=== PATIENT | female | born 1985 | race Caucasian/White ===

== ENCOUNTER 2016-06-16 15:49 | Emergency (ER) | payer OTHER ==
[~2016-06-16] VITALS: Ht 165.1 cm; Wt 61.0 kg
[~2016-06-16 15:49] MED LIST: AMOX875T PO
[2016-06-16 15:50] VITALS: BP 137/82; PULSE 74; RESP 15; TEMP 97.9; O2SAT 98
[2016-06-16 17:03] LABS: AUTOMATED NEUTROPHIL # 6.3 TH/MM3 (1.8-7.7); BASOPHIL % 0.4 % (0.0-2.0); EOSINOPHIL # 0.1 TH/MM3 (0-0.4); EOSINOPHIL % 1.4 % (0.0-4.0); HEMATOCRIT 35.6 % (35.0-46.0); HEMO FLAGS DIFF FINAL; LYMPH % 28.5 % (9.0-44.0); LYMPHOCYTE # 2.8 TH/MM3 (1.0-4.8); MEAN CELL VOLUME 90.4 FL (80.0-100.0); MEAN CORPUSCULAR HEMOGLOBIN 32.2 PG (27.0-34.0); MEAN CORPUSCULAR HGB CONC 35.6 % (32.0-36.0); MONO % 5.7 % (0.0-8.0); PLATELET COUNT 237 TH/MM3 (150-450); RED BLOOD COUNT 3.93 MIL/MM3 (4.00-5.30); WHITE BLOOD COUNT 9.9 TH/MM3 (4.0-11.0)
[2016-06-16 17:10] LABS: AMPHETAMINE, URINE NEG (NEG); BARBITURATES, URINE NEG (NEG); COCAINE, URINE NEG (NEG)
[2016-06-16 17:17] LABS: ANION GAP 8 MEQ/L (5-15); BICARBONATE 24.4 MEQ/L (21.0-32.0); BLOOD UREA NITROGEN 13 MG/DL (7-18); CHLORIDE 104 MEQ/L (98-107); GLOMERULAR FILTRATION RATE 100 ML/MIN (>89); POTASSIUM 3.7 MEQ/L (3.5-5.1); SODIUM (NA) 136 MEQ/L (136-145)
[2016-06-16 17:59] VITALS: BP 115/73; RESP 16; O2SAT 99
--- NOTE | 2016-06-16 17:59 | PD ---
HPI Chief Complaint: Abdominal Pain Time Seen by Provider: 16:05 Travel History International Travel<30 days: No Contact w/Intl Traveler<30days: No Traveled to known affect area: No History of Present Illness HPI This is a 30-year-old female who is 13 weeks who presents to the emergency department reporting requested detox from IV opiates. She says she was just in [facility] when she was discharged from [facility] they told her to come to the hospital because withdrawing is very dangerous to her baby. She doesn't want to do an inpatient detox program she only wants to do an outpatient program. She has been vomiting a fair amount during her . She is also reporting moderate severity pain involving and umbilical hernia, intermittent, worse since she's been . She was under the impression we can give her Subutex in the emergency department. PFSH Past Medical History Blood Disorders: No Bipolar Disorder: Yes (DIAGNOSED DURING CHILDHOOD) Anxiety: Yes (DIAGNOSED SINCE CHILDHOOD) Depression: Yes (MANIC DEPRESSION, POST DEPRESSION) Diminished Hearing: No Hepatitis: Yes (C) Reproductive: Yes (RECURRENT AND CHRONIC BARTHOLIN CYST.) Immunizations Current: Yes Tetanus Vaccination: < 5 Years Influenza Vaccination: Yes ?: LMP: 03/24/16 Menopausal: No : 2 Para: 1 Miscarriage: 0 : 1 Past Surgical History Surgical History: No Previous Surgery Social History Alcohol Use: No Tobacco Use: Yes (1/2 PACK PER DAY) Substance Use: Yes (OPIADES) Allergies-Medications (Allergen,Severity, Reaction): Coded Allergies: Haldol (Verified Adverse Reaction, Intermediate, SEIZURES, 06/16/16) Reported Meds & Prescriptions Reported Meds & Active Scripts Active No Active Prescriptions or Reported Medications Review of Systems Except as stated in HPI: all other systems reviewed are Neg Physical Exam Narrative GENERAL:Well appearing, no acute distress SKIN: Track rodriguez in the bilateral upper extremities HEAD: Atraumatic. Normocephalic. EYES: Pupils equal and round. No injection or drainage. ENT: Moist mucous membranes NECK: Trachea midline. CARDIOVASCULAR: Regular rate and rhythm. No murmur appreciated. RESPIRATORY: Clear to auscultation. Breath sounds equal bilaterally. GASTROINTESTINAL: Abdomen soft, non-tender, nondistended. MUSCULOSKELETAL: No obvious deformities. NEUROLOGICAL: Awake and alert. No obvious cranial nerve deficits. Moving all extremities. PSYCHIATRIC: Appropriate mood and affect; insight and judgment normal. Data Data Last Documented VS Vital Signs Date Time Temp Pulse Resp B/P Pulse Ox O2 Delivery O2 Flow Rate FiO2 06/16/16 15:57 17 06/16/16 15:50 97.9 74 137/82 98 Orders Complete Blood Count With Diff (06/16/16 16:37) Basic Metabolic Panel (Bmp) (06/16/16 16:37) Drug Screen, Random Urine (06/16/16 16:37) Alcohol (Ethanol) (06/16/16 16:37) Ed Poc Ultrasound (06/16/16 ) Labs Laboratory Tests Test 06/16/16 16:40 White Blood Count 9.9 TH/MM3 Red Blood Count 3.93 MIL/MM3 Hemoglobin 12.7 GM/DL Hematocrit 35.6 % Mean Corpuscular Volume 90.4 FL Mean Corpuscular Hemoglobin 32.2 PG Mean Corpuscular Hemoglobin 35.6 % Concent Red Cell Distribution Width 13.0 % Platelet Count 237 TH/MM3 Mean Platelet Volume 7.6 FL Neutrophils (%) (Auto) 64.0 % Lymphocytes (%) (Auto) 28.5 % Monocytes (%) (Auto) 5.7 % Eosinophils (%) (Auto) 1.4 % Basophils (%) (Auto) 0.4 % Neutrophils # (Auto) 6.3 TH/MM3 Lymphocytes # (Auto) 2.8 TH/MM3 Monocytes # (Auto) 0.6 TH/MM3 Eosinophils # (Auto) 0.1 TH/MM3 Basophils # (Auto) 0.0 TH/MM3 CBC Comment DIFF FINAL Differential Comment Sodium Level 136 MEQ/L Potassium Level 3.7 MEQ/L Chloride Level 104 MEQ/L Carbon Dioxide Level 24.4 MEQ/L Anion Gap 8 MEQ/L Blood Urea Nitrogen 13 MG/DL Creatinine 0.70 MG/DL Estimat Glomerular Filtration 100 ML/MIN Rate Random Glucose 79 MG/DL Calcium Level 8.4 MG/DL Urine Opiates Screen POS Urine Barbiturates Screen NEG Urine Amphetamines Screen NEG Urine Benzodiazepines Screen NEG Urine Cocaine Screen NEG Urine Cannabinoids Screen NEG Ethyl Alcohol Level LESS THAN 3 MG/DL MDM Medical Decision Making Medical Screen Exam Complete: Yes Emergency Medical Condition: Yes Interpretation(s) Afebrile, no tachycardia, normotensive No leukocytosis Electrolytes are reassuring Urine drug screen is positive for opiates Alcohol negative Differential Diagnosis Intrauterine , dehydration, electrolyte abnormality, opiate dependence Narrative Course This is a 30-year-old female who presents to the emergency department requesting outpatient detox and opiate replacement therapy. She is placed in a monitor and an IV was established. Labs are obtained which are reassuring and a [id number] ultrasound confirms a viable intrauterine . I recommended that the patient over to [facility] where she could be admitted for inpatient detox. She doesn't want to do that but does want to try to enroll in her outpatient program. I gave her copy of her laboratory work as well as confirmation of in hopes that she will enroll in a detox program. Procedures Procedure Narrative [id number] ultrasound: Intrauterine visualized with a heart rate of 152 with movement Diagnosis Primary Impression: Opiate dependence Qualified Code: F11.20 - Uncomplicated opioid dependence Additional Impression: Viable in first trimester Patient Instructions: General Instructions Additional Instructions: Follow up with [facility] in regards to psychiatric or substance related issues at: [address] [place] [address] Med/Other Pt SpecificInfo: No Change to Meds Scripts No Active Prescriptions or Reported Meds Disposition: 01 DISCHARGE HOME Condition: Stable Pattie Lin MD Jun 16, 2016 17:59
[2016-06-16 18:10] VITALS: BP 128/77; TEMP 97.8
== END 2016-06-16 18:10 | disposition home or self-care (01) ==
LOC: NEPC 15:49
DX: O99.321 Drug use complicating pregnancy, first trimester (principal); F11.20 Opioid dependence, uncomplicated; O21.9 Vomiting of pregnancy, unspecified; F17.200 Nicotine dependence, unspecified, uncomplicated; Z86.59 Personal history of other mental and behavioral disorders; Z86.19 Personal history of other infectious and parasitic diseases; Z87.42 Personal history of other diseases of the female genital tract; Z3A.13 13 weeks gestation of pregnancy
CPT/HCPCS: 80048; 80307; 80320; 85025; 99284

== ENCOUNTER 2016-08-24 13:10 | Emergency (ER) | payer MEDICAID, OTHER ==
[2016-08-24 13:12] VITALS: BP 128/98; PULSE 86; RESP 17; TEMP 98.2; O2SAT 97
--- NOTE | 2016-08-24 14:25 | PD ---
HPI Chief Complaint Patient is viability in order to get to detox program Date Seen: August 24, 2016 Travel History International Travel<30 Days: No Contact w/Intl Traveler<30Days: No Known Affected Area: No History of Present Illness HPI 30-year-old female who is at 19 weeks and 2 days who is entering the detox program. She needs verification of heart tones. Patient has no complaints at this time no abdominal pain she is just now starting to feel movement Para: 1 : 2 History Past Medical History Medical History: Denies Significant Hx Obstetric History Obstetric History Spontaneous vaginal delivery Past Surgical History Narrative Surgical Hernia repair Family History Family History: Negative Social History Alcohol Use: No Tobacco Use: No Substance Abuse: Yes Allergies-Medications (Allergen,Severity, Reaction): Coded Allergies: Haldol (Verified Adverse Reaction, Intermediate, SEIZURES, 06/16/16) Uncoded Allergies: NICKEL (Allergy, Intermediate, 08/24/16) Home Meds No Active Prescriptions or Reported Meds Review of Systems Except as stated in HPI: all other systems reviewed are Neg Physical Exam Vital Signs Date Time Temp Pulse Resp B/P Pulse Ox O2 Delivery O2 Flow Rate FiO2 08/24/16 13:12 98.2 86 17 128/98 97 Narrative GENERAL: Well-nourished, well-developed patient. SKIN: Warm and dry. HEAD: Normocephalic and atraumatic. EYES: No scleral icterus. No injection or drainage. ENT: No nasal drainage noted. Mucous membranes pink. Airway patent. ABDOMEN/GI: Abdomen soft, non-tender, bowel sounds present, no rebound, no guarding Gravid to [20] weeks size Fundal Height: [-] GENITOURINARY: External Genitalia: intact and normal in appearance BUS glands: [-] Cervix: [-] Dilatation: [-] Effacement: [-] Station: [-] Presentation: [-] Membranes: [intact or ruptured] Uterine Contractions: [-] FHT's: 152 EXTREMITIES: No cyanosis or edema. BACK: Nontender without obvious deformity. No CVA tenderness. NEUROLOGICAL: Awake and alert. Motor and sensory grossly within normal limits. Five out of 5 muscle strength in all muscle groups. Normal speech. Data Data Vital Signs Reviewed: Yes MDM Plan 19 wish gestation with heart tones clear to enter detox program at this time. Diagnosis Diagnosis: Primary Impression: 19 weeks gestation of Additional Impressions: Substance abuse Substance abuse affecting in second trimester, antepartum Disposition: 01 DISCHARGE HOME Scripts No Active Prescriptions or Reported Meds Alyce Hyde MD August 24, 2016 14:25
== END 2016-08-24 15:29 | disposition home or self-care (01) ==
LOC: HOBED 13:10
DX: O99.322 Drug use complicating pregnancy, second trimester (principal); F19.10 Other psychoactive substance abuse, uncomplicated; Z3A.19 19 weeks gestation of pregnancy
CPT/HCPCS: 99283

== ENCOUNTER 2016-10-07 18:02 | Emergency (ER) | payer MEDICAID ==
[~2016-10-07] VITALS: Ht 172.7 cm; Wt 75.0 kg
[2016-10-07 19:36] VITALS: BP 130/68; PULSE 78; RESP 20; TEMP 98.2; O2SAT 98
--- NOTE | 2016-10-07 22:58 | PD ---
HPI Chief Complaint Umbilical hernia pain and nausea and vomiting Date Seen: Oct 07, 2016 Travel History International Travel<30 Days: No Contact w/Intl Traveler<30Days: No Known Affected Area: No History of Present Illness HPI Patient is 30-year-old white female at 28 weeks with no care however she did have a 12 week ultrasound done June 16 here and that puts her at 28 weeks now, she presents with pain around the umbilical hernia, there is a umbilical mass present that's firm tender and the areas some bluish color to the skin Para: 0 : 1 History Social History Narrative Social History Known IV drug use in the past Alcohol Use: Yes Tobacco Use: Yes Substance Abuse: Yes Allergies-Medications (Allergen,Severity, Reaction): Coded Allergies: Haldol (Verified Adverse Reaction, Intermediate, SEIZURES, 06/16/16) Uncoded Allergies: NICKEL (Allergy, Intermediate, 08/24/16) Home Meds No Active Prescriptions or Reported Meds Review of Systems General / Constitutional: No: Fever, Weight Gain, Chills, Other Eyes: No: Diploplia, Blurred Vision, Visual changes, Pain, Photophobia HENT: No: Headaches, Vertigo, Lightheadedness Cardiovascular: No: Irregular Rhythm, Chest Pain or Discomfort, Palpitations, Tachycardia, Syncope, Varicosities, Edema, Cyanosis Respiratory: No: Cough, Short of Breath, Other Gastrointestinal: Nausea, Vomiting, Abdominal Pain, No: Diarrhea Genitourinary: No: Decreased Urinary Output, Oliguria Musculoskeletal: No: Limited ROM, Weakness, Cramping, Edema, Pain Skin: No Rash, No Itching, No Dryness, No Lumps, No Change in Pigmentation, No Change in Nails, No Alopecia, No Lesions Neurologic: No: Weakness, Dizziness, Syncope, Focal Abnormalities, Coordination Problem, Headache, Slurred Speech, Seizures Psychiatric: No: Depression, Suicidal Ideations, Homicidal Ideation Endocrine: No: Heat Intolerance, Cold Intolerance, Polydipsia, Polyuria, Other Physical Exam Vital Signs Date Time Temp Pulse Resp B/P Pulse Ox O2 Delivery O2 Flow Rate FiO2 10/07/16 19:36 98.2 78 20 130/68 98 Room Air Narrative GENERAL: Well-nourished, well-developed patient. SKIN: Warm and dry. HEAD: Normocephalic and atraumatic. EYES: No scleral icterus. No injection or drainage. ENT: No nasal drainage noted. Mucous membranes pink. Airway patent. NECK: Supple, trachea midline. No JVD. CARDIOVASCULAR: Regular rate and rhythm without murmurs, gallops, or rubs. RESPIRATORY: Breath sounds equal bilaterally. No accessory muscle use. BREASTS: Bilateral exam showed no masses , no retractions, no nipple discharge. ABDOMEN/GI: Abdomen there is an umbilical hernia approximately 5-6 cm wide that is protruding non reducible, firm and tender with a bluish color over the skin of this area , bowel sounds present, no rebound, no guarding Gravid to [-28] weeks size Fundal Height: [28-] GENITOURINARY: External Genitalia: intact and normal in appearance Membranes: [intact Uterine Contractions: [-none] FHT's: Category: [1-] Baseline: [-144] Reactive: [-yes] Variability: [mod-] Decels: [0-] EXTREMITIES: No cyanosis or edema. BACK: Nontender without obvious deformity. No CVA tenderness. NEUROLOGICAL: Awake and alert. Motor and sensory grossly within normal limits. Five out of 5 muscle strength in all muscle groups. Normal speech. MDM Interpretation(s) Patient is 30-year-old white female at 28 weeks with very little to no care however ultrasound done at around 12 weeks puts her now at 28 weeks she presents with an entrapped umbilical hernia that is non-reducible firm hard and discolored and is suspicious for incarcerated bowel. The heart rates within normal limits and no contractions no obstetric issue Plan Plan for patient to go to the main ER to be evaluated by general surgery Diagnosis Diagnosis: Primary Impression: Strangulated umbilical hernia Disposition: 70 TRANSFER TO OTHER FACILITY Scripts No Active Prescriptions or Reported Meds Bishop Corado II, MD Oct 07, 2016 22:58
[2016-10-07] MEDS ORDERED: HYDROmorphone HCL PF 1 MG/ML VIAL IV PUSH ONE (23:45)
[2016-10-07] MEDS ORDERED: ONDANSETRON HCL 4 MG/2 ML VIAL IV PUSH ONE (23:45)
[2016-10-07] MEDS ORDERED: SODIUM CHLOR 0.9% 1000 ML INJ 1,000 ML IV ONE (23:45)
[2016-10-08 00:09] LABS: BASOPHIL % 0.3 % (0.0-2.0); EOSINOPHIL # 0.1 TH/MM3 (0-0.4); EOSINOPHIL % 1.4 % (0.0-4.0); HEMATOCRIT 38.7 % (35.0-46.0); HEMO FLAGS DIFF FINAL; LYMPH % 28.1 % (9.0-44.0); LYMPHOCYTE # 2.7 TH/MM3 (1.0-4.8); MEAN CELL VOLUME 89.7 FL (80.0-100.0); MEAN CORPUSCULAR HEMOGLOBIN 31.6 PG (27.0-34.0); MEAN CORPUSCULAR HGB CONC 35.2 % (32.0-36.0); MONO % 6.6 % (0.0-8.0); NEUT % 63.6 % (16.0-70.0); PLATELET COUNT 277 TH/MM3 (150-450); RED BLOOD COUNT 4.32 MIL/MM3 (4.00-5.30); RED CELL DISTRIBUTION WIDTH 12.2 % (11.6-17.2); WHITE BLOOD COUNT 9.4 TH/MM3 (4.0-11.0)
[2016-10-08 00:40] LABS: ALT (GPT) 31 U/L (10-53); ANION GAP 7 MEQ/L (5-15); AST (GOT) 28 U/L (15-37); BLOOD UREA NITROGEN 10 MG/DL (7-18); CHLORIDE 102 MEQ/L (98-107); GLOMERULAR FILTRATION RATE 100 ML/MIN (>89); POTASSIUM 3.7 MEQ/L (3.5-5.1); SODIUM (NA) 136 MEQ/L (136-145)
[2016-10-08 00:43] LABS: ALKALINE PHOSPHATASE 105 U/L (45-117); TOTAL BILIRUBIN ADULT 0.4 MG/DL (0.2-1.0)
--- NOTE | 2016-10-08 00:48 | PD ---
HPI Chief Complaint: MILI Related Problem Time Seen by Provider: 23:33 Travel History International Travel<30 days: No Contact w/Intl Traveler<30days: No Traveled to known affect area: No History of Present Illness HPI 30 year-old woman, approximately 28 weeks , 2 para 1, 0, 0, 1 presents emergency department complaining of pain in her local hernia site. She developed an umbilical hernia over the past month or so. Over the past couple days she's been having worsening nausea and vomiting, and then yesterday started having pain in her umbilical hernia site. She was initially waiting for emergency department evaluation and then was seen in L&D where she had a normal screening. She still has pain and tenderness at her umbilical hernia site. History Past Medical History Medical History: Denies Significant Hx Menopausal: No : 2 Para: 1 Social History Alcohol Use: Yes Tobacco Use: Yes Allergies-Medications (Allergen,Severity, Reaction): Coded Allergies: Haldol (Verified Adverse Reaction, Intermediate, SEIZURES, 06/16/16) Uncoded Allergies: NICKEL (Allergy, Intermediate, 08/24/16) Reported Meds & Prescriptions Reported Meds & Active Scripts Active No Active Prescriptions or Reported Medications Review of Systems Except as stated in HPI: all other systems reviewed are Neg Physical Exam Narrative GENERAL: 30 year-old woman, appears uncomfortable, nontoxic. SKIN: Focused skin assessment warm/dry. Tract rodriguez on the right arm. NECK: Trachea midline. No JVD. CARDIOVASCULAR: Regular rate and rhythm. No murmur appreciated. RESPIRATORY: No accessory muscle use. Clear to auscultation. Breath sounds equal bilaterally. GASTROINTESTINAL: Abdomen is gravid, soft, with the umbilical hernia about 2-3 cm. There is some purplish discoloration to the skin over the hernia. It soft but exquisitely tender. MUSCULOSKELETAL: No obvious deformities. No clubbing. No cyanosis. No edema. NEUROLOGICAL: Awake and alert. No obvious cranial nerve deficits. Motor grossly within normal limits. Normal speech. PSYCHIATRIC: Appropriate mood and affect; insight and judgment normal. Data Data Last Documented VS Vital Signs Date Time Temp Pulse Resp B/P Pulse Ox O2 Delivery O2 Flow Rate FiO2 10/07/16 19:36 98.2 78 20 130/68 98 Room Air Orders Iv Access Insert/Monitor (10/07/16 23:40) Complete Blood Count With Diff (10/07/16 23:40) Comprehensive Metabolic Panel (10/07/16 23:40) Sodium Chlor 0.9% 1000 Ml Inj (Ns 1000 M (10/07/16 23:45) Hydromorphone Pf Inj (Dilaudid Pf Inj) (10/07/16 23:45) Ondansetron Inj (Zofran Inj) (10/07/16 23:45) Abdomen, Upright Only (10/08/16 ) Mri Abdomen W/O Contrast (10/08/16 ) Labs Laboratory Tests Test 10/07/16 23:55 White Blood Count 9.4 TH/MM3 Red Blood Count 4.32 MIL/MM3 Hemoglobin 13.6 GM/DL Hematocrit 38.7 % Mean Corpuscular Volume 89.7 FL Mean Corpuscular Hemoglobin 31.6 PG Mean Corpuscular Hemoglobin 35.2 % Concent Red Cell Distribution Width 12.2 % Platelet Count 277 TH/MM3 Mean Platelet Volume 7.6 FL Neutrophils (%) (Auto) 63.6 % Lymphocytes (%) (Auto) 28.1 % Monocytes (%) (Auto) 6.6 % Eosinophils (%) (Auto) 1.4 % Basophils (%) (Auto) 0.3 % Neutrophils # (Auto) 6.0 TH/MM3 Lymphocytes # (Auto) 2.7 TH/MM3 Monocytes # (Auto) 0.6 TH/MM3 Eosinophils # (Auto) 0.1 TH/MM3 Basophils # (Auto) 0.0 TH/MM3 CBC Comment DIFF FINAL Differential Comment Sodium Level 136 MEQ/L Potassium Level 3.7 MEQ/L Chloride Level 102 MEQ/L Carbon Dioxide Level 27.0 MEQ/L Anion Gap 7 MEQ/L Blood Urea Nitrogen 10 MG/DL Creatinine 0.70 MG/DL Estimat Glomerular Filtration 100 ML/MIN Rate Random Glucose 80 MG/DL Calcium Level 9.2 MG/DL Aspartate Amino Transf 28 U/L (AST/SGOT) Alanine Aminotransferase 31 U/L (ALT/SGPT) Albumin 3.3 GM/DL [facility] Medical Decision Making Medical Screen Exam Complete: Yes Emergency Medical Condition: Yes Differential Diagnosis Hernia, incarceration, strength regulation, obstruction, other Narrative Course Medical decision making 22 year-old woman, about 25-28 weeks , presents ED with pain in her umbilical hernia site. She has track rodriguez and a history of IVDU but denies any recent use. She appears hyperalgesic, extremely dramatic. Ice pack was placed on the hernia, and she was given some initial IV analgesia with Dilaudid. Following this she was able to allow a thorough exam of the hernia. It was soft, exquisitely tender, but able to be fully reduced. I then spoke with Dr. Weir, surgeon on-call. He recommended a plain film, followed by MRI to evaluate for evidence of obstruction or intestinal ischemia. He recommended monitoring the patient overnight for further evaluation and monitoring. During this time, patient became progressively more irritated and irate. Seem to so she was fighting with the man who is with her. Unclear. In any case she began demanding to leave. I went back in to talk to her and she was demanding to have her IV taken out. She cannot provide any specific reason for wanting to leave other than "I have been here long enough". She was aggressive with nursing and security staff including following one of the security guards "Don' t let that spick back in my room". I instructed staff to allow the patient to leave. Diagnosis Primary Impression: Incarcerated umbilical hernia Scripts No Active Prescriptions or Reported Meds Disposition: 07 AGAINST MEDICAL ADVICE Obi Bryant MD Oct 08, 2016 00:48
== END 2016-10-08 00:35 | disposition left against medical advice (07) ==
LOC: HOBED 18:02 → NEPC 10-08 00:35
DX: O26.93 Pregnancy related conditions, unspecified, third trimester (principal); K42.0 Umbilical hernia with obstruction, without gangrene; R11.2 Nausea with vomiting, unspecified; Z3A.28 28 weeks gestation of pregnancy; Z72.0 Tobacco use
CPT/HCPCS: 80053; 85025; 96374; 96375; 99284; J1170; J2405; J7030

== ENCOUNTER 2016-12-02 02:10 | Inpatient (IN) | payer MEDICAID ==
[2016-12-02] VITALS (168 sets, daily range): BP systolic 102–140; BP diastolic 53–92; PULSE 64–89; RESP 18; TEMP 97.5–100
[~2016-12-02] VITALS: Ht 165.1 cm; Wt 65.8 kg
--- NOTE | 2016-12-02 02:41 | HHI.HP ---
HPI Chief Complaint Water broke and having pain Date Seen: Dec 02, 2016 Travel History International Travel<30 Days: No Contact w/Intl Traveler<30Days: No Known Affected Area: No History of Present Illness HPI 30-year-old white female at 35-36 weeks with spontaneous rupture the membranes and contraction onset. No vaginal bleeding. Gross ruptured membranes noted on exam and OB ED and positive amnio sure seen patient is a known IV drug abuser and did IV heroin just a few hours ago Para: 1 : 2 History Past Medical History Narrative Medical Has history of umbilical hernia that is occasionally symptomatic with the tenderness and pain. Obstetric History Obstetric History One vaginal delivery Social History Narrative Social History known IV drug abuser and has used IV heroin today Alcohol Use: Yes Tobacco Use: Yes Substance Abuse: Yes Allergies-Medications (Allergen,Severity, Reaction): Coded Allergies: Haldol (Verified Adverse Reaction, Intermediate, SEIZURES, 06/16/16) Uncoded Allergies: NICKEL (Allergy, Intermediate, 08/24/16) Home Meds No Active Prescriptions or Reported Meds Review of Systems General / Constitutional: No: Fever, Weight Gain, Chills, Other Eyes: No: Diploplia, Blurred Vision, Visual changes, Pain, Photophobia HENT: No: Headaches, Vertigo, Lightheadedness Cardiovascular: No: Irregular Rhythm, Chest Pain or Discomfort, Palpitations, Tachycardia, Syncope, Varicosities, Edema, Cyanosis Respiratory: No: Cough, Short of Breath, Other Gastrointestinal: Abdominal Pain, No: Nausea, Vomiting, Diarrhea Genitourinary: No: Decreased Urinary Output, Oliguria Musculoskeletal: No: Limited ROM, Weakness, Cramping, Edema, Pain Skin: No Rash, No Itching, No Dryness, No Lumps, No Change in Pigmentation, No Change in Nails, No Alopecia, No Lesions Neurologic: No: Weakness, Dizziness, Syncope, Focal Abnormalities, Coordination Problem, Headache, Slurred Speech, Seizures Psychiatric: No: Depression, Suicidal Ideations, Homicidal Ideation Endocrine: No: Heat Intolerance, Cold Intolerance, Polydipsia, Polyuria, Other Physical Exam Narrative GENERAL: Well-nourished, well-developed patient. SKIN: Warm and dry. HEAD: Normocephalic and atraumatic. EYES: No scleral icterus. No injection or drainage. ENT: No nasal drainage noted. Mucous membranes pink. Airway patent. NECK: Supple, trachea midline. No JVD. CARDIOVASCULAR: Regular rate and rhythm without murmurs, gallops, or rubs. RESPIRATORY: Breath sounds equal bilaterally. No accessory muscle use. BREASTS: Bilateral exam showed no masses , no retractions, no nipple discharge. ABDOMEN/GI: Abdomen soft, non-tender, bowel sounds present, no rebound, no guarding Bishop Grijalva and noted as not to change since up previously seen by me at 28 weeks Gravid to [-36] weeks size Fundal Height: [-35] GENITOURINARY: External Genitalia: intact and normal in appearance BUS glands: [-] Cervix: [-] Dilatation: [2-] Effacement: [-90] Station: [-1] Presentation: [-vtx] Membranes: ruptured] positive amnio sure Uterine Contractions: [irreg-] FHT's: Category: [1-] Baseline: [-133] Reactive: [-yes] Variability: [mod-] Decels: [-none] EXTREMITIES: No cyanosis or edema. BACK: Nontender without obvious deformity. No CVA tenderness. NEUROLOGICAL: Awake and alert. Motor and sensory grossly within normal limits. Five out of 5 muscle strength in all muscle groups. Normal speech. Assessment/Plan Assessment and Plan Patient is 30-year-old white female at 35-36 weeks with essentially no care other than ER visits who presents with spontaneous rupture membranes and early contractions. She is grossly ruptured in OB ED with positive amnio sure. Cervix is 1-2/ 90% -2 vertex. The approximately 12 week ultrasound dates are at 35-36 weeks. Patient is known IV drug abuser and has used IV heroin today. And is under it's effective at this time Impression -- SROM at 35-36 weeks and early labor, IV drug abuser Plans admission labor augmentation management anticipate vaginal delivery Bishop Corado II, MD Dec 02, 2016 02:41
[2016-12-02] MEDS ORDERED: LACTATED RINGER'S 1000 ML INJ 1,000 ML IV PRN (02:43)
[2016-12-02] MEDS ORDERED: LIDOCAINE HCL 1% 50 ML VIAL I-DERMAL PRN (02:45)
[2016-12-02] MEDS ORDERED: MINERAL OIL 10 ML VIAL TOPICAL PRN (02:45)
[2016-12-02] MEDS ORDERED: PENICILLIN G POTASSIUM INJ 5,000,000 UNITS in SODIUM CHLORIDE 0.9% INJ 100 ML IV ONE (02:45)
[2016-12-02] MEDS ORDERED: OXYTOCIN 30 UNITS-500ML PREMIX 500 ML IV ONE (02:45)
[2016-12-02] MEDS ORDERED: CITRIC ACID-SODIUM CITRATE LIQ 30 ML UDC PO SCH (02:45)
[2016-12-02] MEDS ORDERED: SODIUM CHLORID 0.9% 500 ML INJ 500 ML IV PRN (02:45)
[2016-12-02] MEDS ORDERED: LIDOCAINE HCL 1% 50 ML VIAL INFIL PRN (02:45)
[2016-12-02] MEDS ORDERED: OXYTOCIN 30 UNITS-500ML PREMIX 500 ML IV SCH ×2 (03:00→17:00)
[2016-12-02] MEDS ORDERED: SODIUM CHLOR 0.9% 1000 ML INJ 1,000 ML IV PRN (03:03)
[2016-12-02 03:17] LABS: AUTOMATED NEUTROPHIL # 10.8 TH/MM3 (1.8-7.7); BASOPHIL # 0.1 TH/MM3 (0-0.2); BASOPHIL % 0.4 % (0.0-2.0); EOSINOPHIL # 0.1 TH/MM3 (0-0.4); HEMATOCRIT 31.7 % (35.0-46.0); HEMO FLAGS DIFF FINAL; LYMPH % 15.1 % (9.0-44.0); LYMPHOCYTE # 2.1 TH/MM3 (1.0-4.8); MEAN CELL VOLUME 90.2 FL (80.0-100.0); MEAN CORPUSCULAR HEMOGLOBIN 32.1 PG (27.0-34.0); MEAN CORPUSCULAR HGB CONC 35.6 % (32.0-36.0); MONO % 6.1 % (0.0-8.0); NEUT % 77.4 % (16.0-70.0); PLATELET COUNT 255 TH/MM3 (150-450); RED BLOOD COUNT 3.52 MIL/MM3 (4.00-5.30); RED CELL DISTRIBUTION WIDTH 12.5 % (11.6-17.2); WHITE BLOOD COUNT 13.9 TH/MM3 (4.0-11.0)
[2016-12-02 03:39] LABS: ANION GAP 11 MEQ/L (5-15); AST (GOT) 46 U/L (15-37); BICARBONATE 23.4 MEQ/L (21.0-32.0); BLOOD UREA NITROGEN 10 MG/DL (7-18); CHLORIDE 104 MEQ/L (98-107); GLOMERULAR FILTRATION RATE 83 ML/MIN (>89); POTASSIUM 3.5 MEQ/L (3.5-5.1); SODIUM (NA) 138 MEQ/L (136-145)
[2016-12-02 03:47] LABS: AMPHETAMINE, URINE NEG (NEG); BARBITURATES, URINE NEG (NEG)
[2016-12-02 03:51] LABS: BLOOD, URINE NEG (NEG); COMMENT (UR) CULT NOT INDICATED; CULTURE IF INDICATED CULT NOT INDICATED; GLUCOSE,URINE TRACE mg/dL (NEG); HYALINE CAST, URINE 2 /lpf (RARE); KETONE, URINE NEG (NEG); MUCUS URINE FEW /lpf (OCC); NITRITE,URINE NEG (NEG); PH, URINE 6.5 (5.0-8.5); SQUAMOUS EPITHELIAL CELL URINE 3 /hpf (0-5); URINE COLOR YELLOW (YELLW/STRAW)
[2016-12-02 03:56] LABS: ALKALINE PHOSPHATASE 121 U/L (45-117); ALT (GPT) 57 U/L (10-53); TOTAL BILIRUBIN ADULT 0.3 MG/DL (0.2-1.0)
[2016-12-02] MEDS ORDERED: fentaNYL 2MCG-BUPIV 0.125% INJ 100 ML ONE (03:56)
[2016-12-02 03:57] LABS: COCAINE, URINE POS (NEG)
[2016-12-02] MEDS ORDERED: DO NOT ADMINISTER ANTICOAGULANTS PRN (05:15)
[2016-12-02] MEDS ORDERED: NO SYSTEM NARCOTICS PRN (05:15)
[2016-12-02] MEDS ORDERED: fentaNYL 2MCG-BUPIV 0.125% 100 ML EPIDURAL SCH (05:15)
[2016-12-02] MEDS ORDERED: ePHEDrine/NS 25 MG/5 ML SYR IV PRN (05:15)
[2016-12-02] MEDS: LACTATED RINGER'S 1000 ML INJ 1,000 ML IV SCH ×2 (05:16→12:15)
[2016-12-02] MEDS ORDERED: PENICILLIN G POTASSIUM INJ 2,500,000 UNITS in SODIUM CHLORIDE 0.9% INJ 100 ML IV SCH ×2 (06:45→12:00)
[2016-12-02] MEDS ORDERED: GENTAMICIN INJ 80 MG in SODIUM CHLORIDE 0.9% INJ 100 ML IV SCH (09:00)
--- NOTE | 2016-12-02 10:12 | PD.PN.STU ---
Subjective Remarks 30 yo at 35-36 weeks by 12 week ultrasound presented last night complaining of leakage of fluid and contractions. She admits to a history of IV drug abuse and UDS is positive for cocaine and opiates so far. She has not been receiving any care due to "inability to find a physician". She currently admits to using IV heroin and denies any other drug use. Her drug use started 10 years ago and has continued use during her . She acquires her heroin via her dealer. She uses a $20 bag 2-4 times a day. She has previously received treatment at [facility] twice and [facility] once. Last time she attempted treatment was 4-5 years ago. She currently lives at home with Huey in a hotel for the past few months. This is where she will return to after her delivery. She states he is aware of her use "but he does not use drugs and he really wants me to receive treatment". She states she is interested in treatment but this is not congruent with her attitude. She also has a history of tobacco use which has continued during her . 1 pack per day for 10 years. Not interested in quitting. She denies any alcohol use including only social use. OB History 2009 full term female at 6lbs 4 oz - [place] - History of post- depression Bartholin cyst at age 20. Last PAP 2009. Never abnormal. No history of STDs or UTIs Past Medical History Umbilical hernia Hep C diagnosed 2015. No previous treatment but interested in treatment. Past Psychiatric History Bipolar Manic depression Post depression Anxiety No current treatment or mental health provider. Past Surgical History None Medications None Allergies Haldol - causes seizures. Last seizure >10 years ago. No history of seizures not related to medication exposure Nickel - cause rash Objective Vitals Vital Signs Date Time Temp Pulse Resp B/P Pulse Ox O2 Delivery O2 Flow Rate FiO2 12/02/16 09:33 18 12/02/16 09:30 75 12/02/16 09:30 99.6 74 133/78 12/02/16 09:25 79 12/02/16 09:20 85 12/02/16 09:15 78 12/02/16 09:10 75 12/02/16 09:05 74 12/02/16 09:01 77 119/64 12/02/16 09:00 74 12/02/16 08:55 75 12/02/16 08:50 73 12/02/16 08:45 75 12/02/16 08:40 73 18 12/02/16 08:35 75 12/02/16 08:30 75 12/02/16 08:30 73 115/64 12/02/16 08:25 75 12/02/16 08:20 74 12/02/16 08:15 73 12/02/16 08:10 72 12/02/16 08:05 72 12/02/16 08:00 80 12/02/16 07:55 77 12/02/16 07:54 18 12/02/16 07:50 76 12/02/16 07:45 71 12/02/16 07:45 73 110/53 12/02/16 07:40 74 12/02/16 07:35 77 12/02/16 07:31 74 108/54 12/02/16 07:30 74 12/02/16 07:25 73 12/02/16 07:20 75 12/02/16 07:17 100.0 18 12/02/16 07:15 73 12/02/16 07:15 73 115/55 12/02/16 07:10 73 12/02/16 07:05 73 12/02/16 07:00 71 12/02/16 07:00 72 113/58 12/02/16 06:48 18 12/02/16 06:45 72 12/02/16 06:45 69 116/57 12/02/16 06:41 67 113/56 12/02/16 06:40 68 12/02/16 06:35 68 12/02/16 06:30 67 12/02/16 06:30 68 102/57 12/02/16 06:20 67 12/02/16 06:16 66 117/60 12/02/16 06:15 65 12/02/16 06:00 70 12/02/16 06:00 68 120/66 12/02/16 05:55 73 12/02/16 05:50 71 12/02/16 05:45 75 102/53 12/02/16 05:45 75 12/02/16 05:30 73 12/02/16 05:30 72 105/54 12/02/16 05:25 69 12/02/16 05:20 74 12/02/16 05:17 18 12/02/16 05:15 73 12/02/16 05:15 69 105/55 12/02/16 05:00 65 12/02/16 05:00 68 117/58 12/02/16 05:00 98.3 18 12/02/16 04:58 78 116/67 12/02/16 04:55 75 12/02/16 04:55 72 124/83 12/02/16 04:52 69 131/74 12/02/16 04:50 68 12/02/16 04:48 67 135/71 12/02/16 04:45 66 12/02/16 04:45 73 131/70 12/02/16 04:42 67 117/66 12/02/16 04:40 65 12/02/16 04:39 67 118/68 12/02/16 04:37 76 123/81 12/02/16 04:35 70 12/02/16 04:33 70 136/85 12/02/16 04:31 69 140/75 12/02/16 04:30 69 12/02/16 04:25 64 12/02/16 04:20 68 12/02/16 03:55 67 129/82 Result Diagram: 12/02/16 0300 12/02/16 0300 Other Results GENERAL: Alert and oriented to person, place and time. Very mildly agitated, states she would prefer to sleep but does answer questions. Prefers low light in the room due to headache. SKIN: Warm. Mildly sweaty. HEAD: Normocephalic. EYES: No scleral icterus. No injection or drainage. Pupils equal and reactive. Pupils not dilated. NECK: Supple, trachea midline. No JVD or lymphadenopathy. CARDIOVASCULAR: Regular rate and rhythm without murmurs, gallops, or rubs. RESPIRATORY: Breath sounds equal bilaterally. No accessory muscle use. GASTROINTESTINAL: Abdomen soft, non-tender. Gravid abdomen. MUSCULOSKELETAL: No cyanosis, or edema. BACK: Nontender without obvious deformity. No CVA tenderness. HIV - negative UA - negative Gc/Chl - pending GBS - pending COWS score 1 CAMH score 6 A/P Assessment and Plan 30 yo at 35-36 weeks by 12 week ultrasound who presented last night complaining of leakage of fluid and contractions. 1. Labor - Anticipate vaginal delivery - Continue EFM/TOCO - Received epidural - Vertex - 6-7cm/70%/-1 @10:30 as per chart - Strip: Contractions q3 mins Moderate variability No accelerations Some late decelerations this am but none within the last hour 2. No care - labs ordered 3. SROM at 35-36 weeks. - Received 2 doses of penicillin - Penicillin switched to ampicillin and gentamicin due to temperature elevation and leukocytosis of 13.9 4. IV Drug abuse - Current COWS (Clinical Opiate Withdrawal Scale) score 0. Score not indicative of current withdrawal - Paper record added to patient chart - Continue to assess 5. Hepatitis C - Elevation of AST and ALT - GI referral as outpatient 6. Tobacco Use - Patient not interested in quitting Amanda Owens M3 Dec 02, 2016 10:12
[2016-12-02 11:32] LABS: RUBELLA IGG ANTIBODY 28.1 IU/mL (10.0-500.0); RUBELLA STATUS IMMUNE (IMMUNE)
[2016-12-02] MEDS ORDERED: AMPICILLIN INJ 2,000 MG in SODIUM CHLORIDE 0.9% INJ 100 ML IV SCH (12:00)
--- NOTE | 2016-12-02 13:16 | PD.LABORPN ---
Subjective Subjective more comfortable, after epidural. Objective Vital Signs Vital Signs Date Time Temp Pulse Resp B/P Pulse Ox O2 Delivery O2 Flow Rate FiO2 12/02/16 13:00 84 139/82 12/02/16 13:00 85 12/02/16 12:55 81 12/02/16 12:54 80 137/80 12/02/16 12:51 99.2 18 12/02/16 12:50 79 12/02/16 12:45 83 12/02/16 12:40 77 12/02/16 12:35 78 12/02/16 12:30 77 12/02/16 12:30 84 132/86 12/02/16 12:25 78 12/02/16 12:20 77 12/02/16 12:15 76 12/02/16 12:10 78 12/02/16 12:05 73 12/02/16 12:01 75 117/57 12/02/16 12:00 83 12/02/16 11:58 99.8 18 12/02/16 11:55 84 12/02/16 11:50 78 12/02/16 11:45 77 12/02/16 11:40 80 12/02/16 11:35 77 12/02/16 11:30 76 12/02/16 11:30 79 128/80 12/02/16 11:25 77 12/02/16 11:20 76 12/02/16 11:15 74 12/02/16 11:10 75 12/02/16 11:05 76 12/02/16 11:00 78 12/02/16 11:00 74 119/64 12/02/16 10:55 78 12/02/16 10:50 75 12/02/16 10:45 73 12/02/16 10:40 76 12/02/16 10:35 76 12/02/16 10:31 80 18 102/63 12/02/16 10:30 79 12/02/16 10:25 75 12/02/16 10:20 72 12/02/16 10:15 71 12/02/16 10:10 74 12/02/16 10:05 74 12/02/16 10:01 74 123/67 12/02/16 10:00 75 12/02/16 09:55 73 12/02/16 09:50 73 12/02/16 09:45 77 12/02/16 09:40 75 12/02/16 09:35 79 12/02/16 09:33 18 12/02/16 09:30 75 12/02/16 09:30 99.6 74 133/78 12/02/16 09:25 79 12/02/16 09:20 85 12/02/16 09:15 78 12/02/16 09:10 75 12/02/16 09:05 74 12/02/16 09:01 77 119/64 12/02/16 09:00 74 12/02/16 08:55 75 12/02/16 08:50 73 12/02/16 08:45 75 12/02/16 08:40 73 18 12/02/16 08:35 75 12/02/16 08:30 75 12/02/16 08:30 73 115/64 12/02/16 08:25 75 12/02/16 08:20 74 12/02/16 08:15 73 12/02/16 08:10 72 12/02/16 08:05 72 12/02/16 08:00 80 12/02/16 07:55 77 12/02/16 07:54 18 12/02/16 07:50 76 12/02/16 07:45 71 12/02/16 07:45 73 110/53 12/02/16 07:40 74 12/02/16 07:35 77 12/02/16 07:31 74 108/54 12/02/16 07:30 74 12/02/16 07:25 73 12/02/16 07:20 75 12/02/16 07:17 100.0 18 12/02/16 07:15 73 12/02/16 07:15 73 115/55 12/02/16 07:10 73 12/02/16 07:05 73 12/02/16 07:00 71 12/02/16 07:00 72 113/58 12/02/16 06:48 18 12/02/16 06:45 72 12/02/16 06:45 69 116/57 12/02/16 06:41 67 113/56 12/02/16 06:40 68 12/02/16 06:35 68 12/02/16 06:30 67 12/02/16 06:30 68 102/57 12/02/16 06:20 67 12/02/16 06:16 66 117/60 12/02/16 06:15 65 12/02/16 06:00 70 12/02/16 06:00 68 120/66 12/02/16 05:55 73 12/02/16 05:50 71 12/02/16 05:45 75 102/53 12/02/16 05:45 75 12/02/16 05:30 73 12/02/16 05:30 72 105/54 12/02/16 05:25 69 12/02/16 05:20 74 12/02/16 05:17 18 12/02/16 05:15 73 12/02/16 05:15 69 105/55 Objective Pelvic Exam: Cervix: [7cm, per L&D nurse, pt was checked just prior to my arrival Dilatation: [-] Effacement: [-] Station: [-] Presentation: [vertex] Membranes: [ ruptured on admission] Uterine Contractions: [every 2-3 minutes, pt has IUPC. FHT's: Category: [1] Baseline: [-] Reactive: [-] Variability: [-] Decels: [-] Assessment/Plan Assessment and Plan Term labor. /maternal status reassuring Continue antibiotics- Ancef and Gentamycin. No further temperature elevations. To add low dose Pitocin Expectant Hernesto Brwon MD Dec 02, 2016 13:16
[2016-12-02] MEDS ORDERED: BUPIVACAINE HCL PF 0.25% 10 ML VIAL ONE (14:14)
[2016-12-02 15:57] LABS: CHLAMYDIA PCR NOT DETECTED (NOT DETECT); NEISSERIA PCR NOT DETECTED (NOT DETECT)
[2016-12-02] MEDS ORDERED: DIPHTH/TETANUS/ACEL PERTUSSIS (BOOSTER) 0.5 ML VIAL/PFS IM ONE (16:00)
[2016-12-02] MEDS ORDERED: MEASLES, MUMPS, RUBELLA VACCINE 0.5 ML VIAL SQ ONE (16:00)
--- NOTE | 2016-12-02 16:24 | PD.OB.DELI ---
Delivery Date: Dec 02, 2016 Anesthesia: Epidural Episiotomy: None Vaginal Delivery: Normal Presentation: Occiput anterior, Compound (right hand) Nuchal Cord: None Delayed cord clamping (45 sec): No Infant: Female One Minute : 8 Five Minute : 9 Weight: 2200g Placenta: Spontaneous delivery, Intact, 3 vessel cord Laceration: Vaginal laceration (bilateral periurethral), 1 deg (bilateral periurethral) Estimated blood loss: 300ml Additional Information Compound presentation with right hand. Head and body delivered precipitously by maternal effort. There was noted to be cord wrapped around the baby's right foot. After delivery, 2 hemostatic periurethral lacerations were noted. Delivered by Dr. Walsh. Supervised by Dr. Brown. Al Walsh MD Dec 02, 2016 16:24
[2016-12-02] MEDS ORDERED: DOCUSATE SODIUM 50 MG/SENNA 8.6 MG TAB PO PRN (16:30)
[2016-12-02] MEDS ORDERED: ACETAMINOPHEN 325 MG TAB PO PRN (16:30)
[2016-12-02] MEDS ORDERED: BENZOCAINE 20% TOPICAL SPRAY 60 ML CAN TOPICAL PRN (16:30)
[2016-12-02] MEDS ORDERED: WITCH HAZEL 50%/GLYCERIN 12.5% 40 PAD JAR TOPICAL PRN (16:30)
[2016-12-02] MEDS ORDERED: ALUMINUM/MAGNESIUM/SIMETH 30 ML CUP PO PRN (16:30)
[2016-12-02] MEDS ORDERED: ZOLPIDEM TARTRATE 5 MG TAB PO PRN (16:30)
[2016-12-02] MEDS ORDERED: oxyCODONE/ACETAMINOPHEN 5 MG/325 MG TAB PO PRN (16:30)
[2016-12-02] MEDS ORDERED: ONDANSETRON ODT 4 MG TAB PO PRN (16:30)
[2016-12-02] MEDS ORDERED: SODIUM CHLORIDE 0.9% FLUSH 10 ML FLUSH IV FLUSH PRN (16:30)
[2016-12-02] MEDS ORDERED: BENZONATATE 100 MG CAP PO PRN (18:15)
[2016-12-02] MEDS: IBUPROFEN 600 MG TAB PO PRN (18:51)
[2016-12-02] MEDS ORDERED: SODIUM CHLORIDE 0.9% FLUSH 10 ML FLUSH IV FLUSH SCH (21:00)
[2016-12-02] MEDS ORDERED: PROMETHAZINE HCL 25 MG TAB PO PRN (22:30)
[2016-12-02] MEDS ORDERED: DIAZEPAM 2 MG TAB PO PRN (22:30)
--- NOTE | 2016-12-02 22:54 | RADRPT ---
EXAM DATE/TIME: 12/02/2016 22:21 [place] COMPARISON: No previous studies available for comparison. INDICATIONS : Cough. MEDICAL HISTORY : None. SURGICAL HISTORY : None. ENCOUNTER: Initial ACUITY: 3 days PAIN SCORE: 0/10 LOCATION: Bilateral chest FINDINGS: A single view of the chest demonstrates the lungs to be symmetrically aerated without evidence of mas s, infiltrate or effusion. The cardiomediastinal contours are unremarkable. Osseous structures are intact. CONCLUSION: No acute disease. Randolph Gibbs MD on December 02, 2016 at 22:52 Board Certified Radiologist. This report was verified electronically.
[2016-12-03] MEDS: IBUPROFEN 600 MG TAB PO PRN ×2 (04:23→12:44)
[2016-12-03] MEDS: cloNIDine HCL 0.1 MG TAB PO PRN ×2 (06:34→12:43)
[2016-12-03] MEDS: PHENobarbital 32.4 MG TAB PO SCH ×2 (06:35→14:00)
[2016-12-03 08:00] VITALS: BP 127/75; PULSE 65; RESP 16; TEMP 98.7
[2016-12-03] MEDS: oxyCODONE/ACETAMINOPHEN 5 MG/325 MG TAB PO PRN ×2 (08:02→12:44)
--- NOTE | 2016-12-03 08:22 | HHI.OB ---
Subjective Post Day: 1 Remarks Patient is a 30-year-old delivered at 36 weeks and 1 days. Patient is day 1 after . Patient's pain reports vaginal pain. Patient reports eating and drinking without any nausea or vomiting. Nurse reports scant bleeding. Patient has passed gas and bowel movements. Patient is walking without lower extremity pain or shortness of breath or chest pain. She denies any feelings of depression Patient reports desire for contraception with Depo- Provera and bottle/formula feeding. Objective Vitals/I&O Vital Signs Date Time Temp Pulse Resp B/P Pulse Ox O2 Delivery O2 Flow Rate FiO2 12/02/16 19:30 98.5 72 18 129/74 12/02/16 18:47 18 12/02/16 18:00 18 12/02/16 17:45 72 136/80 12/02/16 17:31 69 124/62 12/02/16 17:29 18 12/02/16 17:15 67 118/71 12/02/16 17:15 18 12/02/16 17:05 18 12/02/16 17:00 18 12/02/16 16:46 75 126/92 12/02/16 16:45 18 12/02/16 16:32 75 127/70 12/02/16 16:25 97.5 12/02/16 16:25 76 126/72 12/02/16 16:24 18 12/02/16 16:15 79 124/77 12/02/16 16:00 81 122/65 12/02/16 15:30 79 116/65 12/02/16 15:20 75 125/65 12/02/16 15:19 99.2 18 12/02/16 15:15 84 12/02/16 15:10 79 12/02/16 15:05 76 12/02/16 15:00 82 12/02/16 14:55 89 12/02/16 14:50 85 12/02/16 14:45 84 12/02/16 14:40 84 12/02/16 14:35 82 12/02/16 14:30 85 12/02/16 14:30 81 128/80 12/02/16 14:25 81 12/02/16 14:20 79 12/02/16 14:20 79 124/70 12/02/16 14:15 80 12/02/16 14:10 78 12/02/16 14:05 77 12/02/16 14:00 18 12/02/16 14:00 81 12/02/16 13:55 86 12/02/16 13:54 88 125/82 12/02/16 13:50 84 12/02/16 13:45 83 12/02/16 13:40 86 12/02/16 13:35 86 12/02/16 13:31 80 137/80 12/02/16 13:30 86 12/02/16 13:25 85 12/02/16 13:24 85 133/84 12/02/16 13:20 88 12/02/16 13:15 81 12/02/16 13:10 80 12/02/16 13:05 79 12/02/16 13:00 84 139/82 12/02/16 13:00 85 12/02/16 12:55 81 12/02/16 12:54 80 137/80 12/02/16 12:51 99.2 18 12/02/16 12:50 79 12/02/16 12:45 83 12/02/16 12:40 77 12/02/16 12:35 78 12/02/16 12:30 77 12/02/16 12:30 84 132/86 12/02/16 12:25 78 12/02/16 12:20 77 12/02/16 12:15 76 12/02/16 12:10 78 12/02/16 12:05 73 12/02/16 12:01 75 117/57 12/02/16 12:00 83 12/02/16 11:58 99.8 18 12/02/16 11:55 84 12/02/16 11:50 78 12/02/16 11:45 77 12/02/16 11:40 80 12/02/16 11:35 77 12/02/16 11:30 76 12/02/16 11:30 79 128/80 12/02/16 11:25 77 12/02/16 11:20 76 12/02/16 11:15 74 12/02/16 11:10 75 12/02/16 11:05 76 12/02/16 11:00 78 12/02/16 11:00 74 119/64 12/02/16 10:55 78 12/02/16 10:50 75 12/02/16 10:45 73 12/02/16 10:40 76 12/02/16 10:35 76 12/02/16 10:31 80 18 102/63 12/02/16 10:30 79 12/02/16 10:25 75 12/02/16 10:20 72 12/02/16 10:15 71 12/02/16 10:10 74 12/02/16 10:05 74 12/02/16 10:01 74 123/67 12/02/16 10:00 75 12/02/16 09:55 73 12/02/16 09:50 73 12/02/16 09:45 77 12/02/16 09:40 75 12/02/16 09:35 79 12/02/16 09:33 18 12/02/16 09:30 75 12/02/16 09:30 99.6 74 133/78 12/02/16 09:25 79 12/02/16 09:20 85 12/02/16 09:15 78 12/02/16 09:10 75 12/02/16 09:05 74 12/02/16 09:01 77 119/64 12/02/16 09:00 74 12/02/16 08:55 75 12/02/16 08:50 73 12/02/16 08:45 75 12/02/16 08:40 73 18 12/02/16 08:35 75 12/02/16 08:30 75 12/02/16 08:30 73 115/64 12/02/16 08:25 75 12/02/16 08:20 74 Objective Remarks GENERAL: Well-nourished, well-developed patient. CARDIOVASCULAR: Regular rate and rhythm without murmurs, gallops, or rubs. RESPIRATORY: Breath sounds equal bilaterally. No accessory muscle use. ABDOMEN/GI: Abdomen soft, non-tender. Fundus: Firm, non-tender at umbilicus. GENITOURINARY: Light bleeding. EXTREMITIES: No cyanosis or edema, non-tender, without signs of DVT. Medications and IVs Current Medications Medications (Trade) Dose Ordered Sig/Gely Route Start Time Stop Time Status Last Admin (fentaNYL 2MCG-BUPIV 0.125% INJ) 100 ml @ 0 mls/hr TITRATE EPIDURAL 12/02/16 05:15 12/02/16 05:17 (NS Flush) 2 ml BID IV FLUSH 12/02/16 21:00 (NS Flush) 2 ml UNSCH PRN IV FLUSH 12/02/16 16:30 (Tylenol) 650 mg Q4H PRN PO 12/02/16 16:30 (Motrin) 600 mg Q6H PRN PO 12/02/16 16:30 12/03/16 04:23 (Percocet 5-325 Mg) 1 tab Q4H PRN PO 12/02/16 16:30 (Percocet 5-325 Mg) 2 tab Q4H PRN PO 12/02/16 16:30 12/03/16 08:02 (Americaine 20% Top Spr) 1 spray Q4H PRN TOPICAL 12/02/16 16:30 12/03/16 04:36 (Tucks Pads) 1 applic QID PRN TOPICAL 12/02/16 16:30 12/03/16 04:36 (Lucy-Colace) 2 tab Q12H PRN PO 12/02/16 16:30 (Ambien) 5 mg HS PRN PO 12/02/16 16:30 (Mag-Al Plus Susp Liq) 15 ml Q8H PRN PO 12/02/16 16:30 (Zofran Odt) 4 mg Q6H PRN PO 12/02/16 16:30 (Tessalon) 200 mg TID PRN PO 12/02/16 18:15 12/03/16 04:23 (Vistaril) 50 mg Q4H PRN PO 12/02/16 22:30 12/03/16 08:01 (Catapres) 0.1 mg Q4HR PRN PO 12/02/16 22:30 12/03/16 06:34 (PHENobarbital) 32.4 mg Q8HR PO 12/02/16 22:30 12/03/16 06:35 (Phenergan) 25 mg Q6H PRN PO 12/02/16 22:30 (Valium) 2 mg Q12H PRN PO 12/02/16 22:30 12/03/16 07:26 Assessment/Plan Problem List: (1) (spontaneous vaginal delivery) Assessment and Plan Patient is a 30-year-old delivered at 36 weeks and 1 days. Patient is day 1 after . Patient was counseled to do 6 weeks of pelvic rest. Patient was counseled to follow up in 6 weeks. Patient requested follow-up and contraception. --AF VSS --Continue routine care --Motrin and Percocet when necessary for pain --Encourage OOB --Pelvic rest for 6 weeks will need follow-up appointment at that time. --Contraception: Depo-Provera --Anticipate discharge tomorrow d/w Dr. Kevin Walsh,Al Crawford MD R2 Dec 03, 2016 08:22
[2016-12-03] MEDS ORDERED: medroxyPROGESTERone ACETATE SUSP 150 MG/ML SYRINGE IM ONE (09:00)
--- NOTE | 2016-12-03 12:06 | PD.PSY.CON ---
Provisional Diagnosis Admission Date Dec 02, 2016 at 02:35 History of Present Illness Service Psychiatry Consult Requested By Reason for Consult Depression Primary Care Physician No Primary Care Physician Past Family Social History Coded Allergies: Haldol (Verified Adverse Reaction, Intermediate, SEIZURES, 06/16/16) Uncoded Allergies: NICKEL (Allergy, Intermediate, 08/24/16) No Active Prescriptions or Reported Meds Current Medications Medications (Trade) Dose Ordered Sig/Gely Route Start Time Stop Time Status Last Admin (fentaNYL 2MCG-BUPIV 0.125% INJ) 100 ml @ 0 mls/hr TITRATE EPIDURAL 12/02/16 05:15 12/02/16 05:17 (NS Flush) 2 ml BID IV FLUSH 12/02/16 21:00 (NS Flush) 2 ml UNSCH PRN IV FLUSH 12/02/16 16:30 (Tylenol) 650 mg Q4H PRN PO 12/02/16 16:30 (Motrin) 600 mg Q6H PRN PO 12/02/16 16:30 12/03/16 04:23 (Percocet 5-325 Mg) 1 tab Q4H PRN PO 12/02/16 16:30 (Percocet 5-325 Mg) 2 tab Q4H PRN PO 12/02/16 16:30 12/03/16 08:02 (Americaine 20% Top Spr) 1 spray Q4H PRN TOPICAL 12/02/16 16:30 12/03/16 04:36 (Tucks Pads) 1 applic QID PRN TOPICAL 12/02/16 16:30 12/03/16 04:36 (Lucy-Colace) 2 tab Q12H PRN PO 12/02/16 16:30 (Ambien) 5 mg HS PRN PO 12/02/16 16:30 (Mag-Al Plus Susp Liq) 15 ml Q8H PRN PO 12/02/16 16:30 (Zofran Odt) 4 mg Q6H PRN PO 12/02/16 16:30 (Tessalon) 200 mg TID PRN PO 12/02/16 18:15 12/03/16 04:23 (Vistaril) 50 mg Q4H PRN PO 12/02/16 22:30 12/03/16 08:01 (Catapres) 0.1 mg Q4HR PRN PO 12/02/16 22:30 12/03/16 06:34 (PHENobarbital) 32.4 mg Q8HR PO 12/02/16 22:30 12/03/16 06:35 (Phenergan) 25 mg Q6H PRN PO 12/02/16 22:30 (Valium) 2 mg Q12H PRN PO 12/02/16 22:30 12/03/16 07:26 Physical Exam Vital Signs Vital Signs Date Time Temp Pulse Resp B/P Pulse Ox O2 Delivery O2 Flow Rate FiO2 12/03/16 08:00 98.7 65 16 127/75 Assessment & Plan Problem List: (1) Substance abuse affecting in second trimester, antepartum Assessment & Plan: Patient was visited by psychiatric team this morning, she was sleeping, oppositional, declined to cooperate with psychiatric assessment at this moment . Will come back in another occasion today or tomorrow morning. ICD Code: O99.322 Assessment & Plan Estimated LOS: Juan Bergman MD Dec 03, 2016 12:06
[2016-12-05 10:40] LABS: RAPID PLASMA REAGIN SCREEN NON-REACTIVE (NON-REACTVE)
== END 2016-12-03 14:30 | disposition home or self-care (01) | DRG 774 ==
LOC: HOBED 02:10 → H2EB 02:35 → H1EA 19:39
PROVIDERS: ADMIT Obstetrics & Gynecology Maternal & Fetal Medicine; ATTEND Obstetrics & Gynecology Maternal & Fetal Medicine
PROC: 10E0XZZ Delivery of Products of Conception, External Approach (ICD-10-PCS; principal; 2016-12-02)
PROC: 00HU33Z Insertion of Infusion Device into Spinal Canal, Percutaneous Approach (ICD-10-PCS; 2016-12-02)
PROC: 3E0R3CZ (ICD-10-PCS; 2016-12-02)
DX: O75.89 Other specified complications of labor and delivery (principal); O98.42 Viral hepatitis complicating childbirth; O99.324 Drug use complicating childbirth; K42.9 Umbilical hernia without obstruction or gangrene; O99.334 Smoking (tobacco) complicating childbirth; B19.20 Unspecified viral hepatitis C without hepatic coma; F14.10 Cocaine abuse, uncomplicated; F11.10 Opioid abuse, uncomplicated; D72.829 Elevated white blood cell count, unspecified; F17.210 Nicotine dependence, cigarettes, uncomplicated; O32.6XX0 Maternal care for compound presentation, not applicable or unspecified; O69.82X0 Labor and delivery complicated by other cord entanglement, without compression, not applicable or unspecified; O71.82 Other specified trauma to perineum and vulva; O62.3 Precipitate labor; Z3A.36 36 weeks gestation of pregnancy; Z37.0 Single live birth
CPT/HCPCS: 71010; 80053; 80074; 80307; 81001; 84112; 85025; 86592; 86703; 86762; 86900; 86901; 87081; 87150; 87491; 87591; G0481; J0290; J1050; J1580; J2540; J2590; J3010; J7120

== ENCOUNTER 2017-06-25 20:05 | Emergency (ER) | payer SELFPAY ==
[~2017-06-25] VITALS: Ht 167.6 cm; Wt 72.0 kg
[2017-06-25 20:14] VITALS: BP 142/77; PULSE 73; RESP 16; TEMP 97.9; O2SAT 100
[2017-06-25] MEDS ORDERED: LIDOCAINE HCL 1% PF 30 ML VIAL ONE (20:39)
--- NOTE | 2017-06-25 20:39 | PD ---
HPI Chief Complaint: Skin Problem Time Seen by Provider: 20:21 Travel History International Travel<30 days: No Contact w/Intl Traveler<30days: No Traveled to known affect area: No History of Present Illness HPI Patient 31-year-old female recovering IV drug abuser states has not used in some time presents emergency department for evaluation of left hand abscess. Patient states on the dorsum of her hand for the past few days after she was bitten by a spider. She states it has been worsening, she limits the abscess at home and went to an outside facility was placed on unknown antibiotic possibly Augmentin. She adamantly denies using IV drugs at this site. Denies any fever denies any nausea vomiting. PFSH Past Medical History Blood Disorders: No Bipolar Disorder: Yes (DIAGNOSED DURING CHILDHOOD) Anxiety: Yes (DIAGNOSED SINCE CHILDHOOD) Depression: Yes (MANIC DEPRESSION, POST DEPRESSION) Diminished Hearing: No Hepatitis: Yes (C) Reproductive: Yes (RECURRENT AND CHRONIC BARTHOLIN CYST.) Immunizations Current: Yes ?: Not Menopausal: No : 2 Para: 1 Miscarriage: 0 : 1 Social History Alcohol Use: Yes Tobacco Use: Yes (1 ppd) Substance Use: Yes (OPIADES) Allergies-Medications (Allergen,Severity, Reaction): Coded Allergies: haloperidol (Unverified Adverse Reaction, Intermediate, SEIZURES, 06/25/17) Uncoded Allergies: NICKEL (Allergy, Intermediate, 08/24/16) Reported Meds & Prescriptions Reported Meds & Active Scripts Active Clindamycin (Clindamycin HCl) 150 Mg Cap 300 Mg PO Q6H 10 Days Review of Systems Except as stated in HPI: all other systems reviewed are Neg Physical Exam Narrative GENERAL: Well-nourished, well-developed patient. SKIN: Focused skin assessment warm/dry. There is a quarter sized abscess fluctuant on the dorsum of the left hand, surrounding edema extends into the fingers but this is reactive edema without any erythema. Does not cross the wrist. The palmar aspect of the hand is unaffected. HEAD: Normocephalic. EYES: No scleral icterus. No injection or drainage. NECK: Supple, trachea midline. No JVD or lymphadenopathy. CARDIOVASCULAR: Regular rate and rhythm without murmurs, gallops, or rubs. RESPIRATORY: Breath sounds equal bilaterally. No accessory muscle use. GASTROINTESTINAL: Abdomen soft, non-tender, nondistended. MUSCULOSKELETAL: No cyanosis, or edema. BACK: Nontender without obvious deformity. No CVA tenderness. Data Data Last Documented VS Vital Signs Date Time Temp Pulse Resp B/P (MAP) Pulse Ox O2 Delivery O2 Flow Rate FiO2 06/25/17 21:15 06/25/17 20:14 97.9 73 16 100 Orders Orders Lidocaine 1% Inj (Xylocaine 1% Inj) (06/25/17 20:45) Oeet-Nnf-Ybxxmi (Booster) Inj (Boostrix (06/25/17 20:45) Wound Culture And Gram Stain (06/25/17 20:39) Lidocaine Pf 1% Inj (Xylocaine-Mpf 1% In (06/25/17 20:39) Clindamycin (Cleocin) (06/25/17 21:00) Ed Discharge Order (06/25/17 21:01) MDM Medical Decision Making Medical Screen Exam Complete: Yes Emergency Medical Condition: Yes Differential Diagnosis Abscess, cellulitis, sepsis unlikely Narrative Course Patient room to the emergency department, I&D performed, this yielded serous fluid mixed with pus, was expressed and the fluctuant area was completely flattened. Patient has not had any progression of the erythema while in the emergency department and no rapid progression at home. This certainly does not represent necrotizing fasciitis. It certainly is possible that she did have a hemolytic spider bite but certainly this cannot be confirmed. Still there is purulent material in the abscess. I think is reasonable to switch her from Augmentin to clindamycin at this time. I discussed symptomatic management return to ED criteria and need follow-up with a hand surgeon. She verbalized understanding and agreement. She is stable for discharge Diagnosis Primary Impression: Abscess Med/Other Pt SpecificInfo: Prescription(s) given Scripts Clindamycin (Clindamycin) 150 Mg Cap 300 MG PO Q6H for Infection for 10 Days, #80 CAP 0 Refills Prov: John Warner MD 06/25/17 Disposition: 01 DISCHARGE HOME Condition: Stable John Warner MD Jun 25, 2017 20:39
[2017-06-25] MEDS ORDERED: DIPHTH/TETANUS/ACEL PERTUSSIS (BOOSTER) 0.5 ML VIAL/PFS IM ONE (20:45)
[2017-06-25] MEDS ORDERED: LIDOCAINE HCL 1% 30 ML VIAL INFIL ONE (20:45)
[2017-06-25] MEDS ORDERED: CLIN150C14 PO (21:00)
[2017-06-25] MEDS ORDERED: CLINDAMYCIN 150 MG CAP PO ONE (21:00)
== END 2017-06-25 21:28 | disposition home or self-care (01) ==
LOC: PHEFT 20:05
DX: L02.512 Cutaneous abscess of left hand (principal); B95.62 Methicillin resistant Staphylococcus aureus infection as the cause of diseases classified elsewhere; Z16.19 Resistance to other specified beta lactam antibiotics; Z16.11 Resistance to penicillins; F17.210 Nicotine dependence, cigarettes, uncomplicated; Z23 Encounter for immunization
CPT/HCPCS: 10060; 86403; 87070; 87186; 87205; 90471; 90715

== ENCOUNTER 2017-11-01 22:10 | Inpatient (IN) ==
[2017-11-01] MEDS ORDERED: Piperacil/Tazo 4.5 GM Premix 4.5 GM/100 ML BAG IV.SIG ONE (22:31)
[2017-11-01] MEDS ORDERED: Sod Chloride 0.9% Inj 1,000 ML IV.SIG ONE ×2 (22:31→23:53)
[2017-11-01] MEDS ORDERED: Vancomycin Inj 1 GM/200 ML PIGGYBACK IV.SIG ONE (22:31)
--- NOTE | 2017-11-01 22:42 | ED ---
HPI General Chief complaint: Altered Mental Status Stated complaint: AMS/Evac Time Seen by Provider: 11/01/17 22:25 History of Present Illness HPI narrative: Patient is a 31-year-old female presents emergency department by EVAC for evaluation of altered mental status. 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 Apparently is using at methamphetamines. Boyfriend apparently called 911 tonight as the patient was significantly altered. On arrival patient found to be significantly febrile, she is unable to provide any of her own history just screen she is very thirsty need to drink. She did receive 5 of Versed prior to arrival on my order so that EMS could evaluate and treat her. All other history is extremely limited by the patient's altered mental status. Related Data Home Medications Medication Instructions Recorded Confirmed Unable to Obtain Home Meds 11/01/17 11/01/17 Allergies Allergy/AdvReac Type Severity Reaction Status Date / Time haloperidol AdvReac Intermediate SEIZURES Verified 11/01/17 22:36 NICKEL Allergy Intermediate Anxiety Uncoded 11/01/17 22:36 Review of Systems ROS Unobtainable unobtainable due to mental status PMFSH Social History Social History Second Hand Smoke Exposure: Yes Smoking Status: Current every day smoker Tobacco Type: Cigarettes How Often Do You Have a Drink Containing Alcohol: 4 or more times a week Recent Travel in [place] within the Last 8 Weeks: No Recent Out of Country Travel within the Last 8 Weeks: No Exam Narrative Exam Narrative: GENERAL: Well-developed well-nourished nontoxic appearing 31- year-old female peer SKIN: Hot clammy, scattered petechiae on the left and right ankle. No purpura seen. There is wound and probable healing draining abscess to the right index finger about the MCP joint. This is consistent with abscess secondary to IV drug abuse which is already been drained. There are some scattered areas of erythema on her person consistent with multiple areas of cellulitis from recent IV drug abuse. Scattered track rodriguez seen. Posterior relatively clear. HEAD: Atraumatic. There is some right-sided facial swelling, unknown etiology. EYES: Pupils equal and round. No scleral icterus. No injection or drainage. ENT: No nasal bleeding or discharge. Mucous membranes pink and moist. NECK: Trachea midline. No JVD. CARDIOVASCULAR: Tachycardia with regular rhythm. No murmurs gallops or rubs appreciated peer. No murmur appreciated. RESPIRATORY: No accessory muscle use. Clear to auscultation. Breath sounds equal bilaterally. GASTROINTESTINAL: Abdomen soft, non-tender, nondistended. Hepatic and splenic margins not palpable. MUSCULOSKELETAL: No obvious deformities. No clubbing. No cyanosis. No edema. NEUROLOGICAL: Awake and alert, does not follow commands but moves all 4 extremities. Very confused, cannot answer simple questions, only screams that she is thirsty. No obvious cranial nerve deficits. PSYCHIATRIC: Unable to assess Course Initial Documented Vital Signs Temperature 102.8 F H 11/01/17 22:18 Pulse Rate 114 H 11/01/17 22:18 Respiratory Rate 20 11/01/17 22:18 Blood Pressure 151/70 H 11/01/17 22:18 Pulse Oximetry 95 11/01/17 22:18 Last Documented Vital Signs Temperature 99 F 11/02/17 06:00 Pulse Rate 108 H 11/02/17 06:00 Respiratory Rate 24 11/02/17 06:00 Blood Pressure 124/67 11/02/17 06:00 Pulse Oximetry 96 11/02/17 06:50 Critical Care Time Critical Care Time: Yes Total Critical Care Time: 61 Attestation: Aggregate critical care time was 61 minutes. Time to perform other separately billable procedures was not included in the critical care time. My time did not include minutes spent treating any other patients simultaneously or on activities that did not directly contribute to the patient's treatment. The services I provided to this patient were to treat and/or prevent clinically significant deterioration that could result in: , disability, organ failure I provided critical care services requiring my management, as noted below: Chart data review, documentation time, medication orders and management, vital sign assessments/reviewing monitor data, ordering and reviewing lab tests, ordering and interpreting/reviewing x-rays and diagnostic studies, care of the patient and discussion of the patient with the admitting physicians. Medical Decision Making MDM Narrative Medical decision making narrative: Patient room to the emergency department, recognizing the critical air patient, EMS started IV axis and she received 1500 cc of fluid prior to arrival, an additional liter of fluid given. She has scattered edema about her person and could represent early congestive heart failure. No obvious murmur heard but certainly endocarditis leading the differential however meningitis is a close second. She was started on broad- spectrum antibiotics to cover for possible endocarditis, CT head indicated to rule out infectious abscess of the brain, CT head negative, decision was made to proceed with LP. Patient's labs reviewed and do show significant bandemia with toxic vacuolation, total white blood cell count is actually normal. Platelet count is decreased to 43 however I think that the lumbar puncture is still indicated and the benefits outweigh the risks. The patient is not able to participate in consent given her altered mental status and there is no family available to consent for her. While preparing to sedate the patient with ketamine for LP the patient was consulted to Dr. Leon for possible intubation for ease of procedure however I would like to confer with him prior to intubating the patient. He is arrived at the bedside and would like to hold off intubating the patient for frequent neurologic checks instead. While I have been caring for other critically ill patients Dr. Leon has been able to obtain spinal tap and will assume patient care from here. We have added a dose of Rocephin after lumbar puncture. Differential Diagnosis Differential Diagnosis: Endocarditis, Sirs, sepsis, meningitis, head injury, facial injury, cellulitis, agitated delirium, electrolyte abnormality, septic shock, congestive heart failure. Lab Data Result diagrams: 11/01/17 22:30 11/01/17 22:30 Lab Results 11/01/17 11/01/17 11/01/17 Range/Units 22:30 22:30 22:30 WBC 9.5 (4.0-11.0) th/mm3 RBC 3.41 L (4.00-5.30) mil/mm3 Hgb 10.0 L (11.6-15.3) gm/dL Hct 28.5 L (35.0-46.0) % MCV 83.5 (80.0-100.0) fL MCH 29.4 (27.0-34.0) pg MCHC 35.2 (32.0-36.0) % RDW 14.0 (11.6-17.2) % Plt Count 43 L (150-450) th/mm3 MPV 9.2 (7.0-11.0) fL Prelim Diff (Auto) Slide review pending Neut % (Auto) 80.8 H (16.0-70.0) % Lymph % (Auto) 7.0 L (9.0-44.0) % [place] % (Auto) 10.2 H (0.0-8.0) % Eos % (Auto) 1.8 (0.0-4.0) % Baso % (Auto) 0.2 (0.0-2.0) % Neut # (Auto) 7.7 (1.8-7.7) th/mm3 Lymph # (Auto) 0.7 L (1.0-4.8) th/mm3 [place] # (Auto) 1.0 H (0.0-0.9) th/mm3 Eos # (Auto) 0.2 (0.0-0.4) th/mm3 Baso # (Auto) 0.0 (0.0-0.2) th/mm3 WBC Differential Manual diff final Seg Neuts % (Manual) 79 H (16-70) % Band Neuts % (Manual) 11 H (0-6) % Lymphocytes % (Manual) 6 L (9-44) % Monocytes % (Manual) 4 (0-8) % Abs Neuts (Manual) 8.6 H (1.8-7.7) th/mm3 Differential Comment . Toxic Granulation 1+ H (None) Toxic Vacuolation Present H (None) Dohle Bodies Present H (None) Platelet Estimate Low L (Normal) Platelet Morphology Normal (Normal) RBC Morphology Normal (Normal) PT 14.4 H (9.8-11.6) sec INR 1.4 Ratio APTT 36.2 H (24.3-30.1) sec Puncture Site Patient Temperature O2 Saturation (90-100) % ABG pH (7.380-7.420) ABG pCO2 (38-42) mmHg ABG pO2 (61-120) mmHg ABG HCO3 (22-26) mmol/L ABG O2 Content (12.0-20.0) Vol % ABG Base Excess (-2-2) mmol/L ABG Methemoglobin (0-2) % Jose Test Hemoglobin (12.0-16.0) G/DL Carboxyhemoglobin (0-4) % O2 Delivery Device Liter Flow L/M Inspired O2 % Critical Value Sodium 135 L (136-145) meq/L Potassium 2.4 L* (3.5-5.1) meq/L Chloride 99 (98-107) meq/L Carbon Dioxide 24.1 (21.0-32.0) meq/L Anion Gap 12 (5-15) meq/L BUN 22 H (7-18) mg/dL Creatinine 1.03 H (0.50-1.00) mg/dL Estimated GFR 63 L (>89) mL/min Random Glucose 95 (74-106) mg/dL Lactic Acid (0.4-2.0) mmol/L Calcium 6.6 L* (8.5-10.1) mg/dL Prot Corrected Calcium 7.5 L (8.5-10.1) mg/dL Phosphorus 1.5 L (2.5-4.9) mg/dL Magnesium 1.4 L (1.5-2.5) mg/dL Total Bilirubin 1.5 H (0.2-1.0) mg/dL AST 77 H (15-37) U/L ALT 31 (10-53) U/L Alkaline Phosphatase 111 (45-117) U/L Total Creatine Kinase 902 H (26-192) U/L CK-MB (CK-2) 4.6 H (0.5-3.6) ng/mL CK-MB (CK-2) % 0.5 (0.0-4.0) % Troponin I Less than 0.02 L (0.02-0.05) ng/mL Total Protein 5.2 L (6.4-8.2) g/dL Albumin 2.0 L (3.4-5.0) g/dL Lipase 372 (73-393) U/L Beta HCG, Quant Less than 1 (0-5) mIU/mL Urine Color (Yellw/Straw) Urine Clarity (Clear) Urine pH (5.0-8.5) Ur Specific [place] (1.002-1.035) Urine Protein (Neg-Trace) mg/dL Urine Glucose (UA) (Negative) mg/dL Urine Ketones (Negative) mg/dL Urine Occult Blood (Negative) Urine Nitrate (Negative) Urine Bilirubin (Negative) Urine Urobilinogen (Less than 2) mg/dL Ur Leukocyte Esterase (Negative) Urine RBC (0-3) /hpf Urine WBC (0-5) /hpf Ur Squamous Epith Cells (0-5) /hpf Amorphous Sediment (None) /hpf Urine Bacteria (None) /hpf Urine Mucus (Occasional) /lpf Micro UA Comment Urine Culture Comments CSF Volume (1) mL CSF Supernat Color (1) (Clear) CSF Gross Blood (1) (0) CSF WBC (1) CSF RBC (1) CSF Volume (2) mL CSF Supernat Color (2) (Clear) CSF Gross Blood (2) (0) CSF WBC (2) CSF RBC (2) CSF Volume (3) mL CSF Supernat Color (3) (Clear) CSF Gross Blood (3) (0) CSF WBC (3) CSF RBC (3) CSF Volume (4) mL CSF Supernat Color (4) (Clear) CSF Gross Blood (4) (0) CSF WBC (4) CSF RBC (4) CSF Neutrophils % % CSF Lymphocytes % % CSF Monocytes % % CSF Glucose (40-80) mg/dL CSF Lactic Acid (0.0-3.0) mmol/L CSF Total Protein (15.0-45.0) mg/dL CSF N.mening B/E.coli K1 CSF N.meningitidis A/Y Nasal Screen MRSA (PCR) (Negative) Salicylates (2.8-20.0) mg/dL Urine Opiates Screen (Neg) Acetaminophen (10.0-30.0) mcg/mL Ur Barbiturates Screen (Neg) Ur Amphetamines Screen (Neg) U Benzodiazepines Scrn (Neg) Urine Cocaine Screen (Neg) U Cannabinoids Screen (Neg) Serum Alcohol (0-5) mg/dL Bacterial Ag Source Hepatitis A IgM Ab (Nonreactive) Hep Bs Antigen (Nonreactive) Hep B Core IgM Ab (Nonreactive) Hep C IgG Ab (Nonreactive) H.influenzae Type B Ag N. meningitidis C/W 135 Group B Strep Antigen S. pneumoniae Antigen 11/01/17 11/01/17 11/01/17 Range/Units 22:30 22:30 22:30 WBC (4.0-11.0) th/mm3 RBC (4.00-5.30) mil/mm3 Hgb (11.6-15.3) gm/dL Hct (35.0-46.0) % MCV (80.0-100.0) fL MCH (27.0-34.0) pg MCHC (32.0-36.0) % RDW (11.6-17.2) % Plt Count (150-450) th/mm3 MPV (7.0-11.0) fL Prelim Diff (Auto) Neut % (Auto) (16.0-70.0) % Lymph % (Auto) (9.0-44.0) % [place] % (Auto) (0.0-8.0) % Eos % (Auto) (0.0-4.0) % Baso % (Auto) (0.0-2.0) % Neut # (Auto) (1.8-7.7) th/mm3 Lymph # (Auto) (1.0-4.8) th/mm3 [place] # (Auto) (0.0-0.9) th/mm3 Eos # (Auto) (0.0-0.4) th/mm3 Baso # (Auto) (0.0-0.2) th/mm3 WBC Differential Seg Neuts % (Manual) (16-70) % Band Neuts % (Manual) (0-6) % Lymphocytes % (Manual) (9-44) % Monocytes % (Manual) (0-8) % Abs Neuts (Manual) (1.8-7.7) th/mm3 Differential Comment Toxic Granulation (None) Toxic Vacuolation (None) Dohle Bodies (None) Platelet Estimate (Normal) Platelet Morphology (Normal) RBC Morphology (Normal) PT (9.8-11.6) sec INR Ratio APTT (24.3-30.1) sec Puncture Site Patient Temperature O2 Saturation (90-100) % ABG pH (7.380-7.420) ABG pCO2 (38-42) mmHg ABG pO2 (61-120) mmHg ABG HCO3 (22-26) mmol/L ABG O2 Content (12.0-20.0) Vol % ABG Base Excess (-2-2) mmol/L ABG Methemoglobin (0-2) % Jose Test Hemoglobin (12.0-16.0) G/DL Carboxyhemoglobin (0-4) % O2 Delivery Device Liter Flow L/M Inspired O2 % Critical Value Sodium (136-145) meq/L Potassium (3.5-5.1) meq/L Chloride (98-107) meq/L Carbon Dioxide (21.0-32.0) meq/L Anion Gap (5-15) meq/L BUN (7-18) mg/dL Creatinine (0.50-1.00) mg/dL Estimated GFR (>89) mL/min Random Glucose (74-106) mg/dL Lactic Acid 1.5 (0.4-2.0) mmol/L Calcium (8.5-10.1) mg/dL Prot Corrected Calcium (8.5-10.1) mg/dL Phosphorus (2.5-4.9) mg/dL Magnesium (1.5-2.5) mg/dL Total Bilirubin (0.2-1.0) mg/dL AST (15-37) U/L ALT (10-53) U/L Alkaline Phosphatase (45-117) U/L Total Creatine Kinase (26-192) U/L CK-MB (CK-2) (0.5-3.6) ng/mL CK-MB (CK-2) % (0.0-4.0) % Troponin I (0.02-0.05) ng/mL Total Protein (6.4-8.2) g/dL Albumin (3.4-5.0) g/dL Lipase (73-393) U/L Beta HCG, Quant (0-5) mIU/mL Urine Color Yellow (Yellw/Straw) Urine Clarity Hazy H (Clear) Urine pH 6.0 (5.0-8.5) Ur Specific [place] 1.014 (1.002-1.035) Urine Protein 30 H (Neg-Trace) mg/dL Urine Glucose (UA) Negative (Negative) mg/dL Urine Ketones Trace H (Negative) mg/dL Urine Occult Blood Moderate H (Negative) Urine Nitrate Negative (Negative) Urine Bilirubin Negative (Negative) Urine Urobilinogen 2.0 H (Less than 2) mg/dL Ur Leukocyte Esterase Negative (Negative) Urine RBC 1 (0-3) /hpf Urine WBC 6 H (0-5) /hpf Ur Squamous Epith Cells 4 (0-5) /hpf Amorphous Sediment Rare H (None) /hpf Urine Bacteria Occasional H (None) /hpf Urine Mucus Few H (Occasional) /lpf Micro UA Comment Culture not ind Urine Culture Comments Culture not ind CSF Volume (1) mL CSF Supernat Color (1) (Clear) CSF Gross Blood (1) (0) CSF WBC (1) CSF RBC (1) CSF Volume (2) mL CSF Supernat Color (2) (Clear) CSF Gross Blood (2) (0) CSF WBC (2) CSF RBC (2) CSF Volume (3) mL CSF Supernat Color (3) (Clear) CSF Gross Blood (3) (0) CSF WBC (3) CSF RBC (3) CSF Volume (4) mL CSF Supernat Color (4) (Clear) CSF Gross Blood (4) (0) CSF WBC (4) CSF RBC (4) CSF Neutrophils % % CSF Lymphocytes % % CSF Monocytes % % CSF Glucose (40-80) mg/dL CSF Lactic Acid (0.0-3.0) mmol/L CSF Total Protein (15.0-45.0) mg/dL CSF N.mening B/E.coli K1 CSF N.meningitidis A/Y Nasal Screen MRSA (PCR) (Negative) Salicylates (2.8-20.0) mg/dL Urine Opiates Screen (Neg) Acetaminophen (10.0-30.0) mcg/mL Ur Barbiturates Screen (Neg) Ur Amphetamines Screen (Neg) U Benzodiazepines Scrn (Neg) Urine Cocaine Screen (Neg) U Cannabinoids Screen (Neg) Serum Alcohol Less than 3 (0-5) mg/dL Bacterial Ag Source Hepatitis A IgM Ab (Nonreactive) Hep Bs Antigen (Nonreactive) Hep B Core IgM Ab (Nonreactive) Hep C IgG Ab (Nonreactive) H.influenzae Type B Ag N. meningitidis C/W 135 Group B Strep Antigen S. pneumoniae Antigen 11/01/17 11/02/17 11/02/17 Range/Units 22:30 01:30 01:30 WBC (4.0-11.0) th/mm3 RBC (4.00-5.30) mil/mm3 Hgb (11.6-15.3) gm/dL Hct (35.0-46.0) % MCV (80.0-100.0) fL MCH (27.0-34.0) pg MCHC (32.0-36.0) % RDW (11.6-17.2) % Plt Count (150-450) th/mm3 MPV (7.0-11.0) fL Prelim Diff (Auto) Neut % (Auto) (16.0-70.0) % Lymph % (Auto) (9.0-44.0) % [place] % (Auto) (0.0-8.0) % Eos % (Auto) (0.0-4.0) % Baso % (Auto) (0.0-2.0) % Neut # (Auto) (1.8-7.7) th/mm3 Lymph # (Auto) (1.0-4.8) th/mm3 [place] # (Auto) (0.0-0.9) th/mm3 Eos # (Auto) (0.0-0.4) th/mm3 Baso # (Auto) (0.0-0.2) th/mm3 WBC Differential Seg Neuts % (Manual) (16-70) % Band Neuts % (Manual) (0-6) % Lymphocytes % (Manual) (9-44) % Monocytes % (Manual) (0-8) % Abs Neuts (Manual) (1.8-7.7) th/mm3 Differential Comment Toxic Granulation (None) Toxic Vacuolation (None) Dohle Bodies (None) Platelet Estimate (Normal) Platelet Morphology (Normal) RBC Morphology (Normal) PT (9.8-11.6) sec INR Ratio APTT (24.3-30.1) sec Puncture Site Patient Temperature O2 Saturation (90-100) % ABG pH (7.380-7.420) ABG pCO2 (38-42) mmHg ABG pO2 (61-120) mmHg ABG HCO3 (22-26) mmol/L ABG O2 Content (12.0-20.0) Vol % ABG Base Excess (-2-2) mmol/L ABG Methemoglobin (0-2) % Jose Test Hemoglobin (12.0-16.0) G/DL Carboxyhemoglobin (0-4) % O2 Delivery Device Liter Flow L/M Inspired O2 % Critical Value Sodium (136-145) meq/L Potassium (3.5-5.1) meq/L Chloride (98-107) meq/L Carbon Dioxide (21.0-32.0) meq/L Anion Gap (5-15) meq/L BUN (7-18) mg/dL Creatinine (0.50-1.00) mg/dL Estimated GFR (>89) mL/min Random Glucose (74-106) mg/dL Lactic Acid (0.4-2.0) mmol/L Calcium (8.5-10.1) mg/dL Prot Corrected Calcium (8.5-10.1) mg/dL Phosphorus (2.5-4.9) mg/dL Magnesium (1.5-2.5) mg/dL Total Bilirubin (0.2-1.0) mg/dL AST (15-37) U/L ALT (10-53) U/L Alkaline Phosphatase (45-117) U/L Total Creatine Kinase (26-192) U/L CK-MB (CK-2) (0.5-3.6) ng/mL CK-MB (CK-2) % (0.0-4.0) % Troponin I (0.02-0.05) ng/mL Total Protein (6.4-8.2) g/dL Albumin (3.4-5.0) g/dL Lipase (73-393) U/L Beta HCG, Quant (0-5) mIU/mL Urine Color (Yellw/Straw) Urine Clarity (Clear) Urine pH (5.0-8.5) Ur Specific [place] (1.002-1.035) Urine Protein (Neg-Trace) mg/dL Urine Glucose (UA) (Negative) mg/dL Urine Ketones (Negative) mg/dL Urine Occult Blood (Negative) Urine Nitrate (Negative) Urine Bilirubin (Negative) Urine Urobilinogen (Less than 2) mg/dL Ur Leukocyte Esterase (Negative) Urine RBC (0-3) /hpf Urine WBC (0-5) /hpf Ur Squamous Epith Cells (0-5) /hpf Amorphous Sediment (None) /hpf Urine Bacteria (None) /hpf Urine Mucus (Occasional) /lpf Micro UA Comment Urine Culture Comments CSF Volume (1) mL CSF Supernat Color (1) (Clear) CSF Gross Blood (1) (0) CSF WBC (1) Cancelled CSF RBC (1) Cancelled CSF Volume (2) mL CSF Supernat Color (2) (Clear) CSF Gross Blood (2) (0) CSF WBC (2) Cancelled CSF RBC (2) Cancelled CSF Volume (3) mL CSF Supernat Color (3) (Clear) CSF Gross Blood (3) (0) CSF WBC (3) Cancelled CSF RBC (3) Cancelled CSF Volume (4) mL CSF Supernat Color (4) (Clear) CSF Gross Blood (4) (0) CSF WBC (4) Cancelled CSF RBC (4) Cancelled CSF Neutrophils % % CSF Lymphocytes % % CSF Monocytes % % CSF Glucose (40-80) mg/dL CSF Lactic Acid (0.0-3.0) mmol/L CSF Total Protein (15.0-45.0) mg/dL CSF N.mening B/E.coli K1 Cancelled CSF N.meningitidis A/Y Cancelled Nasal Screen MRSA (PCR) (Negative) Salicylates (2.8-20.0) mg/dL Urine Opiates Screen Pos H (Neg) Acetaminophen (10.0-30.0) mcg/mL Ur Barbiturates Screen Neg (Neg) Ur Amphetamines Screen Pos H (Neg) U Benzodiazepines Scrn Neg (Neg) Urine Cocaine Screen Neg (Neg) U Cannabinoids Screen Neg (Neg) Serum Alcohol (0-5) mg/dL Bacterial Ag Source Cancelled Hepatitis A IgM Ab (Nonreactive) Hep Bs Antigen (Nonreactive) Hep B Core IgM Ab (Nonreactive) Hep C IgG Ab (Nonreactive) H.influenzae Type B Ag Cancelled N. meningitidis C/W 135 Cancelled Group B Strep Antigen Cancelled S. pneumoniae Antigen Cancelled 11/02/17 11/02/17 11/02/17 Range/Units 01:30 01:30 01:30 WBC (4.0-11.0) th/mm3 RBC (4.00-5.30) mil/mm3 Hgb (11.6-15.3) gm/dL Hct (35.0-46.0) % MCV (80.0-100.0) fL MCH (27.0-34.0) pg MCHC (32.0-36.0) % RDW (11.6-17.2) % Plt Count (150-450) th/mm3 MPV (7.0-11.0) fL Prelim Diff (Auto) Neut % (Auto) (16.0-70.0) % Lymph % (Auto) (9.0-44.0) % [place] % (Auto) (0.0-8.0) % Eos % (Auto) (0.0-4.0) % Baso % (Auto) (0.0-2.0) % Neut # (Auto) (1.8-7.7) th/mm3 Lymph # (Auto) (1.0-4.8) th/mm3 [place] # (Auto) (0.0-0.9) th/mm3 Eos # (Auto) (0.0-0.4) th/mm3 Baso # (Auto) (0.0-0.2) th/mm3 WBC Differential Seg Neuts % (Manual) (16-70) % Band Neuts % (Manual) (0-6) % Lymphocytes % (Manual) (9-44) % Monocytes % (Manual) (0-8) % Abs Neuts (Manual) (1.8-7.7) th/mm3 Differential Comment Toxic Granulation (None) Toxic Vacuolation (None) Dohle Bodies (None) Platelet Estimate (Normal) Platelet Morphology (Normal) RBC Morphology (Normal) PT (9.8-11.6) sec INR Ratio APTT (24.3-30.1) sec Puncture Site Patient Temperature O2 Saturation (90-100) % ABG pH (7.380-7.420) ABG pCO2 (38-42) mmHg ABG pO2 (61-120) mmHg ABG HCO3 (22-26) mmol/L ABG O2 Content (12.0-20.0) Vol % ABG Base Excess (-2-2) mmol/L ABG Methemoglobin (0-2) % Jose Test Hemoglobin (12.0-16.0) G/DL Carboxyhemoglobin (0-4) % O2 Delivery Device Liter Flow L/M Inspired O2 % Critical Value Sodium (136-145) meq/L Potassium (3.5-5.1) meq/L Chloride (98-107) meq/L Carbon Dioxide (21.0-32.0) meq/L Anion Gap (5-15) meq/L BUN (7-18) mg/dL Creatinine (0.50-1.00) mg/dL Estimated GFR (>89) mL/min Random Glucose (74-106) mg/dL Lactic Acid (0.4-2.0) mmol/L Calcium (8.5-10.1) mg/dL Prot Corrected Calcium (8.5-10.1) mg/dL Phosphorus (2.5-4.9) mg/dL Magnesium (1.5-2.5) mg/dL Total Bilirubin (0.2-1.0) mg/dL AST (15-37) U/L ALT (10-53) U/L Alkaline Phosphatase (45-117) U/L Total Creatine Kinase (26-192) U/L CK-MB (CK-2) (0.5-3.6) ng/mL CK-MB (CK-2) % (0.0-4.0) % Troponin I (0.02-0.05) ng/mL Total Protein (6.4-8.2) g/dL Albumin (3.4-5.0) g/dL Lipase (73-393) U/L Beta HCG, Quant (0-5) mIU/mL Urine Color (Yellw/Straw) Urine Clarity (Clear) Urine pH (5.0-8.5) Ur Specific [place] (1.002-1.035) Urine Protein (Neg-Trace) mg/dL Urine Glucose (UA) (Negative) mg/dL Urine Ketones (Negative) mg/dL Urine Occult Blood (Negative) Urine Nitrate (Negative) Urine Bilirubin (Negative) Urine Urobilinogen (Less than 2) mg/dL Ur Leukocyte Esterase (Negative) Urine RBC (0-3) /hpf Urine WBC (0-5) /hpf Ur Squamous Epith Cells (0-5) /hpf Amorphous Sediment (None) /hpf Urine Bacteria (None) /hpf Urine Mucus (Occasional) /lpf Micro UA Comment Urine Culture Comments CSF Volume (1) 2.2 mL CSF Supernat Color (1) Clear (Clear) CSF Gross Blood (1) 0 (0) CSF WBC (1) 23 H CSF RBC (1) 0 CSF Volume (2) 1.8 mL CSF Supernat Color (2) Clear (Clear) CSF Gross Blood (2) 0 (0) CSF WBC (2) CSF RBC (2) CSF Volume (3) 2.0 mL CSF Supernat Color (3) Clear (Clear) CSF Gross Blood (3) 0 (0) CSF WBC (3) CSF RBC (3) CSF Volume (4) 4.1 mL CSF Supernat Color (4) Clear (Clear) CSF Gross Blood (4) 0 (0) CSF WBC (4) CSF RBC (4) CSF Neutrophils % 86 % CSF Lymphocytes % 6 % CSF Monocytes % 8 % CSF Glucose 48 (40-80) mg/dL CSF Lactic Acid 2.3 (0.0-3.0) mmol/L CSF Total Protein (15.0-45.0) mg/dL CSF N.mening B/E.coli K1 CSF N.meningitidis A/Y Nasal Screen MRSA (PCR) (Negative) Salicylates (2.8-20.0) mg/dL Urine Opiates Screen (Neg) Acetaminophen (10.0-30.0) mcg/mL Ur Barbiturates Screen (Neg) Ur Amphetamines Screen (Neg) U Benzodiazepines Scrn (Neg) Urine Cocaine Screen (Neg) U Cannabinoids Screen (Neg) Serum Alcohol (0-5) mg/dL Bacterial Ag Source Hepatitis A IgM Ab (Nonreactive) Hep Bs Antigen (Nonreactive) Hep B Core IgM Ab (Nonreactive) Hep C IgG Ab (Nonreactive) H.influenzae Type B Ag N. meningitidis C/W 135 Group B Strep Antigen S. pneumoniae Antigen 11/02/17 11/02/17 11/02/17 Range/Units 01:30 01:30 01:50 WBC (4.0-11.0) th/mm3 RBC (4.00-5.30) mil/mm3 Hgb (11.6-15.3) gm/dL Hct (35.0-46.0) % MCV (80.0-100.0) fL MCH (27.0-34.0) pg MCHC (32.0-36.0) % RDW (11.6-17.2) % Plt Count (150-450) th/mm3 MPV (7.0-11.0) fL Prelim Diff (Auto) Neut % (Auto) (16.0-70.0) % Lymph % (Auto) (9.0-44.0) % [place] % (Auto) (0.0-8.0) % Eos % (Auto) (0.0-4.0) % Baso % (Auto) (0.0-2.0) % Neut # (Auto) (1.8-7.7) th/mm3 Lymph # (Auto) (1.0-4.8) th/mm3 [place] # (Auto) (0.0-0.9) th/mm3 Eos # (Auto) (0.0-0.4) th/mm3 Baso # (Auto) (0.0-0.2) th/mm3 WBC Differential Seg Neuts % (Manual) (16-70) % Band Neuts % (Manual) (0-6) % Lymphocytes % (Manual) (9-44) % Monocytes % (Manual) (0-8) % Abs Neuts (Manual) (1.8-7.7) th/mm3 Differential Comment Toxic Granulation (None) Toxic Vacuolation (None) Dohle Bodies (None) Platelet Estimate (Normal) Platelet Morphology (Normal) RBC Morphology (Normal) PT (9.8-11.6) sec INR Ratio APTT (24.3-30.1) sec Puncture Site Right radial Patient Temperature 98.6 O2 Saturation 95 (90-100) % ABG pH 7.50 H (7.380-7.420) ABG pCO2 30 L (38-42) mmHg ABG pO2 85 (61-120) mmHg ABG HCO3 23 (22-26) mmol/L ABG O2 Content 12.8 (12.0-20.0) Vol % ABG Base Excess -0.3 (-2-2) mmol/L ABG Methemoglobin 0.4 (0-2) % Jose Test Present Hemoglobin 9.5 L (12.0-16.0) G/DL Carboxyhemoglobin 1.6 (0-4) % O2 Delivery Device Nasal cannula Liter Flow 3.00 L/M Inspired O2 32 % Critical Value No Sodium (136-145) meq/L Potassium (3.5-5.1) meq/L Chloride (98-107) meq/L Carbon Dioxide (21.0-32.0) meq/L Anion Gap (5-15) meq/L BUN (7-18) mg/dL Creatinine (0.50-1.00) mg/dL Estimated GFR (>89) mL/min Random Glucose (74-106) mg/dL Lactic Acid (0.4-2.0) mmol/L Calcium (8.5-10.1) mg/dL Prot Corrected Calcium (8.5-10.1) mg/dL Phosphorus (2.5-4.9) mg/dL Magnesium (1.5-2.5) mg/dL Total Bilirubin (0.2-1.0) mg/dL AST (15-37) U/L ALT (10-53) U/L Alkaline Phosphatase (45-117) U/L Total Creatine Kinase (26-192) U/L CK-MB (CK-2) (0.5-3.6) ng/mL CK-MB (CK-2) % (0.0-4.0) % Troponin I (0.02-0.05) ng/mL Total Protein (6.4-8.2) g/dL Albumin (3.4-5.0) g/dL Lipase (73-393) U/L Beta HCG, Quant (0-5) mIU/mL Urine Color (Yellw/Straw) Urine Clarity (Clear) Urine pH (5.0-8.5) Ur Specific [place] (1.002-1.035) Urine Protein (Neg-Trace) mg/dL Urine Glucose (UA) (Negative) mg/dL Urine Ketones (Negative) mg/dL Urine Occult Blood (Negative) Urine Nitrate (Negative) Urine Bilirubin (Negative) Urine Urobilinogen (Less than 2) mg/dL Ur Leukocyte Esterase (Negative) Urine RBC (0-3) /hpf Urine WBC (0-5) /hpf Ur Squamous Epith Cells (0-5) /hpf Amorphous Sediment (None) /hpf Urine Bacteria (None) /hpf Urine Mucus (Occasional) /lpf Micro UA Comment Urine Culture Comments CSF Volume (1) mL CSF Supernat Color (1) (Clear) CSF Gross Blood (1) (0) CSF WBC (1) CSF RBC (1) CSF Volume (2) mL CSF Supernat Color (2) (Clear) CSF Gross Blood (2) (0) CSF WBC (2) CSF RBC (2) CSF Volume (3) mL CSF Supernat Color (3) (Clear) CSF Gross Blood (3) (0) CSF WBC (3) CSF RBC (3) CSF Volume (4) 4.1 mL CSF Supernat Color (4) Clear (Clear) CSF Gross Blood (4) 0 (0) CSF WBC (4) 13 H CSF RBC (4) 0 CSF Neutrophils % 100 % CSF Lymphocytes % 0 % CSF Monocytes % % CSF Glucose (40-80) mg/dL CSF Lactic Acid (0.0-3.0) mmol/L CSF Total Protein 33.4 (15.0-45.0) mg/dL CSF N.mening B/E.coli K1 CSF N.meningitidis A/Y Nasal Screen MRSA (PCR) (Negative) Salicylates (2.8-20.0) mg/dL Urine Opiates Screen (Neg) Acetaminophen (10.0-30.0) mcg/mL Ur Barbiturates Screen (Neg) Ur Amphetamines Screen (Neg) U Benzodiazepines Scrn (Neg) Urine Cocaine Screen (Neg) U Cannabinoids Screen (Neg) Serum Alcohol (0-5) mg/dL Bacterial Ag Source Hepatitis A IgM Ab (Nonreactive) Hep Bs Antigen (Nonreactive) Hep B Core IgM Ab (Nonreactive) Hep C IgG Ab (Nonreactive) H.influenzae Type B Ag N. meningitidis C/W 135 Group B Strep Antigen S. pneumoniae Antigen 11/02/17 11/02/17 11/02/17 Range/Units 02:05 02:05 02:05 WBC (4.0-11.0) th/mm3 RBC (4.00-5.30) mil/mm3 Hgb (11.6-15.3) gm/dL Hct (35.0-46.0) % MCV (80.0-100.0) fL MCH (27.0-34.0) pg MCHC (32.0-36.0) % RDW (11.6-17.2) % Plt Count (150-450) th/mm3 MPV (7.0-11.0) fL Prelim Diff (Auto) Neut % (Auto) (16.0-70.0) % Lymph % (Auto) (9.0-44.0) % [place] % (Auto) (0.0-8.0) % Eos % (Auto) (0.0-4.0) % Baso % (Auto) (0.0-2.0) % Neut # (Auto) (1.8-7.7) th/mm3 Lymph # (Auto) (1.0-4.8) th/mm3 [place] # (Auto) (0.0-0.9) th/mm3 Eos # (Auto) (0.0-0.4) th/mm3 Baso # (Auto) (0.0-0.2) th/mm3 WBC Differential Seg Neuts % (Manual) (16-70) % Band Neuts % (Manual) (0-6) % Lymphocytes % (Manual) (9-44) % Monocytes % (Manual) (0-8) % Abs Neuts (Manual) (1.8-7.7) th/mm3 Differential Comment Toxic Granulation (None) Toxic Vacuolation (None) Dohle Bodies (None) Platelet Estimate (Normal) Platelet Morphology (Normal) RBC Morphology (Normal) PT (9.8-11.6) sec INR Ratio APTT (24.3-30.1) sec Puncture Site Patient Temperature O2 Saturation (90-100) % ABG pH (7.380-7.420) ABG pCO2 (38-42) mmHg ABG pO2 (61-120) mmHg ABG HCO3 (22-26) mmol/L ABG O2 Content (12.0-20.0) Vol % ABG Base Excess (-2-2) mmol/L ABG Methemoglobin (0-2) % Jose Test Hemoglobin (12.0-16.0) G/DL Carboxyhemoglobin (0-4) % O2 Delivery Device Liter Flow L/M Inspired O2 % Critical Value Sodium (136-145) meq/L Potassium (3.5-5.1) meq/L Chloride (98-107) meq/L Carbon Dioxide (21.0-32.0) meq/L Anion Gap (5-15) meq/L BUN (7-18) mg/dL Creatinine (0.50-1.00) mg/dL Estimated GFR (>89) mL/min Random Glucose (74-106) mg/dL Lactic Acid (0.4-2.0) mmol/L Calcium (8.5-10.1) mg/dL Prot Corrected Calcium (8.5-10.1) mg/dL Phosphorus (2.5-4.9) mg/dL Magnesium (1.5-2.5) mg/dL Total Bilirubin (0.2-1.0) mg/dL AST (15-37) U/L ALT (10-53) U/L Alkaline Phosphatase (45-117) U/L Total Creatine Kinase (26-192) U/L CK-MB (CK-2) (0.5-3.6) ng/mL CK-MB (CK-2) % (0.0-4.0) % Troponin I (0.02-0.05) ng/mL Total Protein (6.4-8.2) g/dL Albumin (3.4-5.0) g/dL Lipase (73-393) U/L Beta HCG, Quant (0-5) mIU/mL Urine Color (Yellw/Straw) Urine Clarity (Clear) Urine pH (5.0-8.5) Ur Specific [place] (1.002-1.035) Urine Protein (Neg-Trace) mg/dL Urine Glucose (UA) (Negative) mg/dL Urine Ketones (Negative) mg/dL Urine Occult Blood (Negative) Urine Nitrate (Negative) Urine Bilirubin (Negative) Urine Urobilinogen (Less than 2) mg/dL Ur Leukocyte Esterase (Negative) Urine RBC (0-3) /hpf Urine WBC (0-5) /hpf Ur Squamous Epith Cells (0-5) /hpf Amorphous Sediment (None) /hpf Urine Bacteria (None) /hpf Urine Mucus (Occasional) /lpf Micro UA Comment Urine Culture Comments CSF Volume (1) mL CSF Supernat Color (1) (Clear) CSF Gross Blood (1) (0) CSF WBC (1) CSF RBC (1) CSF Volume (2) mL CSF Supernat Color (2) (Clear) CSF Gross Blood (2) (0) CSF WBC (2) CSF RBC (2) CSF Volume (3) mL CSF Supernat Color (3) (Clear) CSF Gross Blood (3) (0) CSF WBC (3) CSF RBC (3) CSF Volume (4) mL CSF Supernat Color (4) (Clear) CSF Gross Blood (4) (0) CSF WBC (4) CSF RBC (4) CSF Neutrophils % % CSF Lymphocytes % % CSF Monocytes % % CSF Glucose (40-80) mg/dL CSF Lactic Acid (0.0-3.0) mmol/L CSF Total Protein (15.0-45.0) mg/dL CSF N.mening B/E.coli K1 CSF N.meningitidis A/Y Nasal Screen MRSA (PCR) (Negative) Salicylates Less than 1.7 L (2.8-20.0) mg/dL Urine Opiates Screen (Neg) Acetaminophen Less than 2.0 L (10.0-30.0) mcg/mL Ur Barbiturates Screen (Neg) Ur Amphetamines Screen (Neg) U Benzodiazepines Scrn (Neg) Urine Cocaine Screen (Neg) U Cannabinoids Screen (Neg) Serum Alcohol (0-5) mg/dL Bacterial Ag Source Hepatitis A IgM Ab Nonreactive (Nonreactive) Hep Bs Antigen Nonreactive (Nonreactive) Hep B Core IgM Ab Nonreactive (Nonreactive) Hep C IgG Ab Reactive H (Nonreactive) H.influenzae Type B Ag N. meningitidis C/W 135 Group B Strep Antigen S. pneumoniae Antigen 11/02/17 Range/Units 02:30 WBC (4.0-11.0) th/mm3 RBC (4.00-5.30) mil/mm3 Hgb (11.6-15.3) gm/dL Hct (35.0-46.0) % MCV (80.0-100.0) fL MCH (27.0-34.0) pg MCHC (32.0-36.0) % RDW (11.6-17.2) % Plt Count (150-450) th/mm3 MPV (7.0-11.0) fL Prelim Diff (Auto) Neut % (Auto) (16.0-70.0) % Lymph % (Auto) (9.0-44.0) % [place] % (Auto) (0.0-8.0) % Eos % (Auto) (0.0-4.0) % Baso % (Auto) (0.0-2.0) % Neut # (Auto) (1.8-7.7) th/mm3 Lymph # (Auto) (1.0-4.8) th/mm3 [place] # (Auto) (0.0-0.9) th/mm3 Eos # (Auto) (0.0-0.4) th/mm3 Baso # (Auto) (0.0-0.2) th/mm3 WBC Differential Seg Neuts % (Manual) (16-70) % Band Neuts % (Manual) (0-6) % Lymphocytes % (Manual) (9-44) % Monocytes % (Manual) (0-8) % Abs Neuts (Manual) (1.8-7.7) th/mm3 Differential Comment Toxic Granulation (None) Toxic Vacuolation (None) Dohle Bodies (None) Platelet Estimate (Normal) Platelet Morphology (Normal) RBC Morphology (Normal) PT (9.8-11.6) sec INR Ratio APTT (24.3-30.1) sec Puncture Site Patient Temperature O2 Saturation (90-100) % ABG pH (7.380-7.420) ABG pCO2 (38-42) mmHg ABG pO2 (61-120) mmHg ABG HCO3 (22-26) mmol/L ABG O2 Content (12.0-20.0) Vol % ABG Base Excess (-2-2) mmol/L ABG Methemoglobin (0-2) % Jose Test Hemoglobin (12.0-16.0) G/DL Carboxyhemoglobin (0-4) % O2 Delivery Device Liter Flow L/M Inspired O2 % Critical Value Sodium (136-145) meq/L Potassium (3.5-5.1) meq/L Chloride (98-107) meq/L Carbon Dioxide (21.0-32.0) meq/L Anion Gap (5-15) meq/L BUN (7-18) mg/dL Creatinine (0.50-1.00) mg/dL Estimated GFR (>89) mL/min Random Glucose (74-106) mg/dL Lactic Acid (0.4-2.0) mmol/L Calcium (8.5-10.1) mg/dL Prot Corrected Calcium (8.5-10.1) mg/dL Phosphorus (2.5-4.9) mg/dL Magnesium (1.5-2.5) mg/dL Total Bilirubin (0.2-1.0) mg/dL AST (15-37) U/L ALT (10-53) U/L Alkaline Phosphatase (45-117) U/L Total Creatine Kinase (26-192) U/L CK-MB (CK-2) (0.5-3.6) ng/mL CK-MB (CK-2) % (0.0-4.0) % Troponin I (0.02-0.05) ng/mL Total Protein (6.4-8.2) g/dL Albumin (3.4-5.0) g/dL Lipase (73-393) U/L Beta HCG, Quant (0-5) mIU/mL Urine Color (Yellw/Straw) Urine Clarity (Clear) Urine pH (5.0-8.5) Ur Specific [place] (1.002-1.035) Urine Protein (Neg-Trace) mg/dL Urine Glucose (UA) (Negative) mg/dL Urine Ketones (Negative) mg/dL Urine Occult Blood (Negative) Urine Nitrate (Negative) Urine Bilirubin (Negative) Urine Urobilinogen (Less than 2) mg/dL Ur Leukocyte Esterase (Negative) Urine RBC (0-3) /hpf Urine WBC (0-5) /hpf Ur Squamous Epith Cells (0-5) /hpf Amorphous Sediment (None) /hpf Urine Bacteria (None) /hpf Urine Mucus (Occasional) /lpf Micro UA Comment Urine Culture Comments CSF Volume (1) mL CSF Supernat Color (1) (Clear) CSF Gross Blood (1) (0) CSF WBC (1) CSF RBC (1) CSF Volume (2) mL CSF Supernat Color (2) (Clear) CSF Gross Blood (2) (0) CSF WBC (2) CSF RBC (2) CSF Volume (3) mL CSF Supernat Color (3) (Clear) CSF Gross Blood (3) (0) CSF WBC (3) CSF RBC (3) CSF Volume (4) mL CSF Supernat Color (4) (Clear) CSF Gross Blood (4) (0) CSF WBC (4) CSF RBC (4) CSF Neutrophils % % CSF Lymphocytes % % CSF Monocytes % % CSF Glucose (40-80) mg/dL CSF Lactic Acid (0.0-3.0) mmol/L CSF Total Protein (15.0-45.0) mg/dL CSF N.mening B/E.coli K1 CSF N.meningitidis A/Y Nasal Screen MRSA (PCR) Mrsa detected (Negative) Salicylates (2.8-20.0) mg/dL Urine Opiates Screen (Neg) Acetaminophen (10.0-30.0) mcg/mL Ur Barbiturates Screen (Neg) Ur Amphetamines Screen (Neg) U Benzodiazepines Scrn (Neg) Urine Cocaine Screen (Neg) U Cannabinoids Screen (Neg) Serum Alcohol (0-5) mg/dL Bacterial Ag Source Hepatitis A IgM Ab (Nonreactive) Hep Bs Antigen (Nonreactive) Hep B Core IgM Ab (Nonreactive) Hep C IgG Ab (Nonreactive) H.influenzae Type B Ag N. meningitidis C/W 135 Group B Strep Antigen S. pneumoniae Antigen Imaging Data Radiologist's impression: ITS Impressions Chest X-Ray 11/01/17 22:25 CONCLUSION: 1. Diffuse patchy groundglass opacities concerning for atypical infection in the appropriate clinical setting. Head CT 11/02/17 00:00 CONCLUSION: 1. No acute intracranial abnormality. 2. Bilateral maxillary sinus mucosal disease. Chest CT 11/02/17 00:01 CONCLUSION: 1. Diffuse patchy groundglass opacities with nodular regions primarily in the left upper and lower lobes and single potentially cavitary nodule near the left lung apex. Overall, findings are concerning for atypical infection or developing septic pulmonary emboli in the appropriate clinical setting. 2. Subtle anterior pericardial effusion. 3. Subcentimeter bilateral axillary adenopathy, likely infectious/inflammatory. Discharge Plan Discharge Disposition Patient Disposition: 30 Still Patient Discharge Condition Condition: Critical Discharge Details Diagnosis: Sepsis, Encephalopathy due to infection, Cellulitis, Meningitis Physicians Team ED Provider: John Warner Primary Care Provider: Primary Care Stephanie Knutson Attending Provider: Wilfredo Sofia Discharge Interventions Interventions: ED Discharge Assessment Last Done: 11/02/17 02:42 Vital Signs Last Done: 11/01/17 23:51 Status ED Status: Left Department Discharge Information Discharge Date/Time: 11/02/17 02:43
[2017-11-01 22:48] LABS: Baso % (Auto) 0.2 % (0.0-2.0); Eos # (Auto) 0.2 th/mm3 (0.0-0.4); Eos % (Auto) 1.8 % (0.0-4.0); Hematocrit 28.5 % (35.0-46.0); Lymph # (Auto) 0.7 th/mm3 (1.0-4.8); Mean Corpuscular HGB Conc 35.2 % (32.0-36.0); Mean Corpuscular Hemoglobin 29.4 pg (27.0-34.0); Mean Corpuscular Volume 83.5 fL (80.0-100.0); Mean Platelet Volume 9.2 fL (7.0-11.0); Mono % (Auto) 10.2 % (0.0-8.0); Neut # (Auto) 7.7 th/mm3 (1.8-7.7); Neut % (Auto) 80.8 % (16.0-70.0); Platelet Count 43 th/mm3 (150-450); Red Blood Count 3.41 mil/mm3 (4.00-5.30); White Blood Count 9.5 th/mm3 (4.0-11.0)
[2017-11-01 23:01] LABS: Amorphous Sediment,Urine Rare /hpf; Bacteria,Urine Occasional /hpf; Bilirubin,Urine Negative (Negative); Clarity,Urine Hazy (Clear); Color,Urine Yellow (Yellw/Straw); Glucose,Urine (UA) Negative (Negative); Leukocyte Esterase,Urine Negative (Negative); Mucus,Urine Few /lpf (Occasional); Nitrite,Urine Negative (Negative); Specific Gravity,Urine 1.014 (1.002-1.035); Squamous Epithelial Cell,Urine 4 /hpf (0-5)
[2017-11-01 23:23] LABS: Activated Partial Thrombo Time 36.2 sec (24.3-30.1); INR 1.4 Ratio; Prothrombin Time 14.4 sec (9.8-11.6)
[2017-11-01 23:34] LABS: Lymphocytes 6 % (9-44); Monocytes 4 % (0-8)
[2017-11-01 23:35] LABS: Dohle Bodies Present; Toxic Vacuolation Present
[2017-11-01 23:36] LABS: Alanine Aminotransferase 31 U/L (10-53); Alkaline Phosphatase 111 U/L (45-117); Anion Gap 12 meq/L (5-15); Aspartate Aminotransferase 77 U/L (15-37); Blood Urea Nitrogen 22 mg/dL (7-18); Calcium 6.6 mg/dL (8.5-10.1); Carbon Dioxide 24.1 meq/L (21.0-32.0); Chloride 99 meq/L (98-107); Creatine Kinase 902 U/L (26-192); Glomerular Filtration Rate 63 mL/min (>89); Glucose,Random 95 mg/dL (74-106); Lipase 372 U/L (73-393); Magnesium 1.4 mg/dL (1.5-2.5); Phosphorus 1.5 mg/dL (2.5-4.9); RBC Morphology Normal (Normal); Sodium 135 meq/L (136-145); Total Protein 5.2 g/dL (6.4-8.2); Toxic Granulation 1+
[2017-11-01 23:37] LABS: Platelet Morphology Normal (Normal)
[2017-11-01 23:43] LABS: Potassium 2.4 meq/L (3.5-5.1)
[2017-11-01 23:57] LABS: CKMB Percent 0.5 % (0.0-4.0); Creatine Kinase MB 4.6 ng/mL (0.5-3.6)
[2017-11-02 00:11] LABS: Amphetamine Screen,Urine Pos (Neg); Barbiturate Screen,Urine Neg (Neg); Cannabinoid Screen,Urine Neg (Neg); Cocaine Screen,Urine Neg (Neg)
[2017-11-02 00:13] LABS: Opiate Screen,Urine Pos (Neg)
--- NOTE | 2017-11-02 00:39 | CT ---
EXAM DATE: 11/02/2017 12:25 AM EDT AGE/SEX: 31 years / Female INDICATIONS: Shortness of breath. CLINICAL DATA: This is the patient's initial encounter. Patient reports that signs and symptoms have been present for 1 day and indicates a pain score of Nonresponsive. MEDICAL/SURGICAL HISTORY: . drug abuse. None. RADIATION DOSE: 5.1 CTDI (mGy) COMPARISON: [facility] – [place], CHEST SINGLE AP, 12/02/2016. . TECHNIQUE: Multiple contiguous axial images were obtained through the chest without contrast. Image s were obtained in suspended respiration using multiple row detector helical technique. Using automa arthur exposure control and adjustment of the mA and/or kV according to patient size, radiation dose was kept as low as reasonably achievable to obtain optimal diagnostic quality images. DICOM format imag e data is available electronically for review and comparison. FINDINGS: Lung: Diffuse patchy groundglass opacities with somewhat nodular appearance primarily in the left up per and lower lobes. One lesion near the left lung apex anteriorly has central decreased density sugg estive of cavitation. Slightly more confluent airspace consolidation at the extreme lung bases bilate rally. Pleura: No effusion, significant pleural thickening or pneumothorax. Mediastinum: Subtle anterior pericardial effusion. No gross mediastinal adenopathy. Osseous Structures: No abnormal focal lytic or blastic bony lesions. Soft Tissues: Subcentimeter bilateral axillary adenopathy. Other: Visulaized upper abdomen is unremarkable. CONCLUSION: 1. Diffuse patchy groundglass opacities with nodular regions primarily in the left upper and lower l obes and single potentially cavitary nodule near the left lung apex. Overall, findings are concerning for atypical infection or developing septic pulmonary emboli in the appropriate clinical setting. 2. Subtle anterior pericardial effusion. 3. Subcentimeter bilateral axillary adenopathy, likely infectious/inflammatory. Electronically signed by: Gomez Lemos MD 11/02/2017 12:38 AM EDT
--- NOTE | 2017-11-02 00:40 | CT ---
EXAM DATE: 11/02/2017 12:22 AM EDT AGE/SEX: 31 years / Female INDICATIONS: Altered mental status. CLINICAL DATA: This is the patient's initial encounter. Patient reports that signs and symptoms have been present for 1 day and indicates a pain score of Nonresponsive. MEDICAL/SURGICAL HISTORY: . drug abuse. None. RADIATION DOSE: 56.35 CTDI (mGy) COMPARISON: No prior exams available for comparison. TECHNIQUE: CT of the head without contrast. Using automated exposure control and adjustment of the mA and/or kV according to patient size, radiation dose was kept as low as reasonably achievable to ob tain optimal diagnostic quality images. DICOM format image data is available electronically for revi ew and comparison. FINDINGS: Cerebrum: The ventricles are normal for age. No evidence of midline shift, mass lesion, hemorrhage o r acute infarction. No extraaxial fluid collections are seen. Posterior Fossa: The cerebellum and brainstem are intact. The 4th ventricle is midline. The cerebe llopontine angle is unremarkable. Extracranial: The visualized portion of the orbits is intact. Mucosal periosteal thickening in the b ilateral maxillary sinuses. Skull: The calvaria is intact. No evidence of skull fracture. CONCLUSION: 1. No acute intracranial abnormality. 2. Bilateral maxillary sinus mucosal disease. Electronically signed by: Gomez Lemos MD 11/02/2017 12:39 AM EDT
--- NOTE | 2017-11-02 00:43 | XR ---
EXAM DATE: 11/02/2017 12:39 AM EDT AGE/SEX: 31 years / Female INDICATIONS: Short of breath. CLINICAL DATA: This is the patient's initial encounter. Patient reports that signs and symptoms have been present for 1 day and indicates a pain score of Nonresponsive. MEDICAL/SURGICAL HISTORY: Non-responsive. Non-responsive. [place] [facility] [place]2017. . FINDINGS: Diffuse patchy groundglass opacities. Cardiac silhouette is in the upper limits of normal given allen ble technique. Osseous structures are intact. CONCLUSION: 1. Diffuse patchy groundglass opacities concerning for atypical infection in the appropriate clinica l setting. Electronically signed by: Gomez Lemos MD 11/02/2017 12:42 AM EDT
[2017-11-02] MEDS ORDERED: Ketamine Inj 200 MG/20 ML Vial IV.PUSH ONE (00:44)
[2017-11-02] MEDS ORDERED: Vancomycin Inj 500 MG in Sodium Chlor 0.9% Inj 100 ML IV.SIG ONE (01:54)
[2017-11-02] MEDS ORDERED: Potassium Chlor 40 mEq Premix 40 MEQ/100 ML PIGGYBACK IV.SIG PRN ×2 (01:55)
[2017-11-02] MEDS ORDERED: Potassium Phosphate 500 MG Soluble Tablet PO PRN ×2 (01:55)
[2017-11-02] MEDS ORDERED: Potassium Phosphate Inj 30 MMOL in Sodium Chlor 0.9% Inj 250 ML IV.SIG PRN (01:55)
[2017-11-02] MEDS ORDERED: Sodium Phosphate Inj 30 MMOL in Sodium Chlor 0.9% Inj 250 ML IV.SIG PRN (01:55)
[2017-11-02] MEDS ORDERED: Potassium Chloride 25 MEQ Effervescent Tablet PO PRN (01:55)
[2017-11-02] MEDS ORDERED: Magnesium Oxide 400 MG Tablet PO PRN (01:55)
[2017-11-02] MEDS ORDERED: Magnesium Sulfate Inj 4 GM in Sodium Chlor 0.9% Inj 92 ML IV.SIG PRN (01:55)
[2017-11-02] MEDS ORDERED: Magnesium Sulfate Inj 2 GM in Sodium Chlor 0.9% Inj 96 ML IV.SIG PRN (01:55)
[2017-11-02] MEDS ORDERED: Vancomycin Consult Pharmacy 1 EACH OTHER SCH (02:00)
[2017-11-02 02:05] LABS: ABG Base Excess -0.3 mmol/L (-2-2); ABG PCO2 30 mmHg (38-42); ABG PO2 85 mmHg (61-120)
[2017-11-02 03:32] LABS: RBC on Tube 1 0 /mm3
[2017-11-02 03:35] LABS: Lymphocytes, CSF 6 %; Monocytes,CSF 8 %; Neutrophils,CSF 86 %
[2017-11-02 03:41] LABS: Lymphocytes, CSF 0 %; Neutrophils,CSF 100 %; RBC on Tube 4 0 /mm3
--- NOTE | 2017-11-02 03:53 | P.HPCC ---
History of Present Illness Service: Critical Care Medicine Primary Care Physician: No Primary Care Physician Chief Complaint: altered mental status History of Present Illness: 31yF with history of IVDA presents with altered mental status and fever. too lethargic to answer any additional questions. febrile to 103F. CBC with leukocytosis and bandemia. UDS + amphetamines and opiates. lactate elevated. Cr elevated. CT chest with multiple pulmonary nodules with concern for infection and possible septic emboli. ROS unobtainable due to mental status. Inpatient Certification: I certify that the inpatient services were ordered in accordance with Medicare regulations governing the order. This includes certification that hospital inpatient services are reasonable and necessary and in the case of services not specified as inpatient-only under 42 CFR 419.22(n), that they are appropriately provided as inpatient services in accordance to with the 2-midnight benchmark under 43 CFR 412.3(e) Estimated Total Length of Stay (Days): 7 Plans for Post Hospital Care: Not yet determined Review of Systems unobtainable due to mental status PMF - History History Provided By: Medical Record - Medical / Surgical Hx Neg / Unobtainable Medical Problems Denied: Unable to Obtain Surgical History: Unable to Obtain - Tobacco History Second Hand Smoke Exposure: Yes Tobacco Use In Past 30 Days: Yes Smoking Status: Current every day smoker Tobacco Type: Cigarettes - Alcohol History How Often Do You Have a Drink Containing Alcohol: 4 or more times a week - Travel History Recent Travel in the [place] Within the Last 8 Weeks: No Recent Travel Out of the Country Within the Last 8 Weeks: No Medications and Allergies Active Medications: Active Medications Acetaminophen (Tylenol) 650 mg PO Q6H PRN PRN Reason: PAIN 1-10 AND/OR FEVER >101F Chlorhexidine Gluconate (Chlorhexidine 2% Cloth) 3 pack TOPICAL DAILY@0400 JUNIOR Stop: 11/07/17 03:59 Chlorhexidine Gluconate (Chlorhexidine 2% Cloth) 3 pack TOPICAL DAILY@0400 PRN PRN Reason: Extra cloth needed Stop: 11/07/17 03:59 Enoxaparin Sodium (Lovenox Inj) 40 mg SQ Q24H JUNIOR Famotidine (Pepcid Pf Inj) 20 mg IV.PUSH Q12HR JUNIOR Ceftriaxone Sodium 2,000 mg/ (Sodium Chloride) 100 mls @ 200 mls/hr IV.SIG Q12H JUNIOR Last Admin: 11/02/17 02:08 Dose: 200 mls/hr Pharmacy Profile Note (Vancomycin Consult Pharmacy) 0 mls @ 0 mls/hr OTHER UNSCH JUNIOR Sodium Chloride (Ns Inj) 1,000 mls @ 125 mls/hr IV.CONT .Q8H JUNIOR Magnesium Sulfate Inj 4 gm/ (Sodium Chloride) 100 mls @ 50 mls/hr IV.SIG UNSCH PRN PRN Reason: For Magnesium 0.9 - 1.1 mg/dL Potassium Chloride (Kcl 40 Meq Premix Inj) 40 meq in 100 mls @ 25 mls/hr IV.SIG Q2H PRN PRN Reason: For Potassium 2.8 - 3.2 mEq/L Potassium Chloride (Kcl 20 Meq Premix Inj) 20 meq in 100 mls @ 50 mls/hr IV.SIG Q2H PRN PRN Reason: For Potassium 3.3 - 3.5 mEq/L Potassium Chloride (Kcl 40 Meq Premix Inj) 40 meq in 100 mls @ 25 mls/hr IV.SIG UNSCH PRN PRN Reason: For Potassium 3.3 - 3.5 mEq/L Potassium Chloride (Kcl 20 Meq Premix Inj) 20 meq in 100 mls @ 50 mls/hr IV.SIG Q2H PRN PRN Reason: For Potassium 2.8 - 3.2 mEq/L Potassium Phosphate 30 mmol/ (Sodium Chloride) 260 mls @ 42 mls/hr IV.SIG UNSCH PRN PRN Reason: SEE LABEL COMMENTS Sodium Phosphate 30 mmol/ (Sodium Chloride) 260 mls @ 42 mls/hr IV.SIG UNSCH PRN PRN Reason: For Phosphorus < 2.5 mg/dL Magnesium Sulfate Inj 2 gm/ (Sodium Chloride) 100 mls @ 50 mls/hr IV.SIG UNSCH PRN PRN Reason: For Magnesium 1.2 - 1.6 mg/dL Ampicillin Sodium 2,000 mg/ (Sodium Chloride) 100 mls @ 400 mls/hr IV.SIG Q4H JUNIOR Magnesium Oxide (Mag-Ox) 800 mg PO UNSCH PRN PRN Reason: For Magnesium 1.2 - 1.6 mg/dL Ondansetron HCl (Zofran Inj) 4 mg IV.PUSH Q6H PRN PRN Reason: NAUSEA OR VOMITING Potassium Bicarb/Potassium Chloride (K-Lyte Cl Eff) 50 meq PO UNSCH PRN PRN Reason: For Potassium 3.3 - 3.5 mEq/L Potassium Phosphate (K-Phos Original) 2,000 mg PO Q4H PRN PRN Reason: Phosphorus Less Than 2.5 mg/dL Potassium Phosphate (K-Phos Original) 2,000 mg PO UNSCH PRN PRN Reason: SEE LABEL COMMENTS Sodium Chloride (Ns Flush) 2 ml IV.FLUSH BID JUNIOR Sodium Chloride (Ns Flush) 2 ml IV.FLUSH PRN PRN PRN Reason: FLUSH AFTER USING IV ACCESS Allergies Allergy/AdvReac Type Severity Reaction Status Date / Time haloperidol AdvReac Intermediate SEIZURES Verified 11/01/17 22:36 NICKEL Allergy Intermediate Anxiety Uncoded 11/01/17 22:36 Home Medications Medication Instructions Recorded Confirmed Type Unable to Obtain Home Meds 11/01/17 11/01/17 History Results - Labs CBC & Chem 7: 11/01/17 22:30 11/01/17 22:30 Labs: Short CBC 11/01/17 Range/Units 22:30 WBC 9.5 (4.0-11.0) th/mm3 Hgb 10.0 L (11.6-15.3) gm/dL Hct 28.5 L (35.0-46.0) % Plt Count 43 L (150-450) th/mm3 BMP 11/01/17 22:30 Sodium 135 L Potassium 2.4 L* Chloride 99 Carbon Dioxide 24.1 BUN 22 H Creatinine 1.03 H Calcium 6.6 L* Cardiac Enzymes 11/01/17 Range/Units 22:30 Total Creatine Kinase 902 H (26-192) U/L CK-MB (CK-2) 4.6 H (0.5-3.6) ng/mL Troponin I Less than 0.02 L (0.02-0.05) ng/mL Liver Function 11/01/17 Range/Units 22:30 Total Bilirubin 1.5 H (0.2-1.0) mg/dL AST 77 H (15-37) U/L ALT 31 (10-53) U/L Alkaline Phosphatase 111 (45-117) U/L Albumin 2.0 L (3.4-5.0) g/dL Urine 11/01/17 Range/Units 22:30 Urine Color Yellow (Yellw/Straw) Urine Clarity Hazy H (Clear) Urine pH 6.0 (5.0-8.5) Ur Specific [place] 1.014 (1.002-1.035) Urine Protein 30 H (Neg-Trace) mg/dL Urine Glucose (UA) Negative (Negative) mg/dL - Imaging Impressions Chest X-Ray 11/01/17 22:25 CONCLUSION: 1. Diffuse patchy groundglass opacities concerning for atypical infection in the appropriate clinical setting. Head CT 11/02/17 00:00 CONCLUSION: 1. No acute intracranial abnormality. 2. Bilateral maxillary sinus mucosal disease. Chest CT 11/02/17 00:01 CONCLUSION: 1. Diffuse patchy groundglass opacities with nodular regions primarily in the left upper and lower lobes and single potentially cavitary nodule near the left lung apex. Overall, findings are concerning for atypical infection or developing septic pulmonary emboli in the appropriate clinical setting. 2. Subtle anterior pericardial effusion. 3. Subcentimeter bilateral axillary adenopathy, likely infectious/inflammatory. Exam Vital signs: Vital Signs 11/01/17 22:18 11/01/17 22:27 11/01/17 22:28 Temperature 39.3 C H 39.4 C H Pulse Rate 114 H 115 H Respiratory Rate 20 Blood Pressure 151/70 H Pulse Oximetry 95 11/01/17 22:29 11/01/17 23:51 11/02/17 01:18 Temperature Pulse Rate 111 H Respiratory Rate 17 Blood Pressure 146/65 H Pulse Oximetry 97 96 98 11/02/17 01:35 11/02/17 02:30 11/02/17 02:42 Temperature Pulse Rate 108 H 106 H Respiratory Rate 19 20 20 Blood Pressure 126/56 L 135/64 Pulse Oximetry 97 97 Intake & Output 11/01/17 11/01/17 11/02/17 06:59 18:59 06:59 Intake Total 1300 / 1300 Balance 1300 / 1300 Weight 78.5 kg Intake: IV 1300 / 1300 Zosyn 4.5 GM Premix 4.5 gm In 100 / 100 100 ml @ 200 mls/hr IV.SIG ONCE ONE Rx#:[id number] NS Inj 1,000 ML @ Wide Open IV. 1000 / 1000 SIG BOLUS ONE Rx#:[id number] Vancomycin Inj 1 gm In 200 ml @ 200 / 200 200 mls/hr IV.SIG ONCE ONE Rx# :[id number] Other: Weight On Admission 78.5 kg Narrative: gen: young female who appears in distress, acutely altered. heent: nc. at. pupils 3mm, equal, conjugate, reactive. mucous membranes dry. neck: no jvd. trachea midline. chest: equal chest rise. room air. cv: tachycardic rate in the 120s, regular rhythm. sinus. abd: soft, nontender, nondistended, no guarding. extr: warm to the touch diffusely. 2+ non-pitting edema of upper and lower extremities. multiple small excoriations over hands and feet. small linear scars over bilateral arms highly suspicious for needle rodriguez. small areas of what appear to be petechiae over the bilateral lower extremities, L > R. distal pulses 2+. neuro: RASS -2. does not follow commands. protecting airway vigorously. briskly purposeful. GCS 9 ([id number]). Septic Shock Reassessment Septic shock perfusion: reassessment completed Caprini VTE Risk Assessment Caprini VTE Risk Assessment: Moderate/High Risk (score >= 2) Caprini Risk Assessment Model: Point Value = 1 Point Value = 2 Point Value = 3 Point Value = 5 Age 41-60 Minor surgery BMI > 25 kg/m2 Swollen legs Varicose veins or History of unexplained or recurrent spontaneous Oral contraceptives or hormone replacement Sepsis (< 1 month) Serious lung disease, including pneumonia (< 1 month) Abnormal pulmonary function Acute myocardial infarction Congestive heart failure (< 1 month) History of inflammatory bowel disease Medical patient at bed rest Age 61-74 Arthroscopic surgery Major open surgery (> 45 min) Laparoscopic surgery (> 45 min) Malignancy Confined to bed (> 72 hours) Immobilizing plaster cast Central venous access Age >= 75 History of VTE Family history of VTE Factor V Leiden Prothrombin [id number] Lupus anticoagulant Anticardiolipin antibodies Elevated serum homocysteine Heparin-induced thrombocytopenia Other congenital or acquired thrombophilia Stroke (< 1 month) Elective arthroplasty Hip, pelvis, or leg fracture Acute spinal cord injury (< 1 month) Prophylaxis Regimen: Total Risk Factor Score Risk Level Prophylaxis Regimen 0-1 Low Early ambulation 2 Moderate Order ONE of the following: *Sequential Compression Device (SCD) *Heparin 5000 units SQ BID 3-4 Higher Order ONE of the following medications: *Heparin 5000 units SQ TID *Enoxaparin/Lovenox 40 mg SQ daily (WT < 150 kg, CrCl > 30 mL/min) *Enoxaparin/Lovenox 30 mg SQ daily (WT < 150 kg, CrCl > 10-29 mL/min) *Enoxaparin/Lovenox 30 mg SQ BID (WT < 150 kg, CrCl > 30 mL/min) AND/OR *Sequential Compression Device (SCD) 5 or more Highest Order ONE of the following medications: *Heparin 5000 units SQ TID (Preferred with Epidurals) *Enoxaparin/Lovenox 40 mg SQ daily (WT < 150 kg, CrCl > 30 mL/min) *Enoxaparin/Lovenox 30 mg SQ daily (WT < 150 kg, CrCl > 10-29 mL/min) *Enoxaparin/Lovenox 30 mg SQ BID (WT < 150 kg, CrCl > 30 mL/min) AND *Sequential Compression Device (SCD) Assessment and Plan - Assessment and Plan Plan: Assessment: 31yF with IVDA who presents with severe sepsis with multi-organ dysfunction and acute encephalopathy. Highly concerning for bacterial endocarditis given IVDA and severe sepsis, combined with what appears to be septic pulmonary emboli. however, also highly concerning for [employer] infection given acute encephalopathy. admit to ICU. will cover broadly with IV abx. f/u LP results. remains critically ill. Plan by systems: Neurologic: Acute encephalopathy-toxic versus metabolic versus infectious Possible acute meningoencephalitis IV drug abuse Amphetamine abuse Opiate abuse Frequent neurochecks Avoid long-acting sedatives Lumbar puncture 11/02: gluc 48, prot 33, OP 21, cell count pending. CT brain 11/01: negative for acute disease order MRI empiric abx as below Respiratory: Incentive spirometry Wean oxygen by nasal cannula for goal SPO2 greater than 90% Cardiovascular: Sinus tachycardia Severe sepsis Acute intravascular volume depletion Possible bacterial endocarditis Status post 3 L IV fluid resuscitation in the emergency department. Clinically appears to be hypovolemic still. We will add 1 additional liter IV fluid resuscitation Maintenance IV fluids Tachycardia secondary to severe sepsis 2d echo 11/02 bedside critical care echo: hyperdynamic LV systolic function. completely collapsable IVC. no pericardial effusion. Mitral and aortic valves appear competent without clinically significant regurgitation. tricuspid valve appears to have clinically significant regurgitation but the leaflets are not easily visualizable on bedside echo. f/u formal 2d echo ordered. Renal: Acute kidney injury Place Bennett catheter Every hour urine outputs HPI likely secondary to severe sepsis and endorgan dysfunction Daily BMP -- Strict I/Os FEN/GI: Acute liver dysfunction Acute protein calorie malnutrition: Moderate Hyponatremia Hypokalemia Hypomagnesemia Hypophosphatemia Lactic acidosis N.p.o. Maintenance IV fluids ICU electrolyte protocol Daily BMP Daily LFTs Liver ultrasound Hepatitis panel Trend lactate Heme/ID: Possible bacterial endocarditis Probable septic pulmonary emboli Multifocal pneumonia Possible infectious meningoencephalitis Anemia, likely combination iron deficiency and chronic disease Vancomycin with pharmacy dosing Rocephin 2gm iv q12h Ampicillin 2gm iv q4h lumbar puncture 11/02 blood cultures urine culture sputum culture CSF culture CSF VDRL CSF crypto histo urinary ag Legionella urinary ag pneumococcal urinary ag CSF HSV 1/2 HIV ab test hepatitis panel Endocrine: -- SSI Prophylaxis: GI Prophylaxis Pepcid DVT Prophylaxis -- SCDs Lovenox after lumbar puncture Lines: Peripheral IVs Dispo: Admit ICU. Critically ill. This patient remains critically ill with one or more organ systems which are or may become a threat to life. I have spent in excess of 62 minutes discontinuously in the care and management of this patient. This time is exclusive of procedures, and includes, but is not limited to, evaluation of the patient, review of the medical record, discussions with family, consultants, nursing staff, or respiratory therapy, and documentation in the medical record. H&P: Quality - VTE Deep Vein Thrombosis/Pulmonary Embolism Present on Admission: No Procedures - Lumbar Puncture Time out performed: Yes Patient position: right lateral decubitus Skin prep: 0.5% Chlorhexidine/Alcohol Local anesthetic used: Lidocaine 1% Amount of anesthesia used (mL): 3 Spinal needle gauge: 22G Interspace used: L4-L5 Opening pressure (cmH20): 21 Fluid initially obtained: clear Complications: none Additional comments: 10mL fluid sent to lab.
[2017-11-02 03:55] LABS: Hepatitis A IgM Antibody Nonreactive (Nonreactive)
[2017-11-02] MEDS ORDERED: Chlorhexidine Gluconate 2% 1 Pack (2 Cloths) TOPICAL PRN (04:00)
[2017-11-02] MEDS: Sod Chloride 0.9% Inj 1,000 ML IV.CONT SCH ×2 (04:01→23:18)
[2017-11-02] MEDS: Potassium Chlor 20 mEq Premix 20 MEQ/100 ML PIGGYBACK IV.SIG PRN ×3 (04:01→16:24)
[2017-11-02 04:15] LABS: Hepatitits B Surface Antigen Nonreactive (Nonreactive)
[2017-11-02] MEDS: Famotidine PF Inj 20 MG/2 ML Vial IV.PUSH SCH ×2 (08:44→20:50)
[2017-11-02] MEDS: Acetaminophen 325 MG Tablet PO PRN ×2 (08:44→18:06)
--- NOTE | 2017-11-02 10:51 | US ---
EXAM DATE: 11/02/2017 10:47 AM EDT AGE/SEX: 31 years / Female INDICATIONS: Abdominal pain. Pulmonary nodules. CLINICAL DATA: This is the patient's initial encounter. Patient reports that signs and symptoms have been present for 1 day and indicates a pain score of Nonresponsive. MEDICAL/SURGICAL HISTORY: Non-responsive. Altered mental status. Overdose. Non-responsive. COMPARISON: [facility], US PELVIS, PREG (SGL/1ST GESTATION), 06/03/2015. . MEASUREMENTS: Liver:__ 20.4 cm. Common Bile Duct:__ 4mm. Right Kidney:__ cm. FINDINGS: Liver: Normal echotexture without focal lesion or ductal dilatation. Portal Vein: Hepatopedal flow seen in portal vein. Common Duct: No intraluminal mass or stone visualized. Gallbladder: Sludge is within the gallbladder without wall thickening Pancreas: The visualized portions are within normal limits Right Kidney: Normal echotexture and cortical thickness. No mass or hydronephrosis. Other: There is hepatosplenomegaly present with the spleen measuring 17 cm in the long axis. CONCLUSION: Generalized hepatosplenomegaly without focal mass Sludge within the gallbladder Electronically signed by: Mich Flaherty MD 11/02/2017 10:50 AM EDT
[2017-11-02] MEDS ORDERED: Dexmedetomidine Inj 200 MCG/50 ML INFUS..BTL IV.CONT PRN (13:30)
--- NOTE | 2017-11-02 13:43 | XR ---
EXAM DATE: 11/02/2017 1:36 PM EDT AGE/SEX: 31 years / Female INDICATIONS: Shortness of breath. CLINICAL DATA: This is the patient's subsequent encounter. Patient reports that signs and symptoms h ave been present for 1 day and indicates a pain score of 9/10. MEDICAL/SURGICAL HISTORY: None. None. [place] [facility] [place]. . FINDINGS: The heart size is within normal limits for an AP portable chest x-ray. There is minimal patchy densit y seen at the left base. The right lung is grossly clear. The lungs appear better aerated on the curr ent exam. CONCLUSION: Mild patchy consolidation or atelectasis at the medial left lung base. Electronically signed by: Gustavo Estrada MD 11/02/2017 1:41 PM EDT
[2017-11-02] MEDS ORDERED: WATER IV.SIG PRN ×2 (14:45)
[2017-11-02] MEDS ORDERED: DEXTROSE 5% IV.SIG PRN ×2 (14:45)
[2017-11-02] MEDS ORDERED: Dexmedetomidine Inj 200 MCG in Sodium Chlor 0.9% Inj 50 ML IV.SIG PRN (14:45)
[2017-11-02] MEDS ORDERED: DEXMEDETOMIDINE IV.SIG PRN ×2 (14:45)
[2017-11-02] MEDS ORDERED: Gadobutrol PF 10 MMOL/10 ML Vial (for RAD) IV.SIG ONE (15:37)
--- NOTE | 2017-11-02 16:19 | MR ---
EXAM DATE: 11/02/2017 3:48 PM EDT AGE/SEX: 31 years / Female INDICATIONS: Encephalitis. CLINICAL DATA: This is the patient's initial encounter. Patient reports that signs and symptoms have been present for 2 days and indicates a pain score of 9/10. MEDICAL/SURGICAL HISTORY: None. None. [place] [facility] [place]. . TECHNIQUE: Multiplanar, multisequence examination of the brain was performed without and with 8 ml Ga davist (gadobutrol) contrast as a single exam dose. FINDINGS: Cerebrum: The ventricles are normal for age. No evidence of midline shift, mass lesion, hemorrhage or acute infarction. No extraaxial fluid collections are seen. The pituitary gland and suprasellar cistern are normal in configuration. White Matter: There are a few punctate areas of increased signal seen in the cerebral white matter o n the FLAIR images. Posterior Fossa: The cerebellum and brainstem are intact. The 4th ventricle is midline. The cerebel lopontine angle is unremarkable. The cerebellar tonsils are normal in position. Diffusion Imaging: No focal areas of restricted diffusion are seen. No evidence of acute infarction . Extracranial: The visualized portions of the orbits and paranasal sinuses are unremarkable. Post Contrast: No abnormal areas of parenchymal or dural enhancement. No evidence of blood-brain ba rrier breakdown. CONCLUSION: 1. No definite acute abnormality is seen. Edema to suggest encephalitis is not seen. 2. There are a few punctate areas of increased signal within the cerebral white matter representing small foci of demyelination. Underlying demyelinating conditions can be considered. Electronically signed by: Gustavo Estrada MD 11/02/2017 4:17 PM EDT
[2017-11-02] MEDS: Vancomycin Inj 1,000 MG in Sodium Chlor 0.9% Inj 250 ML IV.SIG SCH ×2 (16:22→23:15)
[2017-11-02] MEDS: Dexmedetomidine Inj 200 MCG in Sodium Chlor 0.9% Inj 50 ML IV.SIG PRN ×5 (16:23→23:46)
[2017-11-02] MEDS: HYDROmorphone PF Inj 2 MG/ML Vial IV.PUSH PRN (18:07)
[2017-11-03] MEDS: Enoxaparin Inj 40 MG/0.4 ML Syringe SQ SCH ×2 (01:51→01:56)
[2017-11-03] MEDS: HYDROmorphone PF Inj 2 MG/ML Vial IV.PUSH PRN ×5 (01:57→23:41)
[2017-11-03] MEDS: Dexmedetomidine Inj 200 MCG in Sodium Chlor 0.9% Inj 50 ML IV.SIG PRN ×5 (03:30→20:49)
[2017-11-03] MEDS: Chlorhexidine Gluconate 2% 1 Pack (2 Cloths) TOPICAL SCH (04:43)
[2017-11-03 06:02] LABS: Hematocrit 28.2 % (35.0-46.0); Hemoglobin 9.6 gm/dL (11.6-15.3); Mean Corpuscular HGB Conc 34.1 % (32.0-36.0); Mean Corpuscular Volume 84.9 fL (80.0-100.0); Mean Platelet Volume 9.4 fL (7.0-11.0); Platelet Count 61 th/mm3 (150-450); Red Blood Count 3.32 mil/mm3 (4.00-5.30); Red Cell Distribution Width 14.4 % (11.6-17.2); White Blood Count 12.6 th/mm3 (4.0-11.0)
[2017-11-03 06:16] LABS: INR 1.3 Ratio; Prothrombin Time 13.6 sec (9.8-11.6)
[2017-11-03 07:49] LABS: Lymphocytes 4 % (9-44); Monocytes 8 % (0-8)
[2017-11-03 07:50] LABS: Dohle Bodies Present; Platelet Morphology Normal (Normal); Toxic Granulation 1+
[2017-11-03] MEDS: Famotidine PF Inj 20 MG/2 ML Vial IV.PUSH SCH ×2 (07:59→20:48)
[2017-11-03] MEDS: Acetaminophen 325 MG Tablet PO PRN ×3 (09:02→20:47)
[2017-11-03] MEDS: Potassium Chlor 20 mEq Premix 20 MEQ/100 ML PIGGYBACK IV.SIG PRN (09:03)
[2017-11-03] MEDS ORDERED: Pharmacy Ordered Lab Info OTHER ONE (10:45)
[2017-11-03] MEDS: Vancomycin Inj 1,000 MG in Sodium Chlor 0.9% Inj 250 ML IV.SIG SCH ×2 (10:51→19:30)
[2017-11-03 12:20] LABS: Alanine Aminotransferase 24 U/L (10-53); Albumin 1.6 g/dL (3.4-5.0); Alkaline Phosphatase 84 U/L (45-117); Anion Gap 11 meq/L (5-15); Aspartate Aminotransferase 48 U/L (15-37); Blood Urea Nitrogen 14 mg/dL (7-18); Calcium 6.8 mg/dL (8.5-10.1); Chloride 107 meq/L (98-107); Glomerular Filtration Rate Greater Than 89 mL/min (>89); Glucose,Random 100 mg/dL (74-106); Magnesium 2.2 mg/dL (1.5-2.5); Phosphorus 3.3 mg/dL (2.5-4.9); Potassium 3.3 meq/L (3.5-5.1); Sodium 138 meq/L (136-145); Total Protein 5.3 g/dL (6.4-8.2)
[2017-11-03 13:22] LABS: HIV 1 Antibody Negative (Negative); HIV 2 Antibody Negative (Negative)
[2017-11-03] MEDS: Sod Chloride 0.9% Inj 1,000 ML IV.CONT SCH ×2 (14:53→23:41)
--- NOTE | 2017-11-03 15:42 | ECHRPT ---
Indication: CVA/TIA CONCLUSIONS The left ventricular systolic function is hyperdynamic with an estimated ejection fraction in the ra nge of 65- 70%. Normal left ventricular size. Wall thickness is normal. No regional wall motion abnormalities are present. There is mild tricuspid valve regurgitation. The estimated pulmonary arterial pressure is 39.2 mmHg. BP: / HR: Rhythm: Sinus MEASUREMENTS (Male / Female) Normal Values Technical Quality:Good 2D ECHO LV Diastolic Diameter PLAX 4.4 cm 4.2 - 5.9 / 3.9 - 5.3 cm LV Systolic Diameter PLAX 3.0 cm IVS Diastolic Thickness 1.0 cm 0.6 - 1.0 / 0.6 - 0.9 cm LVPW Diastolic Thickness 1.0 cm 0.6 - 1.0 / 0.6 - 0.9 cm LV Relative Wall Thickness 0.5 RV Internal Dim ED PLAX 3.0 cm LV Ejection Fraction MOD 4C 69.1 % LV Ejection Fraction 4C AL 69.4 % DOPPLER TR Peak Velocity 270.0 cm/s TR Peak Gradient 29.2 mmHg Right Atrial Pressure 10.0 mmHg Pulmonary Artery Systolic Pressu 39.2 mmHg Right Ventricular Systolic Press 39.2 mmHg FINDINGS LEFT VENTRICLE The left ventricular systolic function is hyperdynamic with an estimated ejection fraction in the ra nge of 65- 70%. Normal left ventricular size. Wall thickness is normal. No regional wall motion abnormalities are present. RIGHT VENTRICLE Normal right ventricular size and systolic function. LEFT ATRIUM The left atrial size is normal. RIGHT ATRIUM The right atrial size is normal. ATRIAL SEPTUM Normal atrial septal thickness without atrial level shunting by limited color doppler interrogation. AORTA The aortic root and proximal ascending aorta are normal in size on limited imaging. MITRAL VALVE Structurally normal mitral valve. No mitral valve stenosis or regurgitation. AORTIC VALVE Trileaflet aortic valve. No aortic valve stenosis or regurgitation. TRICUSPID VALVE Structurally normal tricuspid valve. There is mild tricuspid valve regurgitation. The estimated pulmonary arterial pressure is 39.2 mmHg. PULMONARY VALVE No pulmonary valve regurgitation or stenosis. VESSELS The inferior vena cava is normal in size. PERICARDIUM No pericardial effusion. Obi Ramirez MD, FACC (Electronically Signed) Final Date:03 November 2017 15:41
--- NOTE | 2017-11-03 16:41 | MB ---
cc: Tony Hernandez MD DATE: 11/03/2017 REQUESTING PHYSICIAN: Dr. Silviano Nava REASON: Sepsis, bacteremia, suspected endocarditis. HISTORY OF PRESENT ILLNESS: This is a 31-year-old white female who was brought to the emergency department after her boyfriend called because she was poorly responsive. The patient was evaluated in the emergency department for the altered mental status and admitted to the intensive care unit. A chest x-ray was performed and it showed diffuse patchy ground glass opacities. CT scan of the chest was also performed and it showed nodular regions in the left upper and left lower lobes and a single cavitary nodule near the left lung apex and also bilateral axillary adenopathy. The patient uses IV drugs in the form of heroin and methamphetamines. She reportedly just got out of penitent[facility]. She complaints of pain all over and states that she feels like crap. She reports chills but denies fevers prior to admission. The patient states that she had difficulty getting out of bed on the day prior to being brought to the emergency department. She was seen in the emergency department on 11/01/2017. A lumbar puncture was performed and revealed 13 white cells. Blood cultures on preliminary seeing 4 bottles. White blood cell count is 12.6 of today. PAST MEDICAL HISTORY: Denies past medical problems. ALLERGIES: HALOPERIDOL. MEDICATIONS: 1. Ampicillin. 2. Ceftriaxone. 3. Lovenox. 4. Pepcid. 5. Dilaudid p.r.n. 6. Potassium. 7. Vancomycin. SOCIAL HISTORY: The patient smokes a pack and a half of cigarettes a day. Occasional alcohol. Positive IV drug use. She has 2 children, ages 9 months and 8 years and states that she has custody of her children. FAMILY HISTORY: Noncontributory. REVIEW OF SYSTEMS: Pertinent as mentioned above in History Of Present Illness. All other systems have been reviewed and are negative. PHYSICAL EXAMINATION: GENERAL: This is a moderately obese female who is in mild distress because of pain. She is on oxygen via face mask. VITAL SIGNS: Temperature 102.9, BP 92/52, respiratory rate 20, heart rate 65. HEENT: The head is atraumatic. The patient has have mild erythema on the right upper eyelid. Extraocular movements grossly intact. Pupils reactive to light. No icterus. Oropharynx: Moist mucosa. No visible lesions. NECK: Supple. No adenopathy. LUNGS: Decreased breath sounds bilaterally. HEART: Regular S1 and S2, with distant sounds. No murmurs heard. ABDOMEN: Obese, soft, no tenderness appreciated. No masses palpable. RECTAL: Not performed. EXTREMITIES: The right thumb has superficial ulcerations and erythema. The left dorsal aspect of the hand has a tiny erythematous lesion surrounded by a raised, pale white border and noted tiny erythematous punctate lesion is located at the base of the second finger on the dorsal aspect. Both hands have edema. The patient also has 1+ edema of the lower extremities. SKIN: No rash. NEUROLOGIC: No gross focal findings. PSYCH: The patient is calm and cooperative. LABORATORY DATA: WBC 12.6 with 75% neutrophils, 13% bands, platelet count 61, hemoglobin 9.6. Creatinine 0.69. Estimated GFR greater than 89. Sodium 138. IMAGING STUDIES: CT scan of the chest shows diffuse patchy ground glass opacities. 2-D echocardiogram shows an ejection fraction of 65-70%, mild tricuspid valve regurgitation and there is no mention of vegetation. MRI of the head shows few punctate areas of scattered signal within the cerebral white matter representing small foci of demyelination. IMPRESSION: 1. Severe sepsis due to methicillin-resistant Staphylococcus aureus in patient sedated with intravenous drug abuse and recent intravenous drug use. Probable endocarditis. 2. Abnormal CT of the chest, suggesting possible septic emboli. 3. Altered mental status on admission. Lumbar puncture revealed few white cells in the cerebrospinal fluid. Mental status appears to have improved compared to admission. RECOMMENDATIONS: 1. Continue vancomycin. 2. Discontinue ampicillin. 3. Discontinue ceftriaxone. 4, Monitor clinical response. 5. Repeat blood cultures. 6. Monitor white blood cell count. Thank you for this consultation. The patient's progress will be monitored with you and further recommendations will be given upon followup if necessary. MD SHANIKA Loaiza/PATRICIA , 03:52 PM , 04:40 PM
--- NOTE | 2017-11-03 17:27 | P.PNCC ---
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 too lethargic to answer any additional questions. febrile to 103F. CBC with leukocytosis and bandemia. UDS + amphetamines and opiates. lactate elevated. Cr elevated. CT chest with multiple pulmonary nodules with concern for infection and possible septic emboli. ROS unobtainable due to mental status. 11/03: Shortness of breath noted. On nasal cannula. Drowsy, easily arousable. Following commands. Tolerating p.o. diet. Objective Vital Signs / I&O: Vital Signs 11/02/17 17:30 11/02/17 18:00 11/02/17 18:30 Temperature Pulse Rate 86 88 88 Respiratory Rate 34 H 33 H 24 Blood Pressure 112/68 108/64 99/60 L Pulse Oximetry 94 L 94 L 93 L 11/02/17 19:00 11/02/17 19:30 11/02/17 19:58 Temperature Pulse Rate 86 84 Respiratory Rate 24 26 H Blood Pressure 99/57 L 101/57 L Pulse Oximetry 92 L 91 L 3 L 11/02/17 20:00 11/02/17 20:30 11/02/17 21:00 Temperature 99.9 F H Pulse Rate 82 80 83 Respiratory Rate 25 H 22 33 H Blood Pressure 102/59 L 103/59 L 101/57 L Pulse Oximetry 94 L 94 L 93 L 11/02/17 21:30 11/02/17 22:00 11/02/17 22:30 Temperature Pulse Rate 82 77 79 Respiratory Rate 20 20 20 Blood Pressure 109/66 93/51 L 96/53 L Pulse Oximetry 98 91 L 93 L 11/02/17 23:00 11/02/17 23:30 11/03/17 00:00 Temperature 98.3 F Pulse Rate 80 80 82 Respiratory Rate 20 20 Blood Pressure 106/60 109/62 99/55 L Pulse Oximetry 97 97 93 L 11/03/17 00:30 11/03/17 01:00 11/03/17 01:30 Temperature Pulse Rate 81 80 79 Respiratory Rate 18 Blood Pressure 101/59 L 101/59 L 104/57 L Pulse Oximetry 94 L 94 L 96 11/03/17 02:00 11/03/17 02:30 11/03/17 03:00 Temperature Pulse Rate 79 82 82 Respiratory Rate 20 18 Blood Pressure 98/53 L 99/57 L 100/56 L Pulse Oximetry 91 L 92 L 90 L 11/03/17 03:30 11/03/17 04:00 11/03/17 04:30 Temperature 98.1 F Pulse Rate 86 83 83 Respiratory Rate 16 20 Blood Pressure 106/56 L 100/52 L 102/55 L Pulse Oximetry 92 L 94 L 90 L 11/03/17 05:00 11/03/17 05:30 11/03/17 06:00 Temperature Pulse Rate 83 86 81 Respiratory Rate 20 26 H Blood Pressure 103/56 L 104/59 L 100/52 L Pulse Oximetry 91 L 91 L 92 L 11/03/17 06:30 11/03/17 07:00 11/03/17 07:30 Temperature Pulse Rate 84 79 79 Respiratory Rate Blood Pressure 99/53 L 99/50 L 101/50 L Pulse Oximetry 90 L 91 L 91 L 11/03/17 08:00 11/03/17 08:30 11/03/17 09:00 Temperature 102.6 F H Pulse Rate 81 77 78 Respiratory Rate Blood Pressure 101/50 L 95/50 L 98/54 L Pulse Oximetry 94 L 91 L 91 L 11/03/17 09:30 11/03/17 10:00 11/03/17 10:30 Temperature Pulse Rate 75 81 78 Respiratory Rate Blood Pressure 103/58 L 104/58 L 103/52 L Pulse Oximetry 97 97 97 11/03/17 11:00 11/03/17 11:30 11/03/17 12:00 Temperature Pulse Rate 82 72 88 Respiratory Rate Blood Pressure 95/51 L 96/51 L Pulse Oximetry 96 97 96 11/03/17 12:01 11/03/17 12:30 11/03/17 13:00 Temperature 102.9 F H Pulse Rate 72 68 68 Respiratory Rate Blood Pressure 93/52 L 92/51 L 92/53 L Pulse Oximetry 97 98 97 11/03/17 13:30 11/03/17 14:00 11/03/17 14:30 Temperature Pulse Rate 68 87 65 Respiratory Rate Blood Pressure 93/50 L 97/55 L 95/52 L Pulse Oximetry 97 97 98 11/03/17 15:00 11/03/17 15:30 11/03/17 16:00 Temperature 100.5 F H Pulse Rate 69 74 71 Respiratory Rate Blood Pressure 100/55 L 103/60 100/55 L Pulse Oximetry 100 100 100 11/03/17 16:30 Temperature Pulse Rate 71 Respiratory Rate Blood Pressure 98/54 L Pulse Oximetry 100 Intake & Output 11/02/17 11/03/17 11/03/17 18:59 06:59 18:59 Intake Total 1983 2168 / 2168 2554 / 2554 Output Total 1100 / 1100 850 / 850 Balance 884 / 884 1318 / 1318 2554 / 2554 Intake: IV 1504 / 1504 1208 / 1208 2554 / 2554 NS Inj 1,000 ML @ 125 mls/hr IV 1000 / 1000 1000 / 1000 .CONT .Q8H JUNIOR Rx#:[id number] Ampicillin Inj 2,000 MG In NS 100 / 100 400 / 400 400 / 400 Inj 100 ML @ 400 mls/hr IV.SIG Q4H JUNIOR Rx#:[id number] Precedex Inj 200 MCG In NS Inj 104 / 104 208 / 208 104 / 104 50 ML @ 0.2 MCG/KG/HR 4.08 mls/ hr IV.SIG TITRATE PRN Rx#: [id number] Magnesium Sulfate Inj 2 GM In 100 / 100 NS Inj 96 ML @ 50 mls/hr IV.SIG UNSCH PRN Rx#:[id number] KCl 20 mEq Premix Inj 20 meq In 200 / 200 200 / 200 100 ml @ 50 mls/hr IV.SIG Q2H PRN Rx#:[id number] Potassium Phosphate Inj 30 MMOL 500 / 500 In NS Inj 250 ML @ 42 mls/hr IV.SIG UNSCH PRN Rx#:[id number] Vancomycin Inj 1,000 MG In NS 500 / 500 250 / 250 Inj 250 ML @ 250 mls/hr IV.SIG Q12H JUNIOR Rx#:[id number] Rocephin Inj 2,000 MG In NS Inj 100 / 100 100 / 100 100 ML @ 200 mls/hr IV.SIG Q12H JUNIOR Rx#:[id number] Oral 480 / 480 960 / 960 Output: Urine Amount (Catheter) 1100 / 1100 850 / 850 Indwelling Urethral Catheter 1100 / 1100 850 / 850 Result Diagrams: 11/03/17 05:37 11/03/17 15:39 Other Results: Laboratory Results - last 24 hr 11/02/17 11/02/1711/02/18 01:30 02:05 23:37 WBC RBC Hgb Hct MCV MCH MCHC RDW Plt Count MPV Prelim Diff (Auto) WBC Differential Seg Neuts % (Manual) Band Neuts % (Manual) Lymphocytes % (Manual) Monocytes % (Manual) Abs Neuts (Manual) Differential Comment Toxic Granulation Dohle Bodies Platelet Estimate Platelet Morphology PT INR Sodium Potassium 2.9 L* Chloride Carbon Dioxide Anion Gap BUN Creatinine Estimated GFR Random Glucose Lactic Acid Calcium Prot Corrected Calcium Phosphorus Magnesium Total Bilirubin AST ALT Alkaline Phosphatase Total Protein Albumin CSF Herpes I DNA (PCR) Negative CSF Herpes II DNA (PCR) Negative Vancomycin Trough HIV-1 Antibody Negative HIV-2 Antibody Negative 11/03/17 11/03/17 11/03/17 05:37 05:37 05:37 WBC 12.6 H RBC 3.32 L Hgb 9.6 L Hct 28.2 L MCV 84.9 MCH 29.0 MCHC 34.1 RDW 14.4 Plt Count 61 L D MPV 9.4 Prelim Diff (Auto) Manual diff required WBC Differential Manual diff final Seg Neuts % (Manual) 75 H Band Neuts % (Manual) 13 H Lymphocytes % (Manual) 4 L Monocytes % (Manual) 8 Abs Neuts (Manual) 11.1 H Differential Comment . Toxic Granulation 1+ H Dohle Bodies Present H Platelet Estimate Low L Platelet Morphology Normal PT 13.6 H INR 1.3 Sodium Potassium Chloride Carbon Dioxide Anion Gap BUN Creatinine Estimated GFR Random Glucose Lactic Acid 1.1 Calcium Prot Corrected Calcium Phosphorus Magnesium Total Bilirubin AST ALT Alkaline Phosphatase Total Protein Albumin CSF Herpes I DNA (PCR) CSF Herpes II DNA (PCR) Vancomycin Trough HIV-1 Antibody HIV-2 Antibody 11/03/17 11/03/17 11/03/17 11:00 11:00 15:39 WBC RBC Hgb Hct MCV MCH MCHC RDW Plt Count MPV Prelim Diff (Auto) WBC Differential Seg Neuts % (Manual) Band Neuts % (Manual) Lymphocytes % (Manual) Monocytes % (Manual) Abs Neuts (Manual) Differential Comment Toxic Granulation Dohle Bodies Platelet Estimate Platelet Morphology PT INR Sodium 138 Potassium 3.3 L 3.6 Chloride 107 D Carbon Dioxide 20.0 L Anion Gap 11 BUN 14 Creatinine 0.69 Estimated GFR Greater than 89 Random Glucose 100 Lactic Acid Calcium 6.8 L* Prot Corrected Calcium 7.7 L Phosphorus 3.3 D Magnesium 2.2 D Total Bilirubin 0.9 AST 48 H ALT 24 Alkaline Phosphatase 84 Total Protein 5.3 L Albumin 1.6 L CSF Herpes I DNA (PCR) CSF Herpes II DNA (PCR) Vancomycin Trough 6.1 HIV-1 Antibody HIV-2 Antibody Imaging: Chest X-Ray 11/01/17 22:25 CONCLUSION: 1. Diffuse patchy groundglass opacities concerning for atypical infection in the appropriate clinical setting. Chest X-Ray 11/02/17 00:00 CONCLUSION: Mild patchy consolidation or atelectasis at the medial left lung base. Head CT 11/02/17 00:00 CONCLUSION: 1. No acute intracranial abnormality. 2. Bilateral maxillary sinus mucosal disease. Head MRI 11/02/17 00:00 CONCLUSION: 1. No definite acute abnormality is seen. Edema to suggest encephalitis is not seen. 2. There are a few punctate areas of increased signal within the cerebral white matter representing small foci of demyelination. Underlying demyelinating conditions can be considered. Liver Ultrasound 11/02/17 00:00 CONCLUSION: Generalized hepatosplenomegaly without focal mass Sludge within the gallbladder Chest CT 11/02/17 00:01 CONCLUSION: 1. Diffuse patchy groundglass opacities with nodular regions primarily in the left upper and lower lobes and single potentially cavitary nodule near the left lung apex. Overall, findings are concerning for atypical infection or developing septic pulmonary emboli in the appropriate clinical setting. 2. Subtle anterior pericardial effusion. 3. Subcentimeter bilateral axillary adenopathy, likely infectious/inflammatory. Objective Remarks: gen: young female who appears short of breath, laying in bed in minimal distress on nasal cannula. heent: nc. at. pupils 3mm, equal, conjugate, reactive. mucous membranes moist. neck: no jvd. trachea midline. chest: Good air entry bilaterally, scattered rhonchi, no wheezing cv: S1-S2 regular no gallop or murmur abd: soft, nontender, nondistended, no guarding. extr: warm to the touch diffusely. 2+ non-pitting edema of upper and lower extremities. multiple small excoriations over hands and feet. small linear scars over bilateral arms highly suspicious for needle rodriguez. small areas of what appear to be petechiae over the bilateral lower extremities, L > R. distal pulses 2+. neuro: Drowsy, easily arousable, moving all 4 extremities, grossly nonfocal. Assessment and Plan - Assessment and Plan Plan: Assessment: 31yF with IVDA who presents with severe sepsis with multi-organ dysfunction and acute encephalopathy. Highly concerning for bacterial endocarditis given IVDA and severe sepsis, combined with what appears to be septic pulmonary emboli. however, also highly concerning for [employer] infection given acute encephalopathy. admit to ICU. will cover broadly with IV abx. f/u LP results. remains critically ill. Plan by systems: Neurologic: Acute encephalopathy-toxic versus metabolic versus infectious Possible acute meningoencephalitis IV drug abuse Amphetamine abuse Opiate abuse Frequent neurochecks Avoid long-acting sedatives Lumbar puncture 11/02: gluc 48, prot 33, OP 21, cell count pending. CT brain 11/01: negative for acute disease order MRI empiric abx as below Respiratory: Incentive spirometry Wean oxygen by nasal cannula for goal SPO2 greater than 90% Cardiovascular: Sinus tachycardia Severe sepsis Acute intravascular volume depletion Possible bacterial endocarditis Status post 3 L IV fluid resuscitation in the emergency department. Clinically appears to be hypovolemic still. We will add 1 additional liter IV fluid resuscitation Maintenance IV fluids Tachycardia secondary to severe sepsis 2d echo 11/02 bedside critical care echo: hyperdynamic LV systolic function. completely collapsable IVC. no pericardial effusion. Mitral and aortic valves appear competent without clinically significant regurgitation. tricuspid valve appears to have clinically significant regurgitation but the leaflets are not easily visualizable on bedside echo. f/u formal 2d echo ordered. Renal: Acute kidney injury Place Bennett catheter Every hour urine outputs HPI likely secondary to severe sepsis and endorgan dysfunction Daily BMP -- Strict I/Os FEN/GI: Acute liver dysfunction Acute protein calorie malnutrition: Moderate Hyponatremia Hypokalemia Hypomagnesemia Hypophosphatemia Lactic acidosis N.p.o. Maintenance IV fluids ICU electrolyte protocol Daily BMP Daily LFTs Liver ultrasound Hepatitis panel Trend lactate Heme/ID: Possible bacterial endocarditis Probable septic pulmonary emboli Multifocal pneumonia Anemia, likely combination iron deficiency and chronic disease Vancomycin with pharmacy dosing Rocephin 2gm iv q12h Ampicillin 2gm iv q4h lumbar puncture 11/02 blood cultures urine culture sputum culture CSF culture CSF VDRL CSF crypto histo urinary ag Legionella urinary ag pneumococcal urinary ag CSF HSV 1/2 HIV ab test hepatitis panel ID consulted for further evaluation for MRSA bacteremia Endocrine: -- SSI Prophylaxis: GI Prophylaxis Pepcid DVT Prophylaxis -- SCDs Lovenox after lumbar puncture Lines: Peripheral IVs Dispo: Admit ICU. Critically ill. This patient remains critically ill with one or more organ systems which are or may become a threat to life. I have spent in excess of 62 minutes discontinuously in the care and management of this patient. This time is exclusive of procedures, and includes, but is not limited to, evaluation of the patient, review of the medical record, discussions with family, consultants, nursing staff, or respiratory therapy, and documentation in the medical record.
[2017-11-04] MEDS: Vancomycin Inj 1,000 MG in Sodium Chlor 0.9% Inj 250 ML IV.SIG SCH ×3 (01:41→18:31)
[2017-11-04] MEDS: Enoxaparin Inj 40 MG/0.4 ML Syringe SQ SCH (01:41)
[2017-11-04] MEDS: Dexmedetomidine Inj 200 MCG in Sodium Chlor 0.9% Inj 50 ML IV.SIG PRN ×3 (01:42→20:08)
[2017-11-04] MEDS: HYDROmorphone PF Inj 2 MG/ML Vial IV.PUSH PRN ×5 (04:05→22:32)
[2017-11-04] MEDS: Chlorhexidine Gluconate 2% 1 Pack (2 Cloths) TOPICAL SCH (04:06)
[2017-11-04] MEDS: Acetaminophen 325 MG Tablet PO PRN ×2 (04:10→16:11)
[2017-11-04 05:47] LABS: Baso % (Auto) 0.3 % (0.0-2.0); Eos # (Auto) 0.1 th/mm3 (0.0-0.4); Eos % (Auto) 0.4 % (0.0-4.0); Hematocrit 26.4 % (35.0-46.0); Hemoglobin 8.9 gm/dL (11.6-15.3); Lymph # (Auto) 0.9 th/mm3 (1.0-4.8); Mean Corpuscular HGB Conc 33.7 % (32.0-36.0); Mean Corpuscular Hemoglobin 29.2 pg (27.0-34.0); Mean Corpuscular Volume 86.6 fL (80.0-100.0); Mean Platelet Volume 9.6 fL (7.0-11.0); Mono # (Auto) 0.8 th/mm3 (0.0-0.9); Mono % (Auto) 5.9 % (0.0-8.0); Neut # (Auto) 12.5 th/mm3 (1.8-7.7); Neut % (Auto) 87.4 % (16.0-70.0); Platelet Count 77 th/mm3 (150-450); Red Blood Count 3.05 mil/mm3 (4.00-5.30); Red Cell Distribution Width 14.8 % (11.6-17.2); White Blood Count 14.3 th/mm3 (4.0-11.0)
--- NOTE | 2017-11-04 06:19 | XR ---
EXAM DATE: 11/04/2017 5:54 AM EDT AGE/SEX: 31 years / Female INDICATIONS: Shortness of breath. CLINICAL DATA: This is the patient's subsequent encounter. Patient reports that signs and symptoms h ave been present for 2 days and indicates a pain score of 7/10. MEDICAL/SURGICAL HISTORY: None. None. COMPARISON: [facility] [place], CHEST 1V SINGLE AP, 11/02/2017. . FINDINGS: Hazy bilateral perihilar and basilar parenchymal opacities are present. Cardiac contours are grossly unchanged. CONCLUSION: Developing bilateral infiltrates. Electronically signed by: Gustavo Kay MD 11/04/2017 6:18 AM EDT
[2017-11-04 08:53] LABS: Alanine Aminotransferase 19 U/L (10-53); Albumin 1.4 g/dL (3.4-5.0); Alkaline Phosphatase 97 U/L (45-117); Anion Gap 14 meq/L (5-15); Aspartate Aminotransferase 38 U/L (15-37); Blood Urea Nitrogen 10 mg/dL (7-18); Carbon Dioxide 17.7 meq/L (21.0-32.0); Chloride 106 meq/L (98-107); Glomerular Filtration Rate Greater Than 89 mL/min (>89); Glucose,Random 87 mg/dL (74-106); Sodium 138 meq/L (136-145); Total Protein 4.9 g/dL (6.4-8.2)
[2017-11-04 09:01] LABS: Potassium 2.9 meq/L (3.5-5.1)
[2017-11-04] MEDS: Sod Chloride 0.9% Inj 1,000 ML IV.CONT SCH ×2 (09:42→19:18)
[2017-11-04] MEDS: Famotidine PF Inj 20 MG/2 ML Vial IV.PUSH SCH ×2 (09:44→20:07)
[2017-11-04 10:08] LABS: Magnesium 2.1 mg/dL (1.5-2.5); Phosphorus 3.1 mg/dL (2.5-4.9)
[2017-11-04 10:21] LABS: Lymphocytes 1 % (9-44); Monocytes 1 % (0-8)
[2017-11-04 10:22] LABS: Dohle Bodies Present; Platelet Morphology Normal (Normal); Toxic Granulation 2+; Toxic Vacuolation Present
--- NOTE | 2017-11-04 11:53 | P.PNID ---
Subjective Remarks: Patient complaining of pain all over her body. Febrile last night, up to 102. Current SBP is 93. Not on pressors. Repeat blood culture has MRSA. No vegetation noted on ECHO 2D. Admitted with altered mental status. The patient uses IV drugs in the form of heroin and methamphetamines. Positive blood cultures with MRSA. Lines: RIJ, Peripheral Allergies/Adverse Reactions: Allergies haloperidol Adverse Reaction (Intermediate, Verified 11/01/17 22:36) SEIZURES NICKEL Allergy (Intermediate, Uncoded 11/01/17 22:36) Anxiety Objective Vital Signs 11/03/17 12:00 11/03/17 12:01 11/03/17 12:30 Temperature 102.9 F H Pulse Rate 88 72 68 Respiratory Rate Blood Pressure 93/52 L 92/51 L Pulse Oximetry 96 97 98 11/03/17 13:00 11/03/17 13:30 11/03/17 14:00 Temperature Pulse Rate 68 68 87 Respiratory Rate Blood Pressure 92/53 L 93/50 L 97/55 L Pulse Oximetry 97 97 97 11/03/17 14:30 11/03/17 15:00 11/03/17 15:30 Temperature Pulse Rate 65 69 74 Respiratory Rate Blood Pressure 95/52 L 100/55 L 103/60 Pulse Oximetry 98 100 100 11/03/17 16:00 11/03/17 16:30 11/03/17 17:00 Temperature 100.5 F H Pulse Rate 71 71 75 Respiratory Rate Blood Pressure 100/55 L 98/54 L 105/57 L Pulse Oximetry 100 100 100 11/03/17 17:30 11/03/17 18:00 11/03/17 18:30 Temperature Pulse Rate 83 85 90 Respiratory Rate Blood Pressure 105/57 L 111/69 112/61 Pulse Oximetry 100 100 100 11/03/17 19:00 11/03/17 19:30 11/03/17 20:00 Temperature 102.2 F H Pulse Rate 87 90 91 H Respiratory Rate 30 H Blood Pressure 101/53 L 102/50 L 104/57 L Pulse Oximetry 100 100 100 11/03/17 20:46 11/03/17 20:57 11/03/17 22:00 Temperature Pulse Rate 95 H Respiratory Rate 30 H Blood Pressure Pulse Oximetry 100 11/03/17 23:00 11/03/17 23:30 11/04/17 00:00 Temperature Pulse Rate 79 77 73 Respiratory Rate Blood Pressure 94/53 L 93/54 L 98/50 L Pulse Oximetry 99 99 100 11/04/17 00:18 11/04/17 00:30 11/04/17 01:00 Temperature Pulse Rate 73 74 Respiratory Rate 26 H Blood Pressure 103/59 L 102/58 L Pulse Oximetry 100 100 11/04/17 01:30 11/04/17 02:00 11/04/17 02:30 Temperature Pulse Rate 77 79 82 Respiratory Rate Blood Pressure 104/59 L 103/59 L 107/56 L Pulse Oximetry 100 100 100 11/04/17 03:00 11/04/17 03:30 11/04/17 04:00 Temperature 101.1 F H Pulse Rate 87 86 85 Respiratory Rate 25 H Blood Pressure 113/63 105/58 L 103/54 L Pulse Oximetry 100 100 100 11/04/17 04:30 11/04/17 05:00 11/04/17 05:30 Temperature Pulse Rate 82 81 77 Respiratory Rate Blood Pressure 99/54 L 100/54 L 100/50 L Pulse Oximetry 100 98 97 11/04/17 06:00 11/04/17 06:30 11/04/17 07:00 Temperature 99.0 F Pulse Rate 75 72 69 Respiratory Rate 22 Blood Pressure 98/51 L 94/51 L 91/53 L Pulse Oximetry 97 97 98 11/04/17 07:30 11/04/17 08:00 11/04/17 08:30 Temperature Pulse Rate 69 68 69 Respiratory Rate Blood Pressure 89/53 L 91/53 L 92/51 L Pulse Oximetry 99 99 99 11/04/17 09:00 11/04/17 09:30 11/04/17 10:00 Temperature Pulse Rate 70 69 72 Respiratory Rate Blood Pressure 95/50 L 100/57 L 102/57 L Pulse Oximetry 99 100 100 11/04/17 10:30 11/04/17 10:38 11/04/17 11:00 Temperature Pulse Rate 73 73 Respiratory Rate Blood Pressure 94/50 L 98/55 L Pulse Oximetry 98 99 100 Intake & Output 11/03/17 11/04/17 11/04/17 18:59 06:59 18:59 Intake Total 3514 / 3514 2334 / 2334 1000 / 1000 Output Total 750 / 750 750 / 750 Balance 2764 / 2764 1584 / 1584 1000 / 1000 Weight 87 kg Intake: IV 2554 / 2554 1854 / 1854 1000 / 1000 NS Inj 1,000 ML @ 100 mls/hr IV 1000 / 1000 1000 / 1000 1000 / 1000 .CONT .Q10H JUNIOR Rx#:[id number] Ampicillin Inj 2,000 MG In NS 400 / 400 100 / 100 Inj 100 ML @ 400 mls/hr IV.SIG Q4H JUNIOR Rx#:[id number] Precedex Inj 200 MCG In NS Inj 104 / 104 154 / 154 50 ML @ 0.2 MCG/KG/HR 4.08 mls/ hr IV.SIG TITRATE PRN Rx#: [id number] Magnesium Sulfate Inj 2 GM In 100 / 100 NS Inj 96 ML @ 50 mls/hr IV.SIG UNSCH PRN Rx#:[id number] KCl 20 mEq Premix Inj 20 meq In 200 / 200 100 ml @ 50 mls/hr IV.SIG Q2H PRN Rx#:[id number] Potassium Phosphate Inj 30 MMOL 500 / 500 In NS Inj 250 ML @ 42 mls/hr IV.SIG UNSCH PRN Rx#:[id number] Vancomycin Inj 1,000 MG In NS 250 / 250 500 / 500 Inj 250 ML @ 250 mls/hr IV.SIG Q8H JUNIOR Rx#:[id number] Rocephin Inj 2,000 MG In NS Inj 100 / 100 100 ML @ 200 mls/hr IV.SIG Q12H JUNIOR Rx#:[id number] Oral 960 / 960 480 / 480 Output: Urine Amount (Catheter) 750 / 750 750 / 750 Indwelling Urethral Catheter 750 / 750 750 / 750 Other: # Bowel Movements 0 11/03/17 19:10 Blood - Peripheral Aerobic Blood Culture - Preliminary No growth in 1 day 11/03/17 19:10 Blood - Peripheral Anaerobic Blood Culture - Preliminary No growth in 1 day 11/03/17 19:21 Blood - Peripheral Aerobic Blood Culture - Preliminary No growth in 1 day 11/03/17 19:21 Blood - Peripheral Anaerobic Blood Culture - Preliminary No growth in 1 day 11/03/17 05:30 Blood - Peripheral Aerobic Blood Culture - Preliminary gram positive cocci 11/03/17 05:30 Blood - Peripheral Anaerobic Blood Culture - Preliminary No growth in 1 day 11/03/17 05:37 Blood - Peripheral Aerobic Blood Culture - Preliminary gram positive cocci 11/03/17 05:37 Blood - Peripheral Anaerobic Blood Culture - Preliminary No growth in 1 day 11/01/17 22:30 Blood - Peripheral Aerobic Blood Culture - Final S. aureus MRSA 11/01/17 22:30 Blood - Peripheral Anaerobic Blood Culture - Final S. aureus MRSA 11/01/17 22:20 Blood - Peripheral Aerobic Blood Culture - Final S. aureus MRSA 11/01/17 22:20 Blood - Peripheral Anaerobic Blood Culture - Final S. aureus MRSA 11/02/17 01:30 Lumbar Puncture Gram Stain - Final 11/02/17 01:30 Lumbar Puncture CSF Culture - Preliminary No growth in 48 hours 11/02/17 01:30 Cerebral Spinal Fluid - Lumbar Puncture Acid Fast Bacilli Smear - Final No acid fast bacilli seen 11/02/17 01:30 Cerebral Spinal Fluid - Lumbar Puncture Mycobacterial Culture - Pending 11/02/17 01:30 Cerebral Spinal Fluid - Lumbar Puncture Fungal Smear - Final No fungal elements seen 11/02/17 01:30 Cerebral Spinal Fluid - Lumbar Puncture Fungal Culture - Pending 11/02/17 06:45 Urine - Catheterized Urine Streptococcus pneumoniae Antigen ( M - Final Presumptive negative for streptococcus pneumoniae antigen, suggesting no current or recent infection. Infection due to Streptococcus pneumoniae cannot be ruled out since the antigen present in the sample may be below the detection limit of the test. 11/02/17 06:45 Urine - Catheterized Urine Legionella Antigen - Final Presumptive negative for Legionella pneumophila serogroup 1 antigen in urine, suggesting no recent or recurrent infection. Infection due to Legionella cannot be ruled out since other serogroups and species may cause disease, antigen may not be present in urine in early infection, and the level of antigen present in the urine may be below the detection limit of the test. Lab - Hematology Results 11/03/17 11/04/17 05:37 04:55 WBC 12.6 H 14.3 H RBC 3.32 L 3.05 L Hgb 9.6 L 8.9 L Hct 28.2 L 26.4 L MCV 84.9 86.6 MCH 29.0 29.2 MCHC 34.1 33.7 RDW 14.4 14.8 Plt Count 61 L D 77 L MPV 9.4 9.6 Prelim Diff (Auto) Manual diff required Slide review pending Neut % (Auto) 87.4 H Lymph % (Auto) 6.0 L [place] % (Auto) 5.9 Eos % (Auto) 0.4 Baso % (Auto) 0.3 Neut # (Auto) 12.5 H Lymph # (Auto) 0.9 L [place] # (Auto) 0.8 Eos # (Auto) 0.1 Baso # (Auto) 0.0 WBC Differential Manual diff final Manual diff final Seg Neuts % (Manual) 75 H 79 H Band Neuts % (Manual) 13 H 19 H Lymphocytes % (Manual) 4 L 1 L Monocytes % (Manual) 8 1 Abs Neuts (Manual) 11.1 H 14.0 H Differential Comment . . Toxic Granulation 1+ H 2+ H Toxic Vacuolation Present H Dohle Bodies Present H Present H Platelet Estimate Low L Low L Platelet Morphology Normal Normal Lab - Chemistry Results 11/02/17 11/03/17 11/03/17 23:37 05:37 11:00 Sodium 138 Potassium 2.9 L* 3.3 L Chloride 107 D Carbon Dioxide 20.0 L Anion Gap 11 BUN 14 Creatinine 0.69 Estimated GFR Greater than 89 POC Glucose Random Glucose 100 Lactic Acid 1.1 Calcium 6.8 L* Prot Corrected Calcium 7.7 L Phosphorus 3.3 D Magnesium 2.2 D Total Bilirubin 0.9 AST 48 H ALT 24 Alkaline Phosphatase 84 Total Protein 5.3 L Albumin 1.6 L 11/03/17 11/03/17 11/04/17 15:39 23:21 04:55 Sodium 138 Potassium 3.6 2.9 L* Chloride 106 Carbon Dioxide 17.7 L Anion Gap 14 BUN 10 Creatinine 0.57 Estimated GFR Greater than 89 POC Glucose 105 Random Glucose 87 Lactic Acid Calcium 7.0 L* Prot Corrected Calcium 8.2 L Phosphorus 3.1 Magnesium 2.1 Total Bilirubin 1.1 H AST 38 H ALT 19 Alkaline Phosphatase 97 Total Protein 4.9 L Albumin 1.4 L 11/04/17 11/04/17 05:27 11:39 Sodium Potassium Chloride Carbon Dioxide Anion Gap BUN Creatinine Estimated GFR POC Glucose 108 127 H Random Glucose Lactic Acid Calcium Prot Corrected Calcium Phosphorus Magnesium Total Bilirubin AST ALT Alkaline Phosphatase Total Protein Albumin Imaging: ITS Impressions Head CT 11/02/17 00:00 CONCLUSION: 1. No acute intracranial abnormality. 2. Bilateral maxillary sinus mucosal disease. Head MRI 11/02/17 00:00 CONCLUSION: 1. No definite acute abnormality is seen. Edema to suggest encephalitis is not seen. 2. There are a few punctate areas of increased signal within the cerebral white matter representing small foci of demyelination. Underlying demyelinating conditions can be considered. Liver Ultrasound 11/02/17 00:00 CONCLUSION: Generalized hepatosplenomegaly without focal mass Sludge within the gallbladder Chest CT 11/02/17 00:01 CONCLUSION: 1. Diffuse patchy groundglass opacities with nodular regions primarily in the left upper and lower lobes and single potentially cavitary nodule near the left lung apex. Overall, findings are concerning for atypical infection or developing septic pulmonary emboli in the appropriate clinical setting. 2. Subtle anterior pericardial effusion. 3. Subcentimeter bilateral axillary adenopathy, likely infectious/inflammatory. Chest X-Ray 11/04/17 05:00 CONCLUSION: Developing bilateral infiltrates. Physical Exam: GENERAL: NAD. HEENT: The head is atraumatic. The patient has have mild erythema on the right upper eyelid. Extraocular movements grossly intact. Pupils reactive to light. No icterus. Oropharynx: Moist mucosa. No visible lesions. NECK: Supple. No adenopathy. LUNGS: Decreased breath sounds bilaterally. HEART: Regular S1 and S2, with distant sounds. No murmurs heard. ABDOMEN: Obese, soft, no tenderness appreciated. No masses palpable. EXTREMITIES: The right thumb has superficial ulcerations and erythema. The left dorsal aspect of the hand has a tiny erythematous lesion surrounded by a raised, pale white border and noted tiny erythematous punctate lesion is located at the base of the second finger on the dorsal aspect. Edema at the extremities. SKIN: No rash. NEUROLOGIC: No gross focal findings. PSYCH: Calm and cooperative. Assessment and Plan - Plan IMPRESSION: 1. Severe sepsis due to methicillin-resistant Staphylococcus aureus in patient sedated with intravenous drug abuse and recent intravenous drug use. Probable endocarditis. 2. Abnormal CT of the chest, suggesting possible septic emboli. 3. Altered mental status on admission. Lumbar puncture revealed few white cells in the cerebrospinal fluid. Mental status improved. RECOMMENDATIONS: 1. Continue vancomycin. 2. Monitor WBC. 3, Monitor clinical response. 4. Follow blood cultures.
[2017-11-04] MEDS: Potassium Chlor 20 mEq Premix 20 MEQ/100 ML PIGGYBACK IV.SIG PRN ×2 (13:51→16:12)
--- NOTE | 2017-11-04 15:46 | P.PNCC ---
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 too lethargic to answer any additional questions. febrile to 103F. CBC with leukocytosis and bandemia. UDS + amphetamines and opiates. lactate elevated. Cr elevated. CT chest with multiple pulmonary nodules with concern for infection and possible septic emboli. ROS unobtainable due to mental status. 11/03: Shortness of breath noted. On nasal cannula. Drowsy, easily arousable. Following commands. Tolerating p.o. diet. 11/04: Remains drowsy, easily arousable. On facemask. Objective Vital Signs / I&O: Vital Signs 11/03/17 16:00 11/03/17 16:30 11/03/17 17:00 Temperature 100.5 F H Pulse Rate 71 71 75 Respiratory Rate Blood Pressure 100/55 L 98/54 L 105/57 L Pulse Oximetry 100 100 100 11/03/17 17:30 11/03/17 18:00 11/03/17 18:30 Temperature Pulse Rate 83 85 90 Respiratory Rate Blood Pressure 105/57 L 111/69 112/61 Pulse Oximetry 100 100 100 11/03/17 19:00 11/03/17 19:30 11/03/17 20:00 Temperature 102.2 F H Pulse Rate 87 90 91 H Respiratory Rate 30 H Blood Pressure 101/53 L 102/50 L 104/57 L Pulse Oximetry 100 100 100 11/03/17 20:46 11/03/17 20:57 11/03/17 22:00 Temperature Pulse Rate 95 H Respiratory Rate 30 H Blood Pressure Pulse Oximetry 100 11/03/17 23:00 11/03/17 23:30 11/04/17 00:00 Temperature Pulse Rate 79 77 73 Respiratory Rate Blood Pressure 94/53 L 93/54 L 98/50 L Pulse Oximetry 99 99 100 11/04/17 00:18 11/04/17 00:30 11/04/17 01:00 Temperature Pulse Rate 73 74 Respiratory Rate 26 H Blood Pressure 103/59 L 102/58 L Pulse Oximetry 100 100 11/04/17 01:30 11/04/17 02:00 11/04/17 02:30 Temperature Pulse Rate 77 79 82 Respiratory Rate Blood Pressure 104/59 L 103/59 L 107/56 L Pulse Oximetry 100 100 100 11/04/17 03:00 11/04/17 03:30 11/04/17 04:00 Temperature 101.1 F H Pulse Rate 87 86 85 Respiratory Rate 25 H Blood Pressure 113/63 105/58 L 103/54 L Pulse Oximetry 100 100 100 11/04/17 04:30 11/04/17 05:00 11/04/17 05:30 Temperature Pulse Rate 82 81 77 Respiratory Rate Blood Pressure 99/54 L 100/54 L 100/50 L Pulse Oximetry 100 98 97 11/04/17 06:00 11/04/17 06:30 11/04/17 07:00 Temperature 99.0 F Pulse Rate 75 72 69 Respiratory Rate 22 Blood Pressure 98/51 L 94/51 L 91/53 L Pulse Oximetry 97 97 98 11/04/17 07:30 11/04/17 08:00 11/04/17 08:30 Temperature Pulse Rate 69 68 69 Respiratory Rate Blood Pressure 89/53 L 91/53 L 92/51 L Pulse Oximetry 99 99 99 11/04/17 09:00 11/04/17 09:30 11/04/17 10:00 Temperature Pulse Rate 70 69 72 Respiratory Rate Blood Pressure 95/50 L 100/57 L 102/57 L Pulse Oximetry 99 100 100 11/04/17 10:30 11/04/17 10:38 11/04/17 11:00 Temperature Pulse Rate 73 73 Respiratory Rate Blood Pressure 94/50 L 98/55 L Pulse Oximetry 98 99 100 11/04/17 11:30 11/04/17 12:00 11/04/17 12:30 Temperature 99.0 F Pulse Rate 74 73 73 Respiratory Rate 24 Blood Pressure 93/51 L 95/52 L 95/57 L Pulse Oximetry 100 100 100 11/04/17 13:00 11/04/17 13:30 11/04/17 13:49 Temperature Pulse Rate 75 78 Respiratory Rate 23 Blood Pressure 103/59 L 108/55 L Pulse Oximetry 100 100 11/04/17 14:00 11/04/17 14:30 11/04/17 15:00 Temperature Pulse Rate 85 85 81 Respiratory Rate 24 Blood Pressure 102/56 L 107/58 L 103/58 L Pulse Oximetry 100 100 100 Intake & Output 11/03/17 11/04/17 11/04/17 18:59 06:59 18:59 Intake Total 3514 / 3514 2334 / 2334 1250 / 1250 Output Total 750 / 750 750 / 750 Balance 2764 / 2764 1584 / 1584 1250 / 1250 Weight 87 kg Intake: IV 2554 / 2554 1854 / 1854 1250 / 1250 NS Inj 1,000 ML @ 100 mls/hr IV 1000 / 1000 1000 / 1000 1000 / 1000 .CONT .Q10H JUNIOR Rx#:[id number] Ampicillin Inj 2,000 MG In NS 400 / 400 100 / 100 Inj 100 ML @ 400 mls/hr IV.SIG Q4H JUNIOR Rx#:[id number] Precedex Inj 200 MCG In NS Inj 104 / 104 154 / 154 50 ML @ 0.2 MCG/KG/HR 4.08 mls/ hr IV.SIG TITRATE PRN Rx#: [id number] Magnesium Sulfate Inj 2 GM In 100 / 100 NS Inj 96 ML @ 50 mls/hr IV.SIG UNSCH PRN Rx#:[id number] KCl 20 mEq Premix Inj 20 meq In 200 / 200 100 ml @ 50 mls/hr IV.SIG Q2H PRN Rx#:[id number] Potassium Phosphate Inj 30 MMOL 500 / 500 In NS Inj 250 ML @ 42 mls/hr IV.SIG UNSCH PRN Rx#:[id number] Vancomycin Inj 1,000 MG In NS 250 / 250 500 / 500 250 / 250 Inj 250 ML @ 250 mls/hr IV.SIG Q8H JUNIOR Rx#:[id number] Rocephin Inj 2,000 MG In NS Inj 100 / 100 100 ML @ 200 mls/hr IV.SIG Q12H JUNIOR Rx#:[id number] Oral 960 / 960 480 / 480 Output: Urine Amount (Catheter) 750 / 750 750 / 750 Indwelling Urethral Catheter 750 / 750 750 / 750 Other: # Bowel Movements 0 Result Diagrams: 11/04/17 04:55 11/04/17 04:55 Objective Remarks: gen: young female who appears short of breath, laying in bed . heent: nc. at. pupils 3mm, equal, conjugate, reactive. mucous membranes moist. neck: no jvd. trachea midline. chest: Good air entry bilaterally, scattered rhonchi, no wheezing cv: S1-S2 regular no gallop or murmur abd: soft, nontender, nondistended, no guarding. extr: warm to the touch diffusely. 2+ non-pitting edema of upper and lower extremities. multiple small excoriations over hands and feet. small linear scars over bilateral arms highly suspicious for needle rodriguez. small areas of what appear to be petechiae over the bilateral lower extremities, L > R. distal pulses 2+. neuro: Drowsy, easily arousable, moving all 4 extremities, grossly nonfocal. Assessment and Plan - Assessment and Plan Plan: Assessment: 31yF with IVDA who presents with severe sepsis with multi-organ dysfunction and acute encephalopathy. Highly concerning for bacterial endocarditis given IVDA and severe sepsis, combined with what appears to be septic pulmonary emboli. however, also highly concerning for LEADITE MAN infection given acute encephalopathy. admit to ICU. will cover broadly with IV abx. f/u LP results. remains critically ill. Plan by systems: Neurologic: Acute encephalopathy-toxic versus metabolic versus infectious Possible acute meningoencephalitis IV drug abuse Amphetamine abuse Opiate abuse Frequent neurochecks Avoid long-acting sedatives Lumbar puncture 11/02: gluc 48, prot 33, OP 21, cell count pending. CT brain 11/01: negative for acute disease order MRI empiric abx as below Respiratory: Incentive spirometry Wean oxygen by nasal cannula for goal SPO2 greater than 90% Cardiovascular: Sinus tachycardia Severe sepsis Acute intravascular volume depletion Possible bacterial endocarditis Status post 3 L IV fluid resuscitation in the emergency department. Clinically appears to be hypovolemic still. We will add 1 additional liter IV fluid resuscitation Maintenance IV fluids Tachycardia secondary to severe sepsis 2d echo 11/02 bedside critical care echo: hyperdynamic LV systolic function. completely collapsable IVC. no pericardial effusion. Mitral and aortic valves appear competent without clinically significant regurgitation. tricuspid valve appears to have clinically significant regurgitation but the leaflets are not easily visualizable on bedside echo. f/u formal 2d echo ordered. Renal: Acute kidney injury Place Bennett catheter Every hour urine outputs HPI likely secondary to severe sepsis and endorgan dysfunction Daily BMP -- Strict I/Os FEN/GI: Acute liver dysfunction Acute protein calorie malnutrition: Moderate Hyponatremia Hypokalemia Hypomagnesemia Hypophosphatemia Lactic acidosis N.p.o. Maintenance IV fluids ICU electrolyte protocol Daily BMP Daily LFTs Liver ultrasound Hepatitis panel Heme/ID: MRSA bacteremia Possible bacterial endocarditis Probable septic pulmonary emboli Multifocal pneumonia Anemia, likely combination iron deficiency and chronic disease Vancomycin with pharmacy dosing Ampicillin and Rocephin stopped HIV ab test hepatitis panel ID consulted for further evaluation for MRSA bacteremia and following Endocrine: -- SSI Prophylaxis: GI Prophylaxis Pepcid DVT Prophylaxis -- SCDs Lovenox after lumbar puncture Lines: Peripheral IVs
[2017-11-04] MEDS ORDERED: Pharmacy Ordered Lab Info OTHER ONE (17:45)
[2017-11-05] MEDS: Potassium Chlor 20 mEq Premix 20 MEQ/100 ML PIGGYBACK IV.SIG PRN ×4 (00:53→07:01)
[2017-11-05] MEDS: Enoxaparin Inj 40 MG/0.4 ML Syringe SQ SCH (02:31)
[2017-11-05] MEDS: Vancomycin Inj 1,500 MG in Sodium Chlor 0.9% Inj 500 ML IV.SIG SCH ×3 (02:32→17:28)
[2017-11-05] MEDS: HYDROmorphone PF Inj 2 MG/ML Vial IV.PUSH PRN ×6 (02:32→21:34)
[2017-11-05] MEDS: Chlorhexidine Gluconate 2% 1 Pack (2 Cloths) TOPICAL SCH (04:58)
[2017-11-05] MEDS: Sod Chloride 0.9% Inj 1,000 ML IV.CONT SCH ×4 (04:58→21:08)
[2017-11-05 06:50] LABS: Hematocrit 25.5 % (35.0-46.0); Hemoglobin 8.5 gm/dL (11.6-15.3); Mean Corpuscular HGB Conc 33.5 % (32.0-36.0); Mean Corpuscular Hemoglobin 28.6 pg (27.0-34.0); Mean Corpuscular Volume 85.5 fL (80.0-100.0); Mean Platelet Volume 9.2 fL (7.0-11.0); Platelet Count 123 th/mm3 (150-450); Red Blood Count 2.98 mil/mm3 (4.00-5.30); Red Cell Distribution Width 14.8 % (11.6-17.2); White Blood Count 14.8 th/mm3 (4.0-11.0)
[2017-11-05 07:11] LABS: Alanine Aminotransferase 18 U/L (10-53); Albumin 1.3 g/dL (3.4-5.0); Alkaline Phosphatase 89 U/L (45-117); Anion Gap 10 meq/L (5-15); Aspartate Aminotransferase 21 U/L (15-37); Blood Urea Nitrogen 8 mg/dL (7-18); Calcium 6.8 mg/dL (8.5-10.1); Carbon Dioxide 20.6 meq/L (21.0-32.0); Chloride 109 meq/L (98-107); Glomerular Filtration Rate Greater Than 89 mL/min (>89); Glucose,Random 113 mg/dL (74-106); Potassium 3.6 meq/L (3.5-5.1); Sodium 140 meq/L (136-145); Total Protein 4.8 g/dL (6.4-8.2)
[2017-11-05] MEDS: Famotidine PF Inj 20 MG/2 ML Vial IV.PUSH SCH ×2 (08:20→21:34)
[2017-11-05 11:22] LABS: Lymphocytes 19 % (9-44); Monocytes 3 % (0-8)
[2017-11-05 11:23] LABS: Toxic Granulation 2+
[2017-11-05] MEDS: Acetaminophen 325 MG Tablet PO PRN (12:27)
[2017-11-05] MEDS: oxyCODONE/Acetaminophen 10/325 Tablet PO PRN ×2 (13:37→17:28)
--- NOTE | 2017-11-05 15:06 | P.PNCC ---
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 too lethargic to answer any additional questions. febrile to 103F. CBC with leukocytosis and bandemia. UDS + amphetamines and opiates. lactate elevated. Cr elevated. CT chest with multiple pulmonary nodules with concern for infection and possible septic emboli. ROS unobtainable due to mental status. 11/03: Shortness of breath noted. On nasal cannula. Drowsy, easily arousable. Following commands. Tolerating p.o. diet. 11/04: Remains drowsy, easily arousable. On facemask. 11/05: Drowsy, easily arousable. Tolerating p.o. diet. On nasal cannula. Demanding pain meds off and on. Complaining of generalized body pain. Objective Vital Signs / I&O: Vital Signs 11/04/17 15:30 11/04/17 16:00 11/04/17 16:30 Temperature 101.1 F H Pulse Rate 84 87 91 H Respiratory Rate Blood Pressure 105/56 L 110/59 L 113/59 L Pulse Oximetry 100 100 100 11/04/17 17:00 11/04/17 17:30 11/04/17 18:00 Temperature Pulse Rate 99 H 93 H 97 H Respiratory Rate Blood Pressure 114/59 L 112/56 L 112/60 Pulse Oximetry 96 95 94 L 11/04/17 18:30 11/04/17 19:00 11/04/17 19:23 Temperature Pulse Rate 91 H 86 Respiratory Rate 24 Blood Pressure 112/60 110/57 L Pulse Oximetry 96 96 11/04/17 20:00 11/04/17 20:20 11/04/17 21:00 Temperature 99.1 F Pulse Rate 82 92 H Respiratory Rate 24 Blood Pressure 126/66 120/57 L Pulse Oximetry 100 100 99 11/04/17 21:30 11/04/17 22:00 11/04/17 22:30 Temperature Pulse Rate 92 H 92 H 99 H Respiratory Rate Blood Pressure 121/55 L 121/62 119/63 Pulse Oximetry 99 100 97 11/04/17 23:00 11/04/17 23:30 11/05/17 00:00 Temperature 99.6 F Pulse Rate 86 89 93 H Respiratory Rate 26 H Blood Pressure 114/55 L 112/57 L 113/55 L Pulse Oximetry 95 98 97 11/05/17 00:30 11/05/17 01:00 11/05/17 01:30 Temperature Pulse Rate 90 89 90 Respiratory Rate Blood Pressure 112/57 L 114/56 L 114/66 Pulse Oximetry 96 91 L 100 11/05/17 02:00 11/05/17 02:30 11/05/17 03:00 Temperature Pulse Rate 96 H 103 H 90 Respiratory Rate Blood Pressure 117/62 123/71 114/53 L Pulse Oximetry 95 94 L 94 L 11/05/17 03:30 11/05/17 04:00 11/05/17 04:30 Temperature 99.7 F H Pulse Rate 92 H 87 88 Respiratory Rate 23 Blood Pressure 114/56 L 115/56 L 113/58 L Pulse Oximetry 94 L 98 96 11/05/17 05:00 11/05/17 05:30 11/05/17 06:00 Temperature Pulse Rate 85 81 85 Respiratory Rate Blood Pressure 108/54 L 106/58 L 112/59 L Pulse Oximetry 95 96 99 11/05/17 06:30 11/05/17 07:00 11/05/17 07:30 Temperature Pulse Rate 85 93 H 90 Respiratory Rate Blood Pressure 114/60 121/62 117/57 L Pulse Oximetry 100 99 95 11/05/17 08:00 11/05/17 08:30 11/05/17 09:00 Temperature 99.7 F H Pulse Rate 86 86 83 Respiratory Rate 24 Blood Pressure 109/58 L 110/55 L 106/58 L Pulse Oximetry 96 95 96 11/05/17 09:30 11/05/17 10:00 11/05/17 10:30 Temperature Pulse Rate 82 91 H 84 Respiratory Rate Blood Pressure 113/56 L 113/62 111/56 L Pulse Oximetry 97 96 95 11/05/17 11:00 11/05/17 11:30 11/05/17 12:00 Temperature 100.1 F H Pulse Rate 85 88 90 Respiratory Rate 17 Blood Pressure 119/55 L 117/58 L 122/69 Pulse Oximetry 95 95 99 11/05/17 14:00 Temperature Pulse Rate 89 Respiratory Rate Blood Pressure Pulse Oximetry Intake & Output 11/04/17 11/05/17 11/05/17 18:59 06:59 18:59 Intake Total 1490 / 1490 3645 / 3645 Output Total 927 / 927 1100 / 1100 Balance 563 / 563 2545 / 2545 Weight 90 kg Intake: IV 1250 / 1250 3285 / 3285 NS Inj 1,000 ML @ 100 mls/hr IV 1000 / 1000 1999 / 1999 .CONT .Q10H JUNIOR Rx#:[id number] KCl 20 mEq Premix Inj 20 meq In 500 / 500 100 ml @ 50 mls/hr IV.SIG Q2H PRN Rx#:[id number] Vancomycin Inj 1,000 MG In NS 250 / 250 250 / 250 Inj 250 ML @ 250 mls/hr IV.SIG Q8H JUNIOR Rx#:[id number] Vancomycin Inj 1,500 MG In NS 535 / 535 Inj 500 ML @ 250 mls/hr IV.SIG Q8H JUNIOR Rx#:[id number] Oral 240 / 240 360 / 360 Output: Urine 0 / 0 Urine Amount (Catheter) 927 / 927 1100 / 1100 Indwelling Urethral Catheter 927 / 927 1100 / 1100 Result Diagrams: 11/05/17 05:36 11/05/17 12:43 Objective Remarks: gen: young female who appears short of breath, laying in bed . heent: nc. at. pupils 3mm, equal, conjugate, reactive. mucous membranes moist. neck: no jvd. trachea midline. chest: Good air entry bilaterally, scattered rhonchi, no wheezing cv: S1-S2 regular no gallop or murmur abd: soft, nontender, nondistended, no guarding. extr: warm to the touch, 2+ non-pitting edema of upper and lower extremities. multiple small excoriations over hands and feet. small linear scars over bilateral arms highly suspicious for needle rodriguez. small areas of what appear to be petechiae over the bilateral lower extremities, L > R. distal pulses 2+. neuro: Drowsy, easily arousable, moving all 4 extremities, grossly nonfocal. Assessment and Plan - Assessment and Plan Plan: Assessment: 31yF with IVDA who presents with severe sepsis with multi-organ dysfunction and acute encephalopathy. Highly concerning for bacterial endocarditis given IVDA and severe sepsis, combined with what appears to be septic pulmonary emboli. however, also highly concerning for DIRECTIONAL DRILLER infection given acute encephalopathy. admit to ICU. will cover broadly with IV abx. f/u LP results. remains critically ill. Plan by systems: Neurologic: Acute encephalopathy-toxic versus metabolic versus infectious Possible acute meningoencephalitis IV drug abuse Amphetamine abuse Opiate abuse Frequent neurochecks Lumbar puncture 11/02: gluc 48, prot 33, OP 21 CT brain 11/01: negative for acute disease LP did not suggest meningitis. Starting methadone 10 mg p.o. twice daily and Percocet as needed in addition to Dilaudid as needed for pain/and to avoid withdrawal Respiratory: Incentive spirometry Wean oxygen by nasal cannula for goal SPO2 greater than 90% Cardiovascular: Sinus tachycardia Severe sepsis Acute intravascular volume depletion Possible bacterial endocarditis Status post 3 L IV fluid resuscitation in the emergency department Maintenance IV fluids Tachycardia secondary to severe sepsis 2d echo 11/02 bedside critical care echo: hyperdynamic LV systolic function. completely collapsable IVC. no pericardial effusion. Mitral and aortic valves appear competent without clinically significant regurgitation. tricuspid valve appears to have clinically significant regurgitation but the leaflets are not easily visualizable on bedside echo. Formal 2D echo did not reveal any vegetations. Renal: Acute kidney injury Place Bennett catheter Every hour urine outputs HPI likely secondary to severe sepsis and endorgan dysfunction Daily BMP -- Strict I/Os FEN/GI: Acute liver dysfunction Acute protein calorie malnutrition: Moderate Hyponatremia Hypokalemia Hypomagnesemia Hypophosphatemia Lactic acidosis P.o. diet as tolerated Maintenance IV fluids ICU electrolyte protocol Daily BMP Daily LFTs Liver ultrasound Hepatitis panel Heme/ID: MRSA bacteremia Possible bacterial endocarditis Probable septic pulmonary emboli Multifocal pneumonia Anemia, likely combination iron deficiency and chronic disease Vancomycin with pharmacy dosing Ampicillin and Rocephin stopped HIV ab test hepatitis panel ID consulted for further evaluation for MRSA bacteremia and following. Last set of blood cultures remain positive for MRSA Endocrine: -- SSI Prophylaxis: GI Prophylaxis Pepcid DVT Prophylaxis -- SCDs Lovenox after lumbar puncture Lines: Peripheral IVs
[2017-11-05] MEDS: Methadone 10 MG Tablet PO SCH (15:48)
[2017-11-06] MEDS: oxyCODONE/Acetaminophen 10/325 Tablet PO PRN ×3 (00:10→14:54)
[2017-11-06] MEDS: Acetaminophen 325 MG Tablet PO PRN (00:12)
[2017-11-06] MEDS ORDERED: Pharmacy Ordered Lab Info OTHER ONE (01:45)
[2017-11-06] MEDS: Vancomycin Inj 1,500 MG in Sodium Chlor 0.9% Inj 500 ML IV.SIG SCH ×2 (01:46→09:33)
[2017-11-06] MEDS: Enoxaparin Inj 40 MG/0.4 ML Syringe SQ SCH (01:47)
[2017-11-06] MEDS: HYDROmorphone PF Inj 2 MG/ML Vial IV.PUSH PRN ×2 (01:47→20:15)
[2017-11-06] MEDS: Sod Chloride 0.9% Inj 1,000 ML IV.CONT SCH ×3 (02:06→15:01)
[2017-11-06] MEDS: Chlorhexidine Gluconate 2% 1 Pack (2 Cloths) TOPICAL SCH (04:25)
[2017-11-06] MEDS: Methadone 10 MG Tablet PO SCH ×2 (05:36→15:01)
[2017-11-06 07:46] LABS: Baso # (Auto) 0.1 th/mm3 (0.0-0.2); Baso % (Auto) 0.6 % (0.0-2.0); Eos # (Auto) 0.1 th/mm3 (0.0-0.4); Eos % (Auto) 0.9 % (0.0-4.0); Hematocrit 26.1 % (35.0-46.0); Hemoglobin 8.9 gm/dL (11.6-15.3); Lymph # (Auto) 1.8 th/mm3 (1.0-4.8); Lymph % (Auto) 12.7 % (9.0-44.0); Mean Corpuscular Hemoglobin 29.2 pg (27.0-34.0); Mean Corpuscular Volume 85.8 fL (80.0-100.0); Mean Platelet Volume 8.6 fL (7.0-11.0); Mono # (Auto) 1.1 th/mm3 (0.0-0.9); Mono % (Auto) 7.8 % (0.0-8.0); Platelet Count 192 th/mm3 (150-450); Red Blood Count 3.04 mil/mm3 (4.00-5.30); Red Cell Distribution Width 14.6 % (11.6-17.2); White Blood Count 14.2 th/mm3 (4.0-11.0)
[2017-11-06 08:15] LABS: Alanine Aminotransferase 13 U/L (10-53); Albumin 1.4 g/dL (3.4-5.0); Alkaline Phosphatase 96 U/L (45-117); Anion Gap 10 meq/L (5-15); Aspartate Aminotransferase 19 U/L (15-37); Blood Urea Nitrogen 4 mg/dL (7-18); Calcium 7.2 mg/dL (8.5-10.1); Carbon Dioxide 22.2 meq/L (21.0-32.0); Chloride 107 meq/L (98-107); Glomerular Filtration Rate Greater Than 89 mL/min (>89); Glucose,Random 85 mg/dL (74-106); Potassium 3.4 meq/L (3.5-5.1); Sodium 139 meq/L (136-145); Total Protein 5.5 g/dL (6.4-8.2)
[2017-11-06] MEDS: Famotidine PF Inj 20 MG/2 ML Vial IV.PUSH SCH ×2 (09:31→20:16)
[2017-11-06] MEDS ORDERED: Gentamicin Consult Pharmacy 1 EACH OTHER SCH (11:00)
[2017-11-06] MEDS: DAPTOmycin Inj 800 MG in Sodium Chlor 0.9% Inj 100 ML IV.SIG SCH (11:54)
--- NOTE | 2017-11-06 12:07 | ECG ---
Date Performed: 11/05/2017 Time Performed: 02:49:42 PTAGE: 31 years EKG: Sinus rhythm . ST junctional depression is nonspecific Borderline ECG NO PREVIOUS TRACING DOCTOR: Arielle Hart Interpretating Date/Time 11/06/2017 12:03:42
--- NOTE | 2017-11-06 14:33 | MR ---
EXAM DATE: 11/06/2017 2:19 PM EDT AGE/SEX: 31 years / Female INDICATIONS: Abscess. CLINICAL DATA: This is the patient's initial encounter. Patient reports that signs and symptoms have been present for 3 days and indicates a pain score of 9/10. MEDICAL/SURGICAL HISTORY: Hepatitis C. None. COMPARISON: No prior exams available for comparison. TECHNIQUE: Multiplanar, multisequence MRI examination of the cervical spine was performed without an d with 16 ml Multihance (gadobenate) contrast as a single exam dose. FINDINGS: The marrow signal appears intact, and the spinal cord appears intact for technique. The postcontrast portion is unremarkable. No definite abscess is identified. There is slight nondescript edema in the subcutaneous tissues of the patient's upper back on the right side does not appear to be focal and do es not demonstrate any abnormal enhancement. C2-C3: No appreciable compromise to the thecal sac, exiting nerve roots are seen. The neural foramin a are patent bilaterally. No appreciable thecal sac stenosis is seen. C3-C4: No appreciable compromise to the thecal sac, exiting nerve roots are seen. The neural foramin a are patent bilaterally. No appreciable thecal sac stenosis is seen. C4-C5: No appreciable compromise to the thecal sac, exiting nerve roots are seen. The neural foramin a are patent bilaterally. No appreciable thecal sac stenosis is seen. C5-C6: No appreciable compromise to the thecal sac, exiting nerve roots are seen. The neural foramin a are patent bilaterally. No appreciable thecal sac stenosis is seen. C6-C7: No appreciable compromise to the thecal sac, exiting nerve roots are seen. The neural foramin a are patent bilaterally. No appreciable thecal sac stenosis is seen. C7-T1: No appreciable compromise to the thecal sac, exiting nerve roots are seen. The neural foramin a are patent bilaterally. No appreciable thecal sac stenosis is seen. CONCLUSION: Slight nondescript serpiginous edema in the upper back, otherwise unremarkable. Electronically signed by: Maria Victoria Bolden MD 11/06/2017 2:32 PM EDT
--- NOTE | 2017-11-06 14:36 | MR ---
EXAM DATE: 11/06/2017 2:21 PM EDT AGE/SEX: 31 years / Female INDICATIONS: Abscess. CLINICAL DATA: This is the patient's initial encounter. Patient reports that signs and symptoms have been present for 3 days and indicates a pain score of 9/10. MEDICAL/SURGICAL HISTORY: Hepatitis C. None. COMPARISON: No prior exams available for comparison. TECHNIQUE: Multiplanar, multisequence MRI of the thoracic spine was performed without and with 16 ml Multihance (gadobenate) contrast as a single exam dose. FINDINGS: The marrow signal appears intact. No significant compression deformities are seen. No significant c ord compression is identified. The spinal cord appears intact. The postcontrast portion is unremark able. There is slight degree of nondescript edema in the patient's subcutaneous tissues of the patien t's back without any abnormal enhancement or abscess formation. T1-T2: No appreciable compromise to the thecal sac, spinal cord, or the exiting nerve roots are seen . The neural foramina are grossly patent bilaterally. T2-T3: No appreciable compromise to the thecal sac, spinal cord, or the exiting nerve roots are seen . The neural foramina are grossly patent bilaterally. T3-T4: No appreciable compromise to the thecal sac, spinal cord, or the exiting nerve roots are seen . The neural foramina are grossly patent bilaterally. T4-T5: No appreciable compromise to the thecal sac, spinal cord, or the exiting nerve roots are seen . The neural foramina are grossly patent bilaterally. T5-T6: No appreciable compromise to the thecal sac, spinal cord, or the exiting nerve roots are seen . The neural foramina are grossly patent bilaterally. T6-T7: No appreciable compromise to the thecal sac, spinal cord, or the exiting nerve roots are seen . The neural foramina are grossly patent bilaterally. T7-T8: No appreciable compromise to the thecal sac, spinal cord, or the exiting nerve roots are seen . The neural foramina are grossly patent bilaterally. T8-T9: No appreciable compromise to the thecal sac, spinal cord, or the exiting nerve roots are seen . The neural foramina are grossly patent bilaterally. T9-T10: No appreciable compromise to the thecal sac, spinal cord, or the exiting nerve roots are see n. The neural foramina are grossly patent bilaterally. T10-T11: No appreciable compromise to the thecal sac, spinal cord, or the exiting nerve roots are se en. The neural foramina are grossly patent bilaterally. T11-T12: No appreciable compromise to the thecal sac, spinal cord, or the exiting nerve roots are se en. The neural foramina are grossly patent bilaterally. T12-L1: No appreciable compromise to the thecal sac, spinal cord, or the exiting nerve roots are see n. The neural foramina are grossly patent bilaterally. CONCLUSION: Essentially unremarkable study except for slight nondescript separate density on the pat ient's back. Electronically signed by: Maria Victoria Bolden MD 11/06/2017 2:35 PM EDT
--- NOTE | 2017-11-06 14:39 | MR ---
EXAM DATE: 11/06/2017 2:05 PM EDT AGE/SEX: 31 years / Female INDICATIONS: Abscess. CLINICAL DATA: This is the patient's initial encounter. Patient reports that signs and symptoms have been present for 3 days and indicates a pain score of 9/10. MEDICAL/SURGICAL HISTORY: Hepatitis C. None. COMPARISON: No prior exams available for comparison. TECHNIQUE: Multiplanar, multisequence MRI examination of the lumbar spine was performed without and with 16 ml Multihance (gadobenate) contrast as a single exam dose. FINDINGS: The most caudal-appearing lumbar vertebra is numbered as L5. The marrow signal appears intact. No si gnificant compression deformities, spondylolisis, or spondylolesthesis is seen. There is slight degre e of nondescript subcutaneous edema without abscess formation in the patient's back. L1-L2: No appreciable compromise to the thecal sac, or the exiting nerve roots is seen. The neural foramina and lateral recesses are patent bilaterally. L2-L3: No appreciable compromise to the thecal sac, or the exiting nerve roots is seen. The neural foramina and lateral recesses are patent bilaterally. L3-L4: No appreciable compromise to the thecal sac, or the exiting nerve roots is seen. The neural foramina and lateral recesses are patent bilaterally. L4-L5: No appreciable compromise to the thecal sac, or the exiting nerve roots is seen. The neural foramina and lateral recesses are patent bilaterally. L5-S1: No appreciable compromise to the thecal sac, or the exiting nerve roots is seen. The neural foramina and lateral recesses are patent bilaterally. CONCLUSION: Slight nondescript subcutaneous edema in the patient's back, otherwise unremarkable with out abscess formation. Electronically signed by: Maria Victoria Bolden MD 11/06/2017 2:37 PM EDT
[2017-11-06] MEDS ORDERED: Gadobenate Dimeglumine PF Inj 20 ML VIAL (for RAD MRI) IV.PUSH ONE (14:55)
--- NOTE | 2017-11-06 15:02 | CT ---
EXAM DATE: 11/06/2017 2:35 PM EDT AGE/SEX: 31 years / Female INDICATIONS: MRSA bacteremia. Possible septic emboli. CLINICAL DATA: This is the patient's initial encounter. Patient reports that signs and symptoms have been present for 1 day and indicates a pain score of 10/10. MEDICAL/SURGICAL HISTORY: None. None. ORAL CONTRAST: No oral contrast ingested. RADIATION DOSE: 25.14 CTDI (mGy) ; Patient body habitus COMPARISON: No prior exams available for comparison. TECHNIQUE: Multiple contiguous axial images were obtained through the abdomen and pelvis following b olus infusion of 96 ml Omnipaque 350 (iohexol) nonionic water-soluble contrast as a single exam dos e. No oral contrast ingested. Using automated exposure control and adjustment of the mA and/or kV ac cording to patient size, radiation dose was kept as low as reasonably achievable to obtain optimal di agnostic quality images. DICOM format image data is available electronically for review and comparis on. FINDINGS: Abdomen CT: The liver, pancreas, kidneys, adrenals are unremarkable. Spleen is enlarged measures 16.2 cm in crani al caudal dimension and there is an approximate 5.4 cm low attenuating lesion in the anterior portion of the spleen possibly an area of chronic infarction, however focal abscess is difficult to exclude. There is prominent fat underneath the umbilicus with fat herniation and haziness within this fat coretta ne without evidence for bowel herniation. There is also mild anasarca diffusely. There is no evidence for any appreciable pathological adenopathy, free fluid, or bowel obstruction. There is small bilat eral pleural effusions and consolidation both lung bases worse on the left. Pelvic CT: There is no evidence for mass, abscess formation, or any significant adenopathy within the pelvis. Th ere is slight fluid within the peritoneal cavity particularly in the pelvis. CONCLUSION: 1. Mild anasarca. 2. Slight splenomegaly with focal lesion towards the anterior portion of the spleen not present on t he prior examination could be infarction, however splenic abscess is not excluded. 3. Slight peritoneal fluid nonspecific. Electronically signed by: Maria Victoria Bolden MD 11/06/2017 3:01 PM EDT
[2017-11-06] MEDS ORDERED: SODIUM CHLOR 0.9% IV.SIG SCH (16:00)
[2017-11-06] MEDS ORDERED: GENTAMICIN IV.SIG SCH (16:00)
--- NOTE | 2017-11-06 17:33 | P.PNCC ---
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 too lethargic to answer any additional questions. febrile to 103F. CBC with leukocytosis and bandemia. UDS + amphetamines and opiates. lactate elevated. Cr elevated. CT chest with multiple pulmonary nodules with concern for infection and possible septic emboli. ROS unobtainable due to mental status. 11/03: Shortness of breath noted. On nasal cannula. Drowsy, easily arousable. Following commands. Tolerating p.o. diet. 11/04: Remains drowsy, easily arousable. On facemask. 11/05: Drowsy, easily arousable. Tolerating p.o. diet. On nasal cannula. Demanding pain meds off and on. Complaining of generalized body pain. 11/06: Drowsy, arousable, complaining of back pain. MRI spine without any evidence of abscess. CT abdomen pelvis shows hypodensity in spleen with questionable infarct versus abscess. Objective Vital Signs / I&O: Vital Signs 11/05/17 18:00 11/05/17 19:00 11/05/17 20:00 Temperature 98.5 F Pulse Rate 81 91 H Respiratory Rate 17 Blood Pressure 122/58 L Pulse Oximetry 98 97 11/05/17 21:27 11/05/17 22:00 11/05/17 22:26 Temperature Pulse Rate 83 Respiratory Rate 24 Blood Pressure Pulse Oximetry 100 11/06/17 00:00 11/06/17 02:00 11/06/17 04:00 Temperature 101.5 F H 99.5 F Pulse Rate 111 H 94 H 89 Respiratory Rate 30 H 20 Blood Pressure 131/62 129/63 Pulse Oximetry 93 L 96 11/06/17 06:00 11/06/17 08:00 11/06/17 10:00 Temperature 99 F Pulse Rate 86 93 H Respiratory Rate Blood Pressure 142/77 H Pulse Oximetry 96 93 L 11/06/17 11:50 11/06/17 12:30 11/06/17 16:00 Temperature 99.5 F 100.0 F H Pulse Rate 103 H 114 H Respiratory Rate 12 12 20 Blood Pressure 131/77 133/78 Pulse Oximetry 93 L 91 L 11/06/17 17:13 Temperature Pulse Rate Respiratory Rate 12 Blood Pressure Pulse Oximetry Intake & Output 11/05/17 11/06/17 11/06/17 18:59 06:59 18:59 Intake Total 2285 / 2285 2292 / 2292 2327.5 / 2327.5 Output Total 1025 / 1025 875 / 875 340 / 340 Balance 1260 / 1260 1417 / 1417 1987.5 / 1987.5 Weight 92 kg Intake: IV 1565 / 1565 2132 / 2132 1837.5 / 1837.5 NS Inj 1,000 ML @ 100 mls/hr IV 1000 / 1000 1000 / 1000 1120 / 1120 .CONT .Q10H JUNIOR Rx#:[id number] Cubicin Inj 800 MG In NS Inj 100 / 100 100 ML @ 200 mls/hr IV.SIG Q24H JUNIOR Rx#:[id number] Precedex Inj 200 MCG In NS Inj 50 / 50 2 / 2 50 ML @ 0.2 MCG/KG/HR 4.08 mls/ hr IV.SIG TITRATE PRN Rx#: [id number] Gentamicin Inj 90 MG In NS Inj 102.5 / 102.5 100 ML @ 100 mls/hr IV.SIG Q8H JUNIOR Rx#:[id number] KCl 20 mEq Premix Inj 20 meq In 100 / 100 100 ml @ 50 mls/hr IV.SIG Q2H PRN Rx#:[id number] Vancomycin Inj 1,500 MG In NS 515 / 515 1030 / 1030 515 / 515 Inj 500 ML @ 250 mls/hr IV.SIG Q8H JUNIOR Rx#:[id number] Oral 720 / 720 160 / 160 490 / 490 Output: Urine Amount (Catheter) 1025 / 1025 875 / 875 340 / 340 Indwelling Urethral Catheter 1025 / 1025 875 / 875 340 / 340 Other: Date of Last Bowel Movement 11/05/17 # Bowel Movements 1 Result Diagrams: 11/06/17 06:58 11/06/17 06:58 Objective Remarks: gen: young female who appears short of breath, laying in bed . heent: nc. at. pupils 3mm, equal, conjugate, reactive. mucous membranes moist. neck: no jvd. trachea midline. chest: Good air entry bilaterally, scattered rhonchi, no wheezing cv: S1-S2 regular no gallop or murmur abd: soft, nontender, nondistended, no guarding. extr: warm to the touch, 2+ non-pitting edema of upper and lower extremities. multiple small excoriations over hands and feet. small linear scars over bilateral arms highly suspicious for needle rodriguez. small areas of what appear to be petechiae over the bilateral lower extremities, L > R. distal pulses 2+. neuro: Drowsy, easily arousable, moving all 4 extremities, grossly nonfocal. Assessment and Plan - Assessment and Plan Plan: Assessment: 31yF with IVDA who presents with severe sepsis with multi-organ dysfunction and acute encephalopathy. Highly concerning for bacterial endocarditis given IVDA and severe sepsis, combined with what appears to be septic pulmonary emboli. 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 admit to ICU. will cover broadly with IV abx. f/u LP results. remains critically ill. Plan by systems: Neurologic: Acute encephalopathy-toxic versus metabolic versus infectious Possible acute meningoencephalitis IV drug abuse Amphetamine abuse Opiate abuse Frequent neurochecks Lumbar puncture 11/02: gluc 48, prot 33, OP 21 CT brain 11/01: negative for acute disease LP did not suggest meningitis. Starting methadone 10 mg p.o. twice daily and Percocet as needed in addition to Dilaudid as needed for pain/and to avoid withdrawal Respiratory: Incentive spirometry Wean oxygen by nasal cannula for goal SPO2 greater than 90% Cardiovascular: Sinus tachycardia Severe sepsis Acute intravascular volume depletion Possible bacterial endocarditis Status post 3 L IV fluid resuscitation in the emergency department Maintenance IV fluids Tachycardia secondary to severe sepsis 2d echo 11/02 bedside critical care echo: hyperdynamic LV systolic function. completely collapsable IVC. no pericardial effusion. Mitral and aortic valves appear competent without clinically significant regurgitation. tricuspid valve appears to have clinically significant regurgitation but the leaflets are not easily visualizable on bedside echo. Formal 2D echo did not reveal any vegetations. Renal: Acute kidney injury Place Bennett catheter Every hour urine outputs HPI likely secondary to severe sepsis and endorgan dysfunction Daily BMP -- Strict I/Os FEN/GI: Acute liver dysfunction Acute protein calorie malnutrition: Moderate Hyponatremia Hypokalemia Hypomagnesemia Hypophosphatemia Lactic acidosis P.o. diet as tolerated Maintenance IV fluids ICU electrolyte protocol Daily BMP Daily LFTs Liver ultrasound Hepatitis panel Heme/ID: MRSA bacteremia Possible bacterial endocarditis Probable septic pulmonary emboli Multifocal pneumonia Anemia, likely combination iron deficiency and chronic disease Back pain Vancomycin with pharmacy dosing Ampicillin and Rocephin stopped HIV ab test hepatitis panel ID consulted for further evaluation for MRSA bacteremia and following. Last set of blood cultures remain positive for MRSA Ordered MRI spine which was unremarkable. CT abdomen pelvis with hypodensity in spleen with possible infarct versus abscess. ID following. Endocrine: -- SSI Prophylaxis: GI Prophylaxis Pepcid DVT Prophylaxis -- SCDs Lovenox after lumbar puncture Lines: Peripheral IVs Patient transferred out of ICU. Consult and transfer to hospitalist service for further medical management. Critical care signing off at this time.
--- NOTE | 2017-11-06 19:23 | P.PNID ---
Subjective Remarks: Patient complaining of pain all over her body. Complaining and requesting pain medication Afebrile. Has diffuse edema. Needs to chills. Repeat blood culture has MRSA. No vegetation noted on ECHO 2D. Admitted with altered mental status. The patient uses IV drugs in the form of heroin and methamphetamines. Lines: RIJ, Peripheral Allergies/Adverse Reactions: Allergies haloperidol Adverse Reaction (Intermediate, Verified 11/01/17 22:36) SEIZURES NICKEL Allergy (Intermediate, Uncoded 11/01/17 22:36) Anxiety Objective Vital Signs 11/05/17 20:00 11/05/17 21:27 11/05/17 22:00 Temperature 98.5 F Pulse Rate 91 H 83 Respiratory Rate 17 Blood Pressure 122/58 L Pulse Oximetry 97 100 11/05/17 22:26 11/06/17 00:00 11/06/17 02:00 Temperature 101.5 F H Pulse Rate 111 H 94 H Respiratory Rate 24 30 H Blood Pressure 131/62 Pulse Oximetry 93 L 11/06/17 04:00 11/06/17 06:00 11/06/17 08:00 Temperature 99.5 F 99 F Pulse Rate 89 86 93 H Respiratory Rate 20 Blood Pressure 129/63 142/77 H Pulse Oximetry 96 96 11/06/17 10:00 11/06/17 11:50 11/06/17 12:30 Temperature 99.5 F Pulse Rate 103 H Respiratory Rate 12 12 Blood Pressure 131/77 Pulse Oximetry 93 L 93 L 11/06/17 16:00 11/06/17 17:13 11/06/17 18:15 Temperature 100.0 F H Pulse Rate 114 H Respiratory Rate 20 12 Blood Pressure 133/78 Pulse Oximetry 91 L 91 L Intake & Output 11/06/17 11/06/17 11/07/17 06:59 18:59 06:59 Intake Total 2292 / 2292 2327.5 / 2327.5 Output Total 875 / 875 340 / 340 Balance 1417 / 1417 1987.5 / 1986.5 Weight 92 kg Intake: IV 2132 / 2132 1837.5 / 1837.5 NS Inj 1,000 ML @ 100 mls/hr IV 1000 / 1000 1120 / 1120 .CONT .Q10H [facility] Rx#:[id number] Cubicin Inj 800 MG In NS Inj 100 / 100 100 ML @ 200 mls/hr IV.SIG Q24H [facility] Rx#:[id number] Precedex Inj 200 MCG In NS Inj 2 / 2 50 ML @ 0.2 MCG/KG/HR 4.08 mls/ hr IV.SIG TITRATE PRN Rx#: [id number] Gentamicin Inj 90 MG In NS Inj 102.5 / 102.5 100 ML @ 100 mls/hr IV.SIG Q8H [facility] Rx#:[id number] KCl 20 mEq Premix Inj 20 meq In 100 / 100 100 ml @ 50 mls/hr IV.SIG Q2H [facility] Rx#:[id number] Vancomycin Inj 1,500 MG In NS 1030 / 1030 515 / 515 Inj 500 ML @ 250 mls/hr IV.SIG Q8H [facility] Rx#:[id number] Oral 160 / 160 490 / 490 Output: Urine Amount (Catheter) 875 / 875 340 / 340 Indwelling Urethral Catheter 875 / 875 340 / 340 Other: Date of Last Bowel Movement 11/05/17 11/03/17 19:10 Blood - Peripheral Aerobic Blood Culture - Final S. aureus MRSA 11/03/17 19:10 Blood - Peripheral Anaerobic Blood Culture - Preliminary No growth in 3 days 11/03/17 19:21 Blood - Peripheral Aerobic Blood Culture - Preliminary gram positive cocci 11/03/17 19:21 Blood - Peripheral Anaerobic Blood Culture - Preliminary No growth in 3 days 11/03/17 05:30 Blood - Peripheral Aerobic Blood Culture - Final S. aureus MRSA 11/03/17 05:30 Blood - Peripheral Anaerobic Blood Culture - Preliminary No growth in 3 days 11/03/17 05:37 Blood - Peripheral Aerobic Blood Culture - Final S. aureus MRSA 11/03/17 05:37 Blood - Peripheral Anaerobic Blood Culture - Preliminary No growth in 3 days 11/02/17 01:30 Lumbar Puncture Gram Stain - Final 11/02/17 01:30 Lumbar Puncture CSF Culture - Final No growth in 72 hours 11/01/17 22:30 Blood - Peripheral Aerobic Blood Culture - Final S. aureus MRSA 11/01/17 22:30 Blood - Peripheral Anaerobic Blood Culture - Final S. aureus MRSA 11/01/17 22:20 Blood - Peripheral Aerobic Blood Culture - Final S. aureus MRSA 11/01/17 22:20 Blood - Peripheral Anaerobic Blood Culture - Final S. aureus MRSA Lab - Hematology Results 11/05/17 11/06/17 05:36 06:58 WBC 14.8 H 14.2 H RBC 2.98 L 3.04 L Hgb 8.5 L 8.9 L Hct 25.5 L 26.1 L MCV 85.5 85.8 MCH 28.6 29.2 MCHC 33.5 34.0 RDW 14.8 14.6 Plt Count 123 L D 192 D MPV 9.2 8.6 Prelim Diff (Auto) Manual diff required Neut % (Auto) 78.0 H Lymph % (Auto) 12.7 [place] % (Auto) 7.8 Eos % (Auto) 0.9 Baso % (Auto) 0.6 Neut # (Auto) 11.0 H Lymph # (Auto) 1.8 [place] # (Auto) 1.1 H Eos # (Auto) 0.1 Baso # (Auto) 0.1 WBC Differential Manual diff final . Seg Neuts % (Manual) 70 Band Neuts % (Manual) 8 H Lymphocytes % (Manual) 19 Monocytes % (Manual) 3 Abs Neuts (Manual) 11.5 H Differential Comment . Auto diff final Toxic Granulation 2+ H Platelet Estimate Low L Platelet Morphology Enlarged H Lab - Chemistry Results 11/04/17 11/04/17 11/05/17 21:37 23:43 05:36 Sodium 140 Potassium 3.1 L 3.6 Chloride 109 H Carbon Dioxide 20.6 L Anion Gap 10 BUN 8 Creatinine 0.43 L Estimated GFR Greater than 89 POC Glucose 115 H Random Glucose 113 H Calcium 6.8 L* Prot Corrected Calcium 8.0 L Total Bilirubin 0.6 AST 21 ALT 18 Alkaline Phosphatase 89 Total Protein 4.8 L Albumin 1.3 L 11/05/17 11/05/17 11/05/17 06:03 09:16 11:48 Sodium Potassium Chloride Carbon Dioxide Anion Gap BUN Creatinine Estimated GFR POC Glucose 108 134 H 90 Random Glucose Calcium Prot Corrected Calcium Total Bilirubin AST ALT Alkaline Phosphatase Total Protein Albumin 11/05/17 11/05/17 11/06/17 12:43 17:54 00:09 Sodium Potassium 3.7 Chloride Carbon Dioxide Anion Gap BUN Creatinine Estimated GFR POC Glucose 109 120 H Random Glucose Calcium Prot Corrected Calcium Total Bilirubin AST ALT Alkaline Phosphatase Total Protein Albumin 11/06/17 11/06/17 11/06/17 05:35 06:58 11:58 Sodium 139 Potassium 3.4 L Chloride 107 Carbon Dioxide 22.2 Anion Gap 10 BUN 4 L Creatinine 0.42 L Estimated GFR Greater than 89 POC Glucose 100 85 Random Glucose 85 Calcium 7.2 L* Prot Corrected Calcium 8.1 L Total Bilirubin 0.7 AST 19 ALT 13 Alkaline Phosphatase 96 Total Protein 5.5 L D Albumin 1.4 L Imaging: ITS Impressions Head CT 11/02/17 00:00 CONCLUSION: 1. No acute intracranial abnormality. 2. Bilateral maxillary sinus mucosal disease. Head MRI 11/02/17 00:00 CONCLUSION: 1. No definite acute abnormality is seen. Edema to suggest encephalitis is not seen. 2. There are a few punctate areas of increased signal within the cerebral white matter representing small foci of demyelination. Underlying demyelinating conditions can be considered. Liver Ultrasound 11/02/17 00:00 CONCLUSION: Generalized hepatosplenomegaly without focal mass Sludge within the gallbladder Chest CT 11/02/17 00:01 CONCLUSION: 1. Diffuse patchy groundglass opacities with nodular regions primarily in the left upper and lower lobes and single potentially cavitary nodule near the left lung apex. Overall, findings are concerning for atypical infection or developing septic pulmonary emboli in the appropriate clinical setting. 2. Subtle anterior pericardial effusion. 3. Subcentimeter bilateral axillary adenopathy, likely infectious/inflammatory. Chest X-Ray 11/04/17 05:00 CONCLUSION: Developing bilateral infiltrates. Abdomen/Pelvis CT 11/06/17 00:00 CONCLUSION: 1. Mild anasarca. 2. Slight splenomegaly with focal lesion towards the anterior portion of the spleen not present on the prior examination could be infarction, however splenic abscess is not excluded. 3. Slight peritoneal fluid nonspecific. Cervical Spine MRI 11/06/17 00:00 CONCLUSION: Slight nondescript serpiginous edema in the upper back, otherwise unremarkable. Lumbar Spine MRI 11/06/17 00:00 CONCLUSION: Slight nondescript subcutaneous edema in the patient's back, otherwise unremarkable without abscess formation. Thoracic Spine MRI 11/06/17 00:00 CONCLUSION: Essentially unremarkable study except for slight nondescript separate density on the patient's back. Physical Exam: GENERAL: NAD. HEENT: The head is atraumatic. The patient has have mild erythema on the right upper eyelid. Extraocular movements grossly intact. Pupils reactive to light. No icterus. Oropharynx: Moist mucosa. No visible lesions. NECK: Supple. No adenopathy. LUNGS: Decreased breath sounds bilaterally. HEART: Regular S1 and S2, with distant sounds. No murmurs heard. ABDOMEN: Obese, soft, no tenderness appreciated. No masses palpable. EXTREMITIES: The right thumb has superficial ulcerations and erythema. The left dorsal aspect of the hand has a tiny erythematous lesion surrounded by a raised, pale white border and noted tiny erythematous punctate lesion is located at the base of the second finger on the dorsal aspect. 3+ edema at the extremities. SKIN: No rash. NEUROLOGIC: No gross focal findings. PSYCH: Calm and cooperative. Assessment and Plan - Plan IMPRESSION: 1. Severe sepsis due to methicillin-resistant Staphylococcus aureus in patient sedated with intravenous drug abuse and recent intravenous drug use. Probable endocarditis. Persistent positive blood cultures with MRSA 2. Abnormal CT of the chest, suggesting possible septic emboli. 3. Altered mental status on admission. Lumbar puncture revealed few white cells in the cerebrospinal fluid. Mental status improved. RECOMMENDATIONS: 1. Stop vancomycin. 2. Begin daptomycin. Ordered earlier 3, Begin gentamicin. Ordered earlier monitor clinical response. 4. Repeat blood cultures today. 5. Monitor clinical status. 6. Consider MARVIN for evaluation for endocarditis.
[2017-11-06 23:13] LABS: Histoplasma Antigen Result Negative (Negative); Histoplasma Antigen Value 0 ng/mL
[2017-11-07] MEDS: oxyCODONE/Acetaminophen 10/325 Tablet PO PRN ×3 (00:06→12:56)
[2017-11-07] MEDS: Sod Chloride 0.9% Inj 1,000 ML IV.CONT SCH ×3 (00:32→21:20)
[2017-11-07] MEDS: Enoxaparin Inj 40 MG/0.4 ML Syringe SQ SCH (00:44)
[2017-11-07] MEDS: Gentamicin Inj 70 MG in Sodium Chlor 0.9% Inj 100 ML IV.SIG SCH ×3 (00:44→16:29)
[2017-11-07] MEDS: HYDROmorphone PF Inj 2 MG/ML Vial IV.PUSH PRN (02:39)
[2017-11-07] MEDS: Methadone 10 MG Tablet PO SCH ×2 (05:50→16:29)
[2017-11-07] MEDS: Famotidine PF Inj 20 MG/2 ML Vial IV.PUSH SCH ×2 (08:39→21:19)
[2017-11-07] MEDS ORDERED: HYDROmorphone PF Inj 2 MG/ML Vial IV.PUSH PRN (08:56)
[2017-11-07] MEDS ORDERED: HYDROmorphone PF Inj 2 MG/ML Vial IV.PUSH ONE (09:30)
--- NOTE | 2017-11-07 10:29 | P.PN ---
Subjective Interval history: Follow-up for IVDU, MRSA bacteremia, possible septic emboli of the lungs. Patient is resting in bed but in excruciating pain. She is unable to move due to pain. Her pain is localized in her back. She continues to have low-grade fever. Physical Exam Vital signs: Vital Signs 11/06/17 11:50 11/06/17 12:30 11/06/17 16:00 Temperature 99.5 F 100.0 F H Pulse Rate 103 H 114 H Respiratory Rate 12 12 20 Blood Pressure 131/77 133/78 Pulse Oximetry 93 L 91 L 11/06/17 17:13 11/06/17 18:15 11/06/17 20:00 Temperature 98 F Pulse Rate 114 H Respiratory Rate 12 20 Blood Pressure 152/88 H Pulse Oximetry 91 L 94 L 11/06/17 22:00 11/07/17 00:00 11/07/17 04:00 Temperature 100.3 F H 98 F Pulse Rate 105 H 119 H 93 H Respiratory Rate 24 20 Blood Pressure 154/79 H Pulse Oximetry 91 L 94 L 11/07/17 07:00 11/07/17 09:29 Temperature 98.2 F Pulse Rate 91 H Respiratory Rate 16 Blood Pressure 134/86 Pulse Oximetry 94 L 93 L Intake & Output 11/06/17 11/07/17 11/07/17 18:59 06:59 18:59 Intake Total 2327.5 / 2327.5 581.75 / 581.75 Output Total 340 / 340 Balance 1987.5 / 1987.5 581.75 / 581.75 Weight 92 kg Intake: IV 1837.5 / 1837.5 101.75 / 101.75 NS Inj 1,000 ML @ 100 mls/hr IV 1120 / 1120 .CONT .Q10H [facility] Rx#:[id number] Cubicin Inj 800 MG In NS Inj 100 / 100 100 ML @ 200 mls/hr IV.SIG Q24H [facility] Rx#:[id number] Gentamicin Inj 70 MG In NS Inj 102.5 / 102.5 101.75 / 101.75 100 ML @ 100 mls/hr IV.SIG Q8H [facility] Rx#:[id number] Vancomycin Inj 1,500 MG In NS 515 / 515 Inj 500 ML @ 250 mls/hr IV.SIG Q8H [facility] Rx#:[id number] Oral 490 / 490 480 / 480 Output: Urine Amount (Catheter) 340 / 340 Indwelling Urethral Catheter 340 / 340 Other: # Voids 5 Date of Last Bowel Movement 11/08/17 Narrative: GENERAL: Alert, oriented 3, in mild distress due to pain. SKIN: Warm and dry. HEAD: Normocephalic. EYES: No scleral icterus. No injection or drainage. NECK: Supple, trachea midline. No JVD or lymphadenopathy. CARDIOVASCULAR: Tachycardic, regular rhythm without murmurs, gallops, or rubs. RESPIRATORY: Breath sounds equal bilaterally. No accessory muscle use. GASTROINTESTINAL: Abdomen soft, non-tender, nondistended. MUSCULOSKELETAL: No cyanosis, or edema. BACK: Nontender without obvious deformity. No CVA tenderness. - Urinary Catheter Management Indwelling Urethral Catheter Cath placed during this visit: yes, but has since been removed by the nurse Reason for continuing: Decision to DC catheter Insertion date: 11/02/17 Insertion time: 00:07 Removal date: 11/06/17 Removal time: 12:00 Results - Labs CBC & Chem 7: 11/06/17 06:58 11/06/17 06:58 Laboratory Results - last 24 hr 11/01/17 11/06/17 11/06/17 22:30 11:58 20:08 POC Glucose 85 112 H Urine Histoplasma Ag 0 U Histoplasma Ag Detec Negative Microbiology 11/03/17 19:10 Blood - Peripheral Aerobic Blood Culture - Final S. aureus MRSA 11/03/17 19:10 Blood - Peripheral Anaerobic Blood Culture - Preliminary No growth in 3 days 11/03/17 19:21 Blood - Peripheral Aerobic Blood Culture - Preliminary gram positive cocci 11/03/17 19:21 Blood - Peripheral Anaerobic Blood Culture - Preliminary No growth in 3 days 11/03/17 05:30 Blood - Peripheral Aerobic Blood Culture - Final S. aureus MRSA 11/03/17 05:30 Blood - Peripheral Anaerobic Blood Culture - Preliminary No growth in 3 days 11/03/17 05:37 Blood - Peripheral Aerobic Blood Culture - Final S. aureus MRSA 11/03/17 05:37 Blood - Peripheral Anaerobic Blood Culture - Preliminary No growth in 3 days - Imaging Impressions Abdomen/Pelvis CT 11/06/17 00:00 CONCLUSION: 1. Mild anasarca. 2. Slight splenomegaly with focal lesion towards the anterior portion of the spleen not present on the prior examination could be infarction, however splenic abscess is not excluded. 3. Slight peritoneal fluid nonspecific. Cervical Spine MRI 11/06/17 00:00 CONCLUSION: Slight nondescript serpiginous edema in the upper back, otherwise unremarkable. Lumbar Spine MRI 11/06/17 00:00 CONCLUSION: Slight nondescript subcutaneous edema in the patient's back, otherwise unremarkable without abscess formation. Thoracic Spine MRI 11/06/17 00:00 CONCLUSION: Essentially unremarkable study except for slight nondescript separate density on the patient's back. - Procedures Echocardiogram 11/03/2017 The left ventricular systolic function is hyperdynamic with an estimated ejection fraction in the range of 65- 70%. Normal left ventricular size. Wall thickness is normal. No regional wall motion abnormalities are present. There is mild tricuspid valve regurgitation. The estimated pulmonary arterial pressure is 39.2 mmHg. Assessment and Plan - Plan Ms. Jade is a pleasant 31-year-old female with a history of IV drug abuse who was admitted to the hospital due to fever of 10 3F, altered mental status. Urine drug screen was positive for amphetamines and opioids. CT chest shows multiple pulmonary nodules concerning for septic emboli. She was also found to have MRSA bacteremia. Transthoracic echocardiogram was negative for any cardiac vegetation. Infectious disease recommends MARVIN. Sepsis (fever of 102F, tachycardic, IV drug user with bacteremia, septic pulmonary emboli) MRSA bacteremia Probable septic pulmonary emboli -Appreciate infectious disease input. Patient is currently on daptomycin as well as gentamicin. -We will consult cardiology for MARVIN Severe back pain -Cervical, lumbar, thoracic spine MRI did not reveal any evidence of abscess. -We will give patient 1 mg of hydromorphone IV today. Continue oral Percocet for pain 6-10 and IV Dilaudid for breakthrough pain. -Discussed at length with patient that we will have to wean her off IV pain medication and rely mainly on oral medications. She verbalized understanding -continue Methadone 10mg Q12hrs. Spleen lesion -Abscess versus infarction -Continue antibiotics. Full code. Lovenox.
[2017-11-07] MEDS: DAPTOmycin Inj 800 MG in Sodium Chlor 0.9% Inj 100 ML IV.SIG SCH (13:57)
[2017-11-07] MEDS ORDERED: Pharmacy Ordered Lab Info OTHER ONE ×2 (15:45→17:30)
--- NOTE | 2017-11-07 16:12 | MB ---
cc: Aidan Perdomo MD DATE: 11/07/2017 HISTORY OF PRESENT ILLNESS: Salud is a 31-year-old lady with history of IV drug abuse with bacteremia. Consult obtained for MARVIN. The patient is a very poor historian. She is very agitated by my questioning during her history. She states she has dysphagia. Otherwise, denies chest pain or shortness of breath. She is very irritable and wants to go back to sleep. Again is a poor historian for that reason. Otherwise denies any GI or bleeding, PND or orthopnea, syncope or dizziness. PAST MEDICAL HISTORY: Per history of present illness. ALLERGIES: HALOPERIDOL AND NICKEL. SOCIAL HISTORY: She smokes. She drinks alcohol. She uses IV drugs. MEDICATIONS IN THE HOSPITAL: 1. Daptomycin 800 mg IV. 2. Dexmedetomidine. 3. Lovenox 40 mg subcutaneous every 24 hours. 4. Famotidine 20 mg IV every 12 hours. 5. Gentamicin. PHYSICAL EXAMINATION: VITAL SIGNS: Temperature 98.2, pulse 91, blood pressure 134/86, sats 93% on room air. GENERAL: She is alert and oriented x 3, in no acute distress. NECK: Supple. No JVD. No bruit. CARDIOVASCULAR: S1, S2. No murmurs, rubs, or gallops. LUNGS: Clear to auscultation bilaterally. ABDOMEN: Soft, nontender, nondistended with positive bowel sounds. EXTREMITIES: No lower extremity edema. LABORATORY DATA: White count 14.8, hemoglobin 8.5, hematocrit 25.5, and platelet count 123, was as low as 43. INR is 1.3. Sodium 139, potassium 3.4, chloride 107, bicarbonate 22.2, BUN 4, creatinine 0.42, calcium 7.2, albumin 1.4. IMAGING STUDIES: Thoracic spine MRI essentially unremarkable study except for slight nondescript separate density on the patient's back. Lumbar spine MRI slight nondescript subcutaneous edema in the patient's back, otherwise unremarkable without abscess formation. Cervical spine MRI slight nondescript serpiginous edema in the upper back, otherwise unremarkable. Abdominal pelvic CT mild anasarca, slight splenomegaly with focal lesions toward the anterior portion of the spleen not present on the prior examination, could be infarction; however, splenic abscess is not excluded. Slight peritoneal fluid, nonspecific. EKG: Normal sinus rhythm at 91 beats per minute, otherwise normal. DIAGNOSES: 1. Bacteremia. 2. Thrombocytopenia. 3. IV drug abuse. 4. Coagulopathy. 5. Dysphagia. 6. Splenomegaly. DISCUSSION: This patient has dysphagia and multiple metrics for concern for esophageal varices with splenomegaly, thrombocytopenia and coagulopathy and signs of liver failure with low albumin. I definitely think she needs a GI consult to determine risks and benefits of proceeding with MARVIN, so we will place a GI consult initially. MD KERRY Allen/MAAME , 03:47 PM , 04:11 PM
--- NOTE | 2017-11-07 16:38 | P.CONGI ---
History of Present Illness Consult date: 11/07/17 Consult reason: dysphagia- clearance for MARVIN requested by cardiology Chief complaint: Sepsis, r/o Meningitis, r/o Endocarditis History of Present Illness: This is a 31 yo F with PMH significant for IV drug abuse who presented to the hospital on 11/01, after boyfriend called 911 due to patients altered mental status. According to notes pt was recently released from care home and has been on an IV drug abuse binge. Pt febrile, ID following for bacteriemia and has consulted cardiology who is planning on a transesophageal echocardiogram. Our service has been consulted to evaluate pt for clearance regarding MARVIN due to risk factors associated with possible cirrhosis as well as patient complaints of dysphagia. I had to wake up patient for my exam, she was very agitated about being woken up and refused to answer any questions except she did admit to the dysphagia. Would not answer any questions regarding if it was related to solid food or liquids or how long it has been going on for. Pt also would not answer any questions regarding previous liver disease diagnosis or substance abuse including alcohol. Imaging of the abdomen indicates splenomegaly, coupled with thrombocytopenia and hypoalbuminemia as well as patients history of IV drug abuse, there is possibility of some liver disease. Hepatitis C antibody positive. Unsure if pt has ever had EGD or colonoscopy previously. No previous records from our service at this hospital. <Juliann Skinner - Last Filed: 11/07/17 16:22> Review of Systems other (Unable to obtain history, pt is very agitated and will not cooperate ) <Juliann Skinner - Last Filed: 11/07/17 16:22> [facility] - History History Provided By: Medical Record - Medical / Surgical Hx Neg / Unobtainable Medical Problems Denied: Unable to Obtain - Tobacco History Second Hand Smoke Exposure: Yes Tobacco Use In Past 30 Days: Yes Smoking Status: Current every day smoker Tobacco Type: Cigarettes - Alcohol History How Often Do You Have a Drink Containing Alcohol: 4 or more times a week - Travel History Recent Travel in the [place] Within the Last 8 Weeks: No Recent Travel Out of the Country Within the Last 8 Weeks: No <Juliann Skinner - Last Filed: 11/07/17 16:22> Medications and Allergies Active Medications: Active Medications Acetaminophen (Tylenol) 650 mg PO Q6H PRN PRN Reason: Headache, fever, pain 1-5 Last Admin: 11/06/17 00:12 Dose: 325 mg Enoxaparin Sodium (Lovenox Inj) 40 mg SQ Q24H [facility] Last Admin: 11/07/17 00:44 Dose: 40 mg Famotidine (Pepcid Pf Inj) 20 mg IV.PUSH Q12HR [facility] Last Admin: 11/07/17 08:39 Dose: 20 mg Hydromorphone HCl (Dilaudid Pf Inj) 1 mg IV.PUSH Q4H PRN PRN Reason: BREAKTHROUGH PAIN Sodium Chloride (Ns Inj) 1,000 mls @ 100 mls/hr IV.CONT .Q10H [facility] Last Admin: 11/07/17 11:11 Dose: Not Given Dexmedetomidine HCl 200 mcg/ (Sodium Chloride) 52 mls @ 4.08 mls/hr IV.SIG TITRATE PRN; Protocol PRN Reason: SEE PROTOCOL Last Titration: 11/05/17 19:00 Dose: Infused Daptomycin 800 mg/ Sodium (Chloride) 100 mls @ 200 mls/hr IV.SIG Q24H [facility] Last Admin: 11/07/17 13:57 Dose: 200 mls/hr Pharmacy Profile Note (Gentamicin Consult Pharmacy) 0 mls @ 0 mls/hr OTHER [facility] Gentamicin Sulfate 70 mg/ (Sodium Chloride) 101.75 mls @ 100 mls/hr IV.SIG Q8H [facility] Last Infusion: 11/07/17 10:29 Dose: Infused Methadone HCl (Dolophine) 10 mg PO Q12H [facility] Last Admin: 11/07/17 05:50 Dose: 10 mg Miscellaneous Information ([facility] Ordered Lab Info) 0 each OTHER ONCE ONE Stop: 11/07/17 17:31 Ondansetron HCl (Zofran Inj) 4 mg IV.PUSH Q6H PRN PRN Reason: NAUSEA OR VOMITING Oxycodone/Acetaminophen (Percocet 10/325 Mg) 1 tab PO Q4H PRN PRN Reason: PAIN SCALE 6 TO 10 Last Admin: 11/07/17 12:56 Dose: 1 tab Sodium Chloride (Ns Flush) 2 ml IV.FLUSH BID [facility] Last Admin: 11/07/17 12:57 Dose: 2 ml Sodium Chloride (Ns Flush) 2 ml IV.FLUSH PRN PRN PRN Reason: FLUSH AFTER USING IV ACCESS <Juliann Skinner - Last Filed: 11/07/17 16:22> Active Medications: Active Medications Acetaminophen (Tylenol) 650 mg PO Q6H PRN PRN Reason: Headache, fever, pain 1-5 Last Admin: 11/06/17 00:12 Dose: 325 mg Enoxaparin Sodium (Lovenox Inj) 40 mg SQ Q24H [facility] Last Admin: 11/07/17 00:44 Dose: 40 mg Famotidine (Pepcid Pf Inj) 20 mg IV.PUSH Q12HR [facility] Last Admin: 11/07/17 08:39 Dose: 20 mg Hydromorphone HCl (Dilaudid Pf Inj) 1 mg IV.PUSH Q4H PRN PRN Reason: BREAKTHROUGH PAIN Sodium Chloride (Ns Inj) 1,000 mls @ 100 mls/hr IV.CONT .Q10H [facility] Last Infusion: 11/07/17 18:13 Dose: Infused Dexmedetomidine HCl 200 mcg/ (Sodium Chloride) 52 mls @ 4.08 mls/hr IV.SIG TITRATE PRN; Protocol PRN Reason: SEE PROTOCOL Last Titration: 11/05/17 19:00 Dose: Infused Daptomycin 800 mg/ Sodium (Chloride) 100 mls @ 200 mls/hr IV.SIG Q24H [facility] Last Infusion: 11/07/17 16:49 Dose: Infused Pharmacy Profile Note (Gentamicin Consult Pharmacy) 0 mls @ 0 mls/hr [facility] Gentamicin Sulfate 70 mg/ (Sodium Chloride) 101.75 mls @ 100 mls/hr IV.SIG Q8H [facility] Last Infusion: 11/07/17 18:12 Dose: Infused Methadone HCl (Dolophine) 10 mg PO Q12H [facility] Last Admin: 11/07/17 16:29 Dose: 10 mg Ondansetron HCl (Zofran Inj) 4 mg IV.PUSH Q6H PRN PRN Reason: NAUSEA OR VOMITING Oxycodone/Acetaminophen (Percocet 10/325 Mg) 1 tab PO Q4H PRN PRN Reason: PAIN SCALE 6 TO 10 Last Admin: 11/07/17 12:56 Dose: 1 tab Sodium Chloride (Ns Flush) 2 ml IV.FLUSH BID [facility] Last Admin: 11/07/17 12:57 Dose: 2 ml Sodium Chloride (Ns Flush) 2 ml IV.FLUSH PRN PRN PRN Reason: FLUSH AFTER USING IV ACCESS <Scott Escobar E - Last Filed: 11/07/17 19:05> Allergies Allergy/AdvReac Type Severity Reaction Status Date / Time haloperidol AdvReac Intermediate SEIZURES Verified 11/01/17 22:36 NICKEL Allergy Intermediate Anxiety Uncoded 11/01/17 22:36 Home Medications Medication Instructions Recorded Confirmed Type Unable to Obtain Home Meds 11/01/17 11/01/17 History Exam Vital signs: Vital Signs 11/06/17 17:13 11/06/17 18:15 11/06/17 20:00 Temperature 98 F Pulse Rate 114 H Respiratory Rate 12 20 Blood Pressure 152/88 H Pulse Oximetry 91 L 94 L 11/06/17 22:00 11/07/17 00:00 11/07/17 04:00 Temperature 100.3 F H 98 F Pulse Rate 105 H 119 H 93 H Respiratory Rate 24 20 Blood Pressure 154/79 H Pulse Oximetry 91 L 94 L 11/07/17 07:00 11/07/17 08:00 11/07/17 09:29 Temperature 98.2 F Pulse Rate 91 H Respiratory Rate 16 Blood Pressure 134/86 Pulse Oximetry 94 L 93 L 93 L 11/07/17 12:00 11/07/17 13:22 Temperature 98.9 F Pulse Rate 114 H Respiratory Rate 14 18 Blood Pressure 139/79 Pulse Oximetry 91 L Intake & Output 11/06/17 11/07/17 11/07/17 18:59 06:59 18:59 Intake Total 2327.5 / 2327.5 581.75 / 581.75 101.75 / 101.75 Output Total 340 / 340 Balance 1986. / 1986. 581.75 / 581.75 101.75 / 101.75 Weight 92 kg Intake: IV 1837.5 / 1837.5 101.75 / 101.75 101.75 / 101.75 NS Inj 1,000 ML @ 100 mls/hr IV 1120 / 1120 .CONT .Q10H [facility] Rx#:[id number] Cubicin Inj 800 MG In NS Inj 100 / 100 100 ML @ 200 mls/hr IV.SIG Q24H [facility] Rx#:[id number] Gentamicin Inj 70 MG In NS Inj 102.5 / 102.5 101.75 / 101.75 101.75 / 101.75 100 ML @ 100 mls/hr IV.SIG Q8H [facility] Rx#:[id number] Vancomycin Inj 1,500 MG In NS 515 / 515 Inj 500 ML @ 250 mls/hr IV.SIG Q8H [facility] Rx#:[id number] Oral 490 / 490 480 / 480 Output: Urine Amount (Catheter) 340 / 340 Indwelling Urethral Catheter 340 / 340 Other: # Voids 5 Date of Last Bowel Movement 11/08/17 - Constitutional moderate distress - Routine HEENT Exam Head: Present: normocephalic, atraumatic - Routine Respiratory Exam Absent: accessory muscle use - Routine Cardiovascular Exam Present: RRR - Routine Abdominal Exam Present: soft, normoactive bowel sounds - Routine Skin Exam Present: dry, warm <Juliann Skinner - Last Filed: 11/07/17 16:22> Vital signs: Vital Signs 11/06/17 20:00 11/06/17 22:00 11/07/17 00:00 Temperature 98 F 100.3 F H Pulse Rate 114 H 105 H 119 H Respiratory Rate 20 24 Blood Pressure 152/88 H 154/79 H Pulse Oximetry 94 L 91 L 11/07/17 04:00 11/07/17 07:00 11/07/17 08:00 Temperature 98 F Pulse Rate 93 H Respiratory Rate 20 Blood Pressure Pulse Oximetry 94 L 94 L 93 L 11/07/17 09:29 11/07/17 12:00 11/07/17 13:22 Temperature 98.2 F 98.9 F Pulse Rate 91 H 114 H Respiratory Rate 16 14 18 Blood Pressure 134/86 139/79 Pulse Oximetry 93 L 91 L 11/07/17 16:00 11/07/17 17:14 Temperature 98.2 F Pulse Rate 97 H Respiratory Rate 18 18 Blood Pressure 149/92 H Pulse Oximetry 97 Intake & Output 11/07/17 11/07/17 11/08/17 06:59 18:59 06:59 Intake Total 581.75 / 581.75 2344.50 / 2344.50 Output Total 340 / 340 Balance 581.75 / 581.75 2003.50 / 2003.50 Weight 92 kg Intake: IV 101.75 / 101.75 1303.50 / 1303.50 NS Inj 1,000 ML @ 100 mls/hr IV 1000 / 1000 .CONT .Q10H [facility] Rx#:[id number] Cubicin Inj 800 MG In NS Inj 100 / 100 100 ML @ 200 mls/hr IV.SIG Q24H [facility] Rx#:[id number] Gentamicin Inj 70 MG In NS Inj 101.75 / 101.75 203.50 / 203.50 100 ML @ 100 mls/hr IV.SIG Q8H [facility] Rx#:[id number] Oral 480 / 480 480 / 480 Other 561 / 561 Output: Urine 0 / 0 Urine Amount (Catheter) 340 / 340 Indwelling Urethral Catheter 340 / 340 Other: Other Intake Source Saline Solution # Voids 5 5 Date of Last Bowel Movement 11/08/17 # Bowel Movements 1 <Scott Escobar - Last Filed: 11/07/17 19:05> Results - Labs CBC & Chem 7: 11/06/17 06:58 11/06/17 06:58 Labs: Laboratory Results - last 24 hr 11/01/17 11/06/17 22:30 20:08 POC Glucose 112 H Urine Histoplasma Ag 0 U Histoplasma Ag Detec Negative <Juliann Skinner - Last Filed: 11/07/17 16:22> - Labs CBC & Chem 7: 11/06/17 06:58 11/07/17 16:33 Labs: Laboratory Results - last 24 hr 11/01/17 11/06/17 11/07/17 22:30 20:08 16:33 Sodium 136 Potassium 3.7 Chloride 102 Carbon Dioxide 24.5 Anion Gap 10 BUN 3 L Creatinine 0.47 L Estimated GFR Greater than 89 POC Glucose 112 H Random Glucose 84 Calcium 7.6 L Total Bilirubin 0.6 AST 21 ALT 13 Alkaline Phosphatase 97 Total Protein 6.5 D Albumin 1.7 L Gentamicin Trough Urine Histoplasma Ag 0 U Histoplasma Ag Detec Negative 11/07/17 16:33 Sodium Potassium Chloride Carbon Dioxide Anion Gap BUN Creatinine Estimated GFR POC Glucose Random Glucose Calcium Total Bilirubin AST ALT Alkaline Phosphatase Total Protein Albumin Gentamicin Trough Less than 0.2 Urine Histoplasma Ag U Histoplasma Ag Detec <Scott Escobar - Last Filed: 11/07/17 19:05> Assessment and Plan (1) Dysphagia Status: Acute Code(s): R13.10 - Dysphagia, unspecified (2) History of intravenous drug abuse Status: Acute Code(s): Z87.898 - Personal history of other specified conditions (3) Hepatitis C antibody positive in blood Status: Acute Code(s): R76.8 - Other specified abnormal immunological findings in serum - Plan Assessment: - Dysphagia- Unable to obtain history from pt, she is agitated and will not answer any questions except she does admit to dysphagia. She will not answer if the dysphagia is related to solids or liquids or the period of time she has had this symptom for. Unsure if pt has had previous EGD - Hepatitis C antibody positive, splenomegaly on imaging coupled with thrombocytopenia and hypoalbuminemia in labs indicates possibility of liver disease- cardiology concern for possible varices and would like clearance for MARVIN. CT abdomen and pelvis W IV contrast Mild anasarca. Slight splenomegaly with focal lesion towards the anterior portion of the spleen not present on the prior examination could be infarction , however splenic abscess is not excluded. Slight peritoneal fluid nonspecific. LFTs WNL. - Bacteremia, ID following, consulted cardiology for MARVIN, cardiology asked for GI clearance. Plan: EGD tomorrow Obtain consent NPO after MN Hep C genotype and quant ID and cardiology following Further recommendations based on findings of above Pt has been seen and examined by myself and Dr. Escobar and this note is written on his behalf <Juliann Skinner - Last Filed: 11/07/17 16:22> (1) Dysphagia Status: Acute Code(s): R13.10 - Dysphagia, unspecified (2) History of intravenous drug abuse Status: Acute Code(s): Z87.898 - Personal history of other specified conditions (3) Hepatitis C antibody positive in blood Status: Acute Code(s): R76.8 - Other specified abnormal immunological findings in serum - Attending Attestation Patient seen and examined agree with above Continue with current supportive care Monitor labs Plan for EGD tomorrow <Scott Escobar - Last Filed: 11/07/17 19:05>
[2017-11-07 17:05] LABS: Alanine Aminotransferase 13 U/L (10-53); Albumin 1.7 g/dL (3.4-5.0); Anion Gap 10 meq/L (5-15); Aspartate Aminotransferase 21 U/L (15-37); Blood Urea Nitrogen 3 mg/dL (7-18); Calcium 7.6 mg/dL (8.5-10.1); Carbon Dioxide 24.5 meq/L (21.0-32.0); Chloride 102 meq/L (98-107); Glomerular Filtration Rate Greater Than 89 mL/min (>89); Glucose,Random 84 mg/dL (74-106); Potassium 3.7 meq/L (3.5-5.1); Sodium 136 meq/L (136-145)
[2017-11-07 17:07] LABS: Alkaline Phosphatase 97 U/L (45-117); Total Protein 6.5 g/dL (6.4-8.2)
[2017-11-08] MEDS: Acetaminophen 325 MG Tablet PO PRN (00:13)
[2017-11-08] MEDS: oxyCODONE/Acetaminophen 10/325 Tablet PO PRN ×4 (00:18→20:59)
[2017-11-08] MEDS: Gentamicin Inj 70 MG in Sodium Chlor 0.9% Inj 100 ML IV.SIG SCH ×3 (00:19→16:33)
[2017-11-08] MEDS ORDERED: Pharmacy Ordered Lab Info OTHER ONE (01:45)
[2017-11-08] MEDS: Enoxaparin Inj 40 MG/0.4 ML Syringe SQ SCH (03:19)
[2017-11-08] MEDS: Methadone 10 MG Tablet PO SCH ×2 (05:57→16:34)
[2017-11-08] MEDS: Sod Chloride 0.9% Inj 1,000 ML IV.CONT SCH ×2 (08:41→17:16)
[2017-11-08] MEDS: Famotidine PF Inj 20 MG/2 ML Vial IV.PUSH SCH (08:42)
[2017-11-08 09:38] LABS: Albumin 1.6 g/dL (3.4-5.0); Anion Gap 11 meq/L (5-15); Aspartate Aminotransferase 21 U/L (15-37); Blood Urea Nitrogen 3 mg/dL (7-18); Carbon Dioxide 23.2 meq/L (21.0-32.0); Chloride 100 meq/L (98-107); Glomerular Filtration Rate Greater Than 89 mL/min (>89); Glucose,Random 76 mg/dL (74-106); Potassium 3.5 meq/L (3.5-5.1); Sodium 134 meq/L (136-145)
[2017-11-08 09:40] LABS: Alanine Aminotransferase 11 U/L (10-53)
[2017-11-08 09:43] LABS: Alkaline Phosphatase 82 U/L (45-117); Total Protein 6.2 g/dL (6.4-8.2)
[2017-11-08] MEDS ORDERED: Lidocaine PF 1% Inj 5 ML Syringe INFILTRATN ONE (12:00)
--- NOTE | 2017-11-08 12:45 | P.PN ---
Subjective Interval history: Follow up for septic emboli, MRSA bacteremia in an IVDU. Patient is currently doing well. No fever, chills. She complains of pain. However, she is able to get up and use the bedside commode better today. Physical Exam Vital signs: Vital Signs 11/07/17 13:22 11/07/17 16:00 11/07/17 17:14 Temperature 98.9 F 98.2 F Pulse Rate 114 H 97 H Respiratory Rate 18 18 18 Blood Pressure 139/79 149/92 H Pulse Oximetry 91 L 97 11/07/17 20:00 11/08/17 00:00 11/08/17 04:00 Temperature 98 F 101.8 F H 99.4 F Pulse Rate 116 H 112 H 103 H Respiratory Rate 18 20 Blood Pressure 135/70 114/71 127/71 Pulse Oximetry 95 90 L 95 11/08/17 07:00 11/08/17 08:00 11/08/17 08:49 Temperature 98.6 F Pulse Rate 100 H Respiratory Rate 20 20 Blood Pressure 155/99 H Pulse Oximetry 96 96 96 11/08/17 12:20 Temperature Pulse Rate 98 H Respiratory Rate 18 Blood Pressure 166/97 H Pulse Oximetry 96 Intake & Output 11/07/17 11/08/17 11/08/17 18:59 06:59 18:59 Intake Total 2344.50 / 2344.50 1142.75 / 1142.75 Output Total 340 / 340 340 / 340 Balance 2004.50 / 2003.50 802.75 / 802.75 Weight 92 kg Intake: IV 1303.50 / 1303.50 101.75 / 101.75 NS Inj 1,000 ML @ 100 mls/hr IV 1000 / 1000 .CONT .Q10H [facility] Rx#:[id number] Cubicin Inj 800 MG In NS Inj 100 / 100 100 ML @ 200 mls/hr IV.SIG Q24H [facility] Rx#:[id number] Gentamicin Inj 70 MG In NS Inj 203.50 / 203.50 101.75 / 101.75 100 ML @ 100 mls/hr IV.SIG Q8H [facility] Rx#:[id number] Oral 480 / 480 480 / 480 Other 561 / 561 561 / 561 Output: Urine 0 / 0 0 / 0 Urine Amount (Catheter) 340 / 340 340 / 340 Indwelling Urethral Catheter 340 / 340 340 / 340 Other: Other Intake Source Saline Solution Saline Solution # Voids 5 5 Date of Last Bowel Movement 11/08/17 11/08/17 11/08/17 # Bowel Movements 1 1 Narrative: GENERAL: Alert, oriented 3, NAD. SKIN: Warm and dry. HEAD: Normocephalic. EYES: No scleral icterus. No injection or drainage. NECK: Supple, trachea midline. No JVD or lymphadenopathy. CARDIOVASCULAR: Tachycardic, regular rhythm without murmurs, gallops, or rubs. RESPIRATORY: Breath sounds equal bilaterally. No accessory muscle use. GASTROINTESTINAL: Abdomen soft, non-tender, nondistended. MUSCULOSKELETAL: No cyanosis, or edema. BACK: Nontender without obvious deformity. No CVA tenderness. - Urinary Catheter Management Indwelling Urethral Catheter Cath placed during this visit: yes, but has since been removed by the nurse Reason for continuing: Decision to DC catheter Insertion date: 11/02/17 Insertion time: 00:07 Removal date: 11/06/17 Removal time: 12:00 Results - Labs CBC & Chem 7: 11/06/17 06:58 11/08/17 08:02 Laboratory Results - last 24 hr 11/02/17 11/07/17 11/07/17 01:30 16:33 16:33 Sodium 136 Potassium 3.7 Chloride 102 Carbon Dioxide 24.5 Anion Gap 10 BUN 3 L Creatinine 0.47 L Estimated GFR Greater than 89 POC Glucose Random Glucose 84 Calcium 7.6 L Total Bilirubin 0.6 AST 21 ALT 13 Alkaline Phosphatase 97 Total Protein 6.5 D Albumin 1.7 L CSF Cryptococcus Ag Not detected Gentamicin Peak Gentamicin Trough Less than 0.2 11/07/17 11/07/17 11/08/17 19:22 20:24 07:27 Sodium Potassium Chloride Carbon Dioxide Anion Gap BUN Creatinine Estimated GFR POC Glucose 107 89 Random Glucose Calcium Total Bilirubin AST ALT Alkaline Phosphatase Total Protein Albumin CSF Cryptococcus Ag Gentamicin Peak 1.0 L Gentamicin Trough 11/08/17 08:02 Sodium 134 L Potassium 3.5 Chloride 100 Carbon Dioxide 23.2 Anion Gap 11 BUN 3 L Creatinine 0.43 L Estimated GFR Greater than 89 POC Glucose Random Glucose 76 Calcium 8.0 L Total Bilirubin 0.6 AST 21 ALT 11 Alkaline Phosphatase 82 Total Protein 6.2 L Albumin 1.6 L CSF Cryptococcus Ag Gentamicin Peak Gentamicin Trough Microbiology 11/03/17 19:10 Blood - Peripheral Aerobic Blood Culture - Final S. aureus MRSA 11/03/17 19:10 Blood - Peripheral Anaerobic Blood Culture - Final No growth in 5 days 11/03/17 19:21 Blood - Peripheral Aerobic Blood Culture - Preliminary gram positive cocci 11/03/17 19:21 Blood - Peripheral Anaerobic Blood Culture - Final No growth in 5 days 11/03/17 05:30 Blood - Peripheral Aerobic Blood Culture - Final S. aureus MRSA 11/03/17 05:30 Blood - Peripheral Anaerobic Blood Culture - Final No growth in 5 days 11/03/17 05:37 Blood - Peripheral Aerobic Blood Culture - Final S. aureus MRSA 11/03/17 05:37 Blood - Peripheral Anaerobic Blood Culture - Final No growth in 5 days 11/07/17 06:15 Blood - Peripheral Aerobic Blood Culture - Preliminary gram positive cocci 11/07/17 06:15 Blood - Peripheral Anaerobic Blood Culture - Final QNS - See aerobic report. - Procedures Echocardiogram 11/03/2017 The left ventricular systolic function is hyperdynamic with an estimated ejection fraction in the range of 65- 70%. Normal left ventricular size. Wall thickness is normal. No regional wall motion abnormalities are present. There is mild tricuspid valve regurgitation. The estimated pulmonary arterial pressure is 39.2 mmHg. Assessment and Plan - Plan Ms. Jade is a pleasant 31-year-old female with a history of IV drug abuse who was admitted to the hospital due to fever of 10 3F, altered mental status. Urine drug screen was positive for amphetamines and opioids. CT chest shows multiple pulmonary nodules concerning for septic emboli. She was also found to have MRSA bacteremia. Transthoracic echocardiogram was negative for any cardiac vegetation. Infectious disease recommends MARVIN. Sepsis (fever of 102F, tachycardic, IV drug user with bacteremia, septic pulmonary emboli) MRSA bacteremia Probable septic pulmonary emboli -Appreciate infectious disease input. Patient is currently on daptomycin as well as gentamicin. -Cardiology consulted. Cardiology requested GI clearance due to patient's dysphagia. Patient is scheduled for EGD Today. Severe back pain -Cervical, lumbar, thoracic spine MRI did not reveal any evidence of abscess. -We will give patient 1 mg of hydromorphone IV today. Continue oral Percocet for pain 6-10 and IV Dilaudid for breakthrough pain. -Discussed at length with patient that we will have to wean her off IV pain medication and rely mainly on oral medications. She verbalized understanding -continue Methadone 10mg Q12hrs. Generalized edema - Will d/c IV fluid. IF she does not improve, we will consider some Lasix IV Spleen lesion -Abscess versus infarction -Continue antibiotics. Full code. Stephanie.
--- NOTE | 2017-11-08 12:45 | P.PNCA ---
Subjective Interval history: c/o chest pain Physical Exam Vital signs: Vital Signs 11/07/17 13:22 11/07/17 16:00 11/07/17 17:14 Temperature 98.9 F 98.2 F Pulse Rate 114 H 97 H Respiratory Rate 18 18 18 Blood Pressure 139/79 149/92 H Pulse Oximetry 91 L 97 11/07/17 20:00 11/08/17 00:00 11/08/17 04:00 Temperature 98 F 101.8 F H 99.4 F Pulse Rate 116 H 112 H 103 H Respiratory Rate 18 20 Blood Pressure 135/70 114/71 127/71 Pulse Oximetry 95 90 L 95 11/08/17 07:00 11/08/17 08:00 11/08/17 08:49 Temperature 98.6 F Pulse Rate 100 H Respiratory Rate 20 20 Blood Pressure 155/99 H Pulse Oximetry 96 96 96 11/08/17 12:20 Temperature Pulse Rate 98 H Respiratory Rate 18 Blood Pressure 166/97 H Pulse Oximetry 96 Intake & Output 11/07/17 11/08/17 11/08/17 18:59 06:59 18:59 Intake Total 2344.50 / 2344.50 1142.75 / 1142.75 Output Total 340 / 340 340 / 340 Balance 2004.50 / 2004.50 802.75 / 802.75 Weight 92 kg Intake: IV 1303.50 / 1303.50 101.75 / 101.75 NS Inj 1,000 ML @ 100 mls/hr IV 1000 / 1000 .CONT .Q10H [facility] Rx#:[id number] Cubicin Inj 800 MG In NS Inj 100 / 100 100 ML @ 200 mls/hr IV.SIG Q24H [facility] Rx#:[id number] Gentamicin Inj 70 MG In NS Inj 203.50 / 203.50 101.75 / 101.75 100 ML @ 100 mls/hr IV.SIG Q8H [facility] Rx#:[id number] Oral 480 / 480 480 / 480 Other 561 / 561 561 / 561 Output: Urine 0 / 0 0 / 0 Urine Amount (Catheter) 340 / 340 340 / 340 Indwelling Urethral Catheter 340 / 340 340 / 340 Other: Other Intake Source Saline Solution Saline Solution # Voids 5 5 Date of Last Bowel Movement 11/08/17 11/08/17 11/08/17 # Bowel Movements 1 1 - Urinary Catheter Management Indwelling Urethral Catheter Cath placed during this visit: yes, but has since been removed by the nurse Reason for continuing: Decision to DC catheter Insertion date: 11/02/17 Insertion time: 00:07 Removal date: 11/06/17 Removal time: 12:00 Assessment and Plan - Assessment (1) Chest pain Code(s): R07.9 - Chest pain, unspecified Status: Acute (2) Dysphagia Code(s): R13.10 - Dysphagia, unspecified Status: Acute (3) History of intravenous drug abuse Code(s): Z87.898 - Personal history of other specified conditions Status: Acute (4) Hepatitis C antibody positive in blood Code(s): R76.8 - Other specified abnormal immunological findings in serum Status: Acute - Plan 1.) MARVIN - schedule if cleared by GI 2.) Chest pain - stat ekg and trop, serial trop, d/w nursing staff
[2017-11-08] MEDS: clonazePAM 1 MG Tablet PO SCH (13:01)
--- NOTE | 2017-11-08 13:41 | P.PCN ---
Date of procedure: 11/08/17 Pre-op diagnosis: Dysphagia Post-op diagnosis: other Procedure: PROCEDURE PERFORMED EGD INDICATION FOR PROCEDURE Dysphagia PROCEDURE: The procedure, risks and benefits were discussed with Patient/POA and informed consent was obtained. Anesthesia sedated Patient with Diprivan. Patient was placed in the left lateral decubitus position. EGD: The Pentax videoscope was introduced through the oropharynx and advanced to the second portion of the duodenum under direct visualization. Retroflexion was performed in the stomach. FINDINGS: The esophagus this was normal The stomach this was normal The duodenum this was normal ESTIMATED BLOOD LOSS: None SPECIMENS REMOVED: None COMPLICATIONS: None IMPRESSION: Normal EGD PLAN: Patient cleared for MARVIN Advance diet as tolerated Anesthesia: MAC Surgeon: Scott Escobar Pathology: none sent Condition: stable Disposition: floor
[2017-11-08] MEDS: DAPTOmycin Inj 800 MG in Sodium Chlor 0.9% Inj 100 ML IV.SIG SCH (14:22)
--- NOTE | 2017-11-08 14:31 | ECG ---
Date Performed: 11/08/2017 Time Performed: 11:58:27 PTAGE: 31 years EKG: Sinus rhythm NORMAL ECG PREVIOUS TRACING : 11/05/2017 02.49 DOCTOR: Obi Ramirez Interpretating Date/Time 11/08/2017 14:28:58
[2017-11-09] MEDS: clonazePAM 1 MG Tablet PO SCH ×4 (03:44→21:08)
[2017-11-09] MEDS: Famotidine PF Inj 20 MG/2 ML Vial IV.PUSH SCH ×3 (03:44→21:08)
[2017-11-09] MEDS: Enoxaparin Inj 40 MG/0.4 ML Syringe SQ SCH (03:45)
[2017-11-09] MEDS: Gentamicin Inj 70 MG in Sodium Chlor 0.9% Inj 100 ML IV.SIG SCH ×3 (03:45→17:04)
[2017-11-09] MEDS: Sod Chloride 0.9% Inj 1,000 ML IV.CONT SCH ×2 (03:45→15:26)
[2017-11-09] MEDS: Methadone 10 MG Tablet PO SCH ×3 (05:23→21:08)
[2017-11-09] MEDS: oxyCODONE/Acetaminophen 10/325 Tablet PO PRN ×3 (05:24→17:05)
[2017-11-09 07:00] LABS: Baso # (Auto) 0.1 th/mm3 (0.0-0.2); Baso % (Auto) 0.5 % (0.0-2.0); Eos # (Auto) 0.1 th/mm3 (0.0-0.4); Hematocrit 26.3 % (35.0-46.0); Hemoglobin 8.9 gm/dL (11.6-15.3); Lymph # (Auto) 2.2 th/mm3 (1.0-4.8); Lymph % (Auto) 18.8 % (9.0-44.0); Mean Corpuscular HGB Conc 33.7 % (32.0-36.0); Mean Corpuscular Hemoglobin 29.4 pg (27.0-34.0); Mean Corpuscular Volume 87.1 fL (80.0-100.0); Mean Platelet Volume 7.7 fL (7.0-11.0); Mono % (Auto) 9.1 % (0.0-8.0); Neut # (Auto) 8.1 th/mm3 (1.8-7.7); Neut % (Auto) 70.6 % (16.0-70.0); Platelet Count 380 th/mm3 (150-450); Red Blood Count 3.02 mil/mm3 (4.00-5.30); White Blood Count 11.5 th/mm3 (4.0-11.0)
[2017-11-09 07:16] LABS: Alanine Aminotransferase 11 U/L (10-53); Albumin 1.6 g/dL (3.4-5.0); Alkaline Phosphatase 77 U/L (45-117); Anion Gap 8 meq/L (5-15); Aspartate Aminotransferase 21 U/L (15-37); Blood Urea Nitrogen 4 mg/dL (7-18); Calcium 7.3 mg/dL (8.5-10.1); Carbon Dioxide 26.3 meq/L (21.0-32.0); Chloride 100 meq/L (98-107); Glomerular Filtration Rate Greater Than 89 mL/min (>89); Glucose,Random 97 mg/dL (74-106); Potassium 3.6 meq/L (3.5-5.1); Sodium 134 meq/L (136-145); Total Protein 6.4 g/dL (6.4-8.2); Troponin I 0.02 ng/mL (0.02-0.05)
[2017-11-09] MEDS ORDERED: Torsemide 20 MG Tablet PO ONE (11:24)
--- NOTE | 2017-11-09 11:30 | P.PN ---
Subjective Interval history: Follow up for septic emboli, MRSA bacteremia in an IVDU. Patient is currently doing well. She lost her IV access. We are waiting for vascular access to place IV lines. She had a fever of 100.4F. Physical Exam Vital signs: Vital Signs 11/08/17 12:20 11/08/17 13:45 11/08/17 16:00 Temperature 97.9 F Pulse Rate 98 H Respiratory Rate 18 14 Blood Pressure 166/97 H Pulse Oximetry 96 11/08/17 16:43 11/08/17 20:00 11/09/17 00:00 Temperature 97.9 F 97.7 F 100.4 F H Pulse Rate 100 H 103 H 116 H Respiratory Rate 16 18 18 Blood Pressure 125/60 142/95 H 142/89 H Pulse Oximetry 90 L 94 L 94 L 11/09/17 04:00 11/09/17 08:00 Temperature 98 F 99.6 F Pulse Rate 95 H 109 H Respiratory Rate 18 20 Blood Pressure 138/85 117/67 Pulse Oximetry 95 85 L Intake & Output 11/08/17 11/09/17 11/09/17 18:59 06:59 18:59 Intake Total 1544.50 / 1544.50 Output Total 340 / 340 Balance 1204.50 / 1204.50 Intake: IV 303.50 / 303.50 Cubicin Inj 800 MG In NS Inj 100 / 100 100 ML @ 200 mls/hr IV.SIG Q24H JUNIOR Rx#:[id number] Gentamicin Inj 70 MG In NS Inj 203.50 / 203.50 100 ML @ 100 mls/hr IV.SIG Q8H JUNIOR Rx#:[id number] Oral 480 / 480 Anesthesia Amount 200 / 200 Other 561 / 561 Output: Urine 0 / 0 Estimated Blood Loss 0 / 0 Urine Amount (Catheter) 340 / 340 Indwelling Urethral Catheter 340 / 340 Other: Other Intake Source Saline Solution # Voids 5 6 Date of Last Bowel Movement 11/08/17 11/08/17 # Bowel Movements 1 Narrative: GENERAL: Alert, oriented 3, NAD. Has anasarca. SKIN: Warm and dry. HEAD: Normocephalic. EYES: No scleral icterus. No injection or drainage. NECK: Supple, trachea midline. No JVD or lymphadenopathy. CARDIOVASCULAR: Tachycardic, regular rhythm without murmurs, gallops, or rubs. RESPIRATORY: Breath sounds equal bilaterally. No accessory muscle use. GASTROINTESTINAL: Abdomen soft, non-tender, nondistended. MUSCULOSKELETAL: No cyanosis, or edema. BACK: Nontender without obvious deformity. No CVA tenderness. - Urinary Catheter Management Indwelling Urethral Catheter Cath placed during this visit: yes, but has since been removed by the nurse Reason for continuing: Decision to DC catheter Insertion date: 11/02/17 Insertion time: 00:07 Removal date: 11/06/17 Removal time: 12:00 Results - Labs CBC & Chem 7: 11/09/17 05:59 11/09/17 05:59 Laboratory Results - last 24 hr 11/02/17 11/08/17 11/08/17 01:30 12:37 15:37 WBC RBC Hgb Hct MCV MCH MCHC RDW Plt Count MPV Neut % (Auto) Lymph % (Auto) [place] % (Auto) Eos % (Auto) Baso % (Auto) Neut # (Auto) Lymph # (Auto) [place] # (Auto) Eos # (Auto) Baso # (Auto) WBC Differential Differential Comment Sodium Potassium Chloride Carbon Dioxide Anion Gap BUN Creatinine Estimated GFR Random Glucose Calcium Prot Corrected Calcium Total Bilirubin AST ALT Alkaline Phosphatase Troponin I 0.02 0.05 Total Protein Albumin CSF VDRL Non-reactive 11/08/17 11/09/17 11/09/17 18:54 05:59 05:59 WBC 11.5 H RBC 3.02 L Hgb 8.9 L Hct 26.3 L MCV 87.1 MCH 29.4 MCHC 33.7 RDW 15.0 Plt Count 380 D MPV 7.7 Neut % (Auto) 70.6 H Lymph % (Auto) 18.8 [place] % (Auto) 9.1 H Eos % (Auto) 1.0 Baso % (Auto) 0.5 Neut # (Auto) 8.1 H Lymph # (Auto) 2.2 [place] # (Auto) 1.0 H Eos # (Auto) 0.1 Baso # (Auto) 0.1 WBC Differential . Differential Comment Auto diff final Sodium 134 L Potassium 3.6 Chloride 100 Carbon Dioxide 26.3 Anion Gap 8 BUN 4 L Creatinine 0.59 Estimated GFR Greater than 89 Random Glucose 97 Calcium 7.3 L* Prot Corrected Calcium 7.7 L Total Bilirubin 0.6 AST 21 ALT 11 Alkaline Phosphatase 77 Troponin I 0.03 0.02 Total Protein 6.4 Albumin 1.6 L CSF VDRL Microbiology 11/08/17 11:37 Blood - Peripheral Aerobic Blood Culture - Preliminary No growth in 1 day 11/08/17 11:37 Blood - Peripheral Anaerobic Blood Culture - Preliminary No growth in 1 day 11/08/17 11:32 Blood - Peripheral Aerobic Blood Culture - Preliminary No growth in 1 day 11/08/17 11:32 Blood - Peripheral Anaerobic Blood Culture - Preliminary No growth in 1 day 11/07/17 06:15 Blood - Peripheral Aerobic Blood Culture - Preliminary S. aureus MRSA 11/07/17 06:15 Blood - Peripheral Anaerobic Blood Culture - Final QNS - See aerobic report. 11/03/17 19:10 Blood - Peripheral Aerobic Blood Culture - Final S. aureus MRSA 11/03/17 19:10 Blood - Peripheral Anaerobic Blood Culture - Final No growth in 5 days 11/03/17 19:21 Blood - Peripheral Aerobic Blood Culture - Preliminary gram positive cocci 11/03/17 19:21 Blood - Peripheral Anaerobic Blood Culture - Final No growth in 5 days 11/03/17 05:30 Blood - Peripheral Aerobic Blood Culture - Final S. aureus MRSA 11/03/17 05:30 Blood - Peripheral Anaerobic Blood Culture - Final No growth in 5 days 11/03/17 05:37 Blood - Peripheral Aerobic Blood Culture - Final S. aureus MRSA 11/03/17 05:37 Blood - Peripheral Anaerobic Blood Culture - Final No growth in 5 days - Procedures Echocardiogram 11/03/2017 The left ventricular systolic function is hyperdynamic with an estimated ejection fraction in the range of 65- 70%. Normal left ventricular size. Wall thickness is normal. No regional wall motion abnormalities are present. There is mild tricuspid valve regurgitation. The estimated pulmonary arterial pressure is 39.2 mmHg. Assessment and Plan - Plan Ms. Jade is a pleasant 31-year-old female with a history of IV drug abuse who was admitted to the hospital due to fever of 10 3F, altered mental status. Urine drug screen was positive for amphetamines and opioids. CT chest shows multiple pulmonary nodules concerning for septic emboli. She was also found to have MRSA bacteremia. Transthoracic echocardiogram was negative for any cardiac vegetation. Infectious disease recommends MARVIN. Sepsis (fever of 102F, tachycardic, IV drug user with bacteremia, septic pulmonary emboli) MRSA bacteremia Probable septic pulmonary emboli -Appreciate infectious disease input. Patient is currently on daptomycin as well as gentamicin. -Cardiology consulted. Patient underwent EGD on 11/08/2017. GI cleared for MARVIN. Severe back pain -Cervical, lumbar, thoracic spine MRI did not reveal any evidence of abscess. -Continue oral Percocet for pain 6-10 and IV Dilaudid for breakthrough pain. -Discussed at length with patient that we will have to wean her off IV pain medication and rely mainly on oral medications. She verbalized understanding -Methadone 10mg Q8hrs. Decrease Dilaudid from 1mg to 0.5mg Q4hrs PRN. Generalized edema -Patient currently does not have an IV access. We will give her torsemide 20 mg once. -After we established IV access, will consider IV Lasix for a few days. Spleen lesion -Abscess versus infarction -Continue antibiotics. Full code. Lovenox.
[2017-11-09] MEDS: HYDROmorphone PF Inj 2 MG/ML Vial IV.PUSH PRN ×2 (12:36→22:25)
--- NOTE | 2017-11-09 12:52 | P.PNID ---
Subjective Remarks: Patient continues to complain of pain all over her body. Afebrile. Has painful nodular lesion at the r. index finger. Palmar aspect. Reports sweats. MARVIN not yet done. Blood culture from 11/07 has MRSA. Blood culture from 11/08 is no growth in 1 day. No vegetation noted on ECHO 2D. Admitted with altered mental status. The patient uses IV drugs in the form of heroin and methamphetamines. Lines: Peripheral Allergies/Adverse Reactions: Allergies haloperidol Adverse Reaction (Intermediate, Verified 11/01/17 22:36) SEIZURES NICKEL Allergy (Intermediate, Uncoded 11/01/17 22:36) Anxiety Objective Vital Signs 11/08/17 13:45 11/08/17 16:00 11/08/17 16:43 Temperature 97.9 F 97.9 F Pulse Rate 100 H Respiratory Rate 14 16 Blood Pressure 125/60 Pulse Oximetry 90 L 11/08/17 20:00 11/09/17 00:00 11/09/17 04:00 Temperature 97.7 F 100.4 F H 98 F Pulse Rate 103 H 116 H 95 H Respiratory Rate 18 18 18 Blood Pressure 142/95 H 142/89 H 138/85 Pulse Oximetry 94 L 94 L 95 11/09/17 08:00 Temperature 99.6 F Pulse Rate 109 H Respiratory Rate 20 Blood Pressure 117/67 Pulse Oximetry 85 L Intake & Output 11/08/17 11/09/17 11/09/17 18:59 06:59 18:59 Intake Total 1544.50 / 1544.50 Output Total 340 / 340 Balance 1204.50 / 1204.50 Intake: IV 303.50 / 303.50 Cubicin Inj 800 MG In NS Inj 100 / 100 100 ML @ 200 mls/hr IV.SIG Q24H JUNIOR Rx#:[id number] Gentamicin Inj 70 MG In NS Inj 203.50 / 203.50 100 ML @ 100 mls/hr IV.SIG Q8H JUNIOR Rx#:[id number] Oral 480 / 480 Anesthesia Amount 200 / 200 Other 561 / 561 Output: Urine 0 / 0 Estimated Blood Loss 0 / 0 Urine Amount (Catheter) 340 / 340 Indwelling Urethral Catheter 340 / 340 Other: Other Intake Source Saline Solution # Voids 5 6 Date of Last Bowel Movement 11/08/17 11/08/17 # Bowel Movements 1 11/08/17 11:37 Blood - Peripheral Aerobic Blood Culture - Preliminary No growth in 1 day 11/08/17 11:37 Blood - Peripheral Anaerobic Blood Culture - Preliminary No growth in 1 day 11/08/17 11:32 Blood - Peripheral Aerobic Blood Culture - Preliminary No growth in 1 day 11/08/17 11:32 Blood - Peripheral Anaerobic Blood Culture - Preliminary No growth in 1 day 11/07/17 06:15 Blood - Peripheral Aerobic Blood Culture - Preliminary S. aureus MRSA 11/07/17 06:15 Blood - Peripheral Anaerobic Blood Culture - Final QNS - See aerobic report. 11/03/17 19:10 Blood - Peripheral Aerobic Blood Culture - Final S. aureus MRSA 11/03/17 19:10 Blood - Peripheral Anaerobic Blood Culture - Final No growth in 5 days 11/03/17 19:21 Blood - Peripheral Aerobic Blood Culture - Preliminary gram positive cocci 11/03/17 19:21 Blood - Peripheral Anaerobic Blood Culture - Final No growth in 5 days 11/03/17 05:30 Blood - Peripheral Aerobic Blood Culture - Final S. aureus MRSA 11/03/17 05:30 Blood - Peripheral Anaerobic Blood Culture - Final No growth in 5 days 11/03/17 05:37 Blood - Peripheral Aerobic Blood Culture - Final S. aureus MRSA 11/03/17 05:37 Blood - Peripheral Anaerobic Blood Culture - Final No growth in 5 days Lab - Hematology Results 11/09/17 05:59 WBC 11.5 H RBC 3.02 L Hgb 8.9 L Hct 26.3 L MCV 87.1 MCH 29.4 MCHC 33.7 RDW 15.0 Plt Count 380 D MPV 7.7 Neut % (Auto) 70.6 H Lymph % (Auto) 18.8 [place] % (Auto) 9.1 H Eos % (Auto) 1.0 Baso % (Auto) 0.5 Neut # (Auto) 8.1 H Lymph # (Auto) 2.2 [place] # (Auto) 1.0 H Eos # (Auto) 0.1 Baso # (Auto) 0.1 WBC Differential . Differential Comment Auto diff final Lab - Chemistry Results 11/07/17 11/07/17 11/08/17 16:33 19:22 07:27 Sodium 136 Potassium 3.7 Chloride 102 Carbon Dioxide 24.5 Anion Gap 10 BUN 3 L Creatinine 0.47 L Estimated GFR Greater than 89 POC Glucose 107 89 Random Glucose 84 Calcium 7.6 L Prot Corrected Calcium Total Bilirubin 0.6 AST 21 ALT 13 Alkaline Phosphatase 97 Troponin I Total Protein 6.5 D Albumin 1.7 L 11/08/17 11/08/17 11/08/17 08:02 12:37 15:37 Sodium 134 L Potassium 3.5 Chloride 100 Carbon Dioxide 23.2 Anion Gap 11 BUN 3 L Creatinine 0.43 L Estimated GFR Greater than 89 POC Glucose Random Glucose 76 Calcium 8.0 L Prot Corrected Calcium Total Bilirubin 0.6 AST 21 ALT 11 Alkaline Phosphatase 82 Troponin I 0.02 0.05 Total Protein 6.2 L Albumin 1.6 L 11/08/17 11/09/17 18:54 05:59 Sodium 134 L Potassium 3.6 Chloride 100 Carbon Dioxide 26.3 Anion Gap 8 BUN 4 L Creatinine 0.59 Estimated GFR Greater than 89 POC Glucose Random Glucose 97 Calcium 7.3 L* Prot Corrected Calcium 7.7 L Total Bilirubin 0.6 AST 21 ALT 11 Alkaline Phosphatase 77 Troponin I 0.03 0.02 Total Protein 6.4 Albumin 1.6 L Imaging: ITS Impressions Head CT 11/02/17 00:00 CONCLUSION: 1. No acute intracranial abnormality. 2. Bilateral maxillary sinus mucosal disease. Head MRI 11/02/17 00:00 CONCLUSION: 1. No definite acute abnormality is seen. Edema to suggest encephalitis is not seen. 2. There are a few punctate areas of increased signal within the cerebral white matter representing small foci of demyelination. Underlying demyelinating conditions can be considered. Liver Ultrasound 11/02/17 00:00 CONCLUSION: Generalized hepatosplenomegaly without focal mass Sludge within the gallbladder Chest CT 11/02/17 00:01 CONCLUSION: 1. Diffuse patchy groundglass opacities with nodular regions primarily in the left upper and lower lobes and single potentially cavitary nodule near the left lung apex. Overall, findings are concerning for atypical infection or developing septic pulmonary emboli in the appropriate clinical setting. 2. Subtle anterior pericardial effusion. 3. Subcentimeter bilateral axillary adenopathy, likely infectious/inflammatory. Chest X-Ray 11/04/17 05:00 CONCLUSION: Developing bilateral infiltrates. Abdomen/Pelvis CT 11/06/17 00:00 CONCLUSION: 1. Mild anasarca. 2. Slight splenomegaly with focal lesion towards the anterior portion of the spleen not present on the prior examination could be infarction, however splenic abscess is not excluded. 3. Slight peritoneal fluid nonspecific. Cervical Spine MRI 11/06/17 00:00 CONCLUSION: Slight nondescript serpiginous edema in the upper back, otherwise unremarkable. Lumbar Spine MRI 11/06/17 00:00 CONCLUSION: Slight nondescript subcutaneous edema in the patient's back, otherwise unremarkable without abscess formation. Thoracic Spine MRI 11/06/17 00:00 CONCLUSION: Essentially unremarkable study except for slight nondescript separate density on the patient's back. Physical Exam: GENERAL: NAD. HEENT: The head is atraumatic. Extraocular movements grossly intact. Pupils reactive to light. No icterus. Oropharynx: Moist mucosa. No visible lesions. NECK: Supple. No adenopathy. LUNGS: Decreased breath sounds HEART: Regular S1 and S2, No murmurs heard. ABDOMEN: Obese, soft, no tenderness appreciated. No masses palpable. EXTREMITIES: The right thumb has superficial ulcerations and erythema. The left dorsal aspect of the hand has a tiny erythematous lesion surrounded by a raised, pale white border and noted tiny erythematous punctate lesion is located at the base of the second finger on the dorsal aspect. nodular lesion at the r. index finger. Palmar aspect. 2+ edema at the extremities. SKIN: No rash. NEUROLOGIC: No gross focal findings. PSYCH: Calm and cooperative. Assessment and Plan - Plan IMPRESSION: 1. Severe sepsis due to methicillin-resistant Staphylococcus aureus in patient sedated with intravenous drug abuse and recent intravenous drug use. Probable endocarditis. Awaiting MARVIN. Persistent positive blood cultures with MRSA 2. Abnormal CT of the chest, suggesting septic emboli. 3. Altered mental status on admission. Lumbar puncture revealed few white cells in the cerebrospinal fluid. Mental status improved. RECOMMENDATIONS: 1. Continue Daptomycin. Blood culture remained persistent with Vancomycin. 3. Continue Gentamicin. 4. Follow repeat blood culture. 5. Monitor clinical status. 6. Follow MARVIN. Anticipate 6 weeks of antibiotics.
[2017-11-09] MEDS: DAPTOmycin Inj 800 MG in Sodium Chlor 0.9% Inj 100 ML IV.SIG SCH (12:57)
--- NOTE | 2017-11-09 14:43 | P.PNCA ---
Subjective Interval history: alseep in nad Physical Exam Vital signs: Vital Signs 11/08/17 16:00 11/08/17 16:43 11/08/17 20:00 Temperature 97.9 F 97.7 F Pulse Rate 100 H 103 H Respiratory Rate 14 16 18 Blood Pressure 125/60 142/95 H Pulse Oximetry 90 L 94 L 11/09/17 00:00 11/09/17 04:00 11/09/17 08:00 Temperature 100.4 F H 98 F 99.6 F Pulse Rate 116 H 95 H 109 H Respiratory Rate 18 18 20 Blood Pressure 142/89 H 138/85 117/67 Pulse Oximetry 94 L 95 85 L 11/09/17 12:00 Temperature 98.1 F Pulse Rate 100 H Respiratory Rate 21 Blood Pressure 133/76 Pulse Oximetry 93 L Intake & Output 11/08/17 11/09/17 11/09/17 18:59 06:59 18:59 Intake Total 1544.50 / 1544.50 Output Total 340 / 340 Balance 1204.50 / 1204.50 Intake: IV 303.50 / 303.50 Cubicin Inj 800 MG In NS Inj 100 / 100 100 ML @ 200 mls/hr IV.SIG Q24H JUNIOR Rx#:[id number] Gentamicin Inj 70 MG In NS Inj 203.50 / 203.50 100 ML @ 100 mls/hr IV.SIG Q8H JUNIOR Rx#:[id number] Oral 480 / 480 Anesthesia Amount 200 / 200 Other 561 / 561 Output: Urine 0 / 0 Estimated Blood Loss 0 / 0 Urine Amount (Catheter) 340 / 340 Indwelling Urethral Catheter 340 / 340 Other: Other Intake Source Saline Solution # Voids 5 6 Date of Last Bowel Movement 11/08/17 11/08/17 # Bowel Movements 1 - Urinary Catheter Management Indwelling Urethral Catheter Cath placed during this visit: yes, but has since been removed by the nurse Reason for continuing: Decision to DC catheter Insertion date: 11/02/17 Insertion time: 00:07 Removal date: 11/06/17 Removal time: 12:00 Assessment and Plan - Assessment (1) Chest pain Code(s): R07.9 - Chest pain, unspecified Status: Acute (2) Dysphagia Code(s): R13.10 - Dysphagia, unspecified Status: Acute (3) History of intravenous drug abuse Code(s): Z87.898 - Personal history of other specified conditions Status: Acute (4) Hepatitis C antibody positive in blood Code(s): R76.8 - Other specified abnormal immunological findings in serum Status: Acute - Plan 1.) MARVIN - cleared by GI, schedule when staff available, d/w Dr Yeager 2.) Chest pain - stat ekg and trop, serial trop, d/w nursing staff
[2017-11-09] MEDS: QUEtiapine 25 MG Tablet PO SCH (21:08)
[2017-11-10] MEDS: Gentamicin Inj 70 MG in Sodium Chlor 0.9% Inj 100 ML IV.SIG SCH ×4 (00:20→17:01)
[2017-11-10] MEDS: Sod Chloride 0.9% Inj 1,000 ML IV.CONT SCH ×3 (00:29→20:15)
[2017-11-10] MEDS: Methadone 10 MG Tablet PO SCH ×3 (08:04→22:05)
[2017-11-10] MEDS: clonazePAM 1 MG Tablet PO SCH ×3 (08:04→22:05)
[2017-11-10] MEDS: Enoxaparin Inj 40 MG/0.4 ML Syringe SQ SCH (08:04)
[2017-11-10] MEDS: Famotidine PF Inj 20 MG/2 ML Vial IV.PUSH SCH ×2 (08:10→22:12)
[2017-11-10] MEDS: oxyCODONE/Acetaminophen 10/325 Tablet PO PRN (08:10)
[2017-11-10] MEDS: QUEtiapine 25 MG Tablet PO SCH ×2 (08:10→22:05)
[2017-11-10] MEDS: Acetaminophen 325 MG Tablet PO PRN (10:05)
--- NOTE | 2017-11-10 12:55 | P.PNCA ---
Subjective Interval history: alert in nad Physical Exam Vital signs: Vital Signs 11/09/17 16:00 11/09/17 17:46 11/09/17 21:15 Temperature 99 F 98 F Pulse Rate 105 H 137 H 116 H Respiratory Rate 20 19 Blood Pressure 125/70 116/69 Pulse Oximetry 90 L 94 L 11/10/17 00:00 11/10/17 04:00 11/10/17 04:50 Temperature 97.9 F 98.7 F Pulse Rate 110 H 110 H Respiratory Rate 18 16 21 Blood Pressure 112/62 120/69 Pulse Oximetry 94 L 96 11/10/17 08:00 11/10/17 10:13 11/10/17 12:35 Temperature 101.1 F H Pulse Rate 127 H 117 H Respiratory Rate 18 20 Blood Pressure 142/76 H Pulse Oximetry 91 L Intake & Output 11/09/17 11/10/17 11/10/17 18:59 06:59 18:59 Intake Total 101.75 / 101.75 2301.75 / 2301.75 101.75 / 101.75 Balance 101.75 / 101.75 2301.75 / 2301.75 101.75 / 101.75 Weight 83.1 kg 83.5 kg Intake: IV 101.75 / 101.75 101.75 / 101.75 101.75 / 101.75 Gentamicin Inj 70 MG In NS Inj 101.75 / 101.75 101.75 / 101.75 101.75 / 101.75 100 ML @ 100 mls/hr IV.SIG Q8H JUNIOR Rx#:[id number] Oral 2200 / 2200 Other: # Voids 1 3 1 Date of Last Bowel Movement 11/08/17 # Bowel Movements 0 - Urinary Catheter Management Indwelling Urethral Catheter Cath placed during this visit: yes, but has since been removed by the nurse Reason for continuing: Decision to DC catheter Insertion date: 11/02/17 Insertion time: 00:07 Removal date: 11/06/17 Removal time: 12:00 Assessment and Plan - Assessment (1) Chest pain Code(s): R07.9 - Chest pain, unspecified Status: Acute (2) Dysphagia Code(s): R13.10 - Dysphagia, unspecified Status: Acute (3) History of intravenous drug abuse Code(s): Z87.898 - Personal history of other specified conditions Status: Acute (4) Hepatitis C antibody positive in blood Code(s): R76.8 - Other specified abnormal immunological findings in serum Status: Acute - Plan 1.) MARVIN - cleared by GI, schedule when staff available, d/w Dr Yeager; will try to schedule 11/13/17 2.) Chest pain - stat ekg and trop, serial trop, d/w nursing staff
[2017-11-10] MEDS: DAPTOmycin Inj 800 MG in Sodium Chlor 0.9% Inj 100 ML IV.SIG SCH (13:28)
--- NOTE | 2017-11-10 20:43 | P.PN ---
Subjective Interval history: Follow up for septic emboli, MRSA bacteremia in an IVDU. Patient appears to be lethargic. I saw patient earlier in the afternoon and again around 4:30PM. She wakes up on verbal commands and complains of pain. When she wakes up, she does not appear to be lethargic. Of note, her IV line that was placed only 1 or 2 days ago now appears to be clogged up. RN could not flush it. Physical Exam Vital signs: Vital Signs 11/09/17 21:15 11/10/17 00:00 11/10/17 04:00 Temperature 98 F 97.9 F Pulse Rate 116 H 110 H Respiratory Rate 19 18 16 Blood Pressure 116/69 112/62 Pulse Oximetry 94 L 94 L 11/10/17 04:50 11/10/17 08:00 11/10/17 10:13 Temperature 98.7 F 101.1 F H Pulse Rate 110 H 127 H 117 H Respiratory Rate 21 18 Blood Pressure 120/69 142/76 H Pulse Oximetry 96 91 L 11/10/17 12:00 11/10/17 12:35 11/10/17 13:08 Temperature 98.1 F Pulse Rate 111 H 94 H Respiratory Rate 18 20 Blood Pressure 136/72 Pulse Oximetry 92 L 11/10/17 16:00 11/10/17 17:16 Temperature 98.1 F Pulse Rate 106 H 94 H Respiratory Rate 18 Blood Pressure 148/97 H Pulse Oximetry 96 Intake & Output 11/10/17 11/10/17 11/11/17 06:59 18:59 06:59 Intake Total 2301.75 / 2301.75 101.75 / 101.75 Balance 2301.75 / 2301.75 101.75 / 101.75 Weight 83.5 kg Intake: IV 101.75 / 101.75 101.75 / 101.75 Gentamicin Inj 70 MG In NS Inj 101.75 / 101.75 101.75 / 101.75 100 ML @ 100 mls/hr IV.SIG Q8H JUNIOR Rx#:[id number] Oral 2199 / 2199 Other: # Voids 3 1 Date of Last Bowel Movement 11/08/17 # Bowel Movements 0 Narrative: GENERAL: Somewhat drowsy, wakes up on verbal commands. SKIN: Warm and dry. HEAD: Normocephalic. EYES: No scleral icterus. No injection or drainage. NECK: Supple, trachea midline. No JVD or lymphadenopathy. CARDIOVASCULAR: Tachycardic, regular rhythm without murmurs, gallops, or rubs. RESPIRATORY: Breath sounds equal bilaterally. No accessory muscle use. GASTROINTESTINAL: Abdomen soft, non-tender, nondistended. MUSCULOSKELETAL: No cyanosis, or edema. BACK: Nontender without obvious deformity. No CVA tenderness. - Urinary Catheter Management Indwelling Urethral Catheter Cath placed during this visit: yes, but has since been removed by the nurse Reason for continuing: Decision to DC catheter Insertion date: 11/02/17 Insertion time: 00:07 Removal date: 11/06/17 Removal time: 12:00 Results - Labs CBC & Chem 7: 11/09/17 05:59 11/09/17 05:59 Microbiology 11/03/17 19:21 Blood - Peripheral Aerobic Blood Culture - Final S. aureus MRSA 11/03/17 19:21 Blood - Peripheral Anaerobic Blood Culture - Final No growth in 5 days 11/08/17 11:37 Blood - Peripheral Aerobic Blood Culture - Preliminary No growth in 2 days 11/08/17 11:37 Blood - Peripheral Anaerobic Blood Culture - Preliminary No growth in 2 days 11/08/17 11:32 Blood - Peripheral Aerobic Blood Culture - Preliminary No growth in 2 days 11/08/17 11:32 Blood - Peripheral Anaerobic Blood Culture - Preliminary No growth in 2 days 11/07/17 06:15 Blood - Peripheral Aerobic Blood Culture - Final S. aureus MRSA 11/07/17 06:15 Blood - Peripheral Anaerobic Blood Culture - Final QNS - See aerobic report. - Procedures Echocardiogram 11/03/2017 The left ventricular systolic function is hyperdynamic with an estimated ejection fraction in the range of 65- 70%. Normal left ventricular size. Wall thickness is normal. No regional wall motion abnormalities are present. There is mild tricuspid valve regurgitation. The estimated pulmonary arterial pressure is 39.2 mmHg. Assessment and Plan - Plan Ms. Jade is a pleasant 31-year-old female with a history of IV drug abuse who was admitted to the hospital due to fever of 10 3F, altered mental status. Urine drug screen was positive for amphetamines and opioids. CT chest shows multiple pulmonary nodules concerning for septic emboli. She was also found to have MRSA bacteremia. Transthoracic echocardiogram was negative for any cardiac vegetation. Infectious disease recommends MARVIN. Sepsis (fever of 102F, tachycardic, IV drug user with bacteremia, septic pulmonary emboli) MRSA bacteremia Probable septic pulmonary emboli -Appreciate infectious disease input. Patient is currently on daptomycin as well as gentamicin. -Cardiology consulted. Patient underwent EGD on 11/08/2017. GI cleared. MARVIN is scheduled for 11/13/2017. -Pt's IV access is clogged up and thus Gentamicin could not be given today. -Will ask Vascular access team to put a PICC line or try to access the existing IV access. Severe back pain -Cervical, lumbar, thoracic spine MRI did not reveal any evidence of abscess. -Continue oral Percocet 5 for pain 6-10 -Methadone 10mg Q8hrs. D/C IV Dilaudid. Generalized edema -Received IV lasix. Will switch to Torsemide 10mg Qday. Spleen lesion -Abscess versus infarction -Continue antibiotics. Other: There is suspicion that patient is abusing IV access line which is causing occlusion and patient's lethargic status. Full code. Lovenox.
[2017-11-10] MEDS: Acetaminophen 500 MG Tablet PO PRN (22:04)
[2017-11-11] MEDS: Gentamicin Inj 70 MG in Sodium Chlor 0.9% Inj 100 ML IV.SIG SCH ×4 (00:45→16:00)
[2017-11-11 09:52] LABS: Hepatitis C RNA (PCR) log IUs 2.54 (0-1.18)
[2017-11-11] MEDS: Sod Chloride 0.9% Inj 1,000 ML IV.CONT SCH ×2 (10:14→16:16)
[2017-11-11] MEDS: Famotidine PF Inj 20 MG/2 ML Vial IV.PUSH SCH ×2 (10:14→21:21)
[2017-11-11] MEDS: Methadone 10 MG Tablet PO SCH ×3 (10:15→21:15)
[2017-11-11] MEDS ORDERED: Naproxen 500 MG Tablet PO ONE (12:37)
[2017-11-11] MEDS: clonazePAM 1 MG Tablet PO SCH ×3 (12:45→21:15)
[2017-11-11] MEDS: Acetaminophen 500 MG Tablet PO PRN (12:48)
[2017-11-11] MEDS: Enoxaparin Inj 40 MG/0.4 ML Syringe SQ SCH (12:50)
[2017-11-11] MEDS: QUEtiapine 25 MG Tablet PO SCH (13:08)
--- NOTE | 2017-11-11 13:11 | P.PNCA ---
Subjective Interval history: alert in nad Physical Exam Vital signs: Vital Signs 11/10/17 16:00 11/10/17 17:16 11/10/17 20:00 Temperature 98.1 F Pulse Rate 106 H 94 H Respiratory Rate 18 18 Blood Pressure 148/97 H Pulse Oximetry 96 11/10/17 21:30 11/10/17 23:00 11/10/17 23:18 Temperature 98.1 F 102.4 F H 99 F Pulse Rate 108 H 114 H Respiratory Rate 22 21 Blood Pressure 122/85 130/88 Pulse Oximetry 95 93 L 11/11/17 00:00 11/11/17 01:00 11/11/17 04:00 Temperature Pulse Rate 125 H Respiratory Rate 20 18 Blood Pressure Pulse Oximetry 11/11/17 08:00 11/11/17 09:00 11/11/17 12:00 Temperature 98.3 F 102.6 F H Pulse Rate 104 H 102 H 126 H Respiratory Rate 16 18 Blood Pressure 135/90 137/72 Pulse Oximetry 95 96 Intake & Output 11/10/17 11/11/17 11/11/17 18:59 06:59 18:59 Intake Total 101.75 / 101.75 1520 / 1520 Balance 101.75 / 101.75 1520 / 1520 Intake: IV 101.75 / 101.75 Gentamicin Inj 70 MG In NS Inj 101.75 / 101.75 100 ML @ 100 mls/hr IV.SIG Q8H JUNIOR Rx#:[id number] Oral 1520 / 1520 Other: # Voids 1 2 Date of Last Bowel Movement 11/08/17 # Bowel Movements 0 - Urinary Catheter Management Indwelling Urethral Catheter Cath placed during this visit: yes, but has since been removed by the nurse Reason for continuing: Decision to DC catheter Insertion date: 11/02/17 Insertion time: 00:07 Removal date: 11/06/17 Removal time: 12:00 Assessment and Plan - Assessment (1) Chest pain Code(s): R07.9 - Chest pain, unspecified Status: Acute (2) Dysphagia Code(s): R13.10 - Dysphagia, unspecified Status: Acute (3) History of intravenous drug abuse Code(s): Z87.898 - Personal history of other specified conditions Status: Acute (4) Hepatitis C antibody positive in blood Code(s): R76.8 - Other specified abnormal immunological findings in serum Status: Acute - Plan 1.) MARVIN - cleared by GI, schedule when staff available, d/w Dr Yeager; will try to schedule 11/13/17 2.) Chest pain - ekg and erial trop wnl
--- NOTE | 2017-11-11 14:42 | P.PN ---
Subjective Interval history: Follow up for septic emboli, MRSA bacteremia in an IVDU. Patient is doing well. When asked, patient denies abusing her IV access line. She had a fever of 102.6F today. RN was able to establish another IV access today. Physical Exam Vital signs: Vital Signs 11/10/17 16:00 11/10/17 17:16 11/10/17 20:00 Temperature 98.1 F Pulse Rate 106 H 94 H Respiratory Rate 18 18 Blood Pressure 148/97 H Pulse Oximetry 96 11/10/17 21:30 11/10/17 23:00 11/10/17 23:18 Temperature 98.1 F 102.4 F H 99 F Pulse Rate 108 H 114 H Respiratory Rate 22 21 Blood Pressure 122/85 130/88 Pulse Oximetry 95 93 L 11/11/17 00:00 11/11/17 01:00 11/11/17 04:00 Temperature Pulse Rate 125 H Respiratory Rate 20 18 Blood Pressure Pulse Oximetry 11/11/17 08:00 11/11/17 09:00 11/11/17 12:00 Temperature 98.3 F 102.6 F H Pulse Rate 104 H 102 H 126 H Respiratory Rate 16 18 Blood Pressure 135/90 137/72 Pulse Oximetry 95 96 Intake & Output 11/10/17 11/11/17 11/11/17 18:59 06:59 18:59 Intake Total 101.75 / 101.75 1520 / 1520 Balance 101.75 / 101.75 1520 / 1520 Intake: IV 101.75 / 101.75 Gentamicin Inj 70 MG In NS Inj 101.75 / 101.75 100 ML @ 100 mls/hr IV.SIG Q8H JUNIOR Rx#:[id number] Oral 1520 / 1520 Other: # Voids 1 2 Date of Last Bowel Movement 11/08/17 # Bowel Movements 0 Narrative: GENERAL: Somewhat drowsy, wakes up on verbal commands. SKIN: Warm and dry. HEAD: Normocephalic. EYES: No scleral icterus. No injection or drainage. NECK: Supple, trachea midline. No JVD or lymphadenopathy. CARDIOVASCULAR: Tachycardic, regular rhythm without murmurs, gallops, or rubs. RESPIRATORY: Breath sounds equal bilaterally. No accessory muscle use. GASTROINTESTINAL: Abdomen soft, non-tender, nondistended. MUSCULOSKELETAL: No cyanosis, or edema. BACK: Nontender without obvious deformity. No CVA tenderness. - Urinary Catheter Management Indwelling Urethral Catheter Cath placed during this visit: yes, but has since been removed by the nurse Reason for continuing: Decision to DC catheter Insertion date: 11/02/17 Insertion time: 00:07 Removal date: 11/06/17 Removal time: 12:00 Results - Labs CBC & Chem 7: 11/09/17 05:59 11/09/17 05:59 Laboratory Results - last 24 hr 11/07/17 20:24 HCV RNA (PCR) IUs/ml 345 H HCV RNA PCR log IUs/ml 2.54 H Microbiology 11/08/17 11:37 Blood - Peripheral Aerobic Blood Culture - Preliminary No growth in 3 days 11/08/17 11:37 Blood - Peripheral Anaerobic Blood Culture - Preliminary No growth in 3 days 11/08/17 11:32 Blood - Peripheral Aerobic Blood Culture - Preliminary No growth in 3 days 11/08/17 11:32 Blood - Peripheral Anaerobic Blood Culture - Preliminary No growth in 3 days 11/03/17 19:21 Blood - Peripheral Aerobic Blood Culture - Final S. aureus MRSA 11/03/17 19:21 Blood - Peripheral Anaerobic Blood Culture - Final No growth in 5 days - Procedures Echocardiogram 11/03/2017 The left ventricular systolic function is hyperdynamic with an estimated ejection fraction in the range of 65- 70%. Normal left ventricular size. Wall thickness is normal. No regional wall motion abnormalities are present. There is mild tricuspid valve regurgitation. The estimated pulmonary arterial pressure is 39.2 mmHg. Assessment and Plan - Plan Ms. Jade is a pleasant 31-year-old female with a history of IV drug abuse who was admitted to the hospital due to fever of 10 3F, altered mental status. Urine drug screen was positive for amphetamines and opioids. CT chest shows multiple pulmonary nodules concerning for septic emboli. She was also found to have MRSA bacteremia. Transthoracic echocardiogram was negative for any cardiac vegetation. Infectious disease recommends MARVIN. Sepsis (fever of 102F, tachycardic, IV drug user with bacteremia, septic pulmonary emboli) MRSA bacteremia Probable septic pulmonary emboli -Appreciate infectious disease input. Patient is currently on daptomycin as well as gentamicin. -Cardiology consulted. Patient underwent EGD on 11/08/2017. GI cleared. MARVIN is scheduled for 11/13/2017. -RN established IV access. Continue IV abx. -Persistent fever is concerning for bacterial endocarditis. Severe back pain -Cervical, lumbar, thoracic spine MRI did not reveal any evidence of abscess. -Continue oral Percocet 5 for pain 6-10 -Methadone 10mg Q8hrs. Generalized edema -Torsemide 10mg Qday. Spleen lesion -Abscess versus infarction -Continue antibiotics. Full code. Lovenox.
[2017-11-11] MEDS: DAPTOmycin Inj 800 MG in Sodium Chlor 0.9% Inj 100 ML IV.SIG SCH (16:14)
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
[2017-11-12] MEDS: Gentamicin Inj 70 MG in Sodium Chlor 0.9% Inj 100 ML IV.SIG SCH ×3 (01:17→17:05)
[2017-11-12] MEDS: Sod Chloride 0.9% Inj 1,000 ML IV.CONT SCH ×3 (01:17→21:22)
[2017-11-12] MEDS: Enoxaparin Inj 40 MG/0.4 ML Syringe SQ SCH (01:22)
[2017-11-12] MEDS: clonazePAM 1 MG Tablet PO SCH ×3 (06:16→21:22)
[2017-11-12] MEDS: Methadone 10 MG Tablet PO SCH ×3 (06:16→21:22)
--- NOTE | 2017-11-12 10:30 | P.PNCA ---
Subjective Interval history: emotional, crying, complaining @ staff, c/o diffuse body aches and requests pain meds Physical Exam Vital signs: Vital Signs 11/11/17 12:00 11/11/17 16:00 11/11/17 20:00 Temperature 102.6 F H 99.3 F 98.9 F Pulse Rate 126 H 108 H 103 H Respiratory Rate 18 18 18 Blood Pressure 137/72 134/72 128/75 Pulse Oximetry 96 95 97 11/12/17 00:00 11/12/17 03:18 11/12/17 04:00 Temperature 97.6 F 98.4 F Pulse Rate 89 93 H Respiratory Rate 18 18 18 Blood Pressure 121/74 109/59 L Pulse Oximetry 97 96 11/12/17 06:00 11/12/17 08:00 Temperature 98.6 F Pulse Rate 111 H 100 H Respiratory Rate 17 Blood Pressure 135/61 Pulse Oximetry 92 L Intake & Output 11/11/17 11/12/17 11/12/17 18:59 06:59 18:59 Intake Total 101.75 / 101.75 1101.75 / 1101.75 Balance 101.75 / 101.75 1101.75 / 1101.75 Intake: IV 101.75 / 101.75 1101.75 / 1101.75 NS Inj 1,000 ML @ 100 mls/hr IV 1000 / 1000 .CONT .Q10H JUNIOR Rx#:[id number] Cubicin Inj 800 MG In NS Inj 0 / 0 100 ML @ 200 mls/hr IV.SIG Q24H JUNIOR Rx#:[id number] Gentamicin Inj 70 MG In NS Inj 101.75 / 101.75 101.75 / 101.75 100 ML @ 100 mls/hr IV.SIG Q8H JUNIOR Rx#:[id number] Other: # Voids 2 2 # Urine Diapers 1 - Urinary Catheter Management Indwelling Urethral Catheter Cath placed during this visit: yes, but has since been removed by the nurse Reason for continuing: Decision to DC catheter Insertion date: 11/02/17 Insertion time: 00:07 Removal date: 11/06/17 Removal time: 12:00 Assessment and Plan - Assessment (1) Chest pain Code(s): R07.9 - Chest pain, unspecified Status: Acute (2) Dysphagia Code(s): R13.10 - Dysphagia, unspecified Status: Acute (3) History of intravenous drug abuse Code(s): Z87.898 - Personal history of other specified conditions Status: Acute (4) Hepatitis C antibody positive in blood Code(s): R76.8 - Other specified abnormal immunological findings in serum Status: Acute - Plan 1.) MARVIN - cleared by GI, scheduled for 1pm 11/13/17 2.) Chest pain - ekg and serial trop wnl 3.) nurse notifed that patient requests pain meds
[2017-11-12] MEDS: ARIPiprazole 5 MG Tablet PO SCH (12:42)
[2017-11-12] MEDS: Famotidine PF Inj 20 MG/2 ML Vial IV.PUSH SCH ×2 (12:43→21:22)
[2017-11-12] MEDS: DAPTOmycin Inj 800 MG in Sodium Chlor 0.9% Inj 100 ML IV.SIG SCH (12:44)
--- NOTE | 2017-11-12 15:24 | P.PN ---
Subjective Interval history: Follow up for septic emboli, MRSA bacteremia in an IVDU. Patient is remains very sleepy. She is not receiving any pain meds. She also pulled her IV line - per patient, unintentionally. Physical Exam Vital signs: Vital Signs 11/11/17 16:00 11/11/17 20:00 11/12/17 00:00 Temperature 99.3 F 98.9 F 97.6 F Pulse Rate 108 H 103 H 89 Respiratory Rate 18 18 18 Blood Pressure 134/72 128/75 121/74 Pulse Oximetry 95 97 97 11/12/17 03:18 11/12/17 04:00 11/12/17 06:00 Temperature 98.4 F Pulse Rate 93 H 111 H Respiratory Rate 18 18 Blood Pressure 109/59 L Pulse Oximetry 96 11/12/17 08:00 Temperature 98.6 F Pulse Rate 100 H Respiratory Rate 17 Blood Pressure 135/61 Pulse Oximetry 92 L Intake & Output 11/11/17 11/12/17 11/12/17 18:59 06:59 18:59 Intake Total 101.75 / 101.75 1101.75 / 1101.75 Balance 101.75 / 101.75 1101.75 / 1101.75 Intake: IV 101.75 / 101.75 1101.75 / 1101.75 NS Inj 1,000 ML @ 100 mls/hr IV 1000 / 1000 .CONT .Q10H JUNIOR Rx#:[id number] Cubicin Inj 800 MG In NS Inj 0 / 0 100 ML @ 200 mls/hr IV.SIG Q24H JUNIOR Rx#:[id number] Gentamicin Inj 70 MG In NS Inj 101.75 / 101.75 101.75 / 101.75 100 ML @ 100 mls/hr IV.SIG Q8H JUNIOR Rx#:[id number] Other: # Voids 2 2 # Urine Diapers 1 Narrative: GENERAL: drowsy, wakes up on verbal commands. SKIN: Warm and dry. HEAD: Normocephalic. EYES: No scleral icterus. No injection or drainage. NECK: Supple, trachea midline. No JVD or lymphadenopathy. CARDIOVASCULAR: Tachycardic, regular rhythm without murmurs, gallops, or rubs. RESPIRATORY: Breath sounds equal bilaterally. No accessory muscle use. GASTROINTESTINAL: Abdomen soft, non-tender, nondistended. MUSCULOSKELETAL: No cyanosis, or edema. BACK: Nontender without obvious deformity. No CVA tenderness. - Urinary Catheter Management Indwelling Urethral Catheter Cath placed during this visit: yes, but has since been removed by the nurse Reason for continuing: Decision to DC catheter Insertion date: 11/02/17 Insertion time: 00:07 Removal date: 11/06/17 Removal time: 12:00 Results - Labs CBC & Chem 7: 11/09/17 05:59 11/13/17 07:28 Laboratory Results - last 24 hr 11/07/17 11/11/17 20:24 19:41 Creatinine 1.17 H Estimated GFR 55 L HCV RNA Genotype 3 Microbiology 11/08/17 11:37 Blood - Peripheral Aerobic Blood Culture - Preliminary No growth in 4 days 11/08/17 11:37 Blood - Peripheral Anaerobic Blood Culture - Preliminary No growth in 4 days 11/08/17 11:32 Blood - Peripheral Aerobic Blood Culture - Preliminary No growth in 4 days 11/08/17 11:32 Blood - Peripheral Anaerobic Blood Culture - Preliminary No growth in 4 days - Procedures Echocardiogram 11/03/2017 The left ventricular systolic function is hyperdynamic with an estimated ejection fraction in the range of 65- 70%. Normal left ventricular size. Wall thickness is normal. No regional wall motion abnormalities are present. There is mild tricuspid valve regurgitation. The estimated pulmonary arterial pressure is 39.2 mmHg. Assessment and Plan - Plan Ms. Jade is a pleasant 31-year-old female with a history of IV drug abuse who was admitted to the hospital due to fever of 10 3F, altered mental status. Urine drug screen was positive for amphetamines and opioids. CT chest shows multiple pulmonary nodules concerning for septic emboli. She was also found to have MRSA bacteremia. Transthoracic echocardiogram was negative for any cardiac vegetation. Infectious disease recommends MARVIN. Sepsis (fever of 102F, tachycardic, IV drug user with bacteremia, septic pulmonary emboli) MRSA bacteremia Probable septic pulmonary emboli -Appreciate infectious disease input. Patient is currently on daptomycin as well as gentamicin. -Cardiology consulted. Patient underwent EGD on 11/08/2017. GI cleared. MARVIN is scheduled for 11/13/2017. -Lost IV access again. Discussed with RN regarding another IV access or we can ask Vascular access team. Severe back pain -Cervical, lumbar, thoracic spine MRI did not reveal any evidence of abscess. -Continue oral Percocet 5 for pain 6-10 -Methadone 10mg Q8hrs. Generalized edema -Torsemide 10mg Qday. Spleen lesion -Abscess versus infarction -Continue antibiotics. Borderline personality disorder - Appreciate Psychiatry eval. Psychiatry started Abilify. Full code. Lovenox.
[2017-11-13] MEDS: Gentamicin Inj 70 MG in Sodium Chlor 0.9% Inj 100 ML IV.SIG SCH ×4 (00:40→23:48)
[2017-11-13] MEDS: Methadone 10 MG Tablet PO SCH ×3 (05:55→23:46)
[2017-11-13] MEDS: clonazePAM 1 MG Tablet PO SCH ×3 (05:56→23:47)
[2017-11-13] MEDS: Enoxaparin Inj 40 MG/0.4 ML Syringe SQ SCH (05:56)
[2017-11-13] MEDS: ARIPiprazole 5 MG Tablet PO SCH (10:40)
[2017-11-13] MEDS: Famotidine PF Inj 20 MG/2 ML Vial IV.PUSH SCH ×2 (10:42→21:14)
[2017-11-13] MEDS: Sod Chloride 0.9% Inj 1,000 ML IV.CONT SCH ×2 (10:43→19:24)
--- NOTE | 2017-11-13 13:35 | P.PNCA ---
Subjective Interval history: emotional and crying, upset @ codi being canceled, insists she didnt eat anything Physical Exam Vital signs: Vital Signs 11/12/17 16:00 11/12/17 20:00 11/13/17 00:00 Temperature 98.3 F 98.0 F 100.5 F H Pulse Rate 91 H 102 H 106 H Respiratory Rate 16 18 18 Blood Pressure 133/72 129/77 154/84 H Pulse Oximetry 95 95 95 11/13/17 02:04 11/13/17 03:53 11/13/17 04:00 Temperature 100.2 F H Pulse Rate 104 H Respiratory Rate 18 18 18 Blood Pressure 123/63 Pulse Oximetry 95 11/13/17 08:00 11/13/17 12:00 Temperature 98.5 F 99.3 F Pulse Rate 107 H 108 H Respiratory Rate 18 18 Blood Pressure 117/75 129/85 Pulse Oximetry 93 L 93 L Intake & Output 11/12/17 11/13/17 11/13/17 18:59 06:59 18:59 Intake Total 900 / 900 Balance 900 / 900 Intake: IV 900 / 900 NS Inj 1,000 ML @ 100 mls/hr IV 800 / 800 .CONT .Q10H JUNIOR Rx#:[id number] Cubicin Inj 800 MG In NS Inj 100 / 100 100 ML @ 200 mls/hr IV.SIG Q24H JUNIOR Rx#:[id number] Other: # Voids 2 - Urinary Catheter Management Indwelling Urethral Catheter Cath placed during this visit: yes, but has since been removed by the nurse Reason for continuing: Decision to DC catheter Insertion date: 11/02/17 Insertion time: 00:07 Removal date: 11/06/17 Removal time: 12:00 Assessment and Plan - Assessment (1) Chest pain Code(s): R07.9 - Chest pain, unspecified Status: Acute (2) Dysphagia Code(s): R13.10 - Dysphagia, unspecified Status: Acute (3) History of intravenous drug abuse Code(s): Z87.898 - Personal history of other specified conditions Status: Acute (4) Hepatitis C antibody positive in blood Code(s): R76.8 - Other specified abnormal immunological findings in serum Status: Acute - Plan 1.) CODI - cleared by GI, rescheduled for 1pm 11/14/17 as patient reportedly ate after mn despite order not to 2.) Chest pain - ekg and serial trop wnl 3.) nurse notifed that patient requests pain meds
[2017-11-13] MEDS: DAPTOmycin Inj 800 MG in Sodium Chlor 0.9% Inj 100 ML IV.SIG SCH (13:48)
[2017-11-13] MEDS ORDERED: Chlorhexidine Gluconate 2% 1 Pack (2 Cloths) TOPICAL SCH (14:30)
[2017-11-13] MEDS ORDERED: Metoprolol Tartrate 25 MG Tablet PO SCH (14:30)
[2017-11-13] MEDS ORDERED: Sodium Chlor 0.9% Inj 500 ML IV.SIG SCH (15:00)
--- NOTE | 2017-11-13 16:20 | P.PNIM ---
Subjective Interval history: Patient unable to get MARVIN today due to intake of meal for breakfast. Primary complaint remains pain. Fevers remain. Physical Exam Vital signs: Vital Signs 11/12/17 20:00 11/13/17 00:00 11/13/17 02:04 Temperature 98.0 F 100.5 F H Pulse Rate 102 H 106 H Respiratory Rate 18 18 18 Blood Pressure 129/77 154/84 H Pulse Oximetry 95 95 11/13/17 03:53 11/13/17 04:00 11/13/17 08:00 Temperature 100.2 F H 98.5 F Pulse Rate 104 H 107 H Respiratory Rate 18 18 18 Blood Pressure 123/63 117/75 Pulse Oximetry 95 93 L 11/13/17 12:00 Temperature 99.3 F Pulse Rate 108 H Respiratory Rate 18 Blood Pressure 129/85 Pulse Oximetry 93 L Intake & Output 11/12/17 11/13/17 11/13/17 18:59 06:59 18:59 Intake Total 900 / 900 100 / 100 Balance 900 / 900 100 / 100 Intake: IV 900 / 900 100 / 100 NS Inj 1,000 ML @ 100 mls/hr IV 800 / 800 .CONT .Q10H JUNIOR Rx#:[id number] Cubicin Inj 800 MG In NS Inj 100 / 100 100 / 100 100 ML @ 200 mls/hr IV.SIG Q24H JUNIOR Rx#:[id number] Other: # Voids 2 Narrative: GENERAL: NAD, A&Ox3, lethargy HEAD: Normocephalic. NECK: Supple, trachea midline. No lymphadenopathy. EYES: No scleral icterus. No injection or drainage. CARDIOVASCULAR: Regular rate and rhythm without murmurs, gallops, or rubs. RESPIRATORY: Breath sounds equal bilaterally. No accessory muscle use. GASTROINTESTINAL: Abdomen soft, non-tender, nondistended. MUSCULOSKELETAL: No cyanosis, or edema. SKIN: Warm and dry. NEURO: No focal neurological deficits. - Urinary Catheter Management Indwelling Urethral Catheter Cath placed during this visit: yes, but has since been removed by the nurse Reason for continuing: Decision to DC catheter Insertion date: 11/02/17 Insertion time: 00:07 Removal date: 11/06/17 Removal time: 12:00 Results - Labs CBC & Chem 7: 11/09/17 05:59 11/13/17 07:28 Laboratory Results - last 24 hr 11/13/17 07:28 Creatinine 0.87 Estimated GFR 77 L Microbiology 11/08/17 11:37 Blood - Peripheral Aerobic Blood Culture - Final No growth in 5 days 11/08/17 11:37 Blood - Peripheral Anaerobic Blood Culture - Final No growth in 5 days 11/08/17 11:32 Blood - Peripheral Aerobic Blood Culture - Final No growth in 5 days 11/08/17 11:32 Blood - Peripheral Anaerobic Blood Culture - Final No growth in 5 days - Procedures Echocardiogram 11/03/2017 The left ventricular systolic function is hyperdynamic with an estimated ejection fraction in the range of 65- 70%. Normal left ventricular size. Wall thickness is normal. No regional wall motion abnormalities are present. There is mild tricuspid valve regurgitation. The estimated pulmonary arterial pressure is 39.2 mmHg. Assessment and Plan - Plan 31-year-old female admitted secondary to fevers with history of IV drug abuse. MRSA bacteremia present. Sepsis MRSA bacteremia Probable septic pulmonary emboli ID following Continue daptomycin Continue gentamicin Cardiology following MARVIN planned 11/14/2017 Severe back pain No evidence of abscess Continue methadone 10 year as needed Percocet Generalized edema Technique torsemide Bleeding lesion Continue antibiotics as above Infarction versus abscess Borderline personality disorder Abilify DVT prophylaxis Lovenox
[2017-11-14] MEDS: Enoxaparin Inj 40 MG/0.4 ML Syringe SQ SCH (01:29)
[2017-11-14] MEDS: Sod Chloride 0.9% Inj 1,000 ML IV.CONT SCH ×2 (02:56→14:21)
[2017-11-14] MEDS: clonazePAM 1 MG Tablet PO SCH ×3 (05:56→21:59)
[2017-11-14] MEDS: Methadone 10 MG Tablet PO SCH ×3 (05:56→21:59)
[2017-11-14 07:53] LABS: Baso % (Auto) 0.5 % (0.0-2.0); Eos # (Auto) 0.3 th/mm3 (0.0-0.4); Eos % (Auto) 2.8 % (0.0-4.0); Hemoglobin 9.8 gm/dL (11.6-15.3); Lymph # (Auto) 3.1 th/mm3 (1.0-4.8); Lymph % (Auto) 29.5 % (9.0-44.0); Mean Corpuscular HGB Conc 33.7 % (32.0-36.0); Mean Corpuscular Hemoglobin 29.2 pg (27.0-34.0); Mean Corpuscular Volume 86.6 fL (80.0-100.0); Mean Platelet Volume 6.9 fL (7.0-11.0); Mono # (Auto) 1.1 th/mm3 (0.0-0.9); Mono % (Auto) 10.7 % (0.0-8.0); Neut # (Auto) 5.9 th/mm3 (1.8-7.7); Neut % (Auto) 56.5 % (16.0-70.0); Platelet Count 575 th/mm3 (150-450); Red Blood Count 3.35 mil/mm3 (4.00-5.30); Red Cell Distribution Width 14.9 % (11.6-17.2); White Blood Count 10.5 th/mm3 (4.0-11.0)
[2017-11-14 08:19] LABS: Alanine Aminotransferase 10 U/L (10-53); Albumin 2.1 g/dL (3.4-5.0); Aspartate Aminotransferase 19 U/L (15-37); Blood Urea Nitrogen 7 mg/dL (7-18); Calcium 8.8 mg/dL (8.5-10.1); Carbon Dioxide 26.8 meq/L (21.0-32.0); Glomerular Filtration Rate 66 mL/min (>89); Glucose,Random 78 mg/dL (74-106)
[2017-11-14 08:56] LABS: Alkaline Phosphatase 76 U/L (45-117); Anion Gap 10 meq/L (5-15); Chloride 97 meq/L (98-107); Potassium 4.1 meq/L (3.5-5.1); Sodium 134 meq/L (136-145); Total Protein 8.3 g/dL (6.4-8.2)
[2017-11-14] MEDS: ARIPiprazole 5 MG Tablet PO SCH (10:39)
[2017-11-14] MEDS: Gentamicin Inj 70 MG in Sodium Chlor 0.9% Inj 100 ML IV.SIG SCH ×2 (10:40→17:12)
[2017-11-14] MEDS: Famotidine PF Inj 20 MG/2 ML Vial IV.PUSH SCH ×2 (10:42→21:59)
--- NOTE | 2017-11-14 14:37 | P.PNIM ---
Subjective Interval history: MARVIN pending for today. No new complaints from the patient. No fevers overnight. Physical Exam Vital signs: Vital Signs 11/13/17 16:00 11/13/17 20:00 11/14/17 00:00 Temperature 97.4 F L 98.8 F 98.1 F Pulse Rate 91 H 94 H 134 H Respiratory Rate 18 17 16 Blood Pressure 115/69 135/83 130/78 Pulse Oximetry 93 L 97 96 11/14/17 04:00 11/14/17 08:00 11/14/17 12:00 Temperature 98.0 F 98.3 F 98.2 F Pulse Rate 122 H 94 H 108 H Respiratory Rate 14 16 18 Blood Pressure 128/74 128/75 124/65 Pulse Oximetry 95 95 91 L Intake & Output 11/13/17 11/14/17 11/14/17 18:59 06:59 18:59 Intake Total 921.75 / 921.75 1482.75 / 1482.75 Output Total 340 / 340 Balance 921.75 / 921.75 1142.75 / 1142.75 Intake: IV 201.75 / 201.75 101.75 / 101.75 Cubicin Inj 800 MG In NS Inj 100 / 100 100 ML @ 200 mls/hr IV.SIG Q24H JUNIOR Rx#:[id number] Gentamicin Inj 70 MG In NS Inj 101.75 / 101.75 101.75 / 101.75 100 ML @ 100 mls/hr IV.SIG Q8H JUNIOR Rx#:[id number] Oral 720 / 720 720 / 720 Anesthesia Amount 100 / 100 Other 561 / 561 Output: Urine 0 / 0 Estimated Blood Loss 0 / 0 Urine Amount (Catheter) 340 / 340 Indwelling Urethral Catheter 340 / 340 Other: Other Intake Source Saline Solution # Voids 4 4 3 # Urine Diapers 1 Date of Last Bowel Movement 11/08/17 # Bowel Movements 0 Narrative: GENERAL: NAD, A&Ox3, lethargy HEAD: Normocephalic. NECK: Supple, trachea midline. No lymphadenopathy. EYES: No scleral icterus. No injection or drainage. CARDIOVASCULAR: Regular rate and rhythm without murmurs, gallops, or rubs. RESPIRATORY: Breath sounds equal bilaterally. No accessory muscle use. GASTROINTESTINAL: Abdomen soft, non-tender, nondistended. MUSCULOSKELETAL: No cyanosis, or edema. SKIN: Warm and dry. NEURO: No focal neurological deficits. - Urinary Catheter Management Indwelling Urethral Catheter Cath placed during this visit: yes, but has since been removed by the nurse Reason for continuing: Decision to DC catheter Insertion date: 11/02/17 Insertion time: 00:07 Removal date: 11/06/17 Removal time: 12:00 Results - Labs CBC & Chem 7: 11/14/17 07:13 11/14/17 07:13 Laboratory Results - last 24 hr 11/14/17 11/14/17 07:13 07:13 WBC 10.5 RBC 3.35 L Hgb 9.8 L Hct 29.0 L MCV 86.6 MCH 29.2 MCHC 33.7 RDW 14.9 Plt Count 575 H D MPV 6.9 L Neut % (Auto) 56.5 Lymph % (Auto) 29.5 [place] % (Auto) 10.7 H Eos % (Auto) 2.8 Baso % (Auto) 0.5 Neut # (Auto) 5.9 Lymph # (Auto) 3.1 [place] # (Auto) 1.1 H Eos # (Auto) 0.3 Baso # (Auto) 0.0 WBC Differential . Differential Comment Auto diff final Sodium 134 L Potassium 4.1 Chloride 97 L Carbon Dioxide 26.8 Anion Gap 10 BUN 7 Creatinine 0.99 Estimated GFR 66 L Random Glucose 78 Calcium 8.8 Total Bilirubin 0.7 AST 19 ALT 10 Alkaline Phosphatase 76 Total Protein 8.3 H D Albumin 2.1 L Microbiology 11/08/17 11:37 Blood - Peripheral Aerobic Blood Culture - Final No growth in 5 days 11/08/17 11:37 Blood - Peripheral Anaerobic Blood Culture - Final No growth in 5 days 11/08/17 11:32 Blood - Peripheral Aerobic Blood Culture - Final No growth in 5 days 11/08/17 11:32 Blood - Peripheral Anaerobic Blood Culture - Final No growth in 5 days - Procedures Echocardiogram 11/03/2017 The left ventricular systolic function is hyperdynamic with an estimated ejection fraction in the range of 65- 70%. Normal left ventricular size. Wall thickness is normal. No regional wall motion abnormalities are present. There is mild tricuspid valve regurgitation. The estimated pulmonary arterial pressure is 39.2 mmHg. Assessment and Plan - Plan 31-year-old female admitted secondary to fevers with history of IV drug abuse. MRSA bacteremia present. MARVIN today. Continue antibiotics. Follow clinically for improvement and continued resolution of sepsis Sepsis Resolved MRSA bacteremia Probable septic pulmonary emboli ID following Continue daptomycin Continue gentamicin Cardiology following MARVIN planned 11/14/2017 Severe back pain No evidence of abscess Continue methadone 10 year as needed Percocet Generalized edema Technique torsemide Bleeding lesion Continue antibiotics as above Infarction versus abscess Borderline personality disorder Abilify DVT prophylaxis Lovenox
[2017-11-14] MEDS: DAPTOmycin Inj 800 MG in Sodium Chlor 0.9% Inj 100 ML IV.SIG SCH (15:02)
--- NOTE | 2017-11-14 17:12 | P.PNPSY ---
Subjective Remarks: Patient seen and examined in psychiatric followup with RN. Chart reviewed. Case d/w RN who reports patient is somnolent much of the time. When she awakens , though, she remains tearful and childlike. On my exam today with RN, patient is initially dozing. Immediately upon arising, she grows tearful, complaining of physical pain. She reports that she is sleeping well. She denies SI/HI. Anxiety level decreased. Denies side effects from Abilify. Vital Signs Temp Pulse Resp BP Pulse Ox 11/14/17 12:00 98.2 F 108 H 18 124/65 91 L 11/14/17 08:00 98.3 F 94 H 16 128/75 95 11/14/17 04:00 98.0 F 122 H 14 128/74 95 11/14/17 00:00 98.1 F 134 H 16 130/78 96 11/13/17 20:00 98.8 F 94 H 17 135/83 97 Intake and Output 11/14/17 11/14/17 11/14/17 06:59 14:59 22:59 Intake Total 1482.75 / 1482.75 Output Total 340 / 340 Balance 1142.75 / 1142.75 Intake: IV 101.75 / 101.75 Gentamicin Inj 70 MG In NS Inj 101.75 / 101.75 100 ML @ 100 mls/hr IV.SIG Q8H JUNIOR Rx#:[id number] Oral 720 / 720 Anesthesia Amount 100 / 100 Other 561 / 561 Output: Urine 0 / 0 Estimated Blood Loss 0 / 0 Urine Amount (Catheter) 340 / 340 Indwelling Urethral Catheter 340 / 340 Other: Other Intake Source Saline Solution # Voids 4 3 # Urine Diapers 1 Date of Last Bowel Movement 11/08/17 # Bowel Movements 0 Laboratory Results - last 24 hr 11/14/17 11/14/17 07:13 07:13 WBC 10.5 RBC 3.35 L Hgb 9.8 L Hct 29.0 L MCV 86.6 MCH 29.2 MCHC 33.7 RDW 14.9 Plt Count 575 H D MPV 6.9 L Neut % (Auto) 56.5 Lymph % (Auto) 29.5 [place] % (Auto) 10.7 H Eos % (Auto) 2.8 Baso % (Auto) 0.5 Neut # (Auto) 5.9 Lymph # (Auto) 3.1 [place] # (Auto) 1.1 H Eos # (Auto) 0.3 Baso # (Auto) 0.0 WBC Differential . Differential Comment Auto diff final Sodium 134 L Potassium 4.1 Chloride 97 L Carbon Dioxide 26.8 Anion Gap 10 BUN 7 Creatinine 0.99 Estimated GFR 66 L Random Glucose 78 Calcium 8.8 Total Bilirubin 0.7 AST 19 ALT 10 Alkaline Phosphatase 76 Total Protein 8.3 H D Albumin 2.1 L Labs reviewed. Review of Systems All other systems reviewed negative except as stated in HPI Mental Status Examination Appearance: Disheveled Consciousness: Alert Orientation: Person, Place (5th floor), Date/Time (October) Motor Activity: Other (No hand tremor, no dystonia, no dyskinesias noted. No other motor abnormalities noted.) Speech: Unremarkable Language: Adequate Fund of Knowledge: Adequate Attention and Concentration: Adequate Memory: Unremarkable (Grossly intact on clinical exam) Mood: Anxious Affect: Labile (mild), Anxious, Other (Childlike) Thought Process & Associations: Intact, Logical, Linear Thought Content: Appropriate Hallucination Type: None Delusion Type: None Suicidal Ideation: No Suicidal Plan: No Suicidal Intention: No Homicidal Ideation: No Homicidal Plan: No Homicidal Intention: No Insight: Fair Judgment: Impulsive (Likely chronically so) Assessment and Plan - Assessment (1) Adjustment disorder with anxiety Code(s): F43.22 - Adjustment disorder with anxiety Status: Acute (2) Cluster B personality disorder Code(s): F60.9 - Personality disorder, unspecified Status: Suspected (3) Polysubstance abuse Code(s): F19.10 - Other psychoactive substance abuse, uncomplicated Status: Acute - Plan Plan: I have titrated Abilify to 5mg to try to manage affective dysregulation. She is tolerating this agent well without evident side effects. Support provided. Otherwise, recommendations as before. I will continue to follow along. Case d/w RN. Justification for Continued Inpatient Stay: Per primary team.
--- NOTE | 2017-11-14 23:18 | ECHRPT ---
Indication: CONCLUSIONS 1.) Normal left ventricular size, wall thickness and function, EF @ 55% 2.) normal appearing left atrial appendage 3.) trace mitral regurgitation 4.) moderate tricuspid vlave regurgitation 5.) 10 x 16 mm globular lass on left ventricular side of the base of the posterior leaflet of the mi tral valve 6.) 15 x 7 mm globular mass attatched to the tricuspid valve 7.) 21 x 1 mm serpiginous mass seen in right atrium 8.) negative color Doppler study of the atrial septum for shunt 9.) normal appearing ascending and descending thoracic aorta BP: / HR: Rhythm: Technical Quality: Medications Complications Proc. Components Aidan Perdomo MD, FACC, FSCAI (Electronically Signed) Final Date:14 November 2017 23:16
[2017-11-15] MEDS: Sod Chloride 0.9% Inj 1,000 ML IV.CONT SCH ×2 (00:11→19:30)
[2017-11-15] MEDS: Enoxaparin Inj 40 MG/0.4 ML Syringe SQ SCH (03:05)
[2017-11-15] MEDS: Gentamicin Inj 70 MG in Sodium Chlor 0.9% Inj 100 ML IV.SIG SCH ×2 (03:29→10:17)
[2017-11-15] MEDS: Methadone 10 MG Tablet PO SCH ×3 (05:26→21:58)
[2017-11-15] MEDS: clonazePAM 1 MG Tablet PO SCH ×3 (05:26→21:58)
[2017-11-15] MEDS: Famotidine PF Inj 20 MG/2 ML Vial IV.PUSH SCH ×2 (10:19→20:21)
[2017-11-15] MEDS: ARIPiprazole 5 MG Tablet PO SCH (10:20)
--- NOTE | 2017-11-15 12:20 | P.PNIM ---
Subjective Interval history: Mrs. Jade is more alert today. She complains of left leg swelling and pain with a palpable mass. This could represent DVT versus abscess. Ultrasound will be used for assessment. Infective endocarditis as discussed with patient. No other complaints today. Physical Exam Vital signs: Vital Signs 11/14/17 16:00 11/14/17 20:00 11/15/17 00:00 Temperature 98.2 F 97.6 F 97.3 F L Pulse Rate 109 H 96 H 92 H Respiratory Rate 18 18 18 Blood Pressure 115/70 121/82 124/79 Pulse Oximetry 92 L 92 L 94 L 11/15/17 04:00 11/15/17 08:00 Temperature 97.4 F L 98.7 F Pulse Rate 92 H 105 H Respiratory Rate 18 20 Blood Pressure 127/85 112/59 L Pulse Oximetry 94 L 90 L Intake & Output 11/14/17 11/15/17 11/15/17 18:59 06:59 18:59 Intake Total 201.75 / 201.75 101.75 / 101.75 Balance 201.75 / 201.75 101.75 / 101.75 Intake: IV 201.75 / 201.75 101.75 / 101.75 Cubicin Inj 800 MG In NS Inj 100 / 100 100 ML @ 200 mls/hr IV.SIG Q24H JUNIOR Rx#:[id number] Gentamicin Inj 70 MG In NS Inj 101.75 / 101.75 101.75 / 101.75 100 ML @ 100 mls/hr IV.SIG Q8H JUNIOR Rx#:[id number] Other: # Voids 3 4 Date of Last Bowel Movement 11/14/17 Narrative: GENERAL: NAD, A&Ox3, lethargy HEAD: Normocephalic. NECK: Supple, trachea midline. No lymphadenopathy. EYES: No scleral icterus. No injection or drainage. CARDIOVASCULAR: Regular rate and rhythm without murmurs, gallops, or rubs. RESPIRATORY: Breath sounds equal bilaterally. No accessory muscle use. GASTROINTESTINAL: Abdomen soft, non-tender, nondistended. MUSCULOSKELETAL: No cyanosis, or edema. SKIN: Warm and dry. NEURO: No focal neurological deficits. - Urinary Catheter Management Indwelling Urethral Catheter Cath placed during this visit: yes, but has since been removed by the nurse Reason for continuing: Decision to DC catheter Insertion date: 11/02/17 Insertion time: 00:07 Removal date: 11/06/17 Removal time: 12:00 Results - Labs CBC & Chem 7: 11/14/17 07:13 11/15/17 08:20 Laboratory Results - last 24 hr 11/15/17 08:20 Creatinine 1.24 H Estimated GFR 51 L - Procedures Echocardiogram 11/03/2017 The left ventricular systolic function is hyperdynamic with an estimated ejection fraction in the range of 65- 70%. Normal left ventricular size. Wall thickness is normal. No regional wall motion abnormalities are present. There is mild tricuspid valve regurgitation. The estimated pulmonary arterial pressure is 39.2 mmHg. Assessment and Plan - Plan 31-year-old female admitted secondary to fevers with history of IV drug abuse. MRSA bacteremia present. MARVIN showed infective endocarditis. Continue antibiotics. Follow clinically for improvement and continued resolution of sepsis. Bilateral lower extremity ultrasound palpable mass. Continue prophylactic Lovenox for now and upgraded if DVT found. His abscess is suspected on imaging, may need I&D. Sepsis Resolved MRSA bacteremia Probable septic pulmonary emboli ID following Continue daptomycin Continue gentamicin Cardiology following MARVIN planned 11/14/2017 Severe back pain No evidence of abscess Continue methadone 10 year as needed Percocet Generalized edema Technique torsemide Bleeding lesion Continue antibiotics as above Infarction versus abscess Borderline personality disorder Abilify DVT prophylaxis Lovenox
--- NOTE | 2017-11-15 13:16 | P.PNID ---
Subjective Remarks: Patient complaining of pain all over and points particularly to the R. lower back. MARVIN noted lesions on the tricuspid and mitral valve. Afebrile. Blood culture from 11/08 has no growth. Has swelling and tenderness at the left calf. Blood culture from 11/07 has MRSA. Admitted with altered mental status. The patient uses IV drugs in the form of heroin and methamphetamines. Lines: Peripheral Allergies/Adverse Reactions: Allergies haloperidol Adverse Reaction (Intermediate, Verified 11/01/17 22:36) SEIZURES NICKEL Allergy (Intermediate, Uncoded 11/01/17 22:36) Anxiety Objective Vital Signs 11/14/17 16:00 11/14/17 20:00 11/15/17 00:00 Temperature 98.2 F 97.6 F 97.3 F L Pulse Rate 109 H 96 H 92 H Respiratory Rate 18 18 18 Blood Pressure 115/70 121/82 124/79 Pulse Oximetry 92 L 92 L 94 L 11/15/17 04:00 11/15/17 08:00 Temperature 97.4 F L 98.7 F Pulse Rate 92 H 105 H Respiratory Rate 18 20 Blood Pressure 127/85 112/59 L Pulse Oximetry 94 L 90 L Intake & Output 11/14/17 11/15/17 11/15/17 18:59 06:59 18:59 Intake Total 201.75 / 201.75 101.75 / 101.75 Balance 201.75 / 201.75 101.75 / 101.75 Intake: IV 201.75 / 201.75 101.75 / 101.75 Cubicin Inj 800 MG In NS Inj 100 / 100 100 ML @ 200 mls/hr IV.SIG Q24H JUNIOR Rx#:[id number] Gentamicin Inj 70 MG In NS Inj 101.75 / 101.75 101.75 / 101.75 100 ML @ 100 mls/hr IV.SIG Q8H JUNIOR Rx#:[id number] Other: # Voids 3 4 Date of Last Bowel Movement 11/14/17 11/08/17 11:37 Blood - Peripheral Aerobic Blood Culture - Final No growth in 5 days 11/08/17 11:37 Blood - Peripheral Anaerobic Blood Culture - Final No growth in 5 days 11/08/17 11:32 Blood - Peripheral Aerobic Blood Culture - Final No growth in 5 days 11/08/17 11:32 Blood - Peripheral Anaerobic Blood Culture - Final No growth in 5 days Lab - Hematology Results 11/14/17 07:13 WBC 10.5 RBC 3.35 L Hgb 9.8 L Hct 29.0 L MCV 86.6 MCH 29.2 MCHC 33.7 RDW 14.9 Plt Count 575 H D MPV 6.9 L Neut % (Auto) 56.5 Lymph % (Auto) 29.5 [place] % (Auto) 10.7 H Eos % (Auto) 2.8 Baso % (Auto) 0.5 Neut # (Auto) 5.9 Lymph # (Auto) 3.1 [place] # (Auto) 1.1 H Eos # (Auto) 0.3 Baso # (Auto) 0.0 WBC Differential . Differential Comment Auto diff final Lab - Chemistry Results 11/14/17 11/15/17 07:13 08:20 Sodium 134 L Potassium 4.1 Chloride 97 L Carbon Dioxide 26.8 Anion Gap 10 BUN 7 Creatinine 0.99 1.24 H Estimated GFR 66 L 51 L Random Glucose 78 Calcium 8.8 Total Bilirubin 0.7 AST 19 ALT 10 Alkaline Phosphatase 76 Total Protein 8.3 H D Albumin 2.1 L Imaging: ITS Impressions Head CT 11/02/17 00:00 CONCLUSION: 1. No acute intracranial abnormality. 2. Bilateral maxillary sinus mucosal disease. Head MRI 11/02/17 00:00 CONCLUSION: 1. No definite acute abnormality is seen. Edema to suggest encephalitis is not seen. 2. There are a few punctate areas of increased signal within the cerebral white matter representing small foci of demyelination. Underlying demyelinating conditions can be considered. Liver Ultrasound 11/02/17 00:00 CONCLUSION: Generalized hepatosplenomegaly without focal mass Sludge within the gallbladder Chest CT 11/02/17 00:01 CONCLUSION: 1. Diffuse patchy groundglass opacities with nodular regions primarily in the left upper and lower lobes and single potentially cavitary nodule near the left lung apex. Overall, findings are concerning for atypical infection or developing septic pulmonary emboli in the appropriate clinical setting. 2. Subtle anterior pericardial effusion. 3. Subcentimeter bilateral axillary adenopathy, likely infectious/inflammatory. Chest X-Ray 11/04/17 05:00 CONCLUSION: Developing bilateral infiltrates. Abdomen/Pelvis CT 11/06/17 00:00 CONCLUSION: 1. Mild anasarca. 2. Slight splenomegaly with focal lesion towards the anterior portion of the spleen not present on the prior examination could be infarction, however splenic abscess is not excluded. 3. Slight peritoneal fluid nonspecific. Cervical Spine MRI 11/06/17 00:00 CONCLUSION: Slight nondescript serpiginous edema in the upper back, otherwise unremarkable. Lumbar Spine MRI 11/06/17 00:00 CONCLUSION: Slight nondescript subcutaneous edema in the patient's back, otherwise unremarkable without abscess formation. Thoracic Spine MRI 11/06/17 00:00 CONCLUSION: Essentially unremarkable study except for slight nondescript separate density on the patient's back. Physical Exam: GENERAL: NAD. HEENT: Head atraumatic. Extraocular movements grossly intact. Pupils reactive to light. No icterus. Oropharynx: Moist mucosa. No visible lesions. NECK: Supple. No adenopathy. LUNGS: Decreased clear breath sounds HEART: Regular S1 and S2, No murmurs heard. ABDOMEN: Obese, soft, no tenderness appreciated. No masses palpable. EXTREMITIES: The right thumb has superficial ulcerations and erythema. The left dorsal aspect of the hand has a tiny erythematous lesion surrounded by a raised, pale white border and noted tiny erythematous punctate lesion is located at the base of the second finger on the dorsal aspect. nodular lesion at the r. index finger. Palmar aspect. 2+ edema at the extremities. SKIN: No rash. NEUROLOGIC: No gross focal findings. PSYCH: Calm and cooperative. Assessment and Plan - Plan IMPRESSION: 1. Endocarditis. Mitral and tricuspid valve. R. atrial mass - MRSA. 2. Severe sepsis due to methicillin-resistant Staphylococcus aureus in patient sedated with intravenous drug abuse and recent intravenous drug use. 3. Abnormal CT of the chest, suggesting septic emboli. 4. Altered mental status on admission. Lumbar puncture revealed few white cells in the cerebrospinal fluid. Mental status improved. 5. Worsening renal function. RECOMMENDATIONS: 1. Continue Daptomycin. Blood culture remained persistent with Vancomycin. 2. Stop Gentamicin. Due to kidney function. 3. Monitor clinical status. and follow the renal function. 4. Work up of left leg swelling. Anticipate 6 weeks of IV antibiotics. Would not place a PIC line. Patient is not candidate for outpatient treatment. Very high likelihood she will use PIC line for IV drug use.
--- NOTE | 2017-11-15 15:58 | P.PNCA ---
Subjective Interval history: sedated, asking for pain meds Physical Exam Vital signs: Vital Signs 11/14/17 16:00 11/14/17 20:00 11/15/17 00:00 Temperature 98.2 F 97.6 F 97.3 F L Pulse Rate 109 H 96 H 92 H Respiratory Rate 18 18 18 Blood Pressure 115/70 121/82 124/79 Pulse Oximetry 92 L 92 L 94 L 11/15/17 04:00 11/15/17 08:00 11/15/17 12:00 Temperature 97.4 F L 98.7 F 98.7 F Pulse Rate 92 H 105 H 97 H Respiratory Rate 18 20 20 Blood Pressure 127/85 112/59 L 112/62 Pulse Oximetry 94 L 90 L 93 L Intake & Output 11/14/17 11/15/17 11/15/17 18:59 06:59 18:59 Intake Total 201.75 / 201.75 101.75 / 101.75 Balance 201.75 / 201.75 101.75 / 101.75 Intake: IV 201.75 / 201.75 101.75 / 101.75 Cubicin Inj 800 MG In NS Inj 100 / 100 100 ML @ 200 mls/hr IV.SIG Q24H JUNIOR Rx#:[id number] Gentamicin Inj 70 MG In NS Inj 101.75 / 101.75 101.75 / 101.75 100 ML @ 100 mls/hr IV.SIG Q8H JUNIOR Rx#:[id number] Other: # Voids 3 4 Date of Last Bowel Movement 11/14/17 - Urinary Catheter Management Indwelling Urethral Catheter Cath placed during this visit: yes, but has since been removed by the nurse Reason for continuing: Decision to DC catheter Insertion date: 11/02/17 Insertion time: 00:07 Removal date: 11/06/17 Removal time: 12:00 Assessment and Plan - Assessment (1) Chest pain Code(s): R07.9 - Chest pain, unspecified Status: Acute (2) Dysphagia Code(s): R13.10 - Dysphagia, unspecified Status: Acute (3) History of intravenous drug abuse Code(s): Z87.898 - Personal history of other specified conditions Status: Acute (4) Hepatitis C antibody positive in blood Code(s): R76.8 - Other specified abnormal immunological findings in serum Status: Acute - Plan 1.) SBE - attempted to d/w patient MARVIN findings however she was too sedated to comprehend, will reattempt tomorrow 2.) Chest pain - ekg and serial trop wnl 3.) nurse notifed that patient requests pain meds
--- NOTE | 2017-11-15 16:36 | US ---
EXAM DATE: 11/15/2017 4:29 PM EDT AGE/SEX: 31 years / Female INDICATIONS: Left leg pain, swelling, palpable lump. CLINICAL DATA: This is the patient's initial encounter. Patient reports that signs and symptoms have been present for 1 day and indicates a pain score of 9/10. MEDICAL/SURGICAL HISTORY: . Hepatitis C. IV drug use. Thrombocytopenia. None. COMPARISON: No prior exams available for comparison. TECHNIQUE: Venous ultrasound of both lower extremities was performed from the inguinal ligament to t he proximal calf. Real-time, color Doppler and spectral tracing, compression and augmentation techni ques were used. FINDINGS: Right Leg: Normal compression of the deep venous system from the inguinal region to the proximal maryam f. No echogenic clot is seen. Normal response of the venous system to augmentation and respiration. Left Leg: Normal compression of the deep venous system from the inguinal region to the proximal calf . No echogenic clot is seen. Normal response of the venous system to augmentation and respiration. Other: There is an oval fluid collection measuring 14 x 1.9 x 2.9 cm in diameter. This has low-level internal echogenicity. CONCLUSION: 1. Negative exam with no evidence of deep venous thrombosis. 2. Moderate size Carson's cyst in the left popliteal fossa region. Electronically signed by: Al Shannon MD 11/15/2017 4:34 PM EDT
[2017-11-15] MEDS: DAPTOmycin Inj 800 MG in Sodium Chlor 0.9% Inj 100 ML IV.SIG SCH (18:21)
[2017-11-15] MEDS: oxyCODONE/Acetaminophen 10/325 Tablet PO PRN (20:20)
[2017-11-16] MEDS: oxyCODONE/Acetaminophen 10/325 Tablet PO PRN ×2 (00:34→22:47)
[2017-11-16] MEDS: Sod Chloride 0.9% Inj 1,000 ML IV.CONT SCH ×2 (01:13→20:20)
[2017-11-16] MEDS: Enoxaparin Inj 40 MG/0.4 ML Syringe SQ SCH (02:04)
[2017-11-16] MEDS: Methadone 10 MG Tablet PO SCH ×3 (05:32→22:48)
[2017-11-16] MEDS: clonazePAM 1 MG Tablet PO SCH ×3 (05:32→22:48)
[2017-11-16] MEDS: ARIPiprazole 5 MG Tablet PO SCH (09:37)
[2017-11-16] MEDS: Famotidine PF Inj 20 MG/2 ML Vial IV.PUSH SCH ×2 (09:39→22:57)
--- NOTE | 2017-11-16 11:09 | MR ---
EXAM DATE: 11/16/2017 10:41 AM EDT AGE/SEX: 31 years / Female INDICATIONS: Mass like area on posterior upper left leg. History of IV drug abuse with pain, swelli ng and redness. CLINICAL DATA: This is the patient's subsequent encounter. Patient reports that signs and symptoms h ave been present for 4 - 6 days and indicates a pain score of 10/10. MEDICAL/SURGICAL HISTORY: . IVDU. None. COMPARISON: No prior exams available for comparison. TECHNIQUE: Multiplanar, multisequence MRI examination was performed without contrast. FINDINGS: Bones: The osseous structures are in normal alignment. No evidence of fracture or bony edema. Muscle: Normal signal without evidence of edema, hemorrhage or atrophy. Soft Tissues: There is an oval collection along the medial proximal leg which extends along the post erior medial gastrocnemius muscle with mass effect. This measures up to 2.6 x 2.7 x 8.6 cm in greates t AP by transverse by caudocranial dimension. This demonstrates high signal on the T2 and inversion r ecovery weighted sequences and is of medium signal on the T1-weighted sequences. The collection is mi ldly complex with small areas of lower signal along the periphery. The margins are fairly well-define d. There is extensive surrounding edema. Other: The neurovascular structures are intact. CONCLUSION: 1. Oval complex fluid collection most characteristic of an abscess. There is surrounding edema. Electronically signed by: Al Shannon MD 11/16/2017 11:08 AM EDT
--- NOTE | 2017-11-16 14:19 | P.PNIM ---
Subjective Interval history: Fluid filled mass (no DVT) on ultrasound. MRI shows evidence of Abscess. Patient reports some auditory hallucinations. This could still be related to withdraw, but if this continued we agreed that a psych consult would be warranted. Physical Exam Vital signs: Vital Signs 11/15/17 16:00 11/15/17 19:28 11/15/17 21:55 Temperature 98.3 F 99.3 F Pulse Rate 94 H 101 H Respiratory Rate 20 18 18 Blood Pressure 114/65 122/96 H Pulse Oximetry 93 L 92 L 11/16/17 00:00 11/16/17 01:03 11/16/17 07:14 Temperature 100.1 F H Pulse Rate 114 H Respiratory Rate 18 18 18 Blood Pressure 99/66 L Pulse Oximetry 96 11/16/17 07:57 11/16/17 08:00 11/16/17 12:00 Temperature 98.4 F 98.4 F 98.7 F Pulse Rate 85 92 H 117 H Respiratory Rate 18 20 20 Blood Pressure 102/50 L 127/72 130/64 Pulse Oximetry 92 L 97 97 Intake & Output 11/15/17 11/16/17 11/16/17 18:59 06:59 18:59 Intake Total 500 / 500 Balance 500 / 500 Intake: IV 0 / 0 Cubicin Inj 800 MG In NS Inj 0 / 0 100 ML @ 200 mls/hr IV.SIG Q24H JUNIOR Rx#:[id number] Gentamicin Inj 70 MG In NS Inj 0 / 0 100 ML @ 100 mls/hr IV.SIG Q8H JUNIOR Rx#:[id number] Oral 500 / 500 Other: # Voids 4 2 Narrative: GENERAL: NAD, A&Ox3, lethargy HEAD: Normocephalic. NECK: Supple, trachea midline. No lymphadenopathy. EYES: No scleral icterus. No injection or drainage. CARDIOVASCULAR: Regular rate and rhythm without murmurs, gallops, or rubs. RESPIRATORY: Breath sounds equal bilaterally. No accessory muscle use. GASTROINTESTINAL: Abdomen soft, non-tender, nondistended. MUSCULOSKELETAL: No cyanosis, or edema. Palpable tender mass at left lower extremity without skin erythema, but with induration/edema. SKIN: Warm and dry. NEURO: No focal neurological deficits. - Urinary Catheter Management Indwelling Urethral Catheter Cath placed during this visit: yes, but has since been removed by the nurse Reason for continuing: Decision to DC catheter Insertion date: 11/02/17 Insertion time: 00:07 Removal date: 11/06/17 Removal time: 12:00 Results - Labs CBC & Chem 7: 11/14/17 07:13 11/15/17 08:20 Microbiology 11/02/17 01:30 Cerebral Spinal Fluid - Lumbar Puncture Fungal Smear - Final No fungal elements seen 11/02/17 01:30 Cerebral Spinal Fluid - Lumbar Puncture Fungal Culture - Preliminary No growth in 2 weeks 11/02/17 01:30 Cerebral Spinal Fluid - Lumbar Puncture Acid Fast Bacilli Smear - Final No acid fast bacilli seen 11/02/17 01:30 Cerebral Spinal Fluid - Lumbar Puncture Mycobacterial Culture - Preliminary No growth in 2 weeks - Imaging Impressions Venous Doppler Study 11/15/17 00:00 CONCLUSION: Lower Extremity MRI 11/16/17 00:00 CONCLUSION: - Procedures Echocardiogram 11/03/2017 The left ventricular systolic function is hyperdynamic with an estimated ejection fraction in the range of 65- 70%. Normal left ventricular size. Wall thickness is normal. No regional wall motion abnormalities are present. There is mild tricuspid valve regurgitation. The estimated pulmonary arterial pressure is 39.2 mmHg. Assessment and Plan - Plan 31-year-old female admitted secondary to fevers with history of IV drug abuse. MRSA bacteremia present. MARVIN showed infective endocarditis. Continue antibiotics. Follow clinically for improvement and continued resolution of sepsis. Bilateral lower extremity ultrasound palpable mass. Continue prophylactic Lovenox for now and upgraded if DVT found. His abscess is suspected on imaging, may need I&D. Left Lower Extremity Abscess Orthopedic Surgeon consulted Continue antibiotics Auditory Hallucinations New, may be related to withdraw Consider psych consult if this persists or worsens Sepsis Resolved MRSA bacteremia Probable septic pulmonary emboli ID following Continue daptomycin Continue gentamicin Cardiology following MARVIN planned 11/14/2017 Severe back pain No evidence of abscess Continue methadone 10 year as needed Percocet Generalized edema Technique torsemide Bleeding lesion Continue antibiotics as above Infarction versus abscess Borderline personality disorder Abilify DVT prophylaxis Lovenox
[2017-11-16] MEDS: DAPTOmycin Inj 800 MG in Sodium Chlor 0.9% Inj 100 ML IV.SIG SCH (14:58)
--- NOTE | 2017-11-16 21:32 | P.PNCA ---
Subjective Interval history: codi results d/w patient with nurse at bedside, patient very emotional, crying, c /o diffuse pain Physical Exam Vital signs: Vital Signs 11/15/17 21:55 11/16/17 00:00 11/16/17 01:03 Temperature 99.3 F 100.1 F H Pulse Rate 101 H 114 H Respiratory Rate 18 18 18 Blood Pressure 122/96 H 99/66 L Pulse Oximetry 92 L 96 11/16/17 07:14 11/16/17 07:57 11/16/17 08:00 Temperature 98.4 F 98.4 F Pulse Rate 85 92 H Respiratory Rate 18 18 20 Blood Pressure 102/50 L 127/72 Pulse Oximetry 92 L 97 11/16/17 12:00 11/16/17 15:20 11/16/17 16:00 Temperature 98.7 F 97.7 F Pulse Rate 117 H 92 H Respiratory Rate 20 18 20 Blood Pressure 130/64 107/61 Pulse Oximetry 97 95 11/16/17 20:00 Temperature 97.6 F Pulse Rate 80 Respiratory Rate 18 Blood Pressure 102/59 L Pulse Oximetry 96 Intake & Output 11/16/17 11/16/17 11/17/17 06:59 18:59 06:59 Intake Total 600 / 600 360 / 360 Output Total 3 / 3 Balance 600 / 600 357 / 357 Intake: IV 100 / 100 Cubicin Inj 800 MG In NS Inj 100 / 100 100 ML @ 200 mls/hr IV.SIG Q24H JUNIOR Rx#:[id number] Gentamicin Inj 70 MG In NS Inj 0 / 0 100 ML @ 100 mls/hr IV.SIG Q8H JUNIOR Rx#:[id number] Oral 500 / 500 Tube Feeding 360 / 360 Output: Urine 3 / 3 Other: # Voids 2 - Urinary Catheter Management Indwelling Urethral Catheter Cath placed during this visit: yes, but has since been removed by the nurse Reason for continuing: Decision to DC catheter Insertion date: 11/02/17 Insertion time: 00:07 Removal date: 11/06/17 Removal time: 12:00 Assessment and Plan - Assessment (1) Chest pain Code(s): R07.9 - Chest pain, unspecified Status: Acute (2) Dysphagia Code(s): R13.10 - Dysphagia, unspecified Status: Acute (3) History of intravenous drug abuse Code(s): Z87.898 - Personal history of other specified conditions Status: Acute (4) Hepatitis C antibody positive in blood Code(s): R76.8 - Other specified abnormal immunological findings in serum Status: Acute - Plan 1.) SBE - d/w patient CODI findings, will sign off 2.) Chest pain - ekg and serial trop wnl
[2017-11-17] MEDS: Enoxaparin Inj 40 MG/0.4 ML Syringe SQ SCH (03:19)
[2017-11-17] MEDS: Sod Chloride 0.9% Inj 1,000 ML IV.CONT SCH ×3 (03:19→21:19)
--- NOTE | 2017-11-17 07:27 | P.PNOP ---
Subjective Interval history: Patient with history of drug abuse. Positive for MRSA in blood cultures. Worsening pain to left calf. Orthopedics consulted due to abscess in left calf Physical Exam Vital signs: Vital Signs 11/16/17 07:57 11/16/17 08:00 11/16/17 12:00 Temperature 98.4 F 98.4 F 98.7 F Pulse Rate 85 92 H 117 H Respiratory Rate 18 20 20 Blood Pressure 102/50 L 127/72 130/64 Pulse Oximetry 92 L 97 97 11/16/17 15:20 11/16/17 16:00 11/16/17 20:00 Temperature 97.7 F 97.6 F Pulse Rate 92 H 80 Respiratory Rate 18 20 18 Blood Pressure 107/61 102/59 L Pulse Oximetry 95 96 11/17/17 00:00 11/17/17 04:00 Temperature 97.6 F 97.9 F Pulse Rate 95 H 88 Respiratory Rate 18 18 Blood Pressure 117/59 L 119/60 Pulse Oximetry 95 96 Intake & Output 11/16/17 11/17/17 11/17/17 18:59 06:59 18:59 Intake Total 360 / 360 Output Total 3 / 3 Balance 357 / 357 Weight 71.3 kg Intake: Tube Feeding 360 / 360 Output: Urine 3 / 3 Other: # Voids 1 Narrative: Patient is awoken and wakes up confused and crying. She is states that her left calf is in pain Left lower extremity: Pain with hip range of motion she has swelling of the left calf that is twice the size of her right calf. There is mild erythema and significant tenderness to palpation and movement of the calf. Distally she has intact sensation with good capillary refills in her toes and foot - Constitutional moderate distress - Urinary Catheter Management Indwelling Urethral Catheter Cath placed during this visit: yes, but has since been removed by the nurse Reason for continuing: Decision to DC catheter Insertion date: 11/02/17 Insertion time: 00:07 Removal date: 11/06/17 Removal time: 12:00 Results - Labs CBC & Chem 7: 11/14/17 07:13 11/15/17 08:20 Microbiology 11/02/17 01:30 Cerebral Spinal Fluid - Lumbar Puncture Fungal Smear - Final No fungal elements seen 11/02/17 01:30 Cerebral Spinal Fluid - Lumbar Puncture Fungal Culture - Preliminary No growth in 2 weeks 11/02/17 01:30 Cerebral Spinal Fluid - Lumbar Puncture Acid Fast Bacilli Smear - Final No acid fast bacilli seen 11/02/17 01:30 Cerebral Spinal Fluid - Lumbar Puncture Mycobacterial Culture - Preliminary No growth in 2 weeks - Imaging Impressions Lower Extremity MRI 11/16/17 00:00 CONCLUSION: - Procedures Echocardiogram 11/03/2017 The left ventricular systolic function is hyperdynamic with an estimated ejection fraction in the range of 65- 70%. Normal left ventricular size. Wall thickness is normal. No regional wall motion abnormalities are present. There is mild tricuspid valve regurgitation. The estimated pulmonary arterial pressure is 39.2 mmHg. Assessment and Plan - Assessment and Plan MRSA with left calf abscess She is made n.p.o. but states that she ate a snack at around 2 AM. MRI shows abscess in the left calf. She needs irrigation debridement of the left calf and continued IV antibiotics We will talk to anesthesia and see when and if we are able to do surgery this morning. Consents are on the chart. Have patient sign.
[2017-11-17] MEDS: Methadone 10 MG Tablet PO SCH ×3 (08:06→21:18)
[2017-11-17] MEDS: clonazePAM 1 MG Tablet PO SCH ×3 (08:06→21:18)
[2017-11-17] MEDS ORDERED: ceFAZolin 2 GM Premix Inj 2 GM/50 ML PIGGYBACK IV.SIG ONE (08:08)
[2017-11-17] MEDS ORDERED: Bupivacaine/Dextrose 0.75% Inj 2 ML Ampul ONE (08:09)
[2017-11-17 09:07] LABS: Calcium 9.5 mg/dL (8.5-10.1); Carbon Dioxide 27.3 meq/L (21.0-32.0); Potassium 3.8 meq/L (3.5-5.1)
--- NOTE | 2017-11-17 09:26 | MB ---
cc: Anand Mosqueda MD DATE: 11/17/2017 REASON FOR CONSULTATION: Left calf abscess. HISTORY OF PRESENT ILLNESS: Salud is a 31-year-old female who has a history of IV drug use. She uses crystal meth and heroin. She initially presented with altered mental status and fevers. She was initially treated in ICU. She has had multiple complaints. 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 She is currently awake on the 5th floor. She complains of pain in her left leg. Pain is worse with movement. Pain is mostly along her calf region. The patient had an MRI of her calf revealing an abscess along the medial gastroc muscle. The patient is a very extremely anxious and crying throughout the taking of the history and physical. ALLERGIES: HALOPERIDOL AND NICKEL. MEDICATIONS: Please see EMR for complete list of inpatient medications. ILLNESSES: Polysubstance abuse, anxiety, borderline personality. SURGERIES: None. FAMILY HISTORY: Noncontributory. REVIEW OF SYSTEMS: The patient denies current fevers, chills, weight loss, headache, visual changes, hearing loss, chest pain, palpitations, shortness of breath, nausea, vomiting, urinary changes, diarrhea, bowel changes, neck pain, back pain, skin rashes, weakness, numbness of extremities or depression. She does have anxiety. She complains of left calf pain. LABORATORY DATA: White blood cell count is 12.6, hematocrit 28.2, platelet count of 61. INR is 1.3 on 11/03/2017. IMAGING STUDIES: MRI of the left calf was reviewed. MRI reveals a fluid collection consistent with an abscess along the medial head of the gastrocnemius muscle. PHYSICAL EXAMINATION: GENERAL: The patient is a 31-year-old female. She appears well-developed and well-nourished. She is extremely anxious and tearful. VITAL SIGNS: Temperature 97.7, pulse is 92, respirations 20, blood pressure 107/61, O2 saturation 95% on room air. HEENT: Head: The patient is normocephalic. Pupils are equal. NECK: Soft, nontender. The trachea is in the midline. ABDOMEN: Soft, nontender, nondistended. EXTREMITIES: Examination of bilateral upper extremities reveals no pain with shoulder, elbow or wrist motion. Skin is intact. Radial pulses are palpable. Sensation intact in all fingers. Examination of right leg reveals no pain with hip, knee or ankle motion. Skin is intact. Dorsalis pedis pulses palpable. Sensation intact. Examination of left leg reveals no tenderness around her hip or thigh. She is very tender to palpation over the calf. She is tender over the medial head of the gastroc. She has moderate swelling of the calf. Calf compartments are soft. She has minimal pain with passive range of motion of her toes. Dorsalis pedis is palpable. Skin is intact. IMPRESSION: 1. Polysubstance abuse. 2. Anxiety disorder. 3. Left calf abscess. PLAN: Treatment options were discussed with the patient. At this point, I would recommend irrigation and debridement of left calf abscess. Risks of surgery include bleeding, infection, injuries to arteries, nerves or blood vessels, recurrent infection, as well as medical complications including blood clot, stroke, heart attack and . All questions were answered. I will plan surgery today. A mid-level provider in my office, nurse practitioner or PA, may see this patient on a follow-up basis and continue to implement the objective of this plan including: Starting or adjusting medications, injections of muscle, tendon, bursa or joints, cast application, orthotic or brace application, physical therapy, further radiographic studies including x-ray, MRI, CT, ultrasounds or bone scan, vascular studies, neurologic studies, or other specialist consultations, and proceeding with surgical management as appropriate. MD KONRAD George/PATRICIA , 09:02 AM , 09:13 AM
--- NOTE | 2017-11-17 09:36 | P.OP ---
- Preoperative Diagnosis (1) Abscess of leg, left Date of procedure: 11/17/17 Procedure: Irrigation and debridement of left calf abscess Anesthesia: GETA Surgeon: Anand Torres MD Assistant Media Planner: MUMTAZ Abdi PA-C The surgical procedure was assisted by my physician restaurant assistant manager. My P.A. presence was necessary throughout this case for the manipulation and positioning of the surgical extremity. My P.A. was assisting me throughout the duration of this procedure. The skill set of a physician restaurant assistant manager was medically necessary to complete this procedure. During the surgical case the accredited pharmacy technician was working at the back table and the physician restaurant assistant manager was directly assisting me. Operation and Findings: Salud is a 31-year-old female with history of IV drug use. She has developed left calf pain and swelling. MRI revealed an abscess of the left calf. Informed consent was obtained preoperatively and operative site was marked. She was brought to the operating room. She was initially given spinal anesthesia. Spinal anesthesia was not providing adequate anesthesia for surgery. Subsequently she is given IV sedation and general anesthesia. Left leg was prepped with alcohol followed Hibiclens and draped in usual sterile fashion. Timeout procedure was performed. Patient is already on scheduled IV antibiotics. Procedure began with a 2 inch incision over the posterior medial calf. Subcu tissue was dissected with Bovie. The abscess was identified. Approximately 50 cc of purulent fluid was evacuated from the abscess. This fluid was sent for cultures. An excisional debridement was now performed with rongeurs and curettes. Subcutaneous tissue and fascia were sharply excised. Loculations were manually debrided. After thorough debridement, the soft tissue was thoroughly irrigated with pulsatile lavage. A drain was placed into the abscess region. Subcutaneous tissue was closed with 3-0 PDS and skin was closed with 3-0 nylon. Sterile dressings were applied. Patient was awakened and transferred to recovery room in stable condition.
[2017-11-17] MEDS ORDERED: *Ondansetron Inj 4 MG/2 ML Vial PERIprocedural Use ONLY ONE (10:12)
[2017-11-17] MEDS ORDERED: *Meperidine Inj 25 MG/ML Vial PERIprocedural Use ONLY ONE (10:14)
--- NOTE | 2017-11-17 10:30 | P.PNOP ---
Subjective Interval history: POD 0 s/p I&D left calf stable in PACU Physical Exam Vital signs: Vital Signs 11/16/17 12:00 11/16/17 15:20 11/16/17 16:00 Temperature 98.7 F 97.7 F Pulse Rate 117 H 92 H Respiratory Rate 20 18 20 Blood Pressure 130/64 107/61 Pulse Oximetry 97 95 11/16/17 20:00 11/17/17 00:00 11/17/17 04:00 Temperature 97.6 F 97.6 F 97.9 F Pulse Rate 80 95 H 88 Respiratory Rate 18 18 18 Blood Pressure 102/59 L 117/59 L 119/60 Pulse Oximetry 96 95 96 Intake & Output 11/16/17 11/17/17 11/17/17 18:59 06:59 18:59 Intake Total 360 / 360 1100 / 1100 Output Total 3 / 3 10 10 Balance 357 / 357 1090 / 1090 Weight 71.3 kg Intake: IV 50 / 50 Ancef 2 GM Premix Inj 2 gm In 50 / 50 50 ml @ 0 mls/hr IV.SIG .STK- [facility] Rx#:[id number] Tube Feeding 360 / 360 Anesthesia Amount 1050 / 1050 Output: Urine 3 / 3 Estimated Blood Loss Other: # Voids 3 Narrative: LLE: dressings clean and dry. intact. +drain - Urinary Catheter Management Indwelling Urethral Catheter Cath placed during this visit: yes, but has since been removed by the nurse Reason for continuing: Decision to DC catheter Insertion date: 11/02/17 Insertion time: 00:07 Removal date: 11/06/17 Removal time: 12:00 Results - Labs CBC & Chem 7: 11/14/17 07:13 11/17/17 07:30 Laboratory Results - last 24 hr 11/17/17 07:30 Sodium 131 L Potassium 3.8 Chloride 92 L Carbon Dioxide 27.3 Anion Gap 12 BUN 18 Creatinine 1.82 H Estimated GFR 33 L Random Glucose 80 Calcium 9.5 Microbiology 11/02/17 01:30 Cerebral Spinal Fluid - Lumbar Puncture Fungal Smear - Final No fungal elements seen 11/02/17 01:30 Cerebral Spinal Fluid - Lumbar Puncture Fungal Culture - Preliminary No growth in 2 weeks 11/02/17 01:30 Cerebral Spinal Fluid - Lumbar Puncture Acid Fast Bacilli Smear - Final No acid fast bacilli seen 11/02/17 01:30 Cerebral Spinal Fluid - Lumbar Puncture Mycobacterial Culture - Preliminary No growth in 2 weeks - Imaging Impressions Lower Extremity MRI 11/16/17 00:00 CONCLUSION: - Procedures Echocardiogram 11/03/2017 The left ventricular systolic function is hyperdynamic with an estimated ejection fraction in the range of 65- 70%. Normal left ventricular size. Wall thickness is normal. No regional wall motion abnormalities are present. There is mild tricuspid valve regurgitation. The estimated pulmonary arterial pressure is 39.2 mmHg. Assessment and Plan - Assessment and Plan 1) Left Calf Abscess s/p I&D - POD 0 -WBAT -daily dressing changes with xeroform/4x4/MARILEOS beginning POD 2 -maintain drain x 3 days -patient will need IV Abx. Infectious Dz to manage. -f/u with Panda or KELLY for suture removal in 2 weeks
[2017-11-17] MEDS ORDERED: Metoprolol Tartrate 25 MG Tablet PO SCH (11:00)
[2017-11-17] MEDS ORDERED: Chlorhexidine Gluconate 2% 1 Pack (2 Cloths) TOPICAL SCH (11:00)
[2017-11-17] MEDS ORDERED: Sodium Chlor 0.9% Inj 500 ML IV.SIG SCH (11:00)
[2017-11-17] MEDS ORDERED: Phenylephrine/NS 1000 MCG/10ML Syringe IV.PUSH ONE (12:00)
[2017-11-17] MEDS ORDERED: Lidocaine PF 1% Inj 5 ML Syringe INFILTRATN ONE (12:00)
[2017-11-17] MEDS ORDERED: Succinylcholine Inj 100 MG/5 ML Syringe IV.PUSH ONE (12:00)
--- NOTE | 2017-11-17 13:52 | P.PNIM ---
Subjective Interval history: Patient is status post I&D of left leg abscess this morning. Pain is controlled when seen. Some anesthetic effect is present but she does not have auditory hallucinations at this point. Physical Exam Vital signs: Vital Signs 11/16/17 15:20 11/16/17 16:00 11/16/17 20:00 Temperature 97.7 F 97.6 F Pulse Rate 92 H 80 Respiratory Rate 18 20 18 Blood Pressure 107/61 102/59 L Pulse Oximetry 95 96 11/17/17 00:00 11/17/17 04:00 11/17/17 09:57 Temperature 97.6 F 97.9 F 98.3 F Pulse Rate 95 H 88 100 H Respiratory Rate 18 18 22 Blood Pressure 117/59 L 119/60 113/59 L Pulse Oximetry 95 96 11/17/17 10:15 11/17/17 10:27 Temperature 98.3 F Pulse Rate 100 H 102 H Respiratory Rate 22 22 Blood Pressure 107/55 L 132/73 Pulse Oximetry 96 96 Intake & Output 11/16/17 11/17/17 11/17/17 18:59 06:59 18:59 Intake Total 360 / 360 1100 / 1100 Output Total 3 / 3 10 / 10 Balance 357 / 357 1090 / 1090 Weight 71.3 kg Intake: IV 50 / 50 Ancef 2 GM Premix Inj 2 gm In 50 / 50 50 ml @ 0 mls/hr IV.SIG .[facility]- [facility] Rx#:[id number] Tube Feeding 360 / 360 Anesthesia Amount 1050 / 1050 Output: Urine 3 / 3 Estimated Blood Loss 10 / 10 Other: # Voids 3 Narrative: GENERAL: NAD, A&Ox2 HEAD: Normocephalic. NECK: Supple, trachea midline. No lymphadenopathy. EYES: No scleral icterus. No injection or drainage. CARDIOVASCULAR: Regular rate and rhythm without murmurs, gallops, or rubs. RESPIRATORY: Breath sounds equal bilaterally. No accessory muscle use. GASTROINTESTINAL: Abdomen soft, non-tender, nondistended. MUSCULOSKELETAL: No cyanosis, or edema. Left leg is bandaged with digital drain present. SKIN: Warm and dry. NEURO: No focal neurological deficits. - Urinary Catheter Management Indwelling Urethral Catheter Cath placed during this visit: yes, but has since been removed by the nurse Reason for continuing: Decision to DC catheter Insertion date: 11/02/17 Insertion time: 00:07 Removal date: 11/06/17 Removal time: 12:00 Results - Labs CBC & Chem 7: 11/14/17 07:13 11/17/17 07:30 Laboratory Results - last 24 hr 11/17/17 07:30 Sodium 131 L Potassium 3.8 Chloride 92 L Carbon Dioxide 27.3 Anion Gap 12 BUN 18 Creatinine 1.82 H Estimated GFR 33 L Random Glucose 80 Calcium 9.5 Microbiology 11/02/17 01:30 Cerebral Spinal Fluid - Lumbar Puncture Fungal Smear - Final No fungal elements seen 11/02/17 01:30 Cerebral Spinal Fluid - Lumbar Puncture Fungal Culture - Preliminary No growth in 2 weeks 11/02/17 01:30 Cerebral Spinal Fluid - Lumbar Puncture Acid Fast Bacilli Smear - Final No acid fast bacilli seen 11/02/17 01:30 Cerebral Spinal Fluid - Lumbar Puncture Mycobacterial Culture - Preliminary No growth in 2 weeks - Imaging Impressions Venous Doppler Study 11/15/17 00:00 CONCLUSION: 1. Negative exam with no evidence of deep venous thrombosis. 2. Moderate size Carson's cyst in the left popliteal fossa region. Lower Extremity MRI 11/16/17 00:00 CONCLUSION: 1. Oval complex fluid collection most characteristic of an abscess. There is surrounding edema. - Procedures Echocardiogram 11/03/2017 The left ventricular systolic function is hyperdynamic with an estimated ejection fraction in the range of 65- 70%. Normal left ventricular size. Wall thickness is normal. No regional wall motion abnormalities are present. There is mild tricuspid valve regurgitation. The estimated pulmonary arterial pressure is 39.2 mmHg. Assessment and Plan - Plan 31-year-old female admitted secondary to fevers with history of IV drug abuse. MRSA bacteremia present. Status post I&D this morning. Patient tolerated procedure well. Pain control. MARVIN showed infective endocarditis. Continue antibiotics. Follow clinically for improvement and continued resolution of sepsis. Left Lower Extremity Abscess Status post I&D this morning Orthopedic Surgeon following Continue antibiotics Auditory Hallucinations New, may be related to withdraw Consider psych consult if this persists or worsens Sepsis Resolved Infective endocarditis MRSA bacteremia Probable septic pulmonary emboli ID following Continue daptomycin Continue gentamicin Cardiology following MARVIN shows infective endocarditis Severe back pain No evidence of abscess Continue methadone 10 year as needed Percocet Generalized edema Technique torsemide Bleeding lesion Continue antibiotics as above Infarction versus abscess Borderline personality disorder Abilify DVT prophylaxis Lovenox
--- NOTE | 2017-11-17 15:22 | P.PNID ---
Subjective Remarks: Patient underwent debridement of left calf abscess today 11/17/17. Very drowsy. Afebrile. Denies chills. \ Blood culture from 11/08 has no growth. Blood culture from 11/07 has MRSA. MARVIN noted lesions on the tricuspid and mitral valve. Admitted with altered mental status. The patient uses IV drugs in the form of heroin and methamphetamines. Lines: Peripheral IV in right leg intact Allergies/Adverse Reactions: Allergies haloperidol Adverse Reaction (Intermediate, Verified 11/01/17 22:36) SEIZURES NICKEL Allergy (Intermediate, Uncoded 11/01/17 22:36) Anxiety Objective Vital Signs 11/16/17 15:20 11/16/17 16:00 11/16/17 20:00 Temperature 97.7 F 97.6 F Pulse Rate 92 H 80 Respiratory Rate 18 20 18 Blood Pressure 107/61 102/59 L Pulse Oximetry 95 96 11/17/17 00:00 11/17/17 04:00 11/17/17 09:57 Temperature 97.6 F 97.9 F 98.3 F Pulse Rate 95 H 88 100 H Respiratory Rate 18 18 22 Blood Pressure 117/59 L 119/60 113/59 L Pulse Oximetry 95 96 11/17/17 10:15 11/17/17 10:27 Temperature 98.3 F Pulse Rate 100 H 102 H Respiratory Rate 22 22 Blood Pressure 107/55 L 132/73 Pulse Oximetry 96 96 Intake & Output 11/16/17 11/17/17 11/17/17 18:59 06:59 18:59 Intake Total 360 / 360 1100 / 1100 Output Total Balance 357 / 357 1090 / 1090 Weight 71.3 kg Intake: IV 50 / 50 Ancef 2 GM Premix Inj 2 gm In 50 / 50 50 ml @ 0 mls/hr IV.SIG .[facility]- [facility] Rx#:[id number] Tube Feeding 360 / 360 Anesthesia Amount 1050 / 1050 Output: Urine 3 Estimated Blood Loss Other: # Voids 3 11/17/17 09:05 Fluid - Other Fungal Smear - Pending 11/17/17 09:05 Fluid - Other Fungal Culture - Pending 11/17/17 09:05 Fluid - Other Acid Fast Bacilli Smear - Pending 11/17/17 09:05 Fluid - Other Mycobacterial Culture - Pending 11/17/17 09:05 Fluid - Other Gram Stain - Pending 11/17/17 09:05 Fluid - Other Wound Culture - Pending 11/02/17 01:30 Cerebral Spinal Fluid - Lumbar Puncture Fungal Smear - Final No fungal elements seen 11/02/17 01:30 Cerebral Spinal Fluid - Lumbar Puncture Fungal Culture - Preliminary No growth in 2 weeks 11/02/17 01:30 Cerebral Spinal Fluid - Lumbar Puncture Acid Fast Bacilli Smear - Final No acid fast bacilli seen 11/02/17 01:30 Cerebral Spinal Fluid - Lumbar Puncture Mycobacterial Culture - Preliminary No growth in 2 weeks Lab - Chemistry Results 11/17/17 07:30 Sodium 131 L Potassium 3.8 Chloride 92 L Carbon Dioxide 27.3 Anion Gap 12 BUN 18 Creatinine 1.82 H Estimated GFR 33 L Random Glucose 80 Calcium 9.5 Imaging: ITS Impressions Head CT 11/02/17 00:00 CONCLUSION: 1. No acute intracranial abnormality. 2. Bilateral maxillary sinus mucosal disease. Head MRI 11/02/17 00:00 CONCLUSION: 1. No definite acute abnormality is seen. Edema to suggest encephalitis is not seen. 2. There are a few punctate areas of increased signal within the cerebral white matter representing small foci of demyelination. Underlying demyelinating conditions can be considered. Liver Ultrasound 11/02/17 00:00 CONCLUSION: Generalized hepatosplenomegaly without focal mass Sludge within the gallbladder Chest CT 11/02/17 00:01 CONCLUSION: 1. Diffuse patchy groundglass opacities with nodular regions primarily in the left upper and lower lobes and single potentially cavitary nodule near the left lung apex. Overall, findings are concerning for atypical infection or developing septic pulmonary emboli in the appropriate clinical setting. 2. Subtle anterior pericardial effusion. 3. Subcentimeter bilateral axillary adenopathy, likely infectious/inflammatory. Chest X-Ray 11/04/17 05:00 CONCLUSION: Developing bilateral infiltrates. Abdomen/Pelvis CT 11/06/17 00:00 CONCLUSION: 1. Mild anasarca. 2. Slight splenomegaly with focal lesion towards the anterior portion of the spleen not present on the prior examination could be infarction, however splenic abscess is not excluded. 3. Slight peritoneal fluid nonspecific. Cervical Spine MRI 11/06/17 00:00 CONCLUSION: Slight nondescript serpiginous edema in the upper back, otherwise unremarkable. Lumbar Spine MRI 11/06/17 00:00 CONCLUSION: Slight nondescript subcutaneous edema in the patient's back, otherwise unremarkable without abscess formation. Thoracic Spine MRI 11/06/17 00:00 CONCLUSION: Essentially unremarkable study except for slight nondescript separate density on the patient's back. Venous Doppler Study 11/15/17 00:00 CONCLUSION: 1. Negative exam with no evidence of deep venous thrombosis. 2. Moderate size Carson's cyst in the left popliteal fossa region. Lower Extremity MRI 11/16/17 00:00 CONCLUSION: 1. Oval complex fluid collection most characteristic of an abscess. There is surrounding edema. Physical Exam: GENERAL: NAD. HEENT: No icterus. Oropharynx: Moist mucosa. No visible lesions. NECK: Supple. No adenopathy. LUNGS: Clear breath sounds HEART: Regular S1 and S2, No murmurs heard. ABDOMEN: Obese, soft, no tenderness appreciated. No masses palpable. EXTREMITIES: Post op Left leg. JAROCHO bulb has serous/ sanguinous drainage 2+ edema at the extremities. SKIN: No rash. NEUROLOGIC: No gross focal findings. PSYCH: Drowsy, Calm and cooperative. Assessment and Plan - Plan IMPRESSION: 1. Endocarditis. Mitral and tricuspid valve. R. atrial mass - MRSA. 2. Severe sepsis due to methicillin-resistant Staphylococcus aureus in patient sedated with intravenous drug abuse and recent intravenous drug use. 3. Abnormal CT of the chest, suggesting septic emboli. Left calf abscess post drainage - culture pending. 4. Altered mental status on admission. Lumbar puncture revealed few white cells in the cerebrospinal fluid. Mental status improved. 5. Acute kidney disease. Stopped Gentamycin. RECOMMENDATIONS: 1. Continue Daptomycin. Blood culture remained persistent with Vancomycin. 2. Follow kidney function. 3. Monitor leg abscess culture. 4. Monitor clinical status. Anticipate 6 weeks of IV antibiotics. Would not place a PIC line. Patient is not candidate for outpatient treatment. Very high likelihood she will use PIC line for IV drug use.
[2017-11-17] MEDS: Famotidine PF Inj 20 MG/2 ML Vial IV.PUSH SCH ×2 (15:37→21:17)
[2017-11-17] MEDS: ARIPiprazole 5 MG Tablet PO SCH (15:37)
[2017-11-17] MEDS: DAPTOmycin Inj 800 MG in Sodium Chlor 0.9% Inj 100 ML IV.SIG SCH (15:38)
[2017-11-17] MEDS: oxyCODONE/Acetaminophen 10/325 Tablet PO PRN ×2 (17:50→23:52)
[2017-11-17] MEDS: Morphine Inj 4 MG/ML Vial IV.PUSH PRN (21:17)
[2017-11-18] MEDS: Enoxaparin Inj 40 MG/0.4 ML Syringe SQ SCH (03:50)
[2017-11-18] MEDS: oxyCODONE/Acetaminophen 10/325 Tablet PO PRN ×3 (03:59→21:16)
[2017-11-18] MEDS: Methadone 10 MG Tablet PO SCH ×3 (06:22→21:15)
[2017-11-18] MEDS: clonazePAM 1 MG Tablet PO SCH ×3 (06:22→21:16)
[2017-11-18] MEDS: Famotidine PF Inj 20 MG/2 ML Vial IV.PUSH SCH ×2 (10:38→21:16)
[2017-11-18] MEDS: ARIPiprazole 5 MG Tablet PO SCH (10:38)
[2017-11-18] MEDS: Sod Chloride 0.9% Inj 1,000 ML IV.CONT SCH ×2 (10:39→18:00)
--- NOTE | 2017-11-18 10:53 | P.PNOP ---
Subjective Interval history: Patient c/o LLE pain. Physical Exam Vital signs: Vital Signs 11/17/17 17:53 11/17/17 20:00 11/18/17 00:00 Temperature 98.7 F 99.4 F 99.5 F Pulse Rate 97 H 101 H 88 Respiratory Rate 16 18 18 Blood Pressure 136/80 136/65 134/73 Pulse Oximetry 96 95 95 11/18/17 04:00 11/18/17 08:02 Temperature Pulse Rate Respiratory Rate 16 16 Blood Pressure Pulse Oximetry Intake & Output 11/17/17 11/18/17 11/18/17 18:59 06:59 18:59 Intake Total 1100 / 1100 Output Total 80 / 80 Balance 1090 / 1090 -80 / -80 Weight 71.3 kg Intake: IV 50 / 50 Ancef 2 GM Premix Inj 2 gm In 50 / 50 50 ml @ 0 mls/hr IV.SIG .[facility]- [facility] Rx#:[id number] Anesthesia Amount 1050 / 1050 Output: Estimated Blood Loss Wound Drainage 80 / 80 Left Calf 80 / 80 Other: # Voids 2 Date of Last Bowel Movement 11/17/17 LLE: dressings C/D/I +drain distally motor, neuro, sensory intact - Urinary Catheter Management Indwelling Urethral Catheter Cath placed during this visit: yes, but has since been removed by the nurse Reason for continuing: Decision to DC catheter Insertion date: 11/02/17 Insertion time: 00:07 Removal date: 11/06/17 Removal time: 12:00 Results - Labs CBC & Chem 7: 11/14/17 07:13 11/17/17 07:30 Laboratory Results - last 24 hr 11/17/17 07:30 Total Creatine Kinase 75 Microbiology 11/17/17 09:05 Fluid - Other Fungal Smear - Final No fungal elements seen 11/17/17 09:05 Fluid - Other Gram Stain - Final - Imaging Impressions Venous Doppler Study 11/15/17 00:00 CONCLUSION: 1. Negative exam with no evidence of deep venous thrombosis. 2. Moderate size Carson's cyst in the left popliteal fossa region. Lower Extremity MRI 11/16/17 00:00 CONCLUSION: 1. Oval complex fluid collection most characteristic of an abscess. There is surrounding edema. - Procedures Echocardiogram 11/03/2017 The left ventricular systolic function is hyperdynamic with an estimated ejection fraction in the range of 65- 70%. Normal left ventricular size. Wall thickness is normal. No regional wall motion abnormalities are present. There is mild tricuspid valve regurgitation. The estimated pulmonary arterial pressure is 39.2 mmHg. Assessment and Plan - Assessment and Plan 1) Left Calf Abscess s/p I&D - POD 1 -WBAT -daily dressing changes with xeroform/4x4/MARIELOS beginning POD 2 -maintain drain x 3 days -patient will need IV Abx. Infectious Dz to manage. -f/u with Panda or KELLY for suture removal in 2 weeks
--- NOTE | 2017-11-18 11:51 | P.PNIM ---
Subjective Interval history: 11-17 Patient is status post I&D of left leg abscess this morning. Pain is controlled when seen. Some anesthetic effect is present but she does not have auditory hallucinations at this point. 11-18 CONTINUE ANTIBIOTICS FOR ABSCESS AND MITRAL AND TRICUSPID ENDOCARDITIS NO NEW COMPLAINTS OTHER THAN PAIN IN LEFT LEG DW RN AND PT AND CM WILL BE HERE BLANK DRILLER Physical Exam Vital signs: Vital Signs 11/17/17 17:53 11/17/17 20:00 11/18/17 00:00 Temperature 98.7 F 99.4 F 99.5 F Pulse Rate 97 H 101 H 88 Respiratory Rate 16 18 18 Blood Pressure 136/80 136/65 134/73 Pulse Oximetry 96 95 95 11/18/17 04:00 11/18/17 08:02 11/18/17 11:30 Temperature Pulse Rate Respiratory Rate 16 16 18 Blood Pressure Pulse Oximetry Intake & Output 11/17/17 11/18/17 11/18/17 18:59 06:59 18:59 Intake Total 1100 / 1100 Output Total 80 / 80 40 / 40 Balance 1090 / 1090 -80 / -80 -40 / -40 Weight 71.3 kg Intake: IV 50 / 50 Ancef 2 GM Premix Inj 2 gm In 50 / 50 50 ml @ 0 mls/hr IV.SIG .[facility]- [facility] Rx#:[id number] Anesthesia Amount 1050 / 1050 Output: Estimated Blood Loss Wound Drainage 80 / 80 40 / 40 Left Calf 80 / 80 40 / 40 Other: # Voids 2 Date of Last Bowel Movement 11/17/17 Narrative: GENERAL: NAD, A&Ox2 HEAD: Normocephalic. NECK: Supple, trachea midline. No lymphadenopathy. EYES: No scleral icterus. No injection or drainage. CARDIOVASCULAR: Regular rate and rhythm without murmurs, gallops, or rubs. S1, S2 RESPIRATORY: Breath sounds equal bilaterally. No accessory muscle use. GASTROINTESTINAL: Abdomen soft, non-tender, nondistended. MUSCULOSKELETAL: No cyanosis, or edema. Left leg is bandaged with drain present. SKIN: Warm and dry. NEURO: No focal neurological deficits. INSIGHT AND JUDGEMENT IS LIMITED MOOD AND BEHAVIOR IS SOMEWHAT APPROPRIATE - Urinary Catheter Management Indwelling Urethral Catheter Cath placed during this visit: yes, but has since been removed by the nurse Reason for continuing: Decision to DC catheter Insertion date: 11/02/17 Insertion time: 00:07 Removal date: 11/06/17 Removal time: 12:00 Results - Labs CBC & Chem 7: 11/14/17 07:13 11/17/17 07:30 Laboratory Results - last 24 hr 11/17/17 07:30 Total Creatine Kinase 75 Microbiology 11/17/17 09:05 Fluid - Other Fungal Smear - Final No fungal elements seen 11/17/17 09:05 Fluid - Other Gram Stain - Final - Procedures Echocardiogram 11/03/2017 The left ventricular systolic function is hyperdynamic with an estimated ejection fraction in the range of 65- 70%. Normal left ventricular size. Wall thickness is normal. No regional wall motion abnormalities are present. There is mild tricuspid valve regurgitation. The estimated pulmonary arterial pressure is 39.2 mmHg. 11/17/17 Procedure: Irrigation and debridement of left calf abscess Anesthesia: GETA Surgeon: Anand Torres MD Computing Consultant: MUMTAZ Abdi PA-C The surgical procedure was assisted by my physician psychiatric technician assistant. My P.A. presence was necessary throughout this case for the manipulation and positioning of the surgical extremity. My P.A. was assisting me throughout the duration of this procedure. The skill set of a physician psychiatric technician assistant was medically necessary to complete this procedure. During the surgical case the certified surgical technologist was working at the back table and the physician psychiatric technician assistant was directly assisting me. Operation and Findings: Salud is a 31-year-old female with history of IV drug use. She has developed left calf pain and swelling. MRI revealed an abscess of the left calf. Informed consent was obtained preoperatively and operative site was marked. She was brought to the operating room. She was initially given spinal anesthesia. Spinal anesthesia was not providing adequate anesthesia for surgery. Subsequently she is given IV sedation and general anesthesia. Left leg was prepped with alcohol followed Hibiclens and draped in usual sterile fashion. Timeout procedure was performed. Patient is already on scheduled IV antibiotics. Procedure began with a 2 inch incision over the posterior medial calf. Subcu tissue was dissected with Bovie. The abscess was identified. Approximately 50 cc of purulent fluid was evacuated from the abscess. This fluid was sent for cultures. An excisional debridement was now performed with rongeurs and curettes. Subcutaneous tissue and fascia were sharply excised. Loculations were manually debrided. After thorough debridement, the soft tissue was thoroughly irrigated with pulsatile lavage. A drain was placed into the abscess region. Subcutaneous tissue was closed with 3-0 PDS and skin was closed with 3-0 nylon. Sterile dressings were applied. Patient was awakened and transferred to recovery room in stable condition. Assessment and Plan - Plan 31-year-old female admitted secondary to fevers with history of IV drug abuse. MRSA bacteremia present. Status post I&D 11-17. Patient tolerated procedure well. Pain control. 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 Continue antibiotics. Follow clinically for improvement and continued resolution of sepsis. Left Lower Extremity Abscess Status post I&D 11-17 Orthopedic Surgeon following Continue antibiotics Auditory Hallucinations New, may be related to withdraw Consider psych consult if this persists or worsens Sepsis Resolved Infective endocarditis MRSA bacteremia Probable septic pulmonary emboli ID following Continue daptomycin Continue gentamicin Cardiology following MARVIN shows infective endocarditis OF MITRAL AND TRICUSPID VALVES Severe back pain No evidence of abscess Continue methadone needed Percocet Generalized edema Technique torsemide Bleeding lesion Continue antibiotics as above Infarction versus abscess Borderline personality disorder Abilify DVT prophylaxis Lovenox Code Status: FULL CODE Discussed Condition With: RN AND PT AND CM Discharge Planning: WILL NEED SHELTER ANTIBIOTICS PER ID NO PICC LINE
[2017-11-18] MEDS: DAPTOmycin Inj 800 MG in Sodium Chlor 0.9% Inj 100 ML IV.SIG SCH (13:39)
[2017-11-18] MEDS: Morphine Inj 4 MG/ML Vial IV.PUSH PRN (16:24)
[2017-11-19] MEDS: oxyCODONE/Acetaminophen 10/325 Tablet PO PRN ×3 (03:29→22:32)
[2017-11-19] MEDS: Enoxaparin Inj 40 MG/0.4 ML Syringe SQ SCH (05:38)
[2017-11-19] MEDS: Sod Chloride 0.9% Inj 1,000 ML IV.CONT SCH ×2 (05:38→13:54)
[2017-11-19] MEDS: clonazePAM 1 MG Tablet PO SCH ×2 (05:39→13:55)
[2017-11-19] MEDS: Methadone 10 MG Tablet PO SCH ×3 (05:39→22:33)
[2017-11-19] MEDS: Famotidine PF Inj 20 MG/2 ML Vial IV.PUSH SCH ×2 (08:03→22:32)
[2017-11-19] MEDS: ARIPiprazole 5 MG Tablet PO SCH (08:03)
[2017-11-19 09:37] LABS: Baso # (Auto) 0.1 th/mm3 (0.0-0.2); Eos # (Auto) 0.4 th/mm3 (0.0-0.4); Eos % (Auto) 4.8 % (0.0-4.0); Hematocrit 27.5 % (35.0-46.0); Hemoglobin 9.2 gm/dL (11.6-15.3); Lymph # (Auto) 2.7 th/mm3 (1.0-4.8); Lymph % (Auto) 32.7 % (9.0-44.0); Mean Corpuscular HGB Conc 33.3 % (32.0-36.0); Mean Corpuscular Hemoglobin 29.3 pg (27.0-34.0); Mean Platelet Volume 7.1 fL (7.0-11.0); Mono # (Auto) 0.7 th/mm3 (0.0-0.9); Mono % (Auto) 8.7 % (0.0-8.0); Neut # (Auto) 4.3 th/mm3 (1.8-7.7); Neut % (Auto) 52.8 % (16.0-70.0); Platelet Count 555 th/mm3 (150-450); Red Blood Count 3.13 mil/mm3 (4.00-5.30); Red Cell Distribution Width 14.8 % (11.6-17.2); White Blood Count 8.2 th/mm3 (4.0-11.0)
[2017-11-19 10:06] LABS: Alanine Aminotransferase 9 U/L (10-53); Albumin 2.1 g/dL (3.4-5.0); Alkaline Phosphatase 77 U/L (45-117); Anion Gap 10 meq/L (5-15); Aspartate Aminotransferase 25 U/L (15-37); Blood Urea Nitrogen 6 mg/dL (7-18); Calcium 8.8 mg/dL (8.5-10.1); Carbon Dioxide 24.1 meq/L (21.0-32.0); Chloride 101 meq/L (98-107); Free T4 (Free Thyroxine) 1.08 ng/dL (0.76-1.46); Glomerular Filtration Rate 62 mL/min (>89); Glucose,Random 76 mg/dL (74-106); Phosphorus 5.3 mg/dL (2.5-4.9); Potassium 3.8 meq/L (3.5-5.1); Sodium 135 meq/L (136-145); Thyroid Stimulating Hormone 0.871 uIU/mL (0.358-3.740); Total Protein 8.1 g/dL (6.4-8.2)
--- NOTE | 2017-11-19 10:21 | P.PNOP ---
Subjective Interval history: Patient c/o LLE pain. AMS. Significant other at bedside. Patient advised to not touch her leg. Physical Exam Vital signs: Vital Signs 11/18/17 11:30 11/18/17 13:46 11/18/17 20:00 Temperature 98.1 F 98.2 F Pulse Rate 103 H 97 H Respiratory Rate 18 18 16 Blood Pressure 116/71 122/75 Pulse Oximetry 100 94 L 11/19/17 00:00 11/19/17 04:00 11/19/17 09:59 Temperature 98.0 F 98.1 F Pulse Rate 83 86 Respiratory Rate 18 16 18 Blood Pressure 111/56 L 115/87 Pulse Oximetry 96 96 Intake & Output 11/18/17 11/19/17 11/19/17 18:59 06:59 18:59 Intake Total 100 / 100 720 / 720 Output Total 40 / 40 35 / 35 Balance 60 / 60 685 / 685 Weight 71.3 kg Intake: IV 100 / 100 Cubicin Inj 800 MG In NS Inj 100 / 100 100 ML @ 200 mls/hr IV.SIG Q24H JUNIOR Rx#:[id number] Oral 720 / 720 Output: Wound Drainage 40 / 40 35 / 35 Left Calf 40 / 40 35 / 35 Other: # Voids 4 2 Date of Last Bowel Movement 11/17/17 11/18/17 LLE: dressing and splint intact +drain good movement of left ankle - Urinary Catheter Management Indwelling Urethral Catheter Cath placed during this visit: yes, but has since been removed by the nurse Reason for continuing: Decision to DC catheter Insertion date: 11/02/17 Insertion time: 00:07 Removal date: 11/06/17 Removal time: 12:00 Results - Labs CBC & Chem 7: 11/19/17 07:44 11/19/17 07:49 Laboratory Results - last 24 hr 11/19/17 11/19/17 07:44 07:49 WBC 8.2 RBC 3.13 L Hgb 9.2 L Hct 27.5 L MCV 88.0 MCH 29.3 MCHC 33.3 RDW 14.8 Plt Count 555 H MPV 7.1 Prelim Diff (Auto) Computer Hardware Developer Neut % (Auto) 52.8 Lymph % (Auto) 32.7 [place] % (Auto) 8.7 H Eos % (Auto) 4.8 H Baso % (Auto) 1.0 Neut # (Auto) 4.3 Lymph # (Auto) 2.7 [place] # (Auto) 0.7 Eos # (Auto) 0.4 Baso # (Auto) 0.1 WBC Differential . Diff Scan Auto diff confirmed Differential Comment . Platelet Estimate High H Platelet Morphology Giant H Sodium 135 L Potassium 3.8 Chloride 101 Carbon Dioxide 24.1 Anion Gap 10 BUN 6 L Creatinine 1.05 H Estimated GFR 62 L Random Glucose 76 Calcium 8.8 Phosphorus 5.3 H Total Bilirubin 0.4 AST 25 ALT 9 L Alkaline Phosphatase 77 Total Protein 8.1 Albumin 2.1 L TSH 0.871 Free T4 1.08 Microbiology 11/17/17 09:05 Fluid - Other Gram Stain - Final 11/17/17 09:05 Fluid - Other Wound Culture - Preliminary No growth in 48 hours - Procedures Echocardiogram 11/03/2017 The left ventricular systolic function is hyperdynamic with an estimated ejection fraction in the range of 65- 70%. Normal left ventricular size. Wall thickness is normal. No regional wall motion abnormalities are present. There is mild tricuspid valve regurgitation. The estimated pulmonary arterial pressure is 39.2 mmHg. 11/17/17 Procedure: Irrigation and debridement of left calf abscess Anesthesia: GETA Surgeon: Anand Torres MD Delinquency Prevention Social Worker: MUMTAZ Abdi PA-C The surgical procedure was assisted by my physician learning and development assistant. My P.A. presence was necessary throughout this case for the manipulation and positioning of the surgical extremity. My P.A. was assisting me throughout the duration of this procedure. The skill set of a physician learning and development assistant was medically necessary to complete this procedure. During the surgical case the surgical pathologist was working at the back table and the physician learning and development assistant was directly assisting me. Operation and Findings: Salud is a 31-year-old female with history of IV drug use. She has developed left calf pain and swelling. MRI revealed an abscess of the left calf. Informed consent was obtained preoperatively and operative site was marked. She was brought to the operating room. She was initially given spinal anesthesia. Spinal anesthesia was not providing adequate anesthesia for surgery. Subsequently she is given IV sedation and general anesthesia. Left leg was prepped with alcohol followed Hibiclens and draped in usual sterile fashion. Timeout procedure was performed. Patient is already on scheduled IV antibiotics. Procedure began with a 2 inch incision over the posterior medial calf. Subcu tissue was dissected with Bovie. The abscess was identified. Approximately 50 cc of purulent fluid was evacuated from the abscess. This fluid was sent for cultures. An excisional debridement was now performed with rongeurs and curettes. Subcutaneous tissue and fascia were sharply excised. Loculations were manually debrided. After thorough debridement, the soft tissue was thoroughly irrigated with pulsatile lavage. A drain was placed into the abscess region. Subcutaneous tissue was closed with 3-0 PDS and skin was closed with 3-0 nylon. Sterile dressings were applied. Patient was awakened and transferred to recovery room in stable condition. Assessment and Plan - Assessment and Plan 1) Left Calf Abscess s/p I&D - POD 2 -WBAT -daily dressing changes with xeroform/4x4/MARIELOS beginning POD 2 -anticipating drain to be removed tomorrow -patient will need IV Abx. Infectious Dz to manage. -f/u with Panda or KELLY for suture removal in 2 weeks
[2017-11-19] MEDS: DAPTOmycin Inj 800 MG in Sodium Chlor 0.9% Inj 100 ML IV.SIG SCH (13:52)
--- NOTE | 2017-11-19 14:14 | P.PN ---
Subjective Interval history: Follow-up on patient with left leg abscess. Patient seen and examined. Patient complaining of pain but was sleeping when I entered the room and appears somewhat lethargic with slightly slurred speech this morning. She denies any new medical complaints. Discussed with nursing staff, no acute issues noted. Physical Exam Vital signs: Vital Signs 11/18/17 20:00 11/19/17 00:00 11/19/17 04:00 Temperature 98.2 F 98.0 F Pulse Rate 97 H 83 Respiratory Rate 16 18 16 Blood Pressure 122/75 111/56 L Pulse Oximetry 94 L 96 11/19/17 09:59 11/19/17 12:53 Temperature 98.1 F 100.0 F H Pulse Rate 86 200 H Respiratory Rate 18 16 Blood Pressure 115/87 125/85 Pulse Oximetry 96 100 Intake & Output 11/18/17 11/19/17 11/19/17 18:59 06:59 18:59 Intake Total 100 / 100 720 / 720 100 / 100 Output Total 40 / 40 35 / 35 30 / 30 Balance 60 / 60 685 / 685 70 / 70 Weight 71.3 kg Intake: IV 100 / 100 100 / 100 Cubicin Inj 800 MG In NS Inj 100 / 100 100 / 100 100 ML @ 200 mls/hr IV.SIG Q24H JUNIOR Rx#:[id number] Oral 720 / 720 Output: Wound Drainage 40 / 40 35 / 35 30 / 30 Left Calf 40 / 40 35 / 35 30 / 30 Other: # Voids 4 2 Date of Last Bowel Movement 11/17/17 11/18/17 Narrative: GENERAL: This is a well-developed well-nourished female patient INAD. Somewhat lethargic. SKIN: Warm and dry. No generalized rash. HEENT: Atraumatic. Normocephalic. EOMI. Sclera anicteric bilaterally. No nasal drainage noted. Airway patent. MMM. NECK: Supple, trachea midline. No lymphadenopathy. CARDIOVASCULAR: Tachycardic without murmurs, gallops, or rubs. S1, S2 RESPIRATORY: Breath sounds equal bilaterally. No accessory muscle use. Clear to auscultation. GASTROINTESTINAL: Abdomen soft, non-tender, nondistended. MUSCULOSKELETAL: No cyanosis or edema. Left leg is in postop dressing with JAROCHO drain present. NEURO: Awake, somewhat lethargic. Able to move all extremities spontaneously. No focal neurological deficits. Slightly slurred speech. PSYCHIATRIC: Calm and cooperative. Judgment and insight poor. - Urinary Catheter Management Indwelling Urethral Catheter Cath placed during this visit: yes, but has since been removed by the nurse Reason for continuing: Decision to DC catheter Insertion date: 11/02/17 Insertion time: 00:07 Removal date: 11/06/17 Removal time: 12:00 Results - Labs CBC & Chem 7: 11/19/17 07:44 11/19/17 07:49 Laboratory Results - last 24 hr 11/19/17 11/19/17 07:44 07:49 WBC 8.2 RBC 3.13 L Hgb 9.2 L Hct 27.5 L MCV 88.0 MCH 29.3 MCHC 33.3 RDW 14.8 Plt Count 555 H MPV 7.1 Prelim Diff (Auto) Automotive Glass Technician Neut % (Auto) 52.8 Lymph % (Auto) 32.7 [place] % (Auto) 8.7 H Eos % (Auto) 4.8 H Baso % (Auto) 1.0 Neut # (Auto) 4.3 Lymph # (Auto) 2.7 [place] # (Auto) 0.7 Eos # (Auto) 0.4 Baso # (Auto) 0.1 WBC Differential . Diff Scan Auto diff confirmed Differential Comment . Platelet Estimate High H Platelet Morphology Giant H Sodium 135 L Potassium 3.8 Chloride 101 Carbon Dioxide 24.1 Anion Gap 10 BUN 6 L Creatinine 1.05 H Estimated GFR 62 L Random Glucose 76 Calcium 8.8 Phosphorus 5.3 H Total Bilirubin 0.4 AST 25 ALT 9 L Alkaline Phosphatase 77 Total Protein 8.1 Albumin 2.1 L TSH 0.871 Free T4 1.08 Microbiology 11/17/17 09:05 Fluid - Other Acid Fast Bacilli Smear - Final No acid fast bacilli seen 11/17/17 09:05 Fluid - Other Gram Stain - Final 11/17/17 09:05 Fluid - Other Wound Culture - Preliminary No growth in 48 hours - Imaging Chest X-Ray 11/01/17 22:25 CONCLUSION: 1. Diffuse patchy groundglass opacities concerning for atypical infection in the appropriate clinical setting. Chest X-Ray 11/02/17 00:00 CONCLUSION: Mild patchy consolidation or atelectasis at the medial left lung base. Head CT 11/02/17 00:00 CONCLUSION: 1. No acute intracranial abnormality. 2. Bilateral maxillary sinus mucosal disease. Head MRI 11/02/17 00:00 CONCLUSION: 1. No definite acute abnormality is seen. Edema to suggest encephalitis is not seen. 2. There are a few punctate areas of increased signal within the cerebral white matter representing small foci of demyelination. Underlying demyelinating conditions can be considered. Liver Ultrasound 11/02/17 00:00 CONCLUSION: Generalized hepatosplenomegaly without focal mass Sludge within the gallbladder Chest CT 11/02/17 00:01 CONCLUSION: 1. Diffuse patchy groundglass opacities with nodular regions primarily in the left upper and lower lobes and single potentially cavitary nodule near the left lung apex. Overall, findings are concerning for atypical infection or developing septic pulmonary emboli in the appropriate clinical setting. 2. Subtle anterior pericardial effusion. 3. Subcentimeter bilateral axillary adenopathy, likely infectious/inflammatory. Chest X-Ray 11/04/17 05:00 CONCLUSION: Developing bilateral infiltrates. Abdomen/Pelvis CT 11/06/17 00:00 CONCLUSION: 1. Mild anasarca. 2. Slight splenomegaly with focal lesion towards the anterior portion of the spleen not present on the prior examination could be infarction, however splenic abscess is not excluded. 3. Slight peritoneal fluid nonspecific. Cervical Spine MRI 11/06/17 00:00 CONCLUSION: Slight nondescript serpiginous edema in the upper back, otherwise unremarkable. Lumbar Spine MRI 11/06/17 00:00 CONCLUSION: Slight nondescript subcutaneous edema in the patient's back, otherwise unremarkable without abscess formation. Thoracic Spine MRI 11/06/17 00:00 CONCLUSION: Essentially unremarkable study except for slight nondescript separate density on the patient's back. Venous Doppler Study 11/15/17 00:00 CONCLUSION: 1. Negative exam with no evidence of deep venous thrombosis. 2. Moderate size Carson's cyst in the left popliteal fossa region. Lower Extremity MRI 11/16/17 00:00 CONCLUSION: 1. Oval complex fluid collection most characteristic of an abscess. There is surrounding edema. - Procedures Echocardiogram 11/03/2017 The left ventricular systolic function is hyperdynamic with an estimated ejection fraction in the range of 65- 70%. Normal left ventricular size. Wall thickness is normal. No regional wall motion abnormalities are present. There is mild tricuspid valve regurgitation. The estimated pulmonary arterial pressure is 39.2 mmHg. 11/17/17 Procedure: Irrigation and debridement of left calf abscess Anesthesia: GETA Surgeon: Anand Torres MD Electronic Equipment Installer: MUMTAZ Abdi PA-C The surgical procedure was assisted by my physician assistant professor of geography. My P.A. presence was necessary throughout this case for the manipulation and positioning of the surgical extremity. My P.A. was assisting me throughout the duration of this procedure. The skill set of a physician assistant professor of geography was medically necessary to complete this procedure. During the surgical case the regional vice president surgical sales was working at the back table and the physician assistant professor of geography was directly assisting me. Operation and Findings: Salud is a 31-year-old female with history of IV drug use. She has developed left calf pain and swelling. MRI revealed an abscess of the left calf. Informed consent was obtained preoperatively and operative site was marked. She was brought to the operating room. She was initially given spinal anesthesia. Spinal anesthesia was not providing adequate anesthesia for surgery. Subsequently she is given IV sedation and general anesthesia. Left leg was prepped with alcohol followed Hibiclens and draped in usual sterile fashion. Timeout procedure was performed. Patient is already on scheduled IV antibiotics. Procedure began with a 2 inch incision over the posterior medial calf. Subcu tissue was dissected with Bovie. The abscess was identified. Approximately 50 cc of purulent fluid was evacuated from the abscess. This fluid was sent for cultures. An excisional debridement was now performed with rongeurs and curettes. Subcutaneous tissue and fascia were sharply excised. Loculations were manually debrided. After thorough debridement, the soft tissue was thoroughly irrigated with pulsatile lavage. A drain was placed into the abscess region. Subcutaneous tissue was closed with 3-0 PDS and skin was closed with 3-0 nylon. Sterile dressings were applied. Patient was awakened and transferred to recovery room in stable condition. Assessment and Plan - Plan 31-year-old female admitted secondary to fevers with history of IV drug abuse. MRSA bacteremia present. Status post I&D 11-17. Patient tolerated procedure well. Pain control. 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 Continue antibiotics. Follow clinically for improvement and continued resolution of sepsis. Left Lower Extremity Abscess Status post I&D 11-17, wound culture shows no growth in 48 hours Orthopedic Surgeon following. Daily dressing changes per Ortho instructions. Possibly DC drain tomorrow. 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 Hold Torsemide Avoid nephrotoxic agents Continue to monitor kidney function Severe back pain No evidence of abscess Continue methadone needed Percocet Generalized edema on torsemide, hold for now Bleeding lesion Continue antibiotics as above Infarction versus abscess Borderline personality disorder Anxiety Abilify Change clonazepam to as needed secondary to lethargy Hepatitis C IVDU Standard precautions Advised on IV drug use cessation Patient will need to follow-up with GI as outpatient DVT prophylaxis Lovenox Discussed Condition With: Patient, nursing staff, case management Discharge Planning: Not ready for discharge. Patient will need long-term IV antibiotics per ID and not able to have PICC line placed secondary to IV drug use
[2017-11-19] MEDS: clonazePAM 1 MG Tablet PO PRN (22:33)
[2017-11-19] MEDS: Morphine Inj 4 MG/ML Vial IV.PUSH PRN (23:15)
[2017-11-20] MEDS: Enoxaparin Inj 40 MG/0.4 ML Syringe SQ SCH (02:25)
[2017-11-20] MEDS: Sod Chloride 0.9% Inj 1,000 ML IV.CONT SCH ×2 (02:25→13:13)
[2017-11-20] MEDS: oxyCODONE/Acetaminophen 10/325 Tablet PO PRN ×5 (04:20→22:20)
[2017-11-20] MEDS: clonazePAM 1 MG Tablet PO PRN ×3 (04:20→22:10)
[2017-11-20] MEDS: Methadone 10 MG Tablet PO SCH ×3 (05:36→22:10)
[2017-11-20] MEDS: Morphine Inj 4 MG/ML Vial IV.PUSH PRN ×2 (06:00→11:25)
--- NOTE | 2017-11-20 06:39 | P.PNOP ---
Subjective Interval history: POD 3 s/p I&D left calf doing well. patient reports that pain is much better than before and reports that she can now walk on leg with minimal difficulty Physical Exam Vital signs: Vital Signs 11/19/17 09:59 11/19/17 12:53 11/19/17 15:07 Temperature 98.1 F 100.0 F H Pulse Rate 86 200 H Respiratory Rate 18 16 16 Blood Pressure 115/87 125/85 Pulse Oximetry 96 100 11/19/17 16:53 11/19/17 20:00 11/20/17 00:00 Temperature 99.2 F 98.4 F 98.2 F Pulse Rate 102 H 87 82 Respiratory Rate 18 18 20 Blood Pressure 131/80 107/62 112/78 Pulse Oximetry 98 83 L 93 L 11/20/17 04:00 Temperature 98.6 F Pulse Rate 95 H Respiratory Rate 20 Blood Pressure 126/70 Pulse Oximetry 95 Intake & Output 11/19/17 11/19/17 11/20/17 06:59 18:59 06:59 Intake Total 720 / 720 100 / 100 680 / 680 Output Total 35 / 35 30 / 30 Balance 685 / 685 70 / 70 680 / 680 Weight 71.3 kg Intake: IV 100 / 100 400 / 400 NS Inj 1,000 ML @ 100 mls/hr IV 400 / 400 .CONT .Q10H JUNIOR Rx#:[id number] Cubicin Inj 800 MG In NS Inj 100 / 100 100 ML @ 200 mls/hr IV.SIG Q24H JUNIOR Rx#:[id number] Oral 720 / 720 280 / 280 Output: Wound Drainage 35 / 35 30 / 30 Left Calf 35 / 35 30 / 30 Other: # Voids 4 2 3 Date of Last Bowel Movement 11/18/17 Narrative: LLE: dressings clean and dry. intact. NVI. drain removed. - Urinary Catheter Management Indwelling Urethral Catheter Cath placed during this visit: yes, but has since been removed by the nurse Reason for continuing: Decision to DC catheter Insertion date: 11/02/17 Insertion time: 00:07 Removal date: 11/06/17 Removal time: 12:00 Results - Labs CBC & Chem 7: 11/19/17 07:44 11/19/17 07:49 Laboratory Results - last 24 hr 11/19/17 11/19/17 07:44 07:49 WBC 8.2 RBC 3.13 L Hgb 9.2 L Hct 27.5 L MCV 88.0 MCH 29.3 MCHC 33.3 RDW 14.8 Plt Count 555 H MPV 7.1 Prelim Diff (Auto) Burr Bench Operator Neut % (Auto) 52.8 Lymph % (Auto) 32.7 [place] % (Auto) 8.7 H Eos % (Auto) 4.8 H Baso % (Auto) 1.0 Neut # (Auto) 4.3 Lymph # (Auto) 2.7 [place] # (Auto) 0.7 Eos # (Auto) 0.4 Baso # (Auto) 0.1 WBC Differential . Diff Scan Auto diff confirmed Differential Comment . Platelet Estimate High H Platelet Morphology Giant H Sodium 135 L Potassium 3.8 Chloride 101 Carbon Dioxide 24.1 Anion Gap 10 BUN 6 L Creatinine 1.05 H Estimated GFR 62 L Random Glucose 76 Calcium 8.8 Phosphorus 5.3 H Total Bilirubin 0.4 AST 25 ALT 9 L Alkaline Phosphatase 77 Total Protein 8.1 Albumin 2.1 L TSH 0.871 Free T4 1.08 Microbiology 11/17/17 09:05 Fluid - Other Acid Fast Bacilli Smear - Final No acid fast bacilli seen 11/17/17 09:05 Fluid - Other Gram Stain - Final 11/17/17 09:05 Fluid - Other Wound Culture - Preliminary No growth in 48 hours - Procedures Echocardiogram 11/03/2017 The left ventricular systolic function is hyperdynamic with an estimated ejection fraction in the range of 65- 70%. Normal left ventricular size. Wall thickness is normal. No regional wall motion abnormalities are present. There is mild tricuspid valve regurgitation. The estimated pulmonary arterial pressure is 39.2 mmHg. 11/17/17 Procedure: Irrigation and debridement of left calf abscess Anesthesia: GETA Surgeon: Anand Torres MD Parking Meter Servicer: MUMTAZ Abdi PA-C The surgical procedure was assisted by my physician assistant property manager. My P.A. presence was necessary throughout this case for the manipulation and positioning of the surgical extremity. My P.A. was assisting me throughout the duration of this procedure. The skill set of a physician assistant property manager was medically necessary to complete this procedure. During the surgical case the groundwater monitoring technician was working at the back table and the physician assistant property manager was directly assisting me. Operation and Findings: Salud is a 31-year-old female with history of IV drug use. She has developed left calf pain and swelling. MRI revealed an abscess of the left calf. Informed consent was obtained preoperatively and operative site was marked. She was brought to the operating room. She was initially given spinal anesthesia. Spinal anesthesia was not providing adequate anesthesia for surgery. Subsequently she is given IV sedation and general anesthesia. Left leg was prepped with alcohol followed Hibiclens and draped in usual sterile fashion. Timeout procedure was performed. Patient is already on scheduled IV antibiotics. Procedure began with a 2 inch incision over the posterior medial calf. Subcu tissue was dissected with Bovie. The abscess was identified. Approximately 50 cc of purulent fluid was evacuated from the abscess. This fluid was sent for cultures. An excisional debridement was now performed with rongeurs and curettes. Subcutaneous tissue and fascia were sharply excised. Loculations were manually debrided. After thorough debridement, the soft tissue was thoroughly irrigated with pulsatile lavage. A drain was placed into the abscess region. Subcutaneous tissue was closed with 3-0 PDS and skin was closed with 3-0 nylon. Sterile dressings were applied. Patient was awakened and transferred to recovery room in stable condition. Assessment and Plan - Assessment and Plan 1) Left Calf Abscess s/p I&D - POD 3 -WBAT -daily dressing changes with xeroform/4x4/MARIELOS -drain DCd today at bedside -patient will need IV Abx. Infectious Dz to manage. -ortho surgeries complete -ortho clear for DC once IV Abx arrangements made. Due to history of IVDU, high risk for outpatient IV Abx -f/u with Panda or KELLY for suture removal in 2 weeks
[2017-11-20] MEDS: Famotidine PF Inj 20 MG/2 ML Vial IV.PUSH SCH (08:56)
[2017-11-20] MEDS: ARIPiprazole 5 MG Tablet PO SCH (09:04)
[2017-11-20 10:05] LABS: Alanine Aminotransferase 9 U/L (10-53); Albumin 2.2 g/dL (3.4-5.0); Anion Gap 9 meq/L (5-15); Aspartate Aminotransferase 19 U/L (15-37); Blood Urea Nitrogen 7 mg/dL (7-18); Calcium 8.9 mg/dL (8.5-10.1); Carbon Dioxide 28.9 meq/L (21.0-32.0); Chloride 97 meq/L (98-107); Glomerular Filtration Rate 59 mL/min (>89); Glucose,Random 86 mg/dL (74-106); Potassium 3.1 meq/L (3.5-5.1); Sodium 135 meq/L (136-145)
[2017-11-20 10:08] LABS: Alkaline Phosphatase 78 U/L (45-117); Total Protein 7.9 g/dL (6.4-8.2)
[2017-11-20] MEDS: DAPTOmycin Inj 800 MG in Sodium Chlor 0.9% Inj 100 ML IV.SIG SCH (13:12)
--- NOTE | 2017-11-20 14:20 | P.PN ---
Subjective Interval history: Follow-up on patient with left leg abscess. Patient seen and examined. Patient complaining of hearing loss in the right ear for the past week. Per nursing staff, patient is complaining of hearing loss in the left ear earlier today. Patient denies any runny nose, nasal congestion, fever or chills. She denies any drainage from the ear. Of note, patient was sleeping soundly and had to be aroused by voice and touch but when nursing staff came in to do their pain assessment approximately 3 minutes later patient complained of 8 out of 10 pain. Patient status post removal of JAROCHO drain earlier today from orthopedics. Physical Exam Vital signs: Vital Signs 11/19/17 15:07 11/19/17 16:53 11/19/17 20:00 Temperature 99.2 F 98.4 F Pulse Rate 102 H 87 Respiratory Rate 16 18 18 Blood Pressure 131/80 107/62 Pulse Oximetry 98 83 L 11/20/17 00:00 11/20/17 04:00 11/20/17 08:00 Temperature 98.2 F 98.6 F 98.3 F Pulse Rate 82 95 H 89 Respiratory Rate 20 20 20 Blood Pressure 112/78 126/70 131/64 Pulse Oximetry 93 L 95 95 11/20/17 12:00 Temperature 98.3 F Pulse Rate 91 H Respiratory Rate 20 Blood Pressure 113/71 Pulse Oximetry 96 Intake & Output 11/19/17 11/20/17 11/20/17 18:59 06:59 18:59 Intake Total 100 / 100 680 / 680 500 / 500 Output Total 20 / 20 Balance 70 / 70 660 / 660 500 / 500 Intake: IV 100 / 100 400 / 400 500 / 500 NS Inj 1,000 ML @ 100 mls/hr IV 400 / 400 400 / 400 .CONT .Q10H JUNIOR Rx#:[id number] Cubicin Inj 800 MG In NS Inj 100 / 100 100 / 100 100 ML @ 200 mls/hr IV.SIG Q24H JUNIOR Rx#:[id number] Oral 280 / 280 Output: Wound Drainage 20 / 20 Left Calf 20 / 20 Other: # Voids 2 3 Date of Last Bowel Movement 11/18/17 Narrative: GENERAL: This is a well-developed well-nourished female patient INAD. Sleeping soundly upon entering room but awakens to voice and touch. SKIN: Warm and dry. No generalized rash. HEENT: Atraumatic. Normocephalic. EOMI. Sclera anicteric bilaterally. No nasal drainage noted. Bilateral ear canals WNL, bilateral TMs, clear/pearly, no evidence of infection. No evidence of fluid. Airway patent. MMM. NECK: Supple, trachea midline. No lymphadenopathy. CARDIOVASCULAR: Tachycardic without murmurs, gallops, or rubs. S1, S2 RESPIRATORY: Breath sounds equal bilaterally. No accessory muscle use. Clear to auscultation. GASTROINTESTINAL: Abdomen soft, non-tender, nondistended. MUSCULOSKELETAL: No cyanosis or edema. Left leg is in postop dressing s/p removal of JAROCHO drain. NEURO: Awake, somewhat lethargic. Able to move all extremities spontaneously. No focal neurological deficits. Slightly slurred speech. PSYCHIATRIC: Calm and cooperative. Judgment and insight poor. - Urinary Catheter Management Indwelling Urethral Catheter Cath placed during this visit: yes, but has since been removed by the nurse Reason for continuing: Decision to DC catheter Insertion date: 11/02/17 Insertion time: 00:07 Removal date: 11/06/17 Removal time: 12:00 Results - Labs CBC & Chem 7: 11/19/17 07:44 11/20/17 08:17 Laboratory Results - last 24 hr 11/20/17 11/20/17 08:17 08:17 Sodium 135 L Potassium 3.1 L Chloride 97 L Carbon Dioxide 28.9 Anion Gap 9 BUN 7 Creatinine 1.10 H Estimated GFR 59 L Random Glucose 86 Calcium 8.9 Magnesium 1.6 Total Bilirubin 0.4 AST 19 ALT 9 L Alkaline Phosphatase 78 Total Protein 7.9 Albumin 2.2 L Microbiology 11/17/17 09:05 Fluid - Other Gram Stain - Final 11/17/17 09:05 Fluid - Other Wound Culture - Final No growth in 72 hours (aerobically and anaerobically ) 11/17/17 09:05 Fluid - Other Acid Fast Bacilli Smear - Final No acid fast bacilli seen - Imaging ITS Impressions Head CT 11/02/17 00:00 CONCLUSION: 1. No acute intracranial abnormality. 2. Bilateral maxillary sinus mucosal disease. Head MRI 11/02/17 00:00 CONCLUSION: 1. No definite acute abnormality is seen. Edema to suggest encephalitis is not seen. 2. There are a few punctate areas of increased signal within the cerebral white matter representing small foci of demyelination. Underlying demyelinating conditions can be considered. Liver Ultrasound 11/02/17 00:00 CONCLUSION: Generalized hepatosplenomegaly without focal mass Sludge within the gallbladder Chest CT 11/02/17 00:01 CONCLUSION: 1. Diffuse patchy groundglass opacities with nodular regions primarily in the left upper and lower lobes and single potentially cavitary nodule near the left lung apex. Overall, findings are concerning for atypical infection or developing septic pulmonary emboli in the appropriate clinical setting. 2. Subtle anterior pericardial effusion. 3. Subcentimeter bilateral axillary adenopathy, likely infectious/inflammatory. Chest X-Ray 11/04/17 05:00 CONCLUSION: Developing bilateral infiltrates. Abdomen/Pelvis CT 11/06/17 00:00 CONCLUSION: 1. Mild anasarca. 2. Slight splenomegaly with focal lesion towards the anterior portion of the spleen not present on the prior examination could be infarction, however splenic abscess is not excluded. 3. Slight peritoneal fluid nonspecific. Cervical Spine MRI 11/06/17 00:00 CONCLUSION: Slight nondescript serpiginous edema in the upper back, otherwise unremarkable. Lumbar Spine MRI 11/06/17 00:00 CONCLUSION: Slight nondescript subcutaneous edema in the patient's back, otherwise unremarkable without abscess formation. Thoracic Spine MRI 11/06/17 00:00 CONCLUSION: Essentially unremarkable study except for slight nondescript separate density on the patient's back. Venous Doppler Study 11/15/17 00:00 CONCLUSION: 1. Negative exam with no evidence of deep venous thrombosis. 2. Moderate size Carson's cyst in the left popliteal fossa region. Lower Extremity MRI 11/16/17 00:00 CONCLUSION: 1. Oval complex fluid collection most characteristic of an abscess. There is surrounding edema. - Procedures Echocardiogram 11/03/2017 The left ventricular systolic function is hyperdynamic with an estimated ejection fraction in the range of 65- 70%. Normal left ventricular size. Wall thickness is normal. No regional wall motion abnormalities are present. There is mild tricuspid valve regurgitation. The estimated pulmonary arterial pressure is 39.2 mmHg. 11/17/17 Procedure: Irrigation and debridement of left calf abscess Anesthesia: GETA Surgeon: Anand Torres MD Photo Producer: MUMTAZ Abdi PA-C The surgical procedure was assisted by my physician transportation assistant. My P.A. presence was necessary throughout this case for the manipulation and positioning of the surgical extremity. My P.A. was assisting me throughout the duration of this procedure. The skill set of a physician transportation assistant was medically necessary to complete this procedure. During the surgical case the assistant professor surgical technology was working at the back table and the physician transportation assistant was directly assisting me. Operation and Findings: Salud is a 31-year-old female with history of IV drug use. She has developed left calf pain and swelling. MRI revealed an abscess of the left calf. Informed consent was obtained preoperatively and operative site was marked. She was brought to the operating room. She was initially given spinal anesthesia. Spinal anesthesia was not providing adequate anesthesia for surgery. Subsequently she is given IV sedation and general anesthesia. Left leg was prepped with alcohol followed Hibiclens and draped in usual sterile fashion. Timeout procedure was performed. Patient is already on scheduled IV antibiotics. Procedure began with a 2 inch incision over the posterior medial calf. Subcu tissue was dissected with Bovie. The abscess was identified. Approximately 50 cc of purulent fluid was evacuated from the abscess. This fluid was sent for cultures. An excisional debridement was now performed with rongeurs and curettes. Subcutaneous tissue and fascia were sharply excised. Loculations were manually debrided. After thorough debridement, the soft tissue was thoroughly irrigated with pulsatile lavage. A drain was placed into the abscess region. Subcutaneous tissue was closed with 3-0 PDS and skin was closed with 3-0 nylon. Sterile dressings were applied. Patient was awakened and transferred to recovery room in stable condition. Assessment and Plan - Plan 31-year-old female admitted secondary to fevers with history of IV drug abuse. MRSA bacteremia present. Status post I&D 11-17. Patient tolerated procedure well. Pain control. 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 Continue antibiotics. Follow clinically for improvement and continued resolution of sepsis. Left Lower Extremity Abscess Status post I&D 11-17, wound culture shows no growth in 48 hours Orthopedic Surgeon following. Daily dressing changes per Ortho instructions. drain discontinued. Follow-up for suture removal in 2 weeks. Continue IV antibiotics Sepsis secondary to MRSA Resolved Infective endocarditis MRSA bacteremia Probable septic pulmonary emboli ID following -anticipate 6 weeks of IV antibiotics. Due to IV drug use patient is not a candidate for outpatient treatment. Continue daptomycin Gentamicin discontinued secondary to MALGORZATA Cardiology following MARVIN shows infective endocarditis OF MITRAL AND TRICUSPID VALVES No PICC line per ID MALGORZATA, suspect secondary to gentamicin use Creatinine improved since gentamicin discontinued but still elevated. Hold Torsemide. Avoid nephrotoxic agents small IVF bolus ordered Continue to monitor kidney function - repeat BMP in am Subjective bilateral hearing loss Ear exam WNL ? Related to gentamicin ototoxicity. Discussed with Dr. Hernandez. Patient will need to follow-up with pizza chef and/or ENT specialist as outpatient for further evaluation Severe back pain No evidence of abscess Continue methadone needed Percocet Generalized edema on torsemide, hold for now Borderline personality disorder Anxiety Abilify Change clonazepam to as needed secondary to lethargy Hepatitis C IVDU Standard precautions Advised on IV drug use cessation Patient will need to follow-up with GI as outpatient Hypokalemia K 3.1 P.o. repletion ordered Repeat BMP in a.m. to monitor response DVT prophylaxis Lovenox Discussed Condition With: patient, nursing staff, Dr. Cristobal, Dr. Hernandez, Discharge Planning: Not ready for discharge. Patient will need long-term IV antibiotics per ID and not able to have PICC line placed secondary to IV drug use
[2017-11-20] MEDS ORDERED: Sodium Chlor 0.9% Inj 500 ML IV.SIG ONE (17:51)
[2017-11-21] MEDS: oxyCODONE/Acetaminophen 10/325 Tablet PO PRN ×5 (02:27→22:07)
[2017-11-21] MEDS: Enoxaparin Inj 40 MG/0.4 ML Syringe SQ SCH (02:28)
[2017-11-21] MEDS: Methadone 10 MG Tablet PO SCH ×3 (06:21→22:07)
--- NOTE | 2017-11-21 09:30 | P.PN ---
Subjective Interval history: Follow-up on patient with left leg abscess, MRSA bacteremia, endocarditis. Patient seen and examined. Patient denies any new medical complaints. She states the hearing loss is somewhat better today. She denies any fever or chills. She denies any chest pain or shortness of breath. She denies any nausea, vomiting or abdominal pain. She denies any dysuria. Physical Exam Vital signs: Vital Signs 11/20/17 12:00 11/20/17 20:00 11/21/17 00:00 Temperature 98.3 F 97.6 F 98.3 F Pulse Rate 91 H 81 80 Respiratory Rate 20 18 16 Blood Pressure 113/71 98/57 L 106/60 Pulse Oximetry 96 94 L 11/21/17 04:00 Temperature 98 F Pulse Rate 86 Respiratory Rate 20 Blood Pressure 116/87 Pulse Oximetry 98 Intake & Output 11/20/17 11/21/17 11/21/17 18:59 06:59 18:59 Intake Total 600 / 600 500 / 500 780 / 780 Balance 600 / 600 500 / 500 780 / 780 Intake: IV 600 / 600 500 / 500 NS Inj 1,000 ML @ 100 mls/hr IV 400 / 400 .CONT .Q10H JUNIOR Rx#:[id number] Cubicin Inj 800 MG In NS Inj 200 / 200 100 ML @ 200 mls/hr IV.SIG Q24H JUNIOR Rx#:[id number] NS Inj 500 ML @ Wide Open IV. 500 / 500 SIG BOLUS ONE Rx#:[id number] Oral 280 / 280 Other 500 / 500 Other: Other Intake Source Saline Solution # Voids 4 Date of Last Bowel Movement 11/18/17 11/20/17 # Bowel Movements 1 Narrative: GENERAL: This is a well-developed well-nourished female patient INAD. Sitting up in bed on her phone. Appears comfortable. SKIN: Warm and dry. No generalized rash. HEENT: Atraumatic. Normocephalic. EOMI. Sclera anicteric bilaterally. No nasal drainage noted. Bilateral ear canals WNL, bilateral TMs, clear/pearly, no evidence of infection from previous exam. No evidence of fluid. Airway patent. MMM. NECK: Supple, trachea midline. No lymphadenopathy. CARDIOVASCULAR: Tachycardic without murmurs, gallops, or rubs. S1, S2 RESPIRATORY: Breath sounds equal bilaterally. No accessory muscle use. Clear to auscultation. GASTROINTESTINAL: Abdomen soft, non-tender, nondistended. MUSCULOSKELETAL: No cyanosis or edema. Left leg is in postop dressing s/p removal of JAROCHO drain. NEURO: Awake and alert. Able to move all extremities spontaneously. No focal neurological deficits. Normal speech. PSYCHIATRIC: Calm and cooperative. Judgment and insight poor. - Urinary Catheter Management Indwelling Urethral Catheter Cath placed during this visit: yes, but has since been removed by the nurse Reason for continuing: Decision to DC catheter Insertion date: 11/02/17 Insertion time: 00:07 Removal date: 11/06/17 Removal time: 12:00 Results - Labs CBC & Chem 7: 11/19/17 07:44 11/21/17 09:35 Laboratory Results - last 24 hr 11/20/17 11/20/17 08:17 08:17 Sodium 135 L Potassium 3.1 L Chloride 97 L Carbon Dioxide 28.9 Anion Gap 9 BUN 7 Creatinine 1.10 H Estimated GFR 59 L Random Glucose 86 Calcium 8.9 Magnesium 1.6 Total Bilirubin 0.4 AST 19 ALT 9 L Alkaline Phosphatase 78 Total Protein 7.9 Albumin 2.2 L Microbiology 11/17/17 09:05 Fluid - Other Gram Stain - Final 11/17/17 09:05 Fluid - Other Wound Culture - Final No growth in 72 hours (aerobically and anaerobically ) - Imaging ITS Impressions Head CT 11/02/17 00:00 CONCLUSION: 1. No acute intracranial abnormality. 2. Bilateral maxillary sinus mucosal disease. Head MRI 11/02/17 00:00 CONCLUSION: 1. No definite acute abnormality is seen. Edema to suggest encephalitis is not seen. 2. There are a few punctate areas of increased signal within the cerebral white matter representing small foci of demyelination. Underlying demyelinating conditions can be considered. Liver Ultrasound 11/02/17 00:00 CONCLUSION: Generalized hepatosplenomegaly without focal mass Sludge within the gallbladder Chest CT 11/02/17 00:01 CONCLUSION: 1. Diffuse patchy groundglass opacities with nodular regions primarily in the left upper and lower lobes and single potentially cavitary nodule near the left lung apex. Overall, findings are concerning for atypical infection or developing septic pulmonary emboli in the appropriate clinical setting. 2. Subtle anterior pericardial effusion. 3. Subcentimeter bilateral axillary adenopathy, likely infectious/inflammatory. Chest X-Ray 11/04/17 05:00 CONCLUSION: Developing bilateral infiltrates. Abdomen/Pelvis CT 11/06/17 00:00 CONCLUSION: 1. Mild anasarca. 2. Slight splenomegaly with focal lesion towards the anterior portion of the spleen not present on the prior examination could be infarction, however splenic abscess is not excluded. 3. Slight peritoneal fluid nonspecific. Cervical Spine MRI 11/06/17 00:00 CONCLUSION: Slight nondescript serpiginous edema in the upper back, otherwise unremarkable. Lumbar Spine MRI 11/06/17 00:00 CONCLUSION: Slight nondescript subcutaneous edema in the patient's back, otherwise unremarkable without abscess formation. Thoracic Spine MRI 11/06/17 00:00 CONCLUSION: Essentially unremarkable study except for slight nondescript separate density on the patient's back. Venous Doppler Study 11/15/17 00:00 CONCLUSION: 1. Negative exam with no evidence of deep venous thrombosis. 2. Moderate size Carson's cyst in the left popliteal fossa region. Lower Extremity MRI 11/16/17 00:00 CONCLUSION: 1. Oval complex fluid collection most characteristic of an abscess. There is surrounding edema. - Procedures Echocardiogram 11/03/2017 The left ventricular systolic function is hyperdynamic with an estimated ejection fraction in the range of 65- 70%. Normal left ventricular size. Wall thickness is normal. No regional wall motion abnormalities are present. There is mild tricuspid valve regurgitation. The estimated pulmonary arterial pressure is 39.2 mmHg. 11/17/17 Procedure: Irrigation and debridement of left calf abscess Anesthesia: GETA Surgeon: Anand Torres MD Ice Cream Dipper: MUMTAZ Abdi PA-C The surgical procedure was assisted by my physician surgical dental assistant. My P.A. presence was necessary throughout this case for the manipulation and positioning of the surgical extremity. My P.A. was assisting me throughout the duration of this procedure. The skill set of a physician surgical dental assistant was medically necessary to complete this procedure. During the surgical case the regional vice president surgical sales was working at the back table and the physician surgical dental assistant was directly assisting me. Operation and Findings: Salud is a 31-year-old female with history of IV drug use. She has developed left calf pain and swelling. MRI revealed an abscess of the left calf. Informed consent was obtained preoperatively and operative site was marked. She was brought to the operating room. She was initially given spinal anesthesia. Spinal anesthesia was not providing adequate anesthesia for surgery. Subsequently she is given IV sedation and general anesthesia. Left leg was prepped with alcohol followed Hibiclens and draped in usual sterile fashion. Timeout procedure was performed. Patient is already on scheduled IV antibiotics. Procedure began with a 2 inch incision over the posterior medial calf. Subcu tissue was dissected with Bovie. The abscess was identified. Approximately 50 cc of purulent fluid was evacuated from the abscess. This fluid was sent for cultures. An excisional debridement was now performed with rongeurs and curettes. Subcutaneous tissue and fascia were sharply excised. Loculations were manually debrided. After thorough debridement, the soft tissue was thoroughly irrigated with pulsatile lavage. A drain was placed into the abscess region. Subcutaneous tissue was closed with 3-0 PDS and skin was closed with 3-0 nylon. Sterile dressings were applied. Patient was awakened and transferred to recovery room in stable condition. Assessment and Plan - Plan 31-year-old female admitted secondary to fevers with history of IV drug abuse. MRSA bacteremia present. Status post I&D 11-17. Patient tolerated procedure well. Pain control. 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 Continue antibiotics. Follow clinically for improvement and continued resolution of sepsis. Left Lower Extremity Abscess Status post I&D 11-17, wound culture shows no growth in 72 hours Orthopedic Surgeon following. Daily dressing changes per Ortho instructions. drain discontinued. Follow-up for suture removal in 2 weeks. Continue IV antibiotics Sepsis secondary to MRSA Resolved Infective endocarditis MRSA bacteremia Probable septic pulmonary emboli ID following -anticipate 6 weeks of IV antibiotics. Due to IV drug use patient is not a candidate for outpatient treatment. Continue daptomycin. Weekly CK levels. Gentamicin discontinued secondary to MALGORZATA Cardiology following MARVIN shows infective endocarditis OF MITRAL AND TRICUSPID VALVES No PICC line per ID MALGORZATA, suspect secondary to gentamicin use Creatinine better but still elevated Consult Nephrology, appreciate assistance obtain UA/urine Cr and Na obtain renal US Avoid nephrotoxic agents small IVF bolus ordered Continue to monitor kidney function - repeat BMP in am Subjective bilateral hearing loss, improving Ear exam WNL ? Related to gentamicin ototoxicity. Discussed with Dr. Hernandez. Patient will need to follow-up with house mover supervisor and/or ENT specialist as outpatient for further evaluation Severe back pain No evidence of abscess Continue methadone needed Percocet Generalized edema on torsemide, hold for now 2/2 MALGORZATA Borderline personality disorder Anxiety Abilify Change clonazepam to as needed secondary to lethargy Hepatitis C IVDU Standard precautions Advised on IV drug use cessation Patient will need to follow-up with GI as outpatient Hypokalemia, resolved s/p repletion DVT prophylaxis Lovenox Discussed Condition With: patient, nursing staff, CM, Dr. Hernandez Discharge Planning: Not ready for discharge. Patient will need long-term IV antibiotics per ID and not able to have PICC line placed secondary to IV drug use
[2017-11-21] MEDS: ARIPiprazole 5 MG Tablet PO SCH (09:51)
[2017-11-21 10:43] LABS: Calcium 8.9 mg/dL (8.5-10.1); Carbon Dioxide 26.5 meq/L (21.0-32.0); Potassium 3.7 meq/L (3.5-5.1)
[2017-11-21 13:22] LABS: Bacteria,Urine Occasional /hpf; Bilirubin,Urine Negative (Negative); Clarity,Urine Cloudy (Clear); Color,Urine Yellow (Yellw/Straw); Glucose,Urine (UA) Negative (Negative); Leukocyte Esterase,Urine Large (Negative); Mucus,Urine Few /lpf (Occasional); Nitrite,Urine Negative (Negative); Specific Gravity,Urine 1.013 (1.002-1.035); Squamous Epithelial Cell,Urine 17 /hpf (0-5); Urobilinogen,Urine 4 or Greater mg/dL (Less than 2)
[2017-11-21] MEDS: DAPTOmycin Inj 800 MG in Sodium Chlor 0.9% Inj 100 ML IV.SIG SCH (13:53)
--- NOTE | 2017-11-21 16:27 | P.PNPSY ---
Subjective Remarks: Patient seen in psychiatric follow up. Chart reviewed. I note Klonopin has been changed to p.r.n. to reduce sedation. Case discussed with KELLY Cerda. Patient initially sleeping but awakens readily to voice. Affect is less labile versus previous visits. She reports that she is sleeping better. No SI/HI. No medication side effects. Not interested in extended interview today. Vital Signs Temp Pulse Resp BP Pulse Ox 11/21/17 12:00 98.2 F 86 20 110/74 93 L 11/21/17 08:00 98.1 F 89 20 114/67 94 L 11/21/17 04:00 98 F 86 20 116/87 98 11/21/17 00:00 98.3 F 80 16 106/60 11/20/17 20:00 97.6 F 81 18 98/57 L 94 L Intake and Output 11/21/17 11/21/17 11/21/17 06:59 14:59 22:59 Intake Total 500 / 500 780 / 780 Balance 500 / 500 780 / 780 Intake: IV 500 / 500 NS Inj 500 ML @ Wide Open IV. 500 / 500 SIG BOLUS ONE Rx#:[id number] Oral 280 / 280 Other 500 / 500 Other: Other Intake Source Saline Solution # Voids 4 1 Date of Last Bowel Movement 11/20/17 # Bowel Movements 1 # Emeses 1 Laboratory Results - last 24 hr 11/21/17 11/21/17 11/21/17 09:35 09:35 12:45 Sodium 136 Potassium 3.7 Chloride 100 Carbon Dioxide 26.5 Anion Gap 10 BUN 7 Creatinine 1.14 H 1.10 H Estimated GFR 56 L 59 L Random Glucose 79 Calcium 8.9 Urine Color Urine Clarity Urine pH Ur Specific Tillman Urine Protein Urine Glucose (UA) Urine Ketones Urine Occult Blood Urine Nitrate Urine Bilirubin Urine Urobilinogen Ur Leukocyte Esterase Urine RBC Urine WBC Ur Squamous Epith Cells Urine Bacteria Urine Mucus Micro UA Comment Urine Culture Comments Ur Random Sodium 108 11/21/17 12:45 Sodium Potassium Chloride Carbon Dioxide Anion Gap BUN Creatinine Estimated GFR Random Glucose Calcium Urine Color Yellow Urine Clarity Cloudy H Urine pH 7.0 Ur Specific Tillman 1.013 Urine Protein Negative Urine Glucose (UA) Negative Urine Ketones Negative Urine Occult Blood Moderate H Urine Nitrate Negative Urine Bilirubin Negative Urine Urobilinogen 4 or greater Ur Leukocyte Esterase Large H Urine RBC 8 H Urine WBC 42 H Ur Squamous Epith Cells 17 Urine Bacteria Occasional H Urine Mucus Few H Micro UA Comment Culture indicated Urine Culture Comments Culture indicated Ur Random Sodium Labs reviewed. Review of Systems other (Limited ROS today.) Mental Status Examination Appearance: Other (Fair) Consciousness: Alert Orientation: Person (at least) Motor Activity: Other (No motor abnormalities noted) Speech: Unremarkable Language: Adequate Attention and Concentration: Adequate Mood: Other (Calm) Affect: Appropriate Thought Process & Associations: Intact, Logical, Linear Thought Content: Appropriate Hallucination Type: None Delusion Type: None Suicidal Ideation: No Suicidal Plan: No Suicidal Intention: No Homicidal Ideation: No Homicidal Plan: No Homicidal Intention: No Insight: Fair Judgment: Impulsive (Likely chronically so) Assessment and Plan - Assessment (1) Cluster B personality disorder Code(s): F60.9 - Personality disorder, unspecified Status: Suspected (2) Polysubstance abuse Code(s): F19.10 - Other psychoactive substance abuse, uncomplicated Status: Acute - Plan Plan: Recommend continuing Abilify as ordered. Outpatient follow up after discharge as previously noted. I will plan to follow up as needed by primary team or per patient request; please call [phone] or page [phone]. Case d/w KELLY Cerda. Thank you for this consultation. Justification for Continued Inpatient Stay: Per primary team.
[2017-11-21] MEDS: clonazePAM 1 MG Tablet PO PRN (16:55)
--- NOTE | 2017-11-21 17:13 | P.CONNP ---
<Lily Montano - Last Filed: 11/21/17 16:56> History of Present Illness Service: Nephrology Consult date: 11/21/17 Requesting Physician: Gloria Gomez Reason for Consult: Acute kidney injury Primary Care Provider: No Primary Care Physician Family Provider: No Primary Care Physician Chief Complaint: altered mental status History of Present Illness: Patient is a 31-year-old female admitted secondary to fevers with history of IV drug abuse. MRSA bacteremia present. MARVIN showed infective endocarditis. Nephrology is consulted for acute kidney injury with a creatinine of 1.10 with a admission creatinine on 11/06 0.42. Potassium level is normal. Has some lower extremity edema. Renal ultrasound is pending. Acute kidney injury most likely related to urinary tract infection. Urine sodium and creatinine are pending. Torsemide is on hold. Review of Systems Constitutional: Reports fatigue Cardiovascular: Denies chest pain Respiratory: Denies chest congestion, Denies cough, Denies shortness of breath Gastrointestinal: Denies abdominal pain, Denies nausea, Denies vomiting Genitourinary: Reports painful urination, Reports urinary urgency Musculoskeletal: Reports muscle weakness PMFSH - History History Provided By: Medical Record - Medical / Surgical Hx Neg / Unobtainable Medical Problems Denied: Unable to Obtain - Tobacco History Second Hand Smoke Exposure: Yes Tobacco Use In Past 30 Days: Yes Smoking Status: Current every day smoker Tobacco Type: Cigarettes - Alcohol History How Often Do You Have a Drink Containing Alcohol: 4 or more times a week - Travel History Recent Travel in the [place] Within the Last 8 Weeks: No Recent Travel Out of the Country Within the Last 8 Weeks: No Medications and Allergies Allergies Allergy/AdvReac Type Severity Reaction Status Date / Time haloperidol AdvReac Intermediate SEIZURES Verified 11/01/17 22:36 NICKEL Allergy Intermediate Anxiety Uncoded 11/01/17 22:36 Home Medications Medication Instructions Recorded Confirmed Type Unable to Obtain Home Meds 11/01/17 11/01/17 History Active Medications: Active Medications Acetaminophen (Tylenol) 500 mg PO Q4H PRN PRN Reason: HEADACHE,FEVER,PAIN 1-5 Last Admin: 11/11/17 12:48 Dose: 500 mg Aripiprazole (Abilify) 5 mg PO DAILY [facility] Last Admin: 11/21/17 09:51 Dose: 5 mg Clonazepam (Klonopin) 1 mg PO Q8HR PRN PRN Reason: ANXIETY Last Admin: 11/21/17 16:55 Dose: 1 mg Diphenhydramine HCl (Benadryl) 25 mg PO Q6H PRN PRN Reason: ITCHING Enoxaparin Sodium (Lovenox Inj) 40 mg SQ Q24H [facility] Last Admin: 11/21/17 02:28 Dose: 40 mg Ceftriaxone Sodium 1,000 mg/ (Sodium Chloride) 100 mls @ 200 mls/hr IV.SIG Q24H [facility] Daptomycin 800 mg/ Sodium (Chloride) 100 mls @ 200 mls/hr IV.SIG Q24H [facility] Last Admin: 11/21/17 13:53 Dose: 200 mls/hr Lorazepam (Ativan Inj) 1 mg IM Q6H PRN PRN Reason: Withdrawal symptoms. Last Admin: 11/17/17 00:19 Dose: 1 mg Methadone HCl (Dolophine) 10 mg PO Q8HR [facility] Last Admin: 11/21/17 13:52 Dose: 10 mg Miscellaneous (Pill Splitter) 1 each OTHER UNSCH PRN PRN Reason: SEE LABEL COMMENTS Ondansetron HCl (Zofran Inj) 4 mg IV.PUSH Q6H PRN PRN Reason: NAUSEA OR VOMITING Last Admin: 11/20/17 22:10 Dose: 4 mg Oxycodone/Acetaminophen (Percocet 10/325 Mg) 1 tab PO Q4H PRN PRN Reason: Pain 7 to 10 Last Admin: 11/21/17 13:52 Dose: 1 tab Oxycodone/Acetaminophen (Percocet 5/325 Mg) 1 tab PO Q4H PRN PRN Reason: Pain 3 to 6 Last Admin: 11/16/17 09:38 Dose: 1 tab Sodium Chloride (Ns Flush) 2 ml IV.FLUSH BID [facility] Last Admin: 11/21/17 09:59 Dose: 2 ml Sodium Chloride (Ns Flush) 2 ml IV.FLUSH PRN PRN PRN Reason: FLUSH AFTER USING IV ACCESS Last Admin: 11/18/17 16:26 Dose: 2 ml Torsemide (Demadex) 10 mg PO DAILY [facility] Last Admin: 11/19/17 08:03 Dose: 10 mg Exam Vital signs: Vital Signs 11/20/17 20:00 11/21/17 00:00 11/21/17 04:00 Temperature 97.6 F 98.3 F 98 F Pulse Rate 81 80 86 Respiratory Rate 18 16 20 Blood Pressure 98/57 L 106/60 116/87 Pulse Oximetry 94 L 98 11/21/17 08:00 11/21/17 12:00 Temperature 98.1 F 98.2 F Pulse Rate 89 86 Respiratory Rate 20 20 Blood Pressure 114/67 110/74 Pulse Oximetry 94 L 93 L Intake & Output 11/20/17 11/21/17 11/21/17 18:59 06:59 18:59 Intake Total 600 / 600 500 / 500 780 / 780 Balance 600 / 600 500 / 500 780 / 780 Intake: IV 600 / 600 500 / 500 NS Inj 1,000 ML @ 100 mls/hr IV 400 / 400 .CONT .Q10H [facility] Rx#:[id number] Cubicin Inj 800 MG In NS Inj 200 / 200 100 ML @ 200 mls/hr IV.SIG Q24H [facility] Rx#:[id number] NS Inj 500 ML @ Wide Open IV. 500 / 500 SIG BOLUS ONE Rx#:[id number] Oral 280 / 280 Other 500 / 500 Other: Other Intake Source Saline Solution # Voids 4 1 Date of Last Bowel Movement 11/18/17 11/20/17 # Bowel Movements 1 # Emeses 1 - Constitutional no acute distress - Routine HEENT Exam Head: Present: normocephalic ENT: Present: mucous membranes moist, mucous membranes dry - Routine Neck Exam Present: supple. Absent: JVD - Routine Respiratory Exam Present: CTA bilaterally. Absent: rales, rhonchi, wheezes - Routine Cardiovascular Exam Present: RRR - Routine Abdominal Exam Present: soft, normoactive bowel sounds. Absent: tenderness - Routine Skin Exam Present: dry, warm, wounds Comments: Left lower leg with dressing Results - Lab Results 11/19/17 07:44 11/21/17 09:35 Most recent lab results ABG pH 7.50 (7.380-7.420) H 11/02/17 01:50 ABG pCO2 30 mmHg (38-42) L 11/02/17 01:50 ABG pO2 85 mmHg (61-120) 11/02/17 01:50 ABG HCO3 23 mmol/L (22-26) 11/02/17 01:50 Calcium 8.9 mg/dL (8.5-10.1) 11/21/17 09:35 Phosphorus 5.3 mg/dL (2.5-4.9) H 11/19/17 07:49 Magnesium 1.6 mg/dL (1.5-2.5) 11/20/17 08:17 Assessment and Plan - Assessment (1) Acute kidney injury Code(s): N17.9 - Acute kidney failure, unspecified Status: Acute Plan: Acute kidney injury with a creatinine of 1.10 with a admission creatinine on 0.42. Acute kidney injury most likely related to urinary tract infection. Urine sodium and creatinine are pending. Continue to hold torsemide Fluids encouraged, IVF bolus given Continue Rocephin culture is pending Avoid nephrotoxins Will monitor BMP <Miroslava Clark - Last Filed: 11/21/17 18:17> History of Present Illness Primary Care Provider: No Primary Care Physician Family Provider: No Primary Care Physician Medications and Allergies Active Medications: Active Medications Acetaminophen (Tylenol) 500 mg PO Q4H PRN PRN Reason: HEADACHE,FEVER,PAIN 1-5 Last Admin: 11/11/17 12:48 Dose: 500 mg Aripiprazole (Abilify) 5 mg PO DAILY [facility] Last Admin: 11/21/17 09:51 Dose: 5 mg Clonazepam (Klonopin) 1 mg PO Q8HR PRN PRN Reason: ANXIETY Last Admin: 11/21/17 16:55 Dose: 1 mg Diphenhydramine HCl (Benadryl) 25 mg PO Q6H PRN PRN Reason: ITCHING Enoxaparin Sodium (Lovenox Inj) 40 mg SQ Q24H [facility] Last Admin: 11/21/17 02:28 Dose: 40 mg Ceftriaxone Sodium 1,000 mg/ (Sodium Chloride) 100 mls @ 200 mls/hr IV.SIG Q24H [facility] Daptomycin 800 mg/ Sodium (Chloride) 100 mls @ 200 mls/hr IV.SIG Q24H [facility] Last Admin: 11/21/17 13:53 Dose: 200 mls/hr Lorazepam (Ativan Inj) 1 mg IM Q6H PRN PRN Reason: Withdrawal symptoms. Last Admin: 11/17/17 00:19 Dose: 1 mg Methadone HCl (Dolophine) 10 mg PO Q8HR [facility] Last Admin: 11/21/17 13:52 Dose: 10 mg Miscellaneous (Pill Splitter) 1 each OTHER UNSCH PRN PRN Reason: SEE LABEL COMMENTS Ondansetron HCl (Zofran Inj) 4 mg IV.PUSH Q6H PRN PRN Reason: NAUSEA OR VOMITING Last Admin: 11/20/17 22:10 Dose: 4 mg Oxycodone/Acetaminophen (Percocet 10/325 Mg) 1 tab PO Q4H PRN PRN Reason: Pain 7 to 10 Last Admin: 11/21/17 13:52 Dose: 1 tab Oxycodone/Acetaminophen (Percocet 5/325 Mg) 1 tab PO Q4H PRN PRN Reason: Pain 3 to 6 Last Admin: 11/16/17 09:38 Dose: 1 tab Sodium Chloride (Ns Flush) 2 ml IV.FLUSH BID [facility] Last Admin: 11/21/17 09:59 Dose: 2 ml Sodium Chloride (Ns Flush) 2 ml IV.FLUSH PRN PRN PRN Reason: FLUSH AFTER USING IV ACCESS Last Admin: 11/18/17 16:26 Dose: 2 ml Torsemide (Demadex) 10 mg PO DAILY [facility] Last Admin: 11/19/17 08:03 Dose: 10 mg Exam Vital signs: Vital Signs 11/20/17 20:00 11/21/17 00:00 11/21/17 04:00 Temperature 97.6 F 98.3 F 98 F Pulse Rate 81 80 86 Respiratory Rate 18 16 20 Blood Pressure 98/57 L 106/60 116/87 Pulse Oximetry 94 L 98 11/21/17 08:00 11/21/17 12:00 Temperature 98.1 F 98.2 F Pulse Rate 89 86 Respiratory Rate 20 20 Blood Pressure 114/67 110/74 Pulse Oximetry 94 L 93 L Intake & Output 11/20/17 11/21/17 11/21/17 18:59 06:59 18:59 Intake Total 600 / 600 500 / 500 780 / 780 Balance 600 / 600 500 / 500 780 / 780 Intake: IV 600 / 600 500 / 500 NS Inj 1,000 ML @ 100 mls/hr IV 400 / 400 .CONT .Q10H [facility] Rx#:[id number] Cubicin Inj 800 MG In NS Inj 200 / 200 100 ML @ 200 mls/hr IV.SIG Q24H [facility] Rx#:[id number] NS Inj 500 ML @ Wide Open IV. 500 / 500 SIG BOLUS ONE Rx#:[id number] Oral 280 / 280 Other 500 / 500 Other: Other Intake Source Saline Solution # Voids 4 1 Date of Last Bowel Movement 11/18/17 11/20/17 # Bowel Movements 1 # Emeses 1 Results - Lab Results 11/19/17 07:44 11/21/17 09:35 Most recent lab results ABG pH 7.50 (7.380-7.420) H 11/02/17 01:50 ABG pCO2 30 mmHg (38-42) L 11/02/17 01:50 ABG pO2 85 mmHg (61-120) 11/02/17 01:50 ABG HCO3 23 mmol/L (22-26) 11/02/17 01:50 Calcium 8.9 mg/dL (8.5-10.1) 11/21/17 09:35 Phosphorus 5.3 mg/dL (2.5-4.9) H 11/19/17 07:49 Magnesium 1.6 mg/dL (1.5-2.5) 11/20/17 08:17 Assessment and Plan - Assessment (1) Acute kidney injury Code(s): N17.9 - Acute kidney failure, unspecified Status: Acute Plan: Patient seen and examined, agree with above. Has Acute kidney injury, possibly has ATN or diuretic related. Torsemide is on hold. Continue IVF and antibiotics.
[2017-11-22] MEDS: Methadone 10 MG Tablet PO SCH ×3 (06:32→21:28)
[2017-11-22] MEDS: Enoxaparin Inj 40 MG/0.4 ML Syringe SQ SCH (06:34)
--- NOTE | 2017-11-22 07:51 | P.PN ---
Subjective Interval history: Follow-up on patient with left leg abscess, MRSA bacteremia, endocarditis. Patient seen and examined. Patient is very upset reporting to me today that she saw her decaying mother sitting at the window and had a black cat jumped on her bed. Patient is adamant that she was awake and not dreaming. She is wondering if it is a side effect from 1 of her medications. She denies any auditory hallucinations. She denies any suicidal ideation. She denies any fever chills. She denies any chest pain or shortness of breath. She reports nausea but denies any vomiting or abdominal pain. She denies any dysuria. Physical Exam Vital signs: Vital Signs 11/21/17 08:00 11/21/17 12:00 11/21/17 16:00 Temperature 98.1 F 98.2 F 97.6 F Pulse Rate 89 86 89 Respiratory Rate 20 20 20 Blood Pressure 114/67 110/74 112/57 L Pulse Oximetry 94 L 93 L 93 L 11/21/17 20:00 11/22/17 00:00 11/22/17 04:00 Temperature 98.1 F 97.6 F 98.8 F Pulse Rate 83 79 84 Respiratory Rate 18 18 18 Blood Pressure 101/61 107/55 L 117/69 Pulse Oximetry 94 L 95 94 L Intake & Output 11/21/17 11/22/17 11/22/17 18:59 06:59 18:59 Intake Total 880 / 880 100 / 100 Balance 880 / 880 100 / 100 Intake: IV 100 / 100 100 / 100 Cubicin Inj 800 MG In NS Inj 100 / 100 100 ML @ 200 mls/hr IV.SIG Q24H [facility] Rx#:[id number] Rocephin Inj 1,000 MG In NS Inj 100 / 100 100 ML @ 200 mls/hr IV.SIG Q24H [facility] Rx#:[id number] Oral 280 / 280 Other 500 / 500 Other: Other Intake Source Saline Solution # Voids 2 2 Date of Last Bowel Movement 11/20/17 # Bowel Movements 1 # Emeses 1 Narrative: GENERAL: This is a well-developed well-nourished female patient INAD. Appears comfortable. Patient is witnessed getting up out of bed multiple times and walking around in her room without any difficulty. SKIN: Warm and dry. No generalized rash. HEENT: Atraumatic. Normocephalic. EOMI. Sclera anicteric bilaterally. No nasal drainage noted. Bilateral ear canals WNL, bilateral TMs, clear/pearly, no evidence of infection from previous exam. No evidence of fluid. Airway patent. MMM. NECK: Supple, trachea midline. No lymphadenopathy. CARDIOVASCULAR: Tachycardic without murmurs, gallops, or rubs. S1, S2 RESPIRATORY: Breath sounds equal bilaterally. No accessory muscle use. Clear to auscultation. GASTROINTESTINAL: Abdomen soft, non-tender, nondistended. MUSCULOSKELETAL: No cyanosis or edema. Left leg is in postop dressing s/p removal of JAROCHO drain. NEURO: Awake and alert. Able to move all extremities spontaneously. No focal neurological deficits. Normal speech. PSYCHIATRIC: Calm and cooperative. Judgment and insight poor. - Urinary Catheter Management Indwelling Urethral Catheter Cath placed during this visit: yes, but has since been removed by the nurse Reason for continuing: Decision to DC catheter Insertion date: 11/02/17 Insertion time: 00:07 Removal date: 11/06/17 Removal time: 12:00 Results - Labs CBC & Chem 7: 11/19/17 07:44 11/22/17 11:25 Laboratory Results - last 24 hr 11/21/17 11/21/17 11/21/17 09:35 09:35 12:45 Sodium 136 Potassium 3.7 Chloride 100 Carbon Dioxide 26.5 Anion Gap 10 BUN 7 Creatinine 1.14 H 1.10 H Estimated GFR 56 L 59 L Random Glucose 79 Calcium 8.9 Urine Color Urine Clarity Urine pH Ur Specific [place] Urine Protein Urine Glucose (UA) Urine Ketones Urine Occult Blood Urine Nitrate Urine Bilirubin Urine Urobilinogen Ur Leukocyte Esterase Urine RBC Urine WBC Ur Squamous Epith Cells Urine Bacteria Urine Mucus Micro UA Comment Urine Culture Comments Ur Random Sodium 108 11/21/17 12:45 Sodium Potassium Chloride Carbon Dioxide Anion Gap BUN Creatinine Estimated GFR Random Glucose Calcium Urine Color Yellow Urine Clarity Cloudy H Urine pH 7.0 Ur Specific [place] 1.013 Urine Protein Negative Urine Glucose (UA) Negative Urine Ketones Negative Urine Occult Blood Moderate H Urine Nitrate Negative Urine Bilirubin Negative Urine Urobilinogen 4 or greater Ur Leukocyte Esterase Large H Urine RBC 8 H Urine WBC 42 H Ur Squamous Epith Cells 17 Urine Bacteria Occasional H Urine Mucus Few H Micro UA Comment Culture indicated Urine Culture Comments Culture indicated Ur Random Sodium - Imaging Chest X-Ray 11/01/17 22:25 CONCLUSION: 1. Diffuse patchy groundglass opacities concerning for atypical infection in the appropriate clinical setting. Chest X-Ray 11/02/17 00:00 CONCLUSION: Mild patchy consolidation or atelectasis at the medial left lung base. Head CT 11/02/17 00:00 CONCLUSION: 1. No acute intracranial abnormality. 2. Bilateral maxillary sinus mucosal disease. Head MRI 11/02/17 00:00 CONCLUSION: 1. No definite acute abnormality is seen. Edema to suggest encephalitis is not seen. 2. There are a few punctate areas of increased signal within the cerebral white matter representing small foci of demyelination. Underlying demyelinating conditions can be considered. Liver Ultrasound 11/02/17 00:00 CONCLUSION: Generalized hepatosplenomegaly without focal mass Sludge within the gallbladder Chest CT 11/02/17 00:01 CONCLUSION: 1. Diffuse patchy groundglass opacities with nodular regions primarily in the left upper and lower lobes and single potentially cavitary nodule near the left lung apex. Overall, findings are concerning for atypical infection or developing septic pulmonary emboli in the appropriate clinical setting. 2. Subtle anterior pericardial effusion. 3. Subcentimeter bilateral axillary adenopathy, likely infectious/inflammatory. Chest X-Ray 11/04/17 05:00 CONCLUSION: Developing bilateral infiltrates. Abdomen/Pelvis CT 11/06/17 00:00 CONCLUSION: 1. Mild anasarca. 2. Slight splenomegaly with focal lesion towards the anterior portion of the spleen not present on the prior examination could be infarction, however splenic abscess is not excluded. 3. Slight peritoneal fluid nonspecific. Cervical Spine MRI 11/06/17 00:00 CONCLUSION: Slight nondescript serpiginous edema in the upper back, otherwise unremarkable. Lumbar Spine MRI 11/06/17 00:00 CONCLUSION: Slight nondescript subcutaneous edema in the patient's back, otherwise unremarkable without abscess formation. Thoracic Spine MRI 11/06/17 00:00 CONCLUSION: Essentially unremarkable study except for slight nondescript separate density on the patient's back. Venous Doppler Study 11/15/17 00:00 CONCLUSION: 1. Negative exam with no evidence of deep venous thrombosis. 2. Moderate size Carson's cyst in the left popliteal fossa region. Lower Extremity MRI 11/16/17 00:00 CONCLUSION: 1. Oval complex fluid collection most characteristic of an abscess. There is surrounding edema. Abdomen/Bladder Ultrasound 11/22/17 00:00 CONCLUSION: 1. Negative renal sonogram. - Procedures Echocardiogram 11/03/2017 The left ventricular systolic function is hyperdynamic with an estimated ejection fraction in the range of 65- 70%. Normal left ventricular size. Wall thickness is normal. No regional wall motion abnormalities are present. There is mild tricuspid valve regurgitation. The estimated pulmonary arterial pressure is 39.2 mmHg. 11/17/17 Procedure: Irrigation and debridement of left calf abscess Anesthesia: GETTy Surgeon: Anand Torres MD Waterworks Chief Engineer: MUMTAZ Abdi PA-C The surgical procedure was assisted by my physician bilingual administrative assistant. My P.A. presence was necessary throughout this case for the manipulation and positioning of the surgical extremity. My P.A. was assisting me throughout the duration of this procedure. The skill set of a physician bilingual administrative assistant was medically necessary to complete this procedure. During the surgical case the surgical training specialist was working at the back table and the physician bilingual administrative assistant was directly assisting me. Operation and Findings: Salud is a 31-year-old female with history of IV drug use. She has developed left calf pain and swelling. MRI revealed an abscess of the left calf. Informed consent was obtained preoperatively and operative site was marked. She was brought to the operating room. She was initially given spinal anesthesia. Spinal anesthesia was not providing adequate anesthesia for surgery. Subsequently she is given IV sedation and general anesthesia. Left leg was prepped with alcohol followed Hibiclens and draped in usual sterile fashion. Timeout procedure was performed. Patient is already on scheduled IV antibiotics. Procedure began with a 2 inch incision over the posterior medial calf. Subcu tissue was dissected with Bovie. The abscess was identified. Approximately 50 cc of purulent fluid was evacuated from the abscess. This fluid was sent for cultures. An excisional debridement was now performed with rongeurs and curettes. Subcutaneous tissue and fascia were sharply excised. Loculations were manually debrided. After thorough debridement, the soft tissue was thoroughly irrigated with pulsatile lavage. A drain was placed into the abscess region. Subcutaneous tissue was closed with 3-0 PDS and skin was closed with 3-0 nylon. Sterile dressings were applied. Patient was awakened and transferred to recovery room in stable condition. Assessment and Plan - Plan 31-year-old female admitted secondary to fevers with history of IV drug abuse. MRSA bacteremia present. Status post I&D 11-17. Patient tolerated procedure well. Pain control. 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 Continue antibiotics. Follow clinically for improvement and continued resolution of sepsis. Visual hallucinations Possible medication side effect Discussed with Dr. Pineda, appreciate his expertise Will obtain CT head for further evaluation monitor for recurrence Left Lower Extremity Abscess Status post I&D 11-17, wound culture shows no growth in 72 hours Orthopedic Surgeon following. Daily dressing changes per Ortho instructions. drain discontinued. Follow-up for suture removal in 2 weeks. Continue IV antibiotics Bacteruria started on Rocephin empirically Urine culture failed to show any growth, discontinue Rocephin Sepsis secondary to MRSA Resolved Infective endocarditis MRSA bacteremia Probable septic pulmonary emboli ID following -anticipate 6 weeks of IV antibiotics. Due to IV drug use patient is not a candidate for outpatient treatment. Continue daptomycin. Weekly CK levels. Gentamicin discontinued secondary to MALGORZATA Cardiology following MARVIN shows infective endocarditis OF MITRAL AND TRICUSPID VALVES No PICC line per ID MALGORZATA, suspect secondary to gentamicin use Creatinine trending up Nephrology following, appreciate assistance renal US neg give small IVF bolus Avoid nephrotoxic agents Continue to monitor kidney function - repeat BMP in am Subjective bilateral hearing loss, improving Ear exam WNL ? Related to gentamicin ototoxicity. Discussed with Dr. Hernandez. Patient will need to follow-up with washer meat and/or ENT specialist as outpatient for further evaluation Severe back pain No evidence of abscess Continue methadone needed Percocet Generalized edema on torsemide, hold for now 2/2 MALGORZATA Borderline personality disorder Anxiety Abilify Change clonazepam to as needed secondary to lethargy Hepatitis C IVDU Standard precautions Advised on IV drug use cessation Patient will need to follow-up with GI as outpatient Hypokalemia, resolved s/p repletion DVT prophylaxis Lovenox Discussed Condition With: patient, nursing staff, Dr. Hernandez Discharge Planning: Not ready for discharge. Patient will need long-term IV antibiotics per ID and not able to have PICC line placed secondary to IV drug use
[2017-11-22] MEDS: ARIPiprazole 5 MG Tablet PO SCH (10:21)
[2017-11-22] MEDS: oxyCODONE/Acetaminophen 10/325 Tablet PO PRN ×2 (10:26→21:29)
--- NOTE | 2017-11-22 12:02 | US ---
EXAM DATE: 11/22/2017 11:30 AM EDT AGE/SEX: 31 years / Female INDICATIONS: Elevated labs. CLINICAL DATA: This is the patient's initial encounter. Patient reports that signs and symptoms have been present for 1 day and indicates a pain score of 4/10. MEDICAL/SURGICAL HISTORY: Hepatitis C. IV drug use. Thrombocytopenia. None. COMPARISON: [facility] [place], CT ABDOMEN & PELVIS W CONTRAST, 11/06/2017. . MEASUREMENTS: Right Kidney:__13.2 x 4.7 x 5.4 cm Left Kidney:__12.1 x 4.3 x 4.1 cm FINDINGS: Right Kidney: Normal echotexture and cortical thickness. No mass or hydronephrosis. Left Kidney: Normal echotexture and cortical thickness. No mass or hydronephrosis. Bladder: Decompressed. Not well evaluated. Other: None. CONCLUSION: 1. Negative renal sonogram. Electronically signed by: Alejo Anton MD 11/22/2017 11:49 AM EDT
[2017-11-22 12:48] LABS: Calcium 8.9 mg/dL (8.5-10.1); Carbon Dioxide 26.6 meq/L (21.0-32.0); Potassium 3.9 meq/L (3.5-5.1)
[2017-11-22] MEDS: DAPTOmycin Inj 800 MG in Sodium Chlor 0.9% Inj 100 ML IV.SIG SCH (13:20)
--- NOTE | 2017-11-22 13:47 | P.PNPSY ---
Subjective Remarks: KELLY Cerda has requested I return to re-evaluate patient. She reports that patient was complaining of vivid and disturbing VH this morning, including seeing relatives. Chart reviewed. Case discussed with nurse, [place]. On my exam, patient reports that she saw figures last night and this morning, including the relatives as noted above. She denies hallucinations in any other sensory modality. She also says that she saw things jump on her. She denies hallucinations presently. No delusional material. Affect remains a little labile. Patient believes that Klonopin caused VH, although it appears that she received less Klonopin yesterday (1mg) than she had in previous days ( usually ~3mg). She denies any suicidal or homicidal ideation. No other potential medication side effects. Complains of back pain. No other physical complaints. Registration 06/24, recall 04/26 at 5". Oriented to person, month/year, location. Able to spell WORLD forward and backward with no errors but struggles with serial 7's (1 correct subtraction). Vital Signs Temp Pulse Resp BP Pulse Ox 11/22/17 14:28 18 11/22/17 12:00 97.4 F L 89 18 113/59 L 95 11/22/17 11:00 18 11/22/17 04:00 98.8 F 84 18 117/69 94 L 11/22/17 00:00 97.6 F 79 18 107/55 L 95 11/21/17 20:00 98.1 F 83 18 101/61 94 L 11/21/17 16:00 97.6 F 89 20 112/57 L 93 L Intake and Output 11/22/17 11/22/17 11/22/17 06:59 14:59 22:59 Intake Total 100 / 100 Balance 100 / 100 Intake: IV 100 / 100 Cubicin Inj 800 MG In NS Inj 100 / 100 100 ML @ 200 mls/hr IV.SIG Q24H JUNIOR Rx#:[id number] Other: # Voids 2 Date of Last Bowel Movement 11/20/17 Laboratory Results - last 24 hr 11/22/17 11:25 Sodium 134 L Potassium 3.9 Chloride 98 Carbon Dioxide 26.6 Anion Gap 9 BUN 7 Creatinine 1.18 H Estimated GFR 54 L Random Glucose 75 Calcium 8.9 Total Creatine Kinase 30 Labs reviewed. UA reviewed. Urine culture no growth x 24 hours. Review of Systems All other systems reviewed negative except as stated in HPI Mental Status Examination Appearance: Appropriate Consciousness: Alert Orientation: Person, Place, Date/Time (month/year), Situation Motor Activity: Other (No abnormal motor movements noted. No signs of GABAergic withdrawal noted.) Speech: Unremarkable Language: Adequate Fund of Knowledge: Adequate Attention and Concentration: Adequate Memory: Unremarkable (Grossly intact on clinical exam) Mood: Anxious Affect: Labile (Mild) Thought Process & Associations: Intact, Logical, Linear Thought Content: Appropriate Hallucination Type: None (Denies hallucinations presently) Delusion Type: None Suicidal Ideation: No Suicidal Plan: No Suicidal Intention: No Homicidal Ideation: No Homicidal Plan: No Homicidal Intention: No Insight: Fair Judgment: Impulsive (Likely chronically so) Assessment and Plan - Assessment (1) Visual hallucination Code(s): R44.1 - Visual hallucinations Status: Acute (2) Cluster B personality disorder Code(s): F60.9 - Personality disorder, unspecified Status: Suspected (3) Polysubstance abuse Code(s): F19.10 - Other psychoactive substance abuse, uncomplicated Status: Acute - Plan Plan: Patient complaining of isolated visual hallucinations overnight and into this morning, now reportedly resolved. These may reflect hypnagogic/hypnopompic hallucinations, which are not generally pathological. If pathologic, visual hallucinations are more commonly seen with organic conditions (auditory hallucinations being more common in psychiatric illness). Possible causes could include medication effect (e.g. from mild opiate or benzodiazepine intoxication, although again the latter seems less likely as patient actually received less Klonopin than usual yesterday) or delirium from acute medical issues (mental status is fairly good now, but would expect to see waxing and waning course with a delirium). There is no evidence of GABAergic withdrawal. Hallucinations are a listed side effect of daptomycin, but patient has been receiving this agent for some time and so it seems a less likely culprit. Micro -psychosis in the setting of borderline personality style could be considered. If the hallucinations do not recur, I would take no further action. If they do recur and are distressing for patient, could consider titrating Abilify to 7.5- 10mg/day for empiric management of this issue. Could also consider expanding workup for possible organic causes of hallucination by checking, e.g. ammonia, EEG. Case d/w KELLY Cerda. I will plan to follow up next week. I will be out of the office 11/23-11/26, [place] [phone] if you require psychiatric assistance during this time. Justification for Continued Inpatient Stay: Per primary team.
--- NOTE | 2017-11-22 15:02 | P.PNID ---
Subjective Remarks: Patient complaining of severe bilateral flank pain. Afebrile. Denies chills. Denies dysuria. Blood culture from 11/08 has no growth. Blood culture from 11/07 has MRSA. MARVIN noted lesions on the tricuspid and mitral valve. Admitted with altered mental status. The patient uses IV drugs in the form of heroin and methamphetamines. Allergies/Adverse Reactions: Allergies haloperidol Adverse Reaction (Intermediate, Verified 11/01/17 22:36) SEIZURES NICKEL Allergy (Intermediate, Uncoded 11/01/17 22:36) Anxiety Objective Vital Signs 11/21/17 16:00 11/21/17 20:00 11/22/17 00:00 Temperature 97.6 F 98.1 F 97.6 F Pulse Rate 89 83 79 Respiratory Rate 20 18 18 Blood Pressure 112/57 L 101/61 107/55 L Pulse Oximetry 93 L 94 L 95 11/22/17 04:00 11/22/17 11:00 11/22/17 12:00 Temperature 98.8 F 97.4 F L Pulse Rate 84 89 Respiratory Rate 18 18 18 Blood Pressure 117/69 113/59 L Pulse Oximetry 94 L 95 11/22/17 14:28 Temperature Pulse Rate Respiratory Rate 18 Blood Pressure Pulse Oximetry Intake & Output 11/21/17 11/22/17 11/22/17 18:59 06:59 18:59 Intake Total 880 / 880 100 / 100 100 / 100 Balance 880 / 880 100 / 100 100 / 100 Intake: IV 100 / 100 100 / 100 100 / 100 Cubicin Inj 800 MG In NS Inj 100 / 100 100 / 100 100 ML @ 200 mls/hr IV.SIG Q24H JUNIOR Rx#:[id number] Rocephin Inj 1,000 MG In NS Inj 100 / 100 100 ML @ 200 mls/hr IV.SIG Q24H JUNIOR Rx#:[id number] Oral 280 / 280 Other 500 / 500 Other: Other Intake Source Saline Solution # Voids 2 2 Date of Last Bowel Movement 11/20/17 11/20/17 # Bowel Movements 1 # Emeses 1 11/21/17 12:45 Clean Catch Urine Urine Culture - Preliminary No growth in 24 hours 11/17/17 09:05 Fluid - Other Gram Stain - Final 11/17/17 09:05 Fluid - Other Wound Culture - Final No growth in 72 hours (aerobically and anaerobically ) 11/17/17 09:05 Fluid - Other Acid Fast Bacilli Smear - Final No acid fast bacilli seen 11/17/17 09:05 Fluid - Other Mycobacterial Culture - Pending Lab - Chemistry Results 11/21/17 11/21/17 11/22/17 09:35 09:35 11:25 Sodium 136 134 L Potassium 3.7 3.9 Chloride 100 98 Carbon Dioxide 26.5 26.6 Anion Gap 10 9 BUN 7 7 Creatinine 1.14 H 1.10 H 1.18 H Estimated GFR 56 L 59 L 54 L Random Glucose 79 75 Calcium 8.9 8.9 Total Creatine Kinase 30 Imaging: ITS Impressions Head CT 11/02/17 00:00 CONCLUSION: 1. No acute intracranial abnormality. 2. Bilateral maxillary sinus mucosal disease. Head MRI 11/02/17 00:00 CONCLUSION: 1. No definite acute abnormality is seen. Edema to suggest encephalitis is not seen. 2. There are a few punctate areas of increased signal within the cerebral white matter representing small foci of demyelination. Underlying demyelinating conditions can be considered. Liver Ultrasound 11/02/17 00:00 CONCLUSION: Generalized hepatosplenomegaly without focal mass Sludge within the gallbladder Chest CT 11/02/17 00:01 CONCLUSION: 1. Diffuse patchy groundglass opacities with nodular regions primarily in the left upper and lower lobes and single potentially cavitary nodule near the left lung apex. Overall, findings are concerning for atypical infection or developing septic pulmonary emboli in the appropriate clinical setting. 2. Subtle anterior pericardial effusion. 3. Subcentimeter bilateral axillary adenopathy, likely infectious/inflammatory. Chest X-Ray 11/04/17 05:00 CONCLUSION: Developing bilateral infiltrates. Abdomen/Pelvis CT 11/06/17 00:00 CONCLUSION: 1. Mild anasarca. 2. Slight splenomegaly with focal lesion towards the anterior portion of the spleen not present on the prior examination could be infarction, however splenic abscess is not excluded. 3. Slight peritoneal fluid nonspecific. Cervical Spine MRI 11/06/17 00:00 CONCLUSION: Slight nondescript serpiginous edema in the upper back, otherwise unremarkable. Lumbar Spine MRI 11/06/17 00:00 CONCLUSION: Slight nondescript subcutaneous edema in the patient's back, otherwise unremarkable without abscess formation. Thoracic Spine MRI 11/06/17 00:00 CONCLUSION: Essentially unremarkable study except for slight nondescript separate density on the patient's back. Venous Doppler Study 11/15/17 00:00 CONCLUSION: 1. Negative exam with no evidence of deep venous thrombosis. 2. Moderate size Carson's cyst in the left popliteal fossa region. Lower Extremity MRI 11/16/17 00:00 CONCLUSION: 1. Oval complex fluid collection most characteristic of an abscess. There is surrounding edema. Abdomen/Bladder Ultrasound 11/22/17 00:00 CONCLUSION: 1. Negative renal sonogram. Physical Exam: GENERAL: No apparent distress. HEENT: No icterus. Oropharynx: Moist mucosa. No visible lesions. NECK: Supple. No adenopathy. LUNGS: Clear breath sounds HEART: Regular S1 and S2, No murmurs heard. ABDOMEN: Obese, soft, no tenderness appreciated. No masses palpable. EXTREMITIES: Post op Left leg. 2+ edema at the extremities. SKIN: No rash. NEUROLOGIC: No gross focal findings. PSYCH: Calm and cooperative. Assessment and Plan - Plan IMPRESSION: 1. Endocarditis. Mitral and tricuspid valve. R. atrial mass - MRSA. 2. Severe sepsis due to methicillin-resistant Staphylococcus aureus in patient sedated with intravenous drug abuse and recent intravenous drug use. 3. Abnormal CT of the chest, suggesting septic emboli. Left calf abscess post drainage - culture pending. 4. Altered mental status on admission. Lumbar puncture revealed few white cells in the cerebrospinal fluid. Mental status improved. 5. Acute kidney disease. Stopped Gentamycin. Slow to improve. RECOMMENDATIONS: 1. Continue Daptomycin. Blood culture remained persistent with Vancomycin. 2. Follow kidney function. 3. Monitor clinical status. Anticipate IV antibiotics until 12/20/2017. Would not place a PIC line. Patient is not candidate for outpatient treatment. Very high likelihood she will use PIC line for IV drug use.
[2017-11-22] MEDS ORDERED: Sodium Chlor 0.9% Inj 500 ML IV.SIG ONE (16:43)
--- NOTE | 2017-11-22 16:58 | P.PNNP ---
Subjective Interval history: Patient is alert, has back pain, no SOB. <Miroslava Clark - Last Filed: 11/22/17 18:21> Physical Exam Vital signs: Vital Signs 11/21/17 20:00 11/22/17 00:00 11/22/17 04:00 Temperature 98.1 F 97.6 F 98.8 F Pulse Rate 83 79 84 Respiratory Rate 18 18 18 Blood Pressure 101/61 107/55 L 117/69 Pulse Oximetry 94 L 95 94 L 11/22/17 11:00 11/22/17 12:00 11/22/17 14:28 Temperature 97.4 F L Pulse Rate 89 Respiratory Rate 18 18 18 Blood Pressure 113/59 L Pulse Oximetry 95 Intake & Output 11/21/17 11/22/17 11/22/17 18:59 06:59 18:59 Intake Total 880 / 880 100 / 100 100 / 100 Balance 880 / 880 100 / 100 100 / 100 Intake: IV 100 / 100 100 / 100 100 / 100 Cubicin Inj 800 MG In NS Inj 100 / 100 100 / 100 100 ML @ 200 mls/hr IV.SIG Q24H JUNIOR Rx#:[id number] Rocephin Inj 1,000 MG In NS Inj 100 / 100 100 ML @ 200 mls/hr IV.SIG Q24H JUNIOR Rx#:[id number] Oral 280 / 280 Other 500 / 500 Other: Other Intake Source Saline Solution # Voids 2 2 Date of Last Bowel Movement 11/20/17 11/20/17 # Bowel Movements 1 # Emeses 1 - Urinary Catheter Management Indwelling Urethral Catheter Cath placed during this visit: yes, but has since been removed by the nurse Reason for continuing: Decision to DC catheter Insertion date: 11/02/17 Insertion time: 00:07 Removal date: 11/06/17 Removal time: 12:00 <Lily Montano - Last Filed: 11/22/17 16:50> Vital signs: Vital Signs 11/21/17 20:00 11/22/17 00:00 11/22/17 04:00 Temperature 98.1 F 97.6 F 98.8 F Pulse Rate 83 79 84 Respiratory Rate 18 18 18 Blood Pressure 101/61 107/55 L 117/69 Pulse Oximetry 94 L 95 94 L 11/22/17 11:00 11/22/17 12:00 11/22/17 14:28 Temperature 97.4 F L Pulse Rate 89 Respiratory Rate 18 18 18 Blood Pressure 113/59 L Pulse Oximetry 95 Intake & Output 11/21/17 11/22/17 11/22/17 18:59 06:59 18:59 Intake Total 880 / 880 100 / 100 100 / 100 Balance 880 / 880 100 / 100 100 / 100 Intake: IV 100 / 100 100 / 100 100 / 100 Cubicin Inj 800 MG In NS Inj 100 / 100 100 / 100 100 ML @ 200 mls/hr IV.SIG Q24H JUNIOR Rx#:[id number] Rocephin Inj 1,000 MG In NS Inj 100 / 100 100 ML @ 200 mls/hr IV.SIG Q24H JUNIOR Rx#:[id number] Oral 280 / 280 Other 500 / 500 Other: Other Intake Source Saline Solution # Voids 2 2 Date of Last Bowel Movement 11/20/17 11/20/17 # Bowel Movements 1 # Emeses 1 - Urinary Catheter Management Indwelling Urethral Catheter Cath placed during this visit: no <Miroslava Clark - Last Filed: 11/22/17 18:21> Assessment and Plan - Assessment (1) Acute kidney injury Code(s): N17.9 - Acute kidney failure, unspecified Status: Acute Plan: Acute kidney injury with a creatinine of 1.10 with a admission creatinine on 0.42. Acute kidney injury with urine sodium of 108 possible ATN/intrinsic from aminoglycosides or diuretic use Continue to hold torsemide With steady increase in creatinine will order gently hydration X 1 bag Fluids encouraged Avoid nephrotoxins including NSAIDS, aminoglycosides, and IV contrast Will monitor BMP and urinary output (2) Endocarditis and heart valve disorders in diseases classified elsewhere Code(s): I39 - Endocarditis and heart valve disorders in diseases classified elsewhere Status: Acute - Plan antibiotics per ID <Lily Montano - Last Filed: 11/22/17 16:50> - Assessment (1) Acute kidney injury Code(s): N17.9 - Acute kidney failure, unspecified Status: Acute Plan: Patient seen and examined, agree with above. Creatinine is almost same, follow the urine out put and BMP. (2) Endocarditis and heart valve disorders in diseases classified elsewhere Code(s): I39 - Endocarditis and heart valve disorders in diseases classified elsewhere Status: Acute <Miroslava Clark - Last Filed: 11/22/17 18:21>
[2017-11-22] MEDS ORDERED: Sod Chloride 0.9% Inj 1,000 ML IV.CONT SCH (16:59)
--- NOTE | 2017-11-22 17:19 | CT ---
EXAM DATE: 11/22/2017 5:10 PM EDT AGE/SEX: 31 years / Female INDICATIONS: Altered mental status. CLINICAL DATA: This is the patient's initial encounter. Patient reports that signs and symptoms have been present for 1 day and indicates a pain score of 5/10. MEDICAL/SURGICAL HISTORY: Hepatitis C. meningitis, IV drug use. None. RADIATION DOSE: 48.19 CTDI (mGy) COMPARISON: [facility] [place] HEAD W & W/O CONTRAST, 11/02/2017. . TECHNIQUE: CT of the head without contrast. Using automated exposure control and adjustment of the mA and/or kV according to patient size, radiation dose was kept as low as reasonably achievable to ob tain optimal diagnostic quality images. DICOM format image data is available electronically for revi ew and comparison. FINDINGS: Cerebrum: The ventricles are normal for age. No evidence of midline shift, mass lesion, hemorrhage or acute infarction. No extraaxial fluid collections are seen. Posterior Fossa: The cerebellum and brainstem are intact. The 4th ventricle is midline. The cerebe llopontine angle is unremarkable. Extracranial: The visualized portion of the orbits is intact. Skull: The calvaria is intact. No evidence of skull fracture. CONCLUSION: 1. Negative CT Head non contrast. . Electronically signed by: Alejo Anton MD 11/22/2017 5:18 PM EDT
[2017-11-23] MEDS: Enoxaparin Inj 40 MG/0.4 ML Syringe SQ SCH (01:39)
[2017-11-23] MEDS: oxyCODONE/Acetaminophen 10/325 Tablet PO PRN ×3 (01:39→20:42)
[2017-11-23] MEDS: Methadone 10 MG Tablet PO SCH ×3 (06:25→21:00)
[2017-11-23 08:11] LABS: Carbon Dioxide 27.7 meq/L (21.0-32.0); Potassium 3.8 meq/L (3.5-5.1)
[2017-11-23] MEDS: ARIPiprazole 5 MG Tablet PO SCH (09:59)
--- NOTE | 2017-11-23 09:59 | P.PNNP ---
Subjective Interval history: Resting. Reports mild shortness of breath. Creatinine slightly improved at 1.08 from 1.18. <Lily Montano - Last Filed: 11/23/17 09:56> Physical Exam Vital signs: Vital Signs 11/22/17 11:00 11/22/17 12:00 11/22/17 14:28 Temperature 97.4 F L Pulse Rate 89 Respiratory Rate 18 18 18 Blood Pressure 113/59 L Pulse Oximetry 95 11/22/17 20:45 11/23/17 00:30 11/23/17 05:20 Temperature 98.8 F 98 F 98.8 F Pulse Rate 115 H 110 H 118 H Respiratory Rate 19 21 19 Blood Pressure 110/59 L 112/60 101/58 L Pulse Oximetry 95 96 96 Intake & Output 11/22/17 11/23/17 11/23/17 18:59 06:59 18:59 Intake Total 640 / 640 2300 / 2300 Output Total 200 / 200 Balance 440 / 440 2300 / 2300 Weight 71.5 kg Intake: IV 100 / 100 Cubicin Inj 800 MG In NS Inj 100 / 100 100 ML @ 200 mls/hr IV.SIG Q24H JUNIOR Rx#:[id number] Oral 540 / 540 2300 / 2300 Output: Emesis 200 / 200 Other: Other Intake Source Saline Solution # Voids 4 3 Date of Last Bowel Movement 11/20/17 # Bowel Movements 0 # Emeses 2 - Constitutional no acute distress - Routine HEENT Exam Head: Present: normocephalic ENT: Present: mucous membranes moist - Routine Neck Exam Present: supple. Absent: JVD - Routine Respiratory Exam Present: decreased breath sounds. Absent: rales, rhonchi, wheezes - Routine Cardiovascular Exam Present: RRR - Routine Abdominal Exam Present: soft, normoactive bowel sounds. Absent: tenderness - Routine Extremities Exam Present: edema - Routine Skin Exam Present: dry, warm - Routine Neurological Exam Present: alert, oriented X3 - Routine Psychiatric Exam Present: cooperative - Urinary Catheter Management Indwelling Urethral Catheter Cath placed during this visit: yes, but has since been removed by the nurse Reason for continuing: Decision to DC catheter Insertion date: 11/02/17 Insertion time: 00:07 Removal date: 11/06/17 Removal time: 12:00 <Lily Montano - Last Filed: 11/23/17 09:56> Vital signs: Vital Signs 11/22/17 20:45 11/23/17 00:30 11/23/17 05:20 Temperature 98.8 F 98 F 98.8 F Pulse Rate 115 H 110 H 118 H Respiratory Rate 19 21 19 Blood Pressure 110/59 L 112/60 101/58 L Pulse Oximetry 95 96 96 11/23/17 08:00 11/23/17 12:00 11/23/17 16:00 Temperature 98.6 F 98.4 F 98.9 F Pulse Rate 85 62 95 H Respiratory Rate 16 16 16 Blood Pressure 110/69 128/62 118/82 Pulse Oximetry 95 91 L 96 Intake & Output 11/23/17 11/23/17 11/24/17 06:59 18:59 06:59 Intake Total 2300 / 2300 Balance 2300 / 2300 Weight 71.5 kg Intake: Oral 2300 / 2300 Other: # Voids 3 1 # Bowel Movements 0 - Urinary Catheter Management Indwelling Urethral Catheter Cath placed during this visit: no <Miroslava Clark - Last Filed: 11/23/17 19:01> Assessment and Plan - Assessment (1) Acute kidney injury Code(s): N17.9 - Acute kidney failure, unspecified Status: Acute Plan: Acute kidney injury with a creatinine of 1.10 with a admission creatinine on 0.42. Acute kidney injury with urine sodium of 108 possible ATN/intrinsic from aminoglycosides or diuretic use Creatinine at 1.18 ->1.08 Will discontinue IVF and fluids encouraged. Continue to hold torsemide Avoid nephrotoxins including NSAIDS, aminoglycosides, and IV contrast Will continue to monitor BMP and urinary output (2) Endocarditis and heart valve disorders in diseases classified elsewhere Code(s): I39 - Endocarditis and heart valve disorders in diseases classified elsewhere Status: Acute - Plan antibiotics per ID <Lily Montano - Last Filed: 11/23/17 09:56> - Assessment (1) Acute kidney injury Code(s): N17.9 - Acute kidney failure, unspecified Status: Acute (2) Endocarditis and heart valve disorders in diseases classified elsewhere Code(s): I39 - Endocarditis and heart valve disorders in diseases classified elsewhere Status: Acute - Attending Attestation Patient seen and examine, agree with above. Creatinine is stable, 1.0, non oliguric. Avoid Nephrotoxins. <Miroslava Clark - Last Filed: 11/23/17 19:01>
--- NOTE | 2017-11-23 11:52 | P.PN ---
Subjective Interval history: Follow-up on patient with left leg abscess, MRSA bacteremia, endocarditis. Patient seen and examined. Patient complains of being tired. She denies any visual or auditory hallucinations since yesterday morning. She denies any fever or chills. She denies any chest pain or shortness of breath. She denies any nausea, vomiting or abdominal pain. She denies any dysuria or diarrhea. Repeat CT head without any acute intracranial abnormality. Physical Exam Vital signs: Vital Signs 11/22/17 12:00 11/22/17 14:28 11/22/17 20:45 Temperature 97.4 F L 98.8 F Pulse Rate 89 115 H Respiratory Rate 18 18 19 Blood Pressure 113/59 L 110/59 L Pulse Oximetry 95 95 11/23/17 00:30 11/23/17 05:20 11/23/17 08:00 Temperature 98 F 98.8 F 98.6 F Pulse Rate 110 H 118 H 85 Respiratory Rate 21 19 16 Blood Pressure 112/60 101/58 L 110/69 Pulse Oximetry 96 96 95 Intake & Output 11/22/17 11/23/17 11/23/17 18:59 06:59 18:59 Intake Total 640 / 640 2300 / 2300 Output Total 200 / 200 Balance 440 / 440 2300 / 2300 Weight 71.5 kg Intake: IV 100 / 100 Cubicin Inj 800 MG In NS Inj 100 / 100 100 ML @ 200 mls/hr IV.SIG Q24H JUNIOR Rx#:[id number] Oral 540 / 540 2300 / 2300 Output: Emesis 200 / 200 Other: Other Intake Source Saline Solution # Voids 4 3 Date of Last Bowel Movement 11/20/17 # Bowel Movements 0 # Emeses 2 Narrative: GENERAL: This is a well-developed well-nourished female patient INAD. Awake and alert. Appears comfortable lying in bed. SKIN: Warm and dry. No generalized rash. HEENT: Atraumatic. Normocephalic. EOMI. Sclera anicteric bilaterally. No nasal drainage noted. Bilateral ear canals WNL, bilateral TMs, clear/pearly, no evidence of infection from previous exam. No evidence of fluid. Airway patent. MMM. NECK: Supple, trachea midline. No lymphadenopathy. CARDIOVASCULAR: Regular rate and rhythm without murmurs, gallops, or rubs. S1, S2 RESPIRATORY: Nonlabored. No accessory muscle use. Breath sounds equal bilaterally. Clear to auscultation. GASTROINTESTINAL: Abdomen soft, non-tender, nondistended. MUSCULOSKELETAL: No cyanosis or edema. Left leg is in postop dressing s/p removal of JAROCHO drain. NEURO: Awake and alert. Able to move all extremities spontaneously. No focal neurological deficits. Normal speech. PSYCHIATRIC: Calm and cooperative. Judgment and insight poor. - Urinary Catheter Management Indwelling Urethral Catheter Cath placed during this visit: yes, but has since been removed by the nurse Reason for continuing: Decision to DC catheter Insertion date: 11/02/17 Insertion time: 00:07 Removal date: 11/06/17 Removal time: 12:00 Results - Labs CBC & Chem 7: 11/19/17 07:44 11/23/17 06:41 Laboratory Results - last 24 hr 11/22/17 11/23/17 11:25 06:41 Sodium 134 L 136 Potassium 3.9 3.8 Chloride 98 101 Carbon Dioxide 26.6 27.7 Anion Gap 9 7 BUN 7 7 Creatinine 1.18 H 1.08 H Estimated GFR 54 L 60 L Random Glucose 75 80 Calcium 8.9 9.0 Total Creatine Kinase 30 Microbiology 11/21/17 12:45 Clean Catch Urine Urine Culture - Final No growth in 48 hours - Imaging Impressions Abdomen/Bladder Ultrasound 11/22/17 00:00 CONCLUSION: 1. Negative renal sonogram. Head CT 11/22/17 16:33 CONCLUSION: 1. Negative CT Head non contrast. . - Procedures Echocardiogram 11/03/2017 The left ventricular systolic function is hyperdynamic with an estimated ejection fraction in the range of 65- 70%. Normal left ventricular size. Wall thickness is normal. No regional wall motion abnormalities are present. There is mild tricuspid valve regurgitation. The estimated pulmonary arterial pressure is 39.2 mmHg. 11/17/17 Procedure: Irrigation and debridement of left calf abscess Anesthesia: DEVONTE Surgeon: Anand Torres MD Solutions Sales Executive: MUMTAZ Abdi PA-C The surgical procedure was assisted by my physician corporate administrative assistant. My P.A. presence was necessary throughout this case for the manipulation and positioning of the surgical extremity. My P.A. was assisting me throughout the duration of this procedure. The skill set of a physician corporate administrative assistant was medically necessary to complete this procedure. During the surgical case the fitness technician was working at the back table and the physician corporate administrative assistant was directly assisting me. Operation and Findings: Salud is a 31-year-old female with history of IV drug use. She has developed left calf pain and swelling. MRI revealed an abscess of the left calf. Informed consent was obtained preoperatively and operative site was marked. She was brought to the operating room. She was initially given spinal anesthesia. Spinal anesthesia was not providing adequate anesthesia for surgery. Subsequently she is given IV sedation and general anesthesia. Left leg was prepped with alcohol followed Hibiclens and draped in usual sterile fashion. Timeout procedure was performed. Patient is already on scheduled IV antibiotics. Procedure began with a 2 inch incision over the posterior medial calf. Subcu tissue was dissected with Bovie. The abscess was identified. Approximately 50 cc of purulent fluid was evacuated from the abscess. This fluid was sent for cultures. An excisional debridement was now performed with rongeurs and curettes. Subcutaneous tissue and fascia were sharply excised. Loculations were manually debrided. After thorough debridement, the soft tissue was thoroughly irrigated with pulsatile lavage. A drain was placed into the abscess region. Subcutaneous tissue was closed with 3-0 PDS and skin was closed with 3-0 nylon. Sterile dressings were applied. Patient was awakened and transferred to recovery room in stable condition. Assessment and Plan - Plan 31-year-old female admitted secondary to fevers with history of IV drug abuse. MRSA bacteremia present. Status post I&D 11-17. Patient tolerated procedure well. Pain control. 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 Continue antibiotics. Follow clinically for improvement and continued resolution of sepsis. Visual hallucinations Possible medication side effect Discussed with Dr. Pindea, appreciate his expertise Will obtain CT head for further evaluation monitor for recurrence Left Lower Extremity Abscess Status post I&D 11-17, wound culture shows no growth in 72 hours Orthopedic Surgeon following. Daily dressing changes per Ortho instructions. drain discontinued. Follow-up for suture removal in 2 weeks. Continue IV antibiotics Bacteruria started on Rocephin empirically Urine culture failed to show any growth, discontinue Rocephin Sepsis secondary to MRSA Resolved Infective endocarditis MRSA bacteremia Probable septic pulmonary emboli ID following -anticipate 6 weeks of IV antibiotics. Due to IV drug use patient is not a candidate for outpatient treatment. Continue daptomycin. Weekly CK levels. Gentamicin discontinued secondary to MALGORZATA Cardiology following MARVIN shows infective endocarditis OF MITRAL AND TRICUSPID VALVES No PICC line per ID MALGORZATA, suspect secondary to gentamicin use Creatinine improved some today 1.18 to 1.08 Nephrology following, appreciate assistance renal US neg Avoid nephrotoxic agents Continue to monitor kidney function - repeat BMP in am Subjective bilateral hearing loss, improving Ear exam WNL ? Related to gentamicin ototoxicity. Discussed with Dr. Hernandez. Patient will need to follow-up with electric truck operator and/or ENT specialist as outpatient for further evaluation Severe back pain No evidence of abscess Continue methadone needed Percocet, begin to titrate off of short acting narcotics Generalized edema on torsemide, hold for now 2/2 MALGORZATA Borderline personality disorder Anxiety Abilify Change clonazepam to as needed secondary to lethargy. Decrease dose to 0.5mg TID prn. Hepatitis C IVDU Standard precautions Advised on IV drug use cessation Patient will need to follow-up with GI as outpatient Hypokalemia, resolved s/p repletion DVT prophylaxis Lovenox Discussed Condition With: patient, nursing staff and Dr. Hernandez Discharge Planning: Not ready for discharge. Patient will need long-term IV antibiotics per ID and not able to have PICC line placed secondary to IV drug use
[2017-11-23 16:12] LABS: Amphetamine Screen,Urine Neg (Neg); Barbiturate Screen,Urine Neg (Neg); Cannabinoid Screen,Urine Neg (Neg); Cocaine Screen,Urine Neg (Neg)
[2017-11-23] MEDS: DAPTOmycin Inj 800 MG in Sodium Chlor 0.9% Inj 100 ML IV.SIG SCH (16:34)
[2017-11-23 17:14] LABS: Opiate Screen,Urine Neg (Neg)
[2017-11-24] MEDS: oxyCODONE/Acetaminophen 10/325 Tablet PO PRN ×2 (02:43→09:57)
[2017-11-24] MEDS: Enoxaparin Inj 40 MG/0.4 ML Syringe SQ SCH (02:44)
[2017-11-24] MEDS: Methadone 10 MG Tablet PO SCH ×3 (06:29→21:58)
--- NOTE | 2017-11-24 08:31 | P.PN ---
Subjective Interval history: Follow-up on patient with left leg abscess, MRSA bacteremia, endocarditis. Patient seen and examined. Patient denies any acute medical complaints. She states she feels good today. She denies any fever or chills. She denies any chest pain, SOB, N/V, abdominal pain. She is requesting something to help move her bowels. She states she slept well with no recurrence of disturbing visual hallucinations. Discussed with nursing staff, no acute issues. Physical Exam Vital signs: Vital Signs 11/23/17 12:00 11/23/17 16:00 11/23/17 20:50 Temperature 98.4 F 98.9 F 98.8 F Pulse Rate 62 95 H 110 H Respiratory Rate 16 16 19 Blood Pressure 128/62 118/82 112/62 Pulse Oximetry 91 L 96 98 11/24/17 00:20 Temperature 98.9 F Pulse Rate 108 H Respiratory Rate 21 Blood Pressure 99/59 L Pulse Oximetry 98 Intake & Output 11/23/17 11/24/17 11/24/17 18:59 06:59 18:59 Intake Total 2500 / 2500 Balance 2500 / 2500 Weight 71.5 kg Intake: Oral 2500 / 2500 Other: # Voids 1 3 # Bowel Movements 0 Narrative: GENERAL: This is a well-developed well-nourished female patient INAD. Awake and alert. Sitting on side of bed getting blood drawn. SKIN: Warm and dry. No generalized rash. HEENT: Atraumatic. Normocephalic. EOMI. Sclera anicteric bilaterally. No nasal drainage noted. Bilateral ear canals WNL, bilateral TMs, clear/pearly, no evidence of infection from previous exam. No evidence of fluid. Airway patent. MMM. NECK: Supple, trachea midline. No lymphadenopathy. CARDIOVASCULAR: Regular rate and rhythm without murmurs, gallops, or rubs. S1, S2 RESPIRATORY: Nonlabored. No accessory muscle use. Breath sounds equal bilaterally. Clear to auscultation. GASTROINTESTINAL: Abdomen soft, non-tender, nondistended. MUSCULOSKELETAL: No cyanosis or edema. Left leg incision healing well, sutures in place. NEURO: Awake and alert. Able to move all extremities spontaneously. No focal neurological deficits. Normal speech. PSYCHIATRIC: Calm and cooperative. Judgment and insight poor. - Urinary Catheter Management Indwelling Urethral Catheter Cath placed during this visit: yes, but has since been removed by the nurse Reason for continuing: Decision to DC catheter Insertion date: 11/02/17 Insertion time: 00:07 Removal date: 11/06/17 Removal time: 12:00 Results - Labs CBC & Chem 7: 11/24/17 10:12 11/24/17 10:12 Laboratory Results - last 24 hr 11/23/17 15:15 Urine Opiates Screen Neg Ur Barbiturates Screen Neg Ur Amphetamines Screen Neg U Benzodiazepines Scrn Neg Urine Cocaine Screen Neg U Cannabinoids Screen Neg Microbiology 11/02/17 01:30 Cerebral Spinal Fluid - Lumbar Puncture Fungal Smear - Final No fungal elements seen 11/02/17 01:30 Cerebral Spinal Fluid - Lumbar Puncture Fungal Culture - Preliminary No growth in 3 weeks 11/02/17 01:30 Cerebral Spinal Fluid - Lumbar Puncture Acid Fast Bacilli Smear - Final No acid fast bacilli seen 11/02/17 01:30 Cerebral Spinal Fluid - Lumbar Puncture Mycobacterial Culture - Preliminary No growth in 3 weeks 11/21/17 12:45 Clean Catch Urine Urine Culture - Final No growth in 48 hours - Imaging Chest X-Ray 11/01/17 22:25 CONCLUSION: 1. Diffuse patchy groundglass opacities concerning for atypical infection in the appropriate clinical setting. Chest X-Ray 11/02/17 00:00 CONCLUSION: Mild patchy consolidation or atelectasis at the medial left lung base. Head CT 11/02/17 00:00 CONCLUSION: 1. No acute intracranial abnormality. 2. Bilateral maxillary sinus mucosal disease. Head MRI 11/02/17 00:00 CONCLUSION: 1. No definite acute abnormality is seen. Edema to suggest encephalitis is not seen. 2. There are a few punctate areas of increased signal within the cerebral white matter representing small foci of demyelination. Underlying demyelinating conditions can be considered. Liver Ultrasound 11/02/17 00:00 CONCLUSION: Generalized hepatosplenomegaly without focal mass Sludge within the gallbladder Chest CT 11/02/17 00:01 CONCLUSION: 1. Diffuse patchy groundglass opacities with nodular regions primarily in the left upper and lower lobes and single potentially cavitary nodule near the left lung apex. Overall, findings are concerning for atypical infection or developing septic pulmonary emboli in the appropriate clinical setting. 2. Subtle anterior pericardial effusion. 3. Subcentimeter bilateral axillary adenopathy, likely infectious/inflammatory. Chest X-Ray 11/04/17 05:00 CONCLUSION: Developing bilateral infiltrates. Abdomen/Pelvis CT 11/06/17 00:00 CONCLUSION: 1. Mild anasarca. 2. Slight splenomegaly with focal lesion towards the anterior portion of the spleen not present on the prior examination could be infarction, however splenic abscess is not excluded. 3. Slight peritoneal fluid nonspecific. Cervical Spine MRI 11/06/17 00:00 CONCLUSION: Slight nondescript serpiginous edema in the upper back, otherwise unremarkable. Lumbar Spine MRI 11/06/17 00:00 CONCLUSION: Slight nondescript subcutaneous edema in the patient's back, otherwise unremarkable without abscess formation. Thoracic Spine MRI 11/06/17 00:00 CONCLUSION: Essentially unremarkable study except for slight nondescript separate density on the patient's back. Venous Doppler Study 11/15/17 00:00 CONCLUSION: 1. Negative exam with no evidence of deep venous thrombosis. 2. Moderate size Carson's cyst in the left popliteal fossa region. Lower Extremity MRI 11/16/17 00:00 CONCLUSION: 1. Oval complex fluid collection most characteristic of an abscess. There is surrounding edema. Abdomen/Bladder Ultrasound 11/22/17 00:00 CONCLUSION: 1. Negative renal sonogram. Head CT 11/22/17 16:33 CONCLUSION: 1. Negative CT Head non contrast. . - Procedures Echocardiogram 11/03/2017 The left ventricular systolic function is hyperdynamic with an estimated ejection fraction in the range of 65- 70%. Normal left ventricular size. Wall thickness is normal. No regional wall motion abnormalities are present. There is mild tricuspid valve regurgitation. The estimated pulmonary arterial pressure is 39.2 mmHg. 11/17/17 Procedure: Irrigation and debridement of left calf abscess Anesthesia: DEVONTE Surgeon: Anand Torres MD Computer Architect: MUMTAZ Abdi PA-C The surgical procedure was assisted by my physician clinical project assistant. My P.A. presence was necessary throughout this case for the manipulation and positioning of the surgical extremity. My P.A. was assisting me throughout the duration of this procedure. The skill set of a physician clinical project assistant was medically necessary to complete this procedure. During the surgical case the help desk technician was working at the back table and the physician clinical project assistant was directly assisting me. Operation and Findings: Salud is a 31-year-old female with history of IV drug use. She has developed left calf pain and swelling. MRI revealed an abscess of the left calf. Informed consent was obtained preoperatively and operative site was marked. She was brought to the operating room. She was initially given spinal anesthesia. Spinal anesthesia was not providing adequate anesthesia for surgery. Subsequently she is given IV sedation and general anesthesia. Left leg was prepped with alcohol followed Hibiclens and draped in usual sterile fashion. Timeout procedure was performed. Patient is already on scheduled IV antibiotics. Procedure began with a 2 inch incision over the posterior medial calf. Subcu tissue was dissected with Bovie. The abscess was identified. Approximately 50 cc of purulent fluid was evacuated from the abscess. This fluid was sent for cultures. An excisional debridement was now performed with rongeurs and curettes. Subcutaneous tissue and fascia were sharply excised. Loculations were manually debrided. After thorough debridement, the soft tissue was thoroughly irrigated with pulsatile lavage. A drain was placed into the abscess region. Subcutaneous tissue was closed with 3-0 PDS and skin was closed with 3-0 nylon. Sterile dressings were applied. Patient was awakened and transferred to recovery room in stable condition. Assessment and Plan - Plan 31-year-old female admitted secondary to fevers with history of IV drug abuse. MRSA bacteremia present. Status post I&D 11-17. Patient tolerated procedure well. Pain control. 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 Continue antibiotics. Follow clinically for improvement and continued resolution of sepsis. Visual hallucinations Possible medication side effect Discussed with Dr. Pineda, appreciate his expertise Will obtain CT head for further evaluation monitor for recurrence Left Lower Extremity Abscess Status post I&D 11-17, wound culture shows no growth in 72 hours Orthopedic Surgeon following. Daily dressing changes per Ortho instructions. drain discontinued. Follow-up for suture removal in 2 weeks. Continue IV antibiotics Bacteruria started on Rocephin empirically Urine culture failed to show any growth, discontinue Rocephin Sepsis secondary to MRSA Resolved Infective endocarditis MRSA bacteremia Probable septic pulmonary emboli ID following -anticipate 6 weeks of IV antibiotics. Due to IV drug use patient is not a candidate for outpatient treatment. Continue daptomycin. Weekly CK levels. Gentamicin discontinued secondary to MALGORZATA Cardiology following MARVIN shows infective endocarditis OF MITRAL AND TRICUSPID VALVES No PICC line per ID MALGORZATA, suspect secondary to gentamicin use Creatinine worsening today from 1.08 to 1.24 ?decreased perfusion, hypotensive IVF hydration Nephrology following, appreciate assistance Avoid nephrotoxic agents Continue to monitor kidney function - repeat BMP in am Subjective bilateral hearing loss, improving Ear exam WNL ? Related to gentamicin ototoxicity. Discussed with Dr. Hernandez. Patient will need to follow-up with charge master analyst and/or ENT specialist as outpatient for further evaluation Back pain No evidence of abscess Continue methadone needed Percocet, begin to titrate off of short acting narcotics Generalized edema on torsemide, hold for now 2/2 MALGORZATA Borderline personality disorder Anxiety Abilify Clonazepam to as needed secondary to lethargy. Decrease dose to0.5mg TID prn. Hepatitis C IVDU Standard precautions Advised on IV drug use cessation Patient will need to follow-up with GI as outpatient Constipation give PeriColace x 2 now give Miralax x 1 dose Continue on Pericolace scheduled BID monitor for BM DVT prophylaxis Lovenox Discussed Condition With: patient, nursing staff, Dr. Hernandez Discharge Planning: Not ready for discharge. Patient will need long-term IV antibiotics per ID and not able to have PICC line placed secondary to IV drug use
[2017-11-24] MEDS: ARIPiprazole 5 MG Tablet PO SCH (09:57)
[2017-11-24] MEDS: Acetaminophen 500 MG Tablet PO PRN (09:57)
[2017-11-24 10:44] LABS: Hematocrit 29.2 % (35.0-46.0); Hemoglobin 9.8 gm/dL (11.6-15.3); Mean Corpuscular HGB Conc 33.5 % (32.0-36.0); Mean Corpuscular Hemoglobin 28.6 pg (27.0-34.0); Mean Corpuscular Volume 85.5 fL (80.0-100.0); Mean Platelet Volume 6.7 fL (7.0-11.0); Platelet Count 557 th/mm3 (150-450); Red Blood Count 3.41 mil/mm3 (4.00-5.30); Red Cell Distribution Width 14.7 % (11.6-17.2); White Blood Count 11.7 th/mm3 (4.0-11.0)
[2017-11-24 11:00] LABS: Calcium 9.1 mg/dL (8.5-10.1); Potassium 3.7 meq/L (3.5-5.1)
[2017-11-24] MEDS ORDERED: Polyethylene Glycol 3350 17 GM Packet PO ONE (11:15)
[2017-11-24] MEDS ORDERED: Senna/Docusate Sodium 8.6/50 MG Tablet PO ONE (11:15)
[2017-11-24] MEDS: DAPTOmycin Inj 800 MG in Sodium Chlor 0.9% Inj 100 ML IV.SIG SCH (13:49)
[2017-11-24] MEDS: Sod Chloride 0.9% Inj 1,000 ML IV.CONT SCH (17:55)
[2017-11-24] MEDS: Senna/Docusate Sodium 8.6/50 MG Tablet PO SCH (21:59)
[2017-11-24] MEDS: clonazePAM 0.5 MG Tablet PO PRN (23:54)
[2017-11-25] MEDS: Enoxaparin Inj 40 MG/0.4 ML Syringe SQ SCH (01:36)
[2017-11-25] MEDS: Methadone 10 MG Tablet PO SCH ×3 (06:05→22:18)
--- NOTE | 2017-11-25 08:50 | P.PN ---
Subjective Interval history: Follow-up on patient with left leg abscess, MRSA bacteremia, endocarditis. Patient seen and examined. Patient denies any acute medical complaints. She states she is tired and is asking to go back to sleep. Discussed with nursing staff, no acute issues noted. Physical Exam Vital signs: Vital Signs 11/24/17 12:00 11/24/17 17:55 11/24/17 20:00 Temperature 98.1 F 97.9 F 97.6 F Pulse Rate 75 75 79 Respiratory Rate 16 18 18 Blood Pressure 99/71 L 118/62 122/72 Pulse Oximetry 94 L 96 92 L 11/25/17 00:00 11/25/17 04:00 11/25/17 07:56 Temperature 98.7 F 97.3 F L Pulse Rate 86 73 Respiratory Rate 18 18 16 Blood Pressure 136/75 126/74 Pulse Oximetry 96 93 L Intake & Output 11/24/17 11/25/17 11/25/17 18:59 06:59 18:59 Intake Total 100 / 100 100 / 100 Balance 100 / 100 100 / 100 Weight 71.2 kg Intake: IV 100 / 100 100 / 100 Cubicin Inj 800 MG In NS Inj 100 / 100 100 / 100 100 ML @ 200 mls/hr IV.SIG Q24H JUNIOR Rx#:[id number] Other: # Voids 1 4 Narrative: GENERAL: This is a well-developed well-nourished female patient INAD. Awake and alert. Lying in bed. Appears comfortable. SKIN: Warm and dry. No generalized rash. HEENT: Atraumatic. Normocephalic. EOMI. Sclera anicteric bilaterally. No nasal drainage noted. Airway patent. MMM. NECK: Supple, trachea midline. No lymphadenopathy. CARDIOVASCULAR: Regular rate and rhythm without murmurs, gallops, or rubs. S1, S2 RESPIRATORY: Nonlabored. No accessory muscle use. Breath sounds equal bilaterally. Clear to auscultation. GASTROINTESTINAL: Abdomen soft, non-tender, nondistended. MUSCULOSKELETAL: No cyanosis or edema. Left leg incision healing well, sutures in place. NEURO: Awake and alert. Able to move all extremities spontaneously. No focal neurological deficits. Normal speech. PSYCHIATRIC: Calm and cooperative. Judgment and insight poor. - Urinary Catheter Management Indwelling Urethral Catheter Cath placed during this visit: yes, but has since been removed by the nurse Reason for continuing: Decision to DC catheter Insertion date: 11/02/17 Insertion time: 00:07 Removal date: 11/06/17 Removal time: 12:00 Results - Labs CBC & Chem 7: 11/24/17 10:12 11/24/17 10:12 Laboratory Results - last 24 hr 11/24/17 11/24/17 10:12 10:12 WBC 11.7 H RBC 3.41 L Hgb 9.8 L Hct 29.2 L MCV 85.5 MCH 28.6 MCHC 33.5 RDW 14.7 Plt Count 557 H MPV 6.7 L Sodium 133 L Potassium 3.7 Chloride 98 Carbon Dioxide 25.0 Anion Gap 10 BUN 9 Creatinine 1.24 H Estimated GFR 51 L Random Glucose 93 Calcium 9.1 Vitamin B12 1046 H Microbiology 11/17/17 09:05 Fluid - Other Fungal Smear - Final No fungal elements seen 11/17/17 09:05 Fluid - Other Fungal Culture - Preliminary No growth in 1 week 11/17/17 09:05 Fluid - Other Acid Fast Bacilli Smear - Final No acid fast bacilli seen 11/17/17 09:05 Fluid - Other Mycobacterial Culture - Preliminary No growth in 1 week - Imaging Chest X-Ray 11/01/17 22:25 CONCLUSION: 1. Diffuse patchy groundglass opacities concerning for atypical infection in the appropriate clinical setting. Chest X-Ray 11/02/17 00:00 CONCLUSION: Mild patchy consolidation or atelectasis at the medial left lung base. Head CT 11/02/17 00:00 CONCLUSION: 1. No acute intracranial abnormality. 2. Bilateral maxillary sinus mucosal disease. Head MRI 11/02/17 00:00 CONCLUSION: 1. No definite acute abnormality is seen. Edema to suggest encephalitis is not seen. 2. There are a few punctate areas of increased signal within the cerebral white matter representing small foci of demyelination. Underlying demyelinating conditions can be considered. Liver Ultrasound 11/02/17 00:00 CONCLUSION: Generalized hepatosplenomegaly without focal mass Sludge within the gallbladder Chest CT 11/02/17 00:01 CONCLUSION: 1. Diffuse patchy groundglass opacities with nodular regions primarily in the left upper and lower lobes and single potentially cavitary nodule near the left lung apex. Overall, findings are concerning for atypical infection or developing septic pulmonary emboli in the appropriate clinical setting. 2. Subtle anterior pericardial effusion. 3. Subcentimeter bilateral axillary adenopathy, likely infectious/inflammatory. Chest X-Ray 11/04/17 05:00 CONCLUSION: Developing bilateral infiltrates. Abdomen/Pelvis CT 11/06/17 00:00 CONCLUSION: 1. Mild anasarca. 2. Slight splenomegaly with focal lesion towards the anterior portion of the spleen not present on the prior examination could be infarction, however splenic abscess is not excluded. 3. Slight peritoneal fluid nonspecific. Cervical Spine MRI 11/06/17 00:00 CONCLUSION: Slight nondescript serpiginous edema in the upper back, otherwise unremarkable. Lumbar Spine MRI 11/06/17 00:00 CONCLUSION: Slight nondescript subcutaneous edema in the patient's back, otherwise unremarkable without abscess formation. Thoracic Spine MRI 11/06/17 00:00 CONCLUSION: Essentially unremarkable study except for slight nondescript separate density on the patient's back. Venous Doppler Study 11/15/17 00:00 CONCLUSION: 1. Negative exam with no evidence of deep venous thrombosis. 2. Moderate size Carson's cyst in the left popliteal fossa region. Lower Extremity MRI 11/16/17 00:00 CONCLUSION: 1. Oval complex fluid collection most characteristic of an abscess. There is surrounding edema. Abdomen/Bladder Ultrasound 11/22/17 00:00 CONCLUSION: 1. Negative renal sonogram. Head CT 11/22/17 16:33 CONCLUSION: 1. Negative CT Head non contrast. . - Procedures Echocardiogram 11/03/2017 The left ventricular systolic function is hyperdynamic with an estimated ejection fraction in the range of 65- 70%. Normal left ventricular size. Wall thickness is normal. No regional wall motion abnormalities are present. There is mild tricuspid valve regurgitation. The estimated pulmonary arterial pressure is 39.2 mmHg. 11/17/17 Procedure: Irrigation and debridement of left calf abscess Anesthesia: GETA Surgeon: Anand Torres MD Rn Plastic Surgery: MUMTAZ Abdi PA-C The surgical procedure was assisted by my physician assistant engineer. My P.A. presence was necessary throughout this case for the manipulation and positioning of the surgical extremity. My P.A. was assisting me throughout the duration of this procedure. The skill set of a physician assistant engineer was medically necessary to complete this procedure. During the surgical case the surgical scheduler was working at the back table and the physician assistant engineer was directly assisting me. Operation and Findings: Salud is a 31-year-old female with history of IV drug use. She has developed left calf pain and swelling. MRI revealed an abscess of the left calf. Informed consent was obtained preoperatively and operative site was marked. She was brought to the operating room. She was initially given spinal anesthesia. Spinal anesthesia was not providing adequate anesthesia for surgery. Subsequently she is given IV sedation and general anesthesia. Left leg was prepped with alcohol followed Hibiclens and draped in usual sterile fashion. Timeout procedure was performed. Patient is already on scheduled IV antibiotics. Procedure began with a 2 inch incision over the posterior medial calf. Subcu tissue was dissected with Bovie. The abscess was identified. Approximately 50 cc of purulent fluid was evacuated from the abscess. This fluid was sent for cultures. An excisional debridement was now performed with rongeurs and curettes. Subcutaneous tissue and fascia were sharply excised. Loculations were manually debrided. After thorough debridement, the soft tissue was thoroughly irrigated with pulsatile lavage. A drain was placed into the abscess region. Subcutaneous tissue was closed with 3-0 PDS and skin was closed with 3-0 nylon. Sterile dressings were applied. Patient was awakened and transferred to recovery room in stable condition. Assessment and Plan - Assessment (1) MRSA bacteremia Code(s): R78.81 - Bacteremia Status: Acute (2) Sepsis Code(s): A41.9 - Sepsis, unspecified organism Status: Acute (3) Encephalopathy due to infection Code(s): G93.49 - Other encephalopathy; B99.9 - Unspecified infectious disease Status: Acute (4) History of intravenous drug abuse Code(s): Z87.898 - Personal history of other specified conditions Status: Acute (5) Hepatitis C antibody positive in blood Code(s): R76.8 - Other specified abnormal immunological findings in serum Status: Acute (6) Polysubstance abuse Code(s): F19.10 - Other psychoactive substance abuse, uncomplicated Status: Acute (7) Abscess of leg, left Code(s): L02.416 - Cutaneous abscess of left lower limb Status: Acute (8) Acute kidney injury Code(s): N17.9 - Acute kidney failure, unspecified Status: Acute (9) Endocarditis and heart valve disorders in diseases classified elsewhere Code(s): I39 - Endocarditis and heart valve disorders in diseases classified elsewhere Status: Acute - Plan 31-year-old female admitted secondary to fevers with history of IV drug abuse. MRSA bacteremia present. Status post I&D 11-17. Patient tolerated procedure well. Pain control. 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 Continue antibiotics. Follow clinically for improvement and continued resolution of sepsis. Sepsis secondary to MRSA Resolved Left Lower Extremity Abscess Status post I&D 11-17, wound culture shows no growth in 72 hours Orthopedic Surgeon following. Daily dressing changes per Ortho instructions. drain discontinued. Follow-up for suture removal in 2 weeks. Infective endocarditis MRSA bacteremia Probable septic pulmonary emboli MARVIN shows infective endocarditis OF MITRAL AND TRICUSPID VALVES ID following -anticipate 6 weeks of IV antibiotics. Due to IV drug use patient is not a candidate for outpatient treatment. No PICC line per ID. Continue daptomycin. Weekly CK levels. Gentamicin discontinued secondary to MALGORZATA Cardiology following MALGORZATA, suspect secondary to gentamicin use Creatinine worsening today from 1.08 to 1.24 ?decreased perfusion, hypotensive. Patient refusing lab this am. IVF hydration Nephrology following, appreciate assistance Avoid nephrotoxic agents Continue to monitor kidney function - repeat BMP in am Subjective bilateral hearing loss, improving Ear exam WNL ? Related to gentamicin ototoxicity. Discussed with Dr. Hernandez. Patient will need to follow-up with pearl digger and/or ENT specialist as outpatient for further evaluation Visual hallucinations, no recurrence Possible medication side effect Discussed with Dr. Pineda, appreciate his expertise CT head without any acute findings monitor for recurrence Back pain UDS negative??? despite patient being on benzodiazepines and opiates Ur Methadone pending No evidence of abscess Continue methadone weaning off of short acting narcotics and benzodiazepines Generalized edema on torsemide, discontinue Borderline personality disorder Anxiety Abilify Clonazepam to as needed secondary to lethargy. Decrease dose to 0.5mg TID prn. Continue to titrate down. Hepatitis C IVDU Standard precautions Advised on IV drug use cessation Patient will need to follow-up with GI as outpatient Constipation, resolved Continue on Pericolace scheduled BID monitor for BM DVT prophylaxis Lovenox Code Status: FULL Discussed Condition With: patient, nursing staff, CM, Dr. Hernandez Discharge Planning: Not ready for discharge. Patient will need long-term IV antibiotics per ID and not able to have PICC line placed secondary to IV drug use
[2017-11-25] MEDS ORDERED: Polyethylene Glycol 3350 17 GM Packet PO ONE (08:51)
[2017-11-25] MEDS: Senna/Docusate Sodium 8.6/50 MG Tablet PO SCH ×2 (09:41→22:18)
[2017-11-25] MEDS: ARIPiprazole 5 MG Tablet PO SCH (09:41)
[2017-11-25] MEDS: clonazePAM 0.5 MG Tablet PO PRN (09:41)
[2017-11-25] MEDS: DAPTOmycin Inj 800 MG in Sodium Chlor 0.9% Inj 100 ML IV.SIG SCH (14:00)
[2017-11-25] MEDS: Sod Chloride 0.9% Inj 1,000 ML IV.CONT SCH (14:58)
--- NOTE | 2017-11-25 23:50 | P.PNNP ---
Subjective Interval history: Patient seen in AM, no SOB, complain of back pain. Physical Exam Vital signs: Vital Signs 11/25/17 00:00 11/25/17 04:00 11/25/17 07:56 Temperature 98.7 F 97.3 F L Pulse Rate 86 73 Respiratory Rate 18 18 16 Blood Pressure 136/75 126/74 Pulse Oximetry 96 93 L 11/25/17 08:00 11/25/17 16:00 11/25/17 17:26 Temperature 98 F 97.7 F Pulse Rate 70 66 Respiratory Rate 18 18 16 Blood Pressure 108/73 117/74 Pulse Oximetry 92 L 96 11/25/17 20:00 Temperature 97.6 F Pulse Rate 73 Respiratory Rate 18 Blood Pressure 116/75 Pulse Oximetry 95 Intake & Output 11/25/17 11/25/17 11/26/17 06:59 18:59 06:59 Intake Total 100 / 100 1100 / 1100 100 / 100 Balance 100 / 100 1100 / 1100 100 / 100 Weight 71.2 kg Intake: IV 100 / 100 1100 / 1100 NS Inj 1,000 ML @ 42 mls/hr IV. 1000 / 1000 CONT .[id number] JUNIOR Rx#:[id number] Cubicin Inj 800 MG In NS Inj 100 / 100 100 / 100 100 ML @ 200 mls/hr IV.SIG Q24H JUNIOR Rx#:[id number] Oral 100 / 100 Other: # Voids 1 2 Narrative: GENERAL: This is a well-developed well-nourished female patient INAD. Awake and alert. Lying in bed. Appears comfortable. SKIN: Warm and dry. No generalized rash. HEENT: Atraumatic. Normocephalic. EOMI. Sclera anicteric bilaterally. No nasal drainage noted. Airway patent. MMM. NECK: Supple, trachea midline. No lymphadenopathy. CARDIOVASCULAR: Regular rate and rhythm without murmurs, gallops, or rubs. S1, S2 RESPIRATORY: Nonlabored. No accessory muscle use. Breath sounds equal bilaterally. Clear to auscultation. GASTROINTESTINAL: Abdomen soft, non-tender, nondistended. MUSCULOSKELETAL: No cyanosis or edema. Left leg incision healing well, sutures in place. NEURO: Awake and alert. Able to move all extremities spontaneously. No focal neurological deficits. Normal speech. PSYCHIATRIC: Calm and cooperative. Judgment and insight poor. - Urinary Catheter Management Indwelling Urethral Catheter Cath placed during this visit: yes, but has since been removed by the nurse Reason for continuing: Decision to DC catheter Insertion date: 11/02/17 Insertion time: 00:07 Removal date: 11/06/17 Removal time: 12:00 Assessment and Plan - Assessment (1) Acute kidney injury Code(s): N17.9 - Acute kidney failure, unspecified Status: Acute Plan: Acute kidney injury with a creatinine of 1.10 with a admission creatinine on 0.42. Acute kidney injury with urine sodium of 108 possible ATN/intrinsic from aminoglycosides or diuretic use Creatinine increase 1.2. fluids encouraged. Continue to hold torsemide Avoid nephrotoxins including NSAIDS, aminoglycosides, and IV contrast Will continue to monitor BMP and urinary output. If Creatinine not better, will start IVF. (2) Endocarditis and heart valve disorders in diseases classified elsewhere Code(s): I39 - Endocarditis and heart valve disorders in diseases classified elsewhere Status: Acute - Plan antibiotics per ID
[2017-11-26] MEDS: Enoxaparin Inj 40 MG/0.4 ML Syringe SQ SCH (02:08)
[2017-11-26] MEDS: clonazePAM 0.5 MG Tablet PO PRN (02:59)
[2017-11-26] MEDS: Methadone 10 MG Tablet PO SCH ×2 (06:01→21:02)
--- NOTE | 2017-11-26 07:51 | P.PN ---
Subjective Interval history: Follow-up on patient with left leg abscess, MRSA bacteremia, endocarditis. Patient seen and examined. Patient is encountered sleeping in her bed. She has a friend who is sleeping in the bedside chair. She wakes easily to voice. She tells me she is tired. She refused lab draws yesterday and again sent lab away this morning until "after I eat". Reiterated to patient importance of obtaining labs to determine her kidney function. She denies any acute medical complaints. She states she is urinating well and denies any dysuria. She denies any fever or chills. She denies any headache, vision changes, weakness, numbness or tingling. She denies any chest pain or shortness of breath. Physical Exam Vital signs: Vital Signs 11/25/17 07:56 11/25/17 08:00 11/25/17 16:00 Temperature 98 F 97.7 F Pulse Rate 70 66 Respiratory Rate 16 18 18 Blood Pressure 108/73 117/74 Pulse Oximetry 92 L 96 11/25/17 17:26 11/25/17 20:00 11/26/17 00:00 Temperature 97.6 F 97.7 F Pulse Rate 73 75 Respiratory Rate 16 18 18 Blood Pressure 116/75 119/73 Pulse Oximetry 95 97 11/26/17 04:00 11/26/17 04:02 11/26/17 07:12 Temperature 97.9 F Pulse Rate 70 Respiratory Rate 18 16 16 Blood Pressure 125/75 Pulse Oximetry 97 11/26/17 07:14 Temperature Pulse Rate Respiratory Rate 16 Blood Pressure Pulse Oximetry Intake & Output 11/25/17 11/26/17 11/26/17 18:59 06:59 18:59 Intake Total 1100 / 1100 100 / 100 Balance 1100 / 1100 100 / 100 Weight 71.2 kg Intake: IV 1100 / 1100 NS Inj 1,000 ML @ 42 mls/hr IV. 1000 / 1000 CONT .[id number] JUNIOR Rx#:[id number] Cubicin Inj 800 MG In NS Inj 100 / 100 100 ML @ 200 mls/hr IV.SIG Q24H JUNIOR Rx#:[id number] Oral 100 / 100 Other: # Voids 2 2 Narrative: GENERAL: This is a well-developed well-nourished female patient INAD. Asleep lying in bed. Easily awakens to voice. Appears lethargic but answers questions appropriately. SKIN: Warm and dry. No generalized rash. HEENT: Atraumatic. Normocephalic. EOMI. Sclera anicteric bilaterally. No nasal drainage noted. Airway patent. MMM. NECK: Supple, trachea midline. CARDIOVASCULAR: Regular rate and rhythm without murmurs, gallops, or rubs. S1, S2 RESPIRATORY: Nonlabored. No accessory muscle use. Breath sounds equal bilaterally. Clear to auscultation. GASTROINTESTINAL: Abdomen soft, non-tender, nondistended. +BS. MUSCULOSKELETAL: No cyanosis or edema. Left leg incision healing well, sutures in place. NEURO: Awake. Lethargic. Oriented x 3. Able to move all extremities spontaneously. No focal neurological deficits. Normal speech. PSYCHIATRIC: Calm. Judgment and insight poor. - Urinary Catheter Management Indwelling Urethral Catheter Cath placed during this visit: yes, but has since been removed by the nurse Reason for continuing: Decision to DC catheter Insertion date: 11/02/17 Insertion time: 00:07 Removal date: 11/06/17 Removal time: 12:00 Results - Labs CBC & Chem 7: 11/24/17 10:12 11/24/17 10:12 - Imaging Chest X-Ray 11/01/17 22:25 CONCLUSION: 1. Diffuse patchy groundglass opacities concerning for atypical infection in the appropriate clinical setting. Chest X-Ray 11/02/17 00:00 CONCLUSION: Mild patchy consolidation or atelectasis at the medial left lung base. Head CT 11/02/17 00:00 CONCLUSION: 1. No acute intracranial abnormality. 2. Bilateral maxillary sinus mucosal disease. Head MRI 11/02/17 00:00 CONCLUSION: 1. No definite acute abnormality is seen. Edema to suggest encephalitis is not seen. 2. There are a few punctate areas of increased signal within the cerebral white matter representing small foci of demyelination. Underlying demyelinating conditions can be considered. Liver Ultrasound 11/02/17 00:00 CONCLUSION: Generalized hepatosplenomegaly without focal mass Sludge within the gallbladder Chest CT 11/02/17 00:01 CONCLUSION: 1. Diffuse patchy groundglass opacities with nodular regions primarily in the left upper and lower lobes and single potentially cavitary nodule near the left lung apex. Overall, findings are concerning for atypical infection or developing septic pulmonary emboli in the appropriate clinical setting. 2. Subtle anterior pericardial effusion. 3. Subcentimeter bilateral axillary adenopathy, likely infectious/inflammatory. Chest X-Ray 11/04/17 05:00 CONCLUSION: Developing bilateral infiltrates. Abdomen/Pelvis CT 11/06/17 00:00 CONCLUSION: 1. Mild anasarca. 2. Slight splenomegaly with focal lesion towards the anterior portion of the spleen not present on the prior examination could be infarction, however splenic abscess is not excluded. 3. Slight peritoneal fluid nonspecific. Cervical Spine MRI 11/06/17 00:00 CONCLUSION: Slight nondescript serpiginous edema in the upper back, otherwise unremarkable. Lumbar Spine MRI 11/06/17 00:00 CONCLUSION: Slight nondescript subcutaneous edema in the patient's back, otherwise unremarkable without abscess formation. Thoracic Spine MRI 11/06/17 00:00 CONCLUSION: Essentially unremarkable study except for slight nondescript separate density on the patient's back. Venous Doppler Study 11/15/17 00:00 CONCLUSION: 1. Negative exam with no evidence of deep venous thrombosis. 2. Moderate size Carson's cyst in the left popliteal fossa region. Lower Extremity MRI 11/16/17 00:00 CONCLUSION: 1. Oval complex fluid collection most characteristic of an abscess. There is surrounding edema. Abdomen/Bladder Ultrasound 11/22/17 00:00 CONCLUSION: 1. Negative renal sonogram. Head CT 11/22/17 16:33 CONCLUSION: 1. Negative CT Head non contrast. . - Procedures Echocardiogram 11/03/2017 The left ventricular systolic function is hyperdynamic with an estimated ejection fraction in the range of 65- 70%. Normal left ventricular size. Wall thickness is normal. No regional wall motion abnormalities are present. There is mild tricuspid valve regurgitation. The estimated pulmonary arterial pressure is 39.2 mmHg. 11/17/17 Procedure: Irrigation and debridement of left calf abscess Anesthesia: GETA Surgeon: Anand Torres MD Discharge Specialist: MUMTAZ Abdi PA-C The surgical procedure was assisted by my physician machine assistant. My P.A. presence was necessary throughout this case for the manipulation and positioning of the surgical extremity. My P.A. was assisting me throughout the duration of this procedure. The skill set of a physician machine assistant was medically necessary to complete this procedure. During the surgical case the surgical aide was working at the back table and the physician machine assistant was directly assisting me. Operation and Findings: Salud is a 31-year-old female with history of IV drug use. She has developed left calf pain and swelling. MRI revealed an abscess of the left calf. Informed consent was obtained preoperatively and operative site was marked. She was brought to the operating room. She was initially given spinal anesthesia. Spinal anesthesia was not providing adequate anesthesia for surgery. Subsequently she is given IV sedation and general anesthesia. Left leg was prepped with alcohol followed Hibiclens and draped in usual sterile fashion. Timeout procedure was performed. Patient is already on scheduled IV antibiotics. Procedure began with a 2 inch incision over the posterior medial calf. Subcu tissue was dissected with Bovie. The abscess was identified. Approximately 50 cc of purulent fluid was evacuated from the abscess. This fluid was sent for cultures. An excisional debridement was now performed with rongeurs and curettes. Subcutaneous tissue and fascia were sharply excised. Loculations were manually debrided. After thorough debridement, the soft tissue was thoroughly irrigated with pulsatile lavage. A drain was placed into the abscess region. Subcutaneous tissue was closed with 3-0 PDS and skin was closed with 3-0 nylon. Sterile dressings were applied. Patient was awakened and transferred to recovery room in stable condition. Assessment and Plan - Assessment (1) MRSA bacteremia Code(s): R78.81 - Bacteremia Status: Acute (2) Sepsis Code(s): A41.9 - Sepsis, unspecified organism Status: Acute (3) Encephalopathy due to infection Code(s): G93.49 - Other encephalopathy; B99.9 - Unspecified infectious disease Status: Acute (4) History of intravenous drug abuse Code(s): Z87.898 - Personal history of other specified conditions Status: Acute (5) Hepatitis C antibody positive in blood Code(s): R76.8 - Other specified abnormal immunological findings in serum Status: Acute (6) Polysubstance abuse Code(s): F19.10 - Other psychoactive substance abuse, uncomplicated Status: Acute (7) Abscess of leg, left Code(s): L02.416 - Cutaneous abscess of left lower limb Status: Acute (8) Acute kidney injury Code(s): N17.9 - Acute kidney failure, unspecified Status: Acute (9) Endocarditis and heart valve disorders in diseases classified elsewhere Code(s): I39 - Endocarditis and heart valve disorders in diseases classified elsewhere Status: Acute - Plan 31-year-old female admitted secondary to fevers with history of IV drug abuse. MRSA bacteremia present. Status post I&D 11-17. Patient tolerated procedure well. Pain control. 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 Continue antibiotics. Follow clinically for improvement and continued resolution of sepsis. Sepsis secondary to MRSA Resolved Left Lower Extremity Abscess Status post I&D 11-17, wound culture shows no growth in 72 hours Orthopedic Surgeon following. Daily dressing changes per Ortho instructions. drain discontinued. Follow-up for suture removal in 2 weeks - 12/04. Infective endocarditis MRSA bacteremia Probable septic pulmonary emboli MARVIN shows infective endocarditis OF MITRAL AND TRICUSPID VALVES ID following -anticipate 6 weeks of IV antibiotics. Due to IV drug use patient is not a candidate for outpatient treatment. No PICC line per ID. Continue daptomycin. Weekly CK levels, next level to be checked 11/29. Gentamicin discontinued secondary to MALGORZATA Cardiology following MALGORZATA, suspect secondary to gentamicin use Creatinine worsening today from 1.08 to 1.24 ?decreased perfusion, hypotensive. Patient refusing lab this am as well. Reiterated to patient importance of obtaining lab in order to ascertain kidney function. hold IVF hydration Nephrology following, appreciate assistance Avoid nephrotoxic agents Continue to monitor kidney function - patient sent lab away - says she will agree to lab after she eats Visual hallucinations, no recurrence Possible medication side effect Discussed with Dr. Pineda, appreciate his expertise CT head without any acute findings monitor for recurrence Back pain 11/26 patient lethargic, refusing labs UDS negative??? despite patient being on benzodiazepines and opiates Ur Methadone pending Obtain repeat UDS - OB/psych drug screen. Patient to be observed giving urine specimen. No evidence of abscess on imaging Begin to titrate off Methadone, patient not on Methadone prior to this admission. weaning off of short acting narcotics and benzodiazepines - 11/24 hold both as pt is lethargic and refusing labs for the past 2 days Generalized edema on torsemide, discontinue Borderline personality disorder Anxiety Abilify Clonazepam to as needed secondary to lethargy. Decrease dose to 0.5mg BID prn. Continue to titrate down. - on hold today 2/2 lethargy Hepatitis C IVDU Standard precautions Advised on IV drug use cessation Patient will need to follow-up with GI as outpatient Constipation, resolved Continue on Pericolace scheduled BID monitor for BM DVT prophylaxis Lovenox Code Status: FULL Discussed Condition With: patient, nursing staff, Dr. Hernandez Discharge Planning: Not ready for discharge. Patient will need long-term IV antibiotics per ID and not able to have PICC line placed secondary to IV drug use
[2017-11-26] MEDS: Senna/Docusate Sodium 8.6/50 MG Tablet PO SCH ×2 (08:16→21:02)
[2017-11-26] MEDS: ARIPiprazole 5 MG Tablet PO SCH (08:16)
[2017-11-26] MEDS ORDERED: clonazePAM 0.5 MG Tablet PO PRN (09:25)
--- NOTE | 2017-11-26 11:45 | P.PNNP ---
Subjective Interval history: Patient is sleepy, wakes up , has back pain, eating better. Physical Exam Vital signs: Vital Signs 11/25/17 16:00 11/25/17 17:26 11/25/17 20:00 Temperature 97.7 F 97.6 F Pulse Rate 66 73 Respiratory Rate 18 16 18 Blood Pressure 117/74 116/75 Pulse Oximetry 96 95 11/26/17 00:00 11/26/17 04:00 11/26/17 04:02 Temperature 97.7 F 97.9 F Pulse Rate 75 70 Respiratory Rate 18 18 16 Blood Pressure 119/73 125/75 Pulse Oximetry 97 97 11/26/17 07:12 11/26/17 07:14 11/26/17 08:00 Temperature 97.9 F Pulse Rate 79 Respiratory Rate 16 16 20 Blood Pressure 125/59 L Pulse Oximetry 97 Intake & Output 11/25/17 11/26/17 11/26/17 18:59 06:59 18:59 Intake Total 1100 / 1100 100 / 100 Balance 1100 / 1100 100 / 100 Weight 71.2 kg Intake: IV 1100 / 1100 NS Inj 1,000 ML @ 42 mls/hr IV. 1000 / 1000 CONT .[id number] JUNIOR Rx#:[id number] Cubicin Inj 800 MG In NS Inj 100 / 100 100 ML @ 200 mls/hr IV.SIG Q24H JUNIOR Rx#:[id number] Oral 100 / 100 Other: # Voids 2 2 - Urinary Catheter Management Indwelling Urethral Catheter Cath placed during this visit: yes, but has since been removed by the nurse Reason for continuing: Decision to DC catheter Insertion date: 11/02/17 Insertion time: 00:07 Removal date: 11/06/17 Removal time: 12:00 Assessment and Plan - Assessment (1) Acute kidney injury Code(s): N17.9 - Acute kidney failure, unspecified Status: Acute Plan: Acute kidney injury with a creatinine of 1.10 with a admission creatinine on 0.42. Acute kidney injury with urine sodium of 108 possible ATN/intrinsic from aminoglycosides or diuretic use Creatinine increase 1.2. fluids encouraged. Continue to hold torsemide Avoid nephrotoxins including NSAIDS, aminoglycosides, and IV contrast Will continue to monitor BMP and urinary output. No new BMP. Told to encourage oral fluids. BMP to follow today. (2) Endocarditis and heart valve disorders in diseases classified elsewhere Code(s): I39 - Endocarditis and heart valve disorders in diseases classified elsewhere Status: Acute - Plan antibiotics per ID
[2017-11-26] MEDS: DAPTOmycin Inj 800 MG in Sodium Chlor 0.9% Inj 100 ML IV.SIG SCH (13:51)
[2017-11-26 14:42] LABS: Amphetamine Urine With Conf Neg (Neg); Benzodiazepine Urine With Conf Neg (Neg)
[2017-11-27] MEDS: Enoxaparin Inj 40 MG/0.4 ML Syringe SQ SCH (00:47)
[2017-11-27 07:17] LABS: Baso # (Auto) 0.1 th/mm3 (0.0-0.2); Baso % (Auto) 0.8 % (0.0-2.0); Eos # (Auto) 0.4 th/mm3 (0.0-0.4); Eos % (Auto) 3.6 % (0.0-4.0); Hematocrit 30.5 % (35.0-46.0); Hemoglobin 10.4 gm/dL (11.6-15.3); Lymph # (Auto) 2.6 th/mm3 (1.0-4.8); Lymph % (Auto) 22.3 % (9.0-44.0); Mean Corpuscular Hemoglobin 28.7 pg (27.0-34.0); Mean Corpuscular Volume 84.5 fL (80.0-100.0); Mean Platelet Volume 6.6 fL (7.0-11.0); Mono % (Auto) 8.9 % (0.0-8.0); Neut # (Auto) 7.4 th/mm3 (1.8-7.7); Neut % (Auto) 64.4 % (16.0-70.0); Platelet Count 588 th/mm3 (150-450); Red Blood Count 3.61 mil/mm3 (4.00-5.30); Red Cell Distribution Width 14.5 % (11.6-17.2); White Blood Count 11.5 th/mm3 (4.0-11.0)
--- NOTE | 2017-11-27 07:25 | P.PN ---
Subjective Interval history: Follow-up on patient with left leg abscess, MRSA bacteremia, endocarditis. Patient seen and examined. Patient had been refusing labs and IV access but has since acquiesced. She is encountered lying in bed asleep. Awakens to voice after calling her name several times. She tells me she is very tired and "just wants to rest". Benzodiazepine and Percocet on hold since early yesterday morning. She denies any acute medical complaints. [facility] nursing staff, no acute issues noted. Physical Exam Vital signs: Vital Signs 11/26/17 08:00 11/26/17 12:00 11/26/17 16:00 Temperature 97.9 F 98 F 98.1 F Pulse Rate 79 78 88 Respiratory Rate 20 18 20 Blood Pressure 125/59 L 121/80 120/61 Pulse Oximetry 97 98 94 L 11/26/17 18:09 11/26/17 20:00 11/27/17 00:00 Temperature 98.0 F 98.3 F Pulse Rate 74 70 Respiratory Rate 16 18 18 Blood Pressure 111/64 120/70 Pulse Oximetry 95 96 11/27/17 04:00 Temperature 97.6 F Pulse Rate 82 Respiratory Rate 18 Blood Pressure 123/60 Pulse Oximetry 98 Intake & Output 11/26/17 11/27/17 11/27/17 18:59 06:59 18:59 Intake Total 100 / 100 Balance 100 / 100 Weight 68.5 kg Intake: IV 100 / 100 Cubicin Inj 800 MG In NS Inj 100 / 100 100 ML @ 200 mls/hr IV.SIG Q24H JUNIOR Rx#:[id number] Other: # Voids 2 3 # Bowel Movements 1 Narrative: GENERAL: This is a well-developed well-nourished female patient INAD. Asleep lying in bed. Awakens to voice after calling her name several times. Appears lethargic but answers questions appropriately. SKIN: Warm and dry. No generalized rash. HEENT: Atraumatic. Normocephalic. EOMI. Sclera anicteric bilaterally. No nasal drainage noted. Airway patent. MMM. NECK: Supple, trachea midline. CARDIOVASCULAR: Regular rate and rhythm without murmurs, gallops, or rubs. S1, S2 RESPIRATORY: Nonlabored. No accessory muscle use. Breath sounds equal bilaterally. Clear to auscultation. GASTROINTESTINAL: Abdomen soft, non-tender, nondistended. +BS. MUSCULOSKELETAL: No cyanosis or edema. Left leg incision healing well, sutures in place. NEURO: Awake. Lethargic. Oriented x 3. Able to move all extremities spontaneously. No focal neurological deficits. Normal speech. PSYCHIATRIC: Calm. Judgment and insight poor. - Urinary Catheter Management Indwelling Urethral Catheter Cath placed during this visit: yes, but has since been removed by the nurse Reason for continuing: Decision to DC catheter Insertion date: 11/02/17 Insertion time: 00:07 Removal date: 11/06/17 Removal time: 12:00 Results - Labs CBC & Chem 7: 11/27/17 06:48 11/27/17 06:48 Laboratory Results - last 24 hr 11/26/17 11/27/17 11/27/17 14:05 06:48 06:48 WBC 11.5 H RBC 3.61 L Hgb 10.4 L Hct 30.5 L MCV 84.5 MCH 28.7 MCHC 34.0 RDW 14.5 Plt Count 588 H MPV 6.6 L Neut % (Auto) 64.4 Lymph % (Auto) 22.3 [place] % (Auto) 8.9 H Eos % (Auto) 3.6 Baso % (Auto) 0.8 Neut # (Auto) 7.4 Lymph # (Auto) 2.6 [place] # (Auto) 1.0 H Eos # (Auto) 0.4 Baso # (Auto) 0.1 WBC Differential . Differential Comment Auto diff final Ammonia 13 Urine Opiates Screen Pos H Ur Barbiturates Screen Neg Ur Amphetamine Screen Neg U Benzodiazepines Scrn Neg Urine Cocaine Screen Neg U Cannabinoids Screen Neg - Imaging Chest X-Ray 11/01/17 22:25 CONCLUSION: 1. Diffuse patchy groundglass opacities concerning for atypical infection in the appropriate clinical setting. Chest X-Ray 11/02/17 00:00 CONCLUSION: Mild patchy consolidation or atelectasis at the medial left lung base. Head CT 11/02/17 00:00 CONCLUSION: 1. No acute intracranial abnormality. 2. Bilateral maxillary sinus mucosal disease. Head MRI 11/02/17 00:00 CONCLUSION: 1. No definite acute abnormality is seen. Edema to suggest encephalitis is not seen. 2. There are a few punctate areas of increased signal within the cerebral white matter representing small foci of demyelination. Underlying demyelinating conditions can be considered. Liver Ultrasound 11/02/17 00:00 CONCLUSION: Generalized hepatosplenomegaly without focal mass Sludge within the gallbladder Chest CT 11/02/17 00:01 CONCLUSION: 1. Diffuse patchy groundglass opacities with nodular regions primarily in the left upper and lower lobes and single potentially cavitary nodule near the left lung apex. Overall, findings are concerning for atypical infection or developing septic pulmonary emboli in the appropriate clinical setting. 2. Subtle anterior pericardial effusion. 3. Subcentimeter bilateral axillary adenopathy, likely infectious/inflammatory. Chest X-Ray 11/04/17 05:00 CONCLUSION: Developing bilateral infiltrates. Abdomen/Pelvis CT 11/06/17 00:00 CONCLUSION: 1. Mild anasarca. 2. Slight splenomegaly with focal lesion towards the anterior portion of the spleen not present on the prior examination could be infarction, however splenic abscess is not excluded. 3. Slight peritoneal fluid nonspecific. Cervical Spine MRI 11/06/17 00:00 CONCLUSION: Slight nondescript serpiginous edema in the upper back, otherwise unremarkable. Lumbar Spine MRI 11/06/17 00:00 CONCLUSION: Slight nondescript subcutaneous edema in the patient's back, otherwise unremarkable without abscess formation. Thoracic Spine MRI 11/06/17 00:00 CONCLUSION: Essentially unremarkable study except for slight nondescript separate density on the patient's back. Venous Doppler Study 11/15/17 00:00 CONCLUSION: 1. Negative exam with no evidence of deep venous thrombosis. 2. Moderate size Carson's cyst in the left popliteal fossa region. Lower Extremity MRI 11/16/17 00:00 CONCLUSION: 1. Oval complex fluid collection most characteristic of an abscess. There is surrounding edema. Abdomen/Bladder Ultrasound 11/22/17 00:00 CONCLUSION: 1. Negative renal sonogram. Head CT 11/22/17 16:33 CONCLUSION: 1. Negative CT Head non contrast. . - Procedures Echocardiogram 11/03/2017 The left ventricular systolic function is hyperdynamic with an estimated ejection fraction in the range of 65- 70%. Normal left ventricular size. Wall thickness is normal. No regional wall motion abnormalities are present. There is mild tricuspid valve regurgitation. The estimated pulmonary arterial pressure is 39.2 mmHg. 11/17/17 Procedure: Irrigation and debridement of left calf abscess Anesthesia: GETA Surgeon: Anand Torres MD Anglesmith: MUMTAZ Abdi PA-C The surgical procedure was assisted by my physician property assistant. My P.A. presence was necessary throughout this case for the manipulation and positioning of the surgical extremity. My P.A. was assisting me throughout the duration of this procedure. The skill set of a physician property assistant was medically necessary to complete this procedure. During the surgical case the surgical device sales representative was working at the back table and the physician property assistant was directly assisting me. Operation and Findings: Salud is a 31-year-old female with history of IV drug use. She has developed left calf pain and swelling. MRI revealed an abscess of the left calf. Informed consent was obtained preoperatively and operative site was marked. She was brought to the operating room. She was initially given spinal anesthesia. Spinal anesthesia was not providing adequate anesthesia for surgery. Subsequently she is given IV sedation and general anesthesia. Left leg was prepped with alcohol followed Hibiclens and draped in usual sterile fashion. Timeout procedure was performed. Patient is already on scheduled IV antibiotics. Procedure began with a 2 inch incision over the posterior medial calf. Subcu tissue was dissected with Bovie. The abscess was identified. Approximately 50 cc of purulent fluid was evacuated from the abscess. This fluid was sent for cultures. An excisional debridement was now performed with rongeurs and curettes. Subcutaneous tissue and fascia were sharply excised. Loculations were manually debrided. After thorough debridement, the soft tissue was thoroughly irrigated with pulsatile lavage. A drain was placed into the abscess region. Subcutaneous tissue was closed with 3-0 PDS and skin was closed with 3-0 nylon. Sterile dressings were applied. Patient was awakened and transferred to recovery room in stable condition. Assessment and Plan - Assessment (1) MRSA bacteremia Code(s): R78.81 - Bacteremia Status: Acute (2) Sepsis Code(s): A41.9 - Sepsis, unspecified organism Status: Acute (3) Encephalopathy due to infection Code(s): G93.49 - Other encephalopathy; B99.9 - Unspecified infectious disease Status: Acute (4) History of intravenous drug abuse Code(s): Z87.898 - Personal history of other specified conditions Status: Acute (5) Hepatitis C antibody positive in blood Code(s): R76.8 - Other specified abnormal immunological findings in serum Status: Acute (6) Polysubstance abuse Code(s): F19.10 - Other psychoactive substance abuse, uncomplicated Status: Acute (7) Abscess of leg, left Code(s): L02.416 - Cutaneous abscess of left lower limb Status: Acute (8) Acute kidney injury Code(s): N17.9 - Acute kidney failure, unspecified Status: Acute (9) Endocarditis and heart valve disorders in diseases classified elsewhere Code(s): I39 - Endocarditis and heart valve disorders in diseases classified elsewhere Status: Acute - Plan 31-year-old female admitted secondary to fevers with history of IV drug abuse. MRSA bacteremia present. Status post I&D 11-17. Patient tolerated procedure well. Pain control. 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 Continue antibiotics. Follow clinically for improvement and continued resolution of sepsis. Sepsis secondary to MRSA Resolved Left Lower Extremity Abscess Status post I&D 11-17, wound culture shows no growth in 72 hours Orthopedic Surgeon following. Daily dressing changes per Ortho instructions. drain discontinued. Follow-up for suture removal in 2 weeks - 12/04. Infective endocarditis MRSA bacteremia Probable septic pulmonary emboli MARVIN shows infective endocarditis OF MITRAL AND TRICUSPID VALVES ID following -anticipate 6 weeks of IV antibiotics. Due to IV drug use patient is not a candidate for outpatient treatment. No PICC line per ID. Continue daptomycin. Weekly CK levels, next level to be checked 11/29. Gentamicin discontinued secondary to MALGORZATA Cardiology following MALGORZATA, suspect secondary to gentamicin use Creatinine trending up, now 1.59 resume IVF hydration Nephrology following, appreciate assistance Avoid nephrotoxic agents Continue to monitor kidney function - repeat BMP in am Visual hallucinations, no recurrence Possible medication side effect Discussed with Dr. Pineda, appreciate his expertise CT head without any acute findings monitor for recurrence Subjective right sided hearing loss marlon Hernandez ?gentamicin ototoxicity. Usually bilateral hearing loss ear exam unremarkable patient will need to follow up with ENT/industry segment specialist as outpatient Back pain 11/26 patient lethargic, refusing labs UDS negative??? despite patient being on benzodiazepines and opiates Ur Methadone pending OB/psych drug screen pending No evidence of abscess on imaging Begin to titrate off Methadone, patient not on Methadone prior to this admission. weaning off of short acting narcotics and benzodiazepines - 11/24 hold both as pt is lethargic and refusing labs for the past 2 days Generalized edema on torsemide, discontinued 2/2 MALGORZATA Borderline personality disorder Anxiety Abilify Clonazepam to as needed secondary to lethargy. Dose decreased to 0.5mg BID prn. Continue to titrate down. - 11/26 placed on hold 2/2 lethargy Hepatitis C IVDU Standard precautions Advised on IV drug use cessation Patient will need to follow-up with GI as outpatient Constipation, resolved Continue on Pericolace scheduled BID monitor for BM DVT prophylaxis Lovenox Code Status: Full Discussed Condition With: patient, nursing staff, Dr. Hernandez Discharge Planning: Not ready for discharge. Patient will need long-term IV antibiotics per ID and not able to have PICC line placed secondary to IV drug use
[2017-11-27 07:30] LABS: Calcium 9.3 mg/dL (8.5-10.1); Carbon Dioxide 25.9 meq/L (21.0-32.0); Potassium 3.9 meq/L (3.5-5.1)
[2017-11-27] MEDS: ARIPiprazole 5 MG Tablet PO SCH (08:01)
[2017-11-27] MEDS: Methadone 10 MG Tablet PO SCH ×2 (08:01→22:06)
[2017-11-27] MEDS: Senna/Docusate Sodium 8.6/50 MG Tablet PO SCH ×2 (08:02→22:06)
--- NOTE | 2017-11-27 13:14 | P.PNNP ---
Subjective Interval history: Patient is sleeping and feels that she has had alot of interruptions this morning. No shortness of breath. Creatinine is trending up at 1.59. <Lily Montano - Last Filed: 11/27/17 13:07> Physical Exam Vital signs: Vital Signs 11/26/17 16:00 11/26/17 18:09 11/26/17 20:00 Temperature 98.1 F 98.0 F Pulse Rate 88 74 Respiratory Rate 20 16 18 Blood Pressure 120/61 111/64 Pulse Oximetry 94 L 95 11/27/17 00:00 11/27/17 04:00 11/27/17 07:55 Temperature 98.3 F 97.6 F 98.6 F Pulse Rate 70 82 Respiratory Rate 18 18 17 Blood Pressure 120/70 123/60 118/73 Pulse Oximetry 96 98 96 11/27/17 07:58 11/27/17 12:00 Temperature 98.2 F Pulse Rate 74 Respiratory Rate 17 18 Blood Pressure 114/69 Pulse Oximetry 93 L Intake & Output 11/26/17 11/27/17 11/27/17 18:59 06:59 18:59 Intake Total 100 / 100 Balance 100 / 100 Weight 68.5 kg Intake: IV 100 / 100 Cubicin Inj 800 MG In NS Inj 100 / 100 100 ML @ 200 mls/hr IV.SIG Q24H JUNIOR Rx#:[id number] Other: # Voids 2 3 Date of Last Bowel Movement 11/20/17 # Bowel Movements 1 Narrative: GENERAL: This is a well-developed well-nourished female. Sleeping but awakens easily. SKIN: Warm and dry. No generalized rash. HEENT: Atraumatic. Normocephalic. EOMI. Sclera anicteric bilaterally. No nasal drainage noted. Airway patent. MMM. NECK: Supple, trachea midline. No JVD CARDIOVASCULAR: Regular rate and rhythm without murmurs, gallops, or rubs. S1, S2 RESPIRATORY: Nonlabored. No accessory muscle use. Breath sounds equal bilaterally. Clear to auscultation. GASTROINTESTINAL: Abdomen soft, non-tender, nondistended. +BS. MUSCULOSKELETAL: No cyanosis or edema. Left leg incision healing well, sutures in place. NEURO: Oriented x 3. Able to move all extremities spontaneously. Normal speech. PSYCHIATRIC: Calm. Judgment and insight poor. - Urinary Catheter Management Indwelling Urethral Catheter Cath placed during this visit: yes, but has since been removed by the nurse Reason for continuing: Decision to DC catheter Insertion date: 11/02/17 Insertion time: 00:07 Removal date: 11/06/17 Removal time: 12:00 <Lily Montano - Last Filed: 11/27/17 13:07> Vital signs: Vital Signs 11/28/17 00:00 11/28/17 04:00 11/28/17 08:00 Temperature 98.1 F 97.8 F 97.2 F L Pulse Rate 74 69 68 Respiratory Rate 18 16 19 Blood Pressure 118/66 121/75 121/73 Pulse Oximetry 94 L 98 96 11/28/17 12:00 11/28/17 16:00 Temperature 97.7 F 97.9 F Pulse Rate 80 75 Respiratory Rate 19 20 Blood Pressure 114/84 124/79 Pulse Oximetry 98 96 Intake & Output 11/28/17 11/28/17 11/29/17 06:59 18:59 06:59 Intake Total 2710 / 2710 800 / 800 Balance 2710 / 2710 800 / 800 Weight 78.5 kg Intake: IV 1100 / 1100 NS Inj 1,000 ML @ 84 mls/hr IV. 1000 / 1000 CONT .[id number] JUNIOR Rx#:[id number] Cubicin Inj 800 MG In NS Inj 100 / 100 100 ML @ 200 mls/hr IV.SIG Q24H JUNIOR Rx#:[id number] Oral 1610 / 1610 800 / 800 Other: # Voids 1 7 Date of Last Bowel Movement 11/27/17 11/27/17 # Bowel Movements 0 1 - Urinary Catheter Management Indwelling Urethral Catheter Cath placed during this visit: no <Miroslava Clark - Last Filed: 11/28/17 21:45> Assessment and Plan - Assessment (1) Acute kidney injury Code(s): N17.9 - Acute kidney failure, unspecified Status: Acute Plan: Acute kidney injury with a creatinine of 1.10 with a admission creatinine on 0.42. Acute kidney injury with urine sodium of 108 possible ATN/intrinsic from aminoglycosides or diuretic use Creatinine increase 1.59 Suspect increase in creatinine is from poor oral intake will repeat UA Continue to hold torsemide Avoid nephrotoxins including NSAIDS, aminoglycosides, and IV contrast Will continue to monitor BMP and urinary output. IV fluids have been ordered, continue Labs in AM. (2) Endocarditis and heart valve disorders in diseases classified elsewhere Code(s): I39 - Endocarditis and heart valve disorders in diseases classified elsewhere Status: Acute - Plan antibiotics per ID <Lily Montano - Last Filed: 11/27/17 13:07> - Assessment (1) Acute kidney injury Code(s): N17.9 - Acute kidney failure, unspecified Status: Acute (2) Endocarditis and heart valve disorders in diseases classified elsewhere Code(s): I39 - Endocarditis and heart valve disorders in diseases classified elsewhere Status: Acute - Attending Attestation Patient seen and examined, agree with above. Creatinine increase to 1.5, started on IVF, possibly pre renal. <Miroslava Clark - Last Filed: 11/28/17 21:45>
[2017-11-27] MEDS: DAPTOmycin Inj 800 MG in Sodium Chlor 0.9% Inj 100 ML IV.SIG SCH (13:30)
[2017-11-27] MEDS: Sod Chloride 0.9% Inj 1,000 ML IV.CONT SCH (13:31)
--- NOTE | 2017-11-27 14:31 | P.PNPSY ---
Subjective Remarks: Patient seen and examined. Chart reviewed. Case discussed with KELLY Cerda and with nurse. No recurrence of hallucinations over weekend. 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 There is also concern for possible contraband substance use reportedly and an extended UTox is pending at this time. On my examination today, patient is initially sleeping soundly. She awakens to voice. No evidence of delirium. Affect is somewhat irritable. She castigates the staff for putting in her IV facing "wrong" although it appears appropriately placed. When discussing her recent sedation, she asks me for some "uppers" and in particular for Adderall. She denies any recurrence of hallucinations. She denies any SI or HI. No reported side effects from medications. No physical complaints. Vital Signs Temp Pulse Resp BP Pulse Ox 11/27/17 12:00 98.2 F 74 18 114/69 93 L 11/27/17 08:30 18 11/27/17 07:58 17 11/27/17 07:55 98.6 F 17 118/73 96 11/27/17 04:00 97.6 F 82 18 123/60 98 11/27/17 00:00 98.3 F 70 18 120/70 96 11/26/17 20:00 98.0 F 74 18 111/64 95 11/26/17 18:09 16 Intake and Output 11/27/17 11/27/17 11/27/17 06:59 14:59 22:59 Other: # Voids 3 Date of Last Bowel Movement 11/20/17 Weight 68.5 kg Laboratory Results - last 24 hr 11/27/17 11/27/17 11/27/17 06:48 06:48 06:48 WBC 11.5 H RBC 3.61 L Hgb 10.4 L Hct 30.5 L MCV 84.5 MCH 28.7 MCHC 34.0 RDW 14.5 Plt Count 588 H MPV 6.6 L Neut % (Auto) 64.4 Lymph % (Auto) 22.3 [place] % (Auto) 8.9 H Eos % (Auto) 3.6 Baso % (Auto) 0.8 Neut # (Auto) 7.4 Lymph # (Auto) 2.6 [place] # (Auto) 1.0 H Eos # (Auto) 0.4 Baso # (Auto) 0.1 WBC Differential . Differential Comment Auto diff final Sodium 134 L Potassium 3.9 Chloride 97 L Carbon Dioxide 25.9 Anion Gap 11 BUN 11 Creatinine 1.59 H Estimated GFR 38 L Random Glucose 80 Calcium 9.3 Ammonia 13 Labs reviewed. Review of Systems All other systems reviewed negative except as stated in HPI (Limitation: Poorly cooperative) Mental Status Examination Appearance: Appropriate Consciousness: Other (Sleeping but easily awakened) Orientation: x4 Motor Activity: Other (No motor abnormalities noted) Speech: Unremarkable Language: Adequate Fund of Knowledge: Adequate Attention and Concentration: Adequate Memory: Unremarkable (Grossly intact on clinical exam) Mood: Other (Mildly dysphoric) Affect: Blunt Thought Process & Associations: Intact, Logical, Linear Thought Content: Appropriate Hallucination Type: None Delusion Type: None Suicidal Ideation: No Suicidal Plan: No Suicidal Intention: No Homicidal Ideation: No Homicidal Plan: No Homicidal Intention: No Insight: Fair Judgment: Impulsive (Chronic condition) Assessment and Plan - Assessment (1) Cluster B personality disorder Code(s): F60.9 - Personality disorder, unspecified Status: Suspected (2) Polysubstance abuse Code(s): F19.10 - Other psychoactive substance abuse, uncomplicated Status: Acute - Plan Plan: Hallucinations from last week appear to be an isolated incident. I do not suspect that Abilify is contributing and significant fashion to patient's intermittent sedation. The Abilify does seem to be helping reduce patient's affective lability, and I would recommend continuing it for this reason. Otherwise, I have no new recommendations at this time. I have discussed the case with KELLY Cerda and will sign off for now. I am happy to return for further psychiatric consultation if needed. Outpatient follow-up recommendations as before. Thank you very much for this consultation. Justification for Continued Inpatient Stay: Per primary team. Discharge Planning: Patient does not presently meet the Carson act criteria nor does she presently require inpatient psychiatric admission. Barring some change in her clinical condition, she is psychiatrically cleared for discharge.
[2017-11-28] MEDS: Enoxaparin Inj 40 MG/0.4 ML Syringe SQ SCH (03:11)
[2017-11-28] MEDS: Methadone 10 MG Tablet PO SCH (08:35)
[2017-11-28] MEDS: Senna/Docusate Sodium 8.6/50 MG Tablet PO SCH ×2 (08:36→21:04)
[2017-11-28] MEDS: ARIPiprazole 5 MG Tablet PO SCH (08:36)
[2017-11-28] MEDS: DAPTOmycin Inj 800 MG in Sodium Chlor 0.9% Inj 100 ML IV.SIG SCH (12:22)
--- NOTE | 2017-11-28 12:59 | P.PNIM ---
Subjective Interval history: f/u endocarditis not lethargic today, awake, c/o pain on infusion site, no fever Physical Exam Vital signs: Vital Signs 11/27/17 16:00 11/27/17 20:00 11/28/17 00:00 Temperature 97.7 F 97.8 F 98.1 F Pulse Rate 73 74 74 Respiratory Rate 18 15 18 Blood Pressure 112/71 133/65 118/66 Pulse Oximetry 95 96 94 L 11/28/17 04:00 11/28/17 08:00 Temperature 97.8 F 97.2 F L Pulse Rate 69 68 Respiratory Rate 16 20 Blood Pressure 121/75 121/73 Pulse Oximetry 98 96 Intake & Output 11/27/17 11/28/17 11/28/17 18:59 06:59 18:59 Intake Total 2710 / 2710 Balance 2710 / 2710 Weight 78.5 kg Intake: IV 1100 / 1100 NS Inj 1,000 ML @ 84 mls/hr IV. 1000 / 1000 CONT .[id number] JUNIOR Rx#:[id number] Cubicin Inj 800 MG In NS Inj 100 / 100 100 ML @ 200 mls/hr IV.SIG Q24H JUNIOR Rx#:[id number] Oral 1610 / 1610 Other: # Voids 1 Date of Last Bowel Movement 11/20/17 11/27/17 # Bowel Movements 0 Narrative: GENERAL: Not in distress CARDIOVASCULAR: Regular rate and rhythm without murmurs, gallops, or rubs. S1, S2 RESPIRATORY: Nonlabored. No accessory muscle use. Breath sounds equal bilaterally. Clear to auscultation. GASTROINTESTINAL: Abdomen soft, non-tender, nondistended. +BS. MUSCULOSKELETAL: No cyanosis or edema. Left leg incision healing well, sutures in place. NEURO: Awake, alert, oriented x3. Able to move all extremities spontaneously. No focal neurological deficits. Normal speech. - Urinary Catheter Management Indwelling Urethral Catheter Cath placed during this visit: yes, but has since been removed by the nurse Reason for continuing: Decision to DC catheter Insertion date: 11/02/17 Insertion time: 00:07 Removal date: 11/06/17 Removal time: 12:00 Results - Labs CBC & Chem 7: 11/27/17 06:48 11/27/17 06:48 - Procedures Echocardiogram 11/03/2017 The left ventricular systolic function is hyperdynamic with an estimated ejection fraction in the range of 65- 70%. Normal left ventricular size. Wall thickness is normal. No regional wall motion abnormalities are present. There is mild tricuspid valve regurgitation. The estimated pulmonary arterial pressure is 39.2 mmHg. 11/17/17 Procedure: Irrigation and debridement of left calf abscess Anesthesia: GETA Surgeon: Anand Torres MD Api Developer: MUMTAZ Abdi PA-C The surgical procedure was assisted by my physician laboratory chemical assistant. My P.A. presence was necessary throughout this case for the manipulation and positioning of the surgical extremity. My P.A. was assisting me throughout the duration of this procedure. The skill set of a physician laboratory chemical assistant was medically necessary to complete this procedure. During the surgical case the surgical elastic knitter was working at the back table and the physician laboratory chemical assistant was directly assisting me. Operation and Findings: Salud is a 31-year-old female with history of IV drug use. She has developed left calf pain and swelling. MRI revealed an abscess of the left calf. Informed consent was obtained preoperatively and operative site was marked. She was brought to the operating room. She was initially given spinal anesthesia. Spinal anesthesia was not providing adequate anesthesia for surgery. Subsequently she is given IV sedation and general anesthesia. Left leg was prepped with alcohol followed Hibiclens and draped in usual sterile fashion. Timeout procedure was performed. Patient is already on scheduled IV antibiotics. Procedure began with a 2 inch incision over the posterior medial calf. Subcu tissue was dissected with Bovie. The abscess was identified. Approximately 50 cc of purulent fluid was evacuated from the abscess. This fluid was sent for cultures. An excisional debridement was now performed with rongeurs and curettes. Subcutaneous tissue and fascia were sharply excised. Loculations were manually debrided. After thorough debridement, the soft tissue was thoroughly irrigated with pulsatile lavage. A drain was placed into the abscess region. Subcutaneous tissue was closed with 3-0 PDS and skin was closed with 3-0 nylon. Sterile dressings were applied. Patient was awakened and transferred to recovery room in stable condition. Assessment and Plan - Assessment (1) MRSA bacteremia Code(s): R78.81 - Bacteremia Status: Acute (2) Sepsis Code(s): A41.9 - Sepsis, unspecified organism Status: Acute (3) Encephalopathy due to infection Code(s): G93.49 - Other encephalopathy; B99.9 - Unspecified infectious disease Status: Acute (4) History of intravenous drug abuse Code(s): Z87.898 - Personal history of other specified conditions Status: Acute (5) Hepatitis C antibody positive in blood Code(s): R76.8 - Other specified abnormal immunological findings in serum Status: Acute (6) Polysubstance abuse Code(s): F19.10 - Other psychoactive substance abuse, uncomplicated Status: Acute (7) Abscess of leg, left Code(s): L02.416 - Cutaneous abscess of left lower limb Status: Acute (8) Acute kidney injury Code(s): N17.9 - Acute kidney failure, unspecified Status: Acute (9) Endocarditis and heart valve disorders in diseases classified elsewhere Code(s): I39 - Endocarditis and heart valve disorders in diseases classified elsewhere Status: Acute - Plan 31-year-old female admitted secondary to fevers with history of IV drug abuse found to have MRSA bacteremia Sepsis secondary to MRSA Bacteremia - Resolved Left Lower Extremity Abscess - Status post I&D 11-17, wound culture shows no growth in 72 hours, Orthopedic Surgeon following. Daily dressing changes per Ortho instructions. 11/20 drain discontinued. Follow-up for suture removal in 2 weeks - 12/04. MRSA bacteremia secondary to Infective endocarditis with Probable septic pulmonary emboli MARVIN shows infective endocarditis OF MITRAL AND TRICUSPID VALVES, ID following, Due to IV drug use patient is not a candidate for outpatient treatment. No PICC line per ID. - Continue daptomycin x6 weeeks, Weekly CK levels, next level to be checked 11/29. - Gentamicin discontinued secondary to MALGORZATA, Cardiology following MALGORZATA - suspect secondary to gentamicin use, creatinine trending up, now 1.59, resume IVF hydration, increase rate, recheck BMP tomorrow. Visual hallucinations, no recurrence Possible medication side effect, Discussed with Dr. Pineda, appreciate his expertise, CT head without any acute findings Subjective right sided hearing loss - dw Dr. Hernandez , possilbe gentamicin ototoxicity. Usually bilateral hearing loss, ear exam unremarkable, patient will need to follow up with ENT/ medical record administrator as outpatient Back pain, patient lethargic, refusing labs Ur Methadone pending OB/psych drug screen pending No evidence of abscess on imaging, continue to titrate methadone , patient not on Methadone prior to this admission. Off all other BZDPs and narcotcis Generalized edema - was on torsemide, discontinued 2/2 MALGORZATA Borderline personality disorder Anxiety Abilify, Clonazepam decreased to 0.5mg BID prn. Continue to titrate down. - placed on hold 2/2 lethargy Hepatitis C IVDU Standard precautions Advised on IV drug use cessation Patient will need to follow-up with GI as outpatient Constipation, resolved Continue on Pericolace scheduled BID monitor for BM DVT prophylaxis Lovenox Code Status: Full Discharge Planning: Not ready for discharge. Patient will need long-term IV antibiotics per ID and not able to have PICC line placed secondary to IV drug use
--- NOTE | 2017-11-28 14:55 | P.PNNP ---
Subjective Interval history: Patient sleeping and requested not to be woken up. IVF are infusing. <Lily Montano - Last Filed: 11/28/17 14:52> Physical Exam Vital signs: Vital Signs 11/27/17 16:00 11/27/17 20:00 11/28/17 00:00 Temperature 97.7 F 97.8 F 98.1 F Pulse Rate 73 74 74 Respiratory Rate 18 15 18 Blood Pressure 112/71 133/65 118/66 Pulse Oximetry 95 96 94 L 11/28/17 04:00 11/28/17 08:00 11/28/17 12:00 Temperature 97.8 F 97.2 F L 97.7 F Pulse Rate 69 68 80 Respiratory Rate 16 20 19 Blood Pressure 121/75 121/73 114/84 Pulse Oximetry 98 96 98 Intake & Output 11/27/17 11/28/17 11/28/17 18:59 06:59 18:59 Intake Total 2710 / 2710 Balance 2710 / 2710 Weight 78.5 kg Intake: IV 1100 / 1100 NS Inj 1,000 ML @ 84 mls/hr IV. 1000 / 1000 CONT .[id number] JUNIOR Rx#:[id number] Cubicin Inj 800 MG In NS Inj 100 / 100 100 ML @ 200 mls/hr IV.SIG Q24H JUNIOR Rx#:[id number] Oral 1610 / 1610 Other: # Voids 1 Date of Last Bowel Movement 11/20/17 11/27/17 # Bowel Movements 0 Narrative: GENERAL: Not in distress. Sleeping CARDIOVASCULAR: Regular rate and rhythm without murmurs, gallops, or rubs. S1, S2 RESPIRATORY: Nonlabored. No accessory muscle use. Breath sounds equal bilaterally. Clear to auscultation. GASTROINTESTINAL: Abdomen soft, non-tender, nondistended. +BS. MUSCULOSKELETAL: No cyanosis or edema. Left leg with dressing on. NEURO: A+Ox3. Able to move all extremities spontaneously. No focal neurological deficits. Normal speech. - Urinary Catheter Management Indwelling Urethral Catheter Cath placed during this visit: yes, but has since been removed by the nurse Reason for continuing: Decision to DC catheter Insertion date: 11/02/17 Insertion time: 00:07 Removal date: 11/06/17 Removal time: 12:00 <Lily Montano - Last Filed: 11/28/17 14:52> Vital signs: Vital Signs 11/28/17 00:00 11/28/17 04:00 11/28/17 08:00 Temperature 98.1 F 97.8 F 97.2 F L Pulse Rate 74 69 68 Respiratory Rate 18 16 19 Blood Pressure 118/66 121/75 121/73 Pulse Oximetry 94 L 98 96 11/28/17 12:00 11/28/17 16:00 Temperature 97.7 F 97.9 F Pulse Rate 80 75 Respiratory Rate 19 20 Blood Pressure 114/84 124/79 Pulse Oximetry 98 96 Intake & Output 11/28/17 11/28/17 11/29/17 06:59 18:59 06:59 Intake Total 2710 / 2710 800 / 800 Balance 2710 / 2710 800 / 800 Weight 78.5 kg Intake: IV 1100 / 1100 NS Inj 1,000 ML @ 84 mls/hr IV. 1000 / 1000 CONT .[id number] JUNIOR Rx#:[id number] Cubicin Inj 800 MG In NS Inj 100 / 100 100 ML @ 200 mls/hr IV.SIG Q24H JUNIOR Rx#:[id number] Oral 1610 / 1610 800 / 800 Other: # Voids 1 7 Date of Last Bowel Movement 11/27/17 11/27/17 # Bowel Movements 0 1 - Urinary Catheter Management Indwelling Urethral Catheter Cath placed during this visit: no <Miroslava Clark - Last Filed: 11/28/17 21:46> Assessment and Plan - Assessment (1) Acute kidney injury Code(s): N17.9 - Acute kidney failure, unspecified Status: Acute Plan: Acute kidney injury with a creatinine of 1.10 with a admission creatinine on 0.42. Acute kidney injury with urine sodium of 108 possible ATN/intrinsic from aminoglycosides or diuretic use Creatinine increase 1.59 yesterday Suspect increase in creatinine is from poor oral intake Continue to hold torsemide Avoid nephrotoxins including NSAIDS, aminoglycosides, and IV contrast Will continue to monitor BMP and urinary output. Continue IV fluids, labs in AM (2) Endocarditis and heart valve disorders in diseases classified elsewhere Code(s): I39 - Endocarditis and heart valve disorders in diseases classified elsewhere Status: Acute - Plan antibiotics per ID <Lily Montano - Last Filed: 11/28/17 14:52> - Assessment (1) Acute kidney injury Code(s): N17.9 - Acute kidney failure, unspecified Status: Acute (2) Endocarditis and heart valve disorders in diseases classified elsewhere Code(s): I39 - Endocarditis and heart valve disorders in diseases classified elsewhere Status: Acute - Attending Attestation Patient seen and examined, agree with above. No new BMP, continue IVF, encourage oral intake. <Miroslava Clark - Last Filed: 11/28/17 21:46>
[2017-11-28 15:06] LABS: Bilirubin,Urine Negative (Negative); Clarity,Urine Hazy (Clear); Color,Urine Yellow (Yellw/Straw); Glucose,Urine (UA) Negative (Negative); Leukocyte Esterase,Urine Moderate (Negative); Mucus,Urine Few /lpf (Occasional); Nitrite,Urine Negative (Negative); Squamous Epithelial Cell,Urine 6 /hpf (0-5)
[2017-11-28] MEDS: Sod Chloride 0.9% Inj 1,000 ML IV.CONT SCH ×2 (19:40→21:07)
[2017-11-29] MEDS: Enoxaparin Inj 40 MG/0.4 ML Syringe SQ SCH (02:30)
[2017-11-29] MEDS: Sod Chloride 0.9% Inj 1,000 ML IV.CONT SCH ×3 (06:50→15:27)
[2017-11-29] MEDS: ARIPiprazole 5 MG Tablet PO SCH (08:21)
[2017-11-29] MEDS: Methadone 10 MG Tablet PO SCH (08:21)
[2017-11-29] MEDS: Senna/Docusate Sodium 8.6/50 MG Tablet PO SCH (08:21)
[2017-11-29 09:59] LABS: Albumin 2.5 g/dL (3.4-5.0); Carbon Dioxide 23.8 meq/L (21.0-32.0); Phosphorus 4.8 mg/dL (2.5-4.9); Potassium 3.4 meq/L (3.5-5.1)
--- NOTE | 2017-11-29 10:33 | P.PNNP ---
Subjective Interval history: Patient sleeping, easily wakes up. IVF are infusing. Creatinine has improved at 1.39 with IVF's. <Lily Montano - Last Filed: 11/29/17 10:28> Physical Exam Vital signs: Vital Signs 11/28/17 12:00 11/28/17 16:00 11/28/17 20:00 Temperature 97.7 F 97.9 F 98.1 F Pulse Rate 80 75 72 Respiratory Rate 19 20 17 Blood Pressure 114/84 124/79 135/78 Pulse Oximetry 98 96 98 11/29/17 00:00 11/29/17 08:00 Temperature 98 F Pulse Rate 68 Respiratory Rate 18 16 Blood Pressure 137/79 Pulse Oximetry 98 Intake & Output 11/28/17 11/29/17 11/29/17 18:59 06:59 18:59 Intake Total 800 / 800 1100 / 1100 Balance 800 / 800 1100 / 1100 Intake: IV 1100 / 1100 NS Inj 1,000 ML @ 100 mls/hr IV 1000 / 1000 .CONT .Q10H JUNIOR Rx#:[id number] Cubicin Inj 800 MG In NS Inj 100 / 100 100 ML @ 200 mls/hr IV.SIG Q24H JUNIOR Rx#:[id number] Oral 800 / 800 Other: # Voids 7 4 Date of Last Bowel Movement 11/27/17 11/28/17 11/28/17 # Bowel Movements 1 Narrative: GENERAL: Not in distress. Sleeping CARDIOVASCULAR: Regular rate and rhythm without murmurs, gallops, or rubs. S1, S2 RESPIRATORY: Nonlabored. No accessory muscle use. Breath sounds equal bilaterally. Clear to auscultation. GASTROINTESTINAL: Abdomen soft, non-tender, nondistended. +BS. MUSCULOSKELETAL: No cyanosis or edema. Left leg with dressing on. NEURO: A+Ox3. Able to move all extremities spontaneously. No focal neurological deficits. Normal speech. - Urinary Catheter Management Indwelling Urethral Catheter Cath placed during this visit: yes, but has since been removed by the nurse Reason for continuing: Decision to DC catheter Insertion date: 11/02/17 Insertion time: 00:07 Removal date: 11/06/17 Removal time: 12:00 <Lily Montano - Last Filed: 11/29/17 10:28> Vital signs: Vital Signs 11/29/17 00:00 11/29/17 08:00 11/29/17 10:49 Temperature 98 F 98.2 F Pulse Rate 68 75 Respiratory Rate 18 16 15 Blood Pressure 137/79 140/69 Pulse Oximetry 98 95 11/29/17 12:00 11/29/17 16:00 Temperature 98 F 98.1 F Pulse Rate 69 70 Respiratory Rate 16 16 Blood Pressure 128/70 130/70 Pulse Oximetry 95 99 Intake & Output 11/29/17 11/29/17 11/30/17 06:59 18:59 06:59 Intake Total 1100 / 1100 2059 Balance 1100 / 1100 2059 Intake: IV 1100 / 1100 1100 / 1100 NS Inj 1,000 ML @ 100 mls/hr IV 1000 / 1000 1000 / 1000 .CONT .Q10H JUNIOR Rx#:[id number] Cubicin Inj 800 MG In NS Inj 100 / 100 100 / 100 100 ML @ 200 mls/hr IV.SIG Q24H JUNIOR Rx#:[id number] Oral 960 / 960 Other: # Voids 6 Date of Last Bowel Movement 11/28/17 11/28/17 # Bowel Movements 2 - Urinary Catheter Management Indwelling Urethral Catheter Cath placed during this visit: no <Miroslava Clark - Last Filed: 11/29/17 21:21> Assessment and Plan - Assessment (1) Acute kidney injury Code(s): N17.9 - Acute kidney failure, unspecified Status: Acute Plan: Acute kidney injury with a creatinine of 1.10 with a admission creatinine on 0.42. Acute kidney injury with urine sodium of 108 possible ATN/intrinsic from aminoglycosides or diuretic use Creatinine improved at 1.39 with IVF Suspect increase in creatinine is from poor oral intake Continue to hold torsemide Avoid nephrotoxins including NSAIDS, aminoglycosides, and IV contrast Will continue to monitor BMP and urinary output. Continue IV fluids, if able to tolerate PO may discontinue UA abnormal culture pending Will order serology and BMP in AM (2) Endocarditis and heart valve disorders in diseases classified elsewhere Code(s): I39 - Endocarditis and heart valve disorders in diseases classified elsewhere Status: Acute - Plan antibiotics per ID <Lily Montano - Last Filed: 11/29/17 10:28> - Assessment (1) Acute kidney injury Code(s): N17.9 - Acute kidney failure, unspecified Status: Acute (2) Endocarditis and heart valve disorders in diseases classified elsewhere Code(s): I39 - Endocarditis and heart valve disorders in diseases classified elsewhere Status: Acute - Attending Attestation Patient seen and examined, agree with above. Creatinine slightly better, Encourage oral fluids. <Miroslava Clark - Last Filed: 11/29/17 21:21>
[2017-11-29] MEDS ORDERED: Potassium Chloride 25 MEQ Effervescent Tablet PO ONE (12:00)
--- NOTE | 2017-11-29 15:17 | P.PNIM ---
Subjective Interval history: No overnight events, no complaints. Afebrile. Creatinine is better. Physical Exam Vital signs: Vital Signs 11/28/17 16:00 11/28/17 20:00 11/29/17 00:00 Temperature 97.9 F 98.1 F 98 F Pulse Rate 75 72 68 Respiratory Rate 20 17 18 Blood Pressure 124/79 135/78 137/79 Pulse Oximetry 96 98 98 11/29/17 08:00 11/29/17 10:49 11/29/17 12:00 Temperature 98.2 F 98 F Pulse Rate 75 69 Respiratory Rate 16 15 16 Blood Pressure 140/69 128/70 Pulse Oximetry 95 95 Intake & Output 11/28/17 11/29/17 11/29/17 18:59 06:59 18:59 Intake Total 800 / 800 1100 / 1100 Balance 800 / 800 1100 / 1100 Intake: IV 1100 / 1100 NS Inj 1,000 ML @ 100 mls/hr IV 1000 / 1000 .CONT .Q10H JUNIOR Rx#:[id number] Cubicin Inj 800 MG In NS Inj 100 / 100 100 ML @ 200 mls/hr IV.SIG Q24H JUNIOR Rx#:[id number] Oral 800 / 800 Other: # Voids 7 4 Date of Last Bowel Movement 11/27/17 11/28/17 11/28/17 # Bowel Movements 1 Narrative: GENERAL: Not in distress CARDIOVASCULAR: Regular rate and rhythm without murmurs, gallops, or rubs. S1, S2 RESPIRATORY: Nonlabored. No accessory muscle use. Breath sounds equal bilaterally. Clear to auscultation. GASTROINTESTINAL: Abdomen soft, non-tender, nondistended. +BS. MUSCULOSKELETAL: No cyanosis or edema. Left leg incision healing well, sutures in place. NEURO: Awake, alert, oriented x3. Able to move all extremities spontaneously. No focal neurological deficits. Normal speech. - Urinary Catheter Management Indwelling Urethral Catheter Cath placed during this visit: yes, but has since been removed by the nurse Reason for continuing: Decision to DC catheter Insertion date: 11/02/17 Insertion time: 00:07 Removal date: 11/06/17 Removal time: 12:00 Results - Labs CBC & Chem 7: 11/27/17 06:48 11/29/17 08:49 Laboratory Results - last 24 hr 11/24/17 11/29/17 14:00 08:49 Sodium 136 Potassium 3.4 L Chloride 102 Carbon Dioxide 23.8 Anion Gap 10 BUN 9 Creatinine 1.39 H Estimated GFR 45 L Random Glucose 87 Calcium 9.0 Phosphorus 4.8 Total Creatine Kinase 20 L Albumin 2.5 L Ur Methadone Positive A Microbiology 11/28/17 13:00 Clean Catch Urine Urine Culture - Preliminary No growth in 24 hours - Procedures Echocardiogram 11/03/2017 The left ventricular systolic function is hyperdynamic with an estimated ejection fraction in the range of 65- 70%. Normal left ventricular size. Wall thickness is normal. No regional wall motion abnormalities are present. There is mild tricuspid valve regurgitation. The estimated pulmonary arterial pressure is 39.2 mmHg. 11/17/17 Procedure: Irrigation and debridement of left calf abscess Anesthesia: DEVONTE Surgeon: Anand Torres MD Senior Quality Technician: MUMTAZ Abdi PA-C The surgical procedure was assisted by my physician family services assistant. My P.A. presence was necessary throughout this case for the manipulation and positioning of the surgical extremity. My P.A. was assisting me throughout the duration of this procedure. The skill set of a physician family services assistant was medically necessary to complete this procedure. During the surgical case the surgical scrub technician was working at the back table and the physician family services assistant was directly assisting me. Operation and Findings: Salud is a 31-year-old female with history of IV drug use. She has developed left calf pain and swelling. MRI revealed an abscess of the left calf. Informed consent was obtained preoperatively and operative site was marked. She was brought to the operating room. She was initially given spinal anesthesia. Spinal anesthesia was not providing adequate anesthesia for surgery. Subsequently she is given IV sedation and general anesthesia. Left leg was prepped with alcohol followed Hibiclens and draped in usual sterile fashion. Timeout procedure was performed. Patient is already on scheduled IV antibiotics. Procedure began with a 2 inch incision over the posterior medial calf. Subcu tissue was dissected with Bovie. The abscess was identified. Approximately 50 cc of purulent fluid was evacuated from the abscess. This fluid was sent for cultures. An excisional debridement was now performed with rongeurs and curettes. Subcutaneous tissue and fascia were sharply excised. Loculations were manually debrided. After thorough debridement, the soft tissue was thoroughly irrigated with pulsatile lavage. A drain was placed into the abscess region. Subcutaneous tissue was closed with 3-0 PDS and skin was closed with 3-0 nylon. Sterile dressings were applied. Patient was awakened and transferred to recovery room in stable condition. Assessment and Plan - Assessment (1) MRSA bacteremia Code(s): R78.81 - Bacteremia Status: Acute (2) Sepsis Code(s): A41.9 - Sepsis, unspecified organism Status: Acute (3) Encephalopathy due to infection Code(s): G93.49 - Other encephalopathy; B99.9 - Unspecified infectious disease Status: Acute (4) History of intravenous drug abuse Code(s): Z87.898 - Personal history of other specified conditions Status: Acute (5) Hepatitis C antibody positive in blood Code(s): R76.8 - Other specified abnormal immunological findings in serum Status: Acute (6) Polysubstance abuse Code(s): F19.10 - Other psychoactive substance abuse, uncomplicated Status: Acute (7) Abscess of leg, left Code(s): L02.416 - Cutaneous abscess of left lower limb Status: Acute (8) Acute kidney injury Code(s): N17.9 - Acute kidney failure, unspecified Status: Acute (9) Endocarditis and heart valve disorders in diseases classified elsewhere Code(s): I39 - Endocarditis and heart valve disorders in diseases classified elsewhere Status: Acute - Plan 31-year-old female admitted secondary to fevers with history of IV drug abuse found to have MRSA bacteremia Sepsis secondary to MRSA Bacteremia - Resolved Left Lower Extremity Abscess - Status post I&D 11-17, wound culture shows no growth in 72 hours, Orthopedic Surgeon following. Daily dressing changes per Ortho instructions. 11/20 drain discontinued. Follow-up for suture removal in 2 weeks - 12/04. MRSA bacteremia secondary to Infective endocarditis with Probable septic pulmonary emboli MARVIN shows infective endocarditis OF MITRAL AND TRICUSPID VALVES, ID following, Due to IV drug use patient is not a candidate for outpatient treatment. No PICC line per ID. - Continue daptomycin x6 weeeks, Weekly CK levels, next level to be checked 11/29. - Gentamicin discontinued secondary to MALGORZATA, Cardiology following MALGORZATA - suspect secondary to gentamicin use, creatinine improving, recheck BMP tomorrow, nephrology following Visual hallucinations, no recurrence Possible medication side effect, Discussed with Dr. Pineda, appreciate his expertise, CT head without any acute findings Subjective right sided hearing loss - olaf Thomas Dr. gentamicin ototoxicity. Usually bilateral hearing loss, ear exam unremarkable, patient will need to follow up with ENT/ storeroom attendant as outpatient Back pain, patient lethargic, refusing labs Ur Methadone pending OB/psych drug screen pending No evidence of abscess on imaging, continue to titrate methadone , patient not on Methadone prior to this admission. Off all other BZDPs and narcotcis Generalized edema - was on torsemide, discontinued 2/2 MALGORZATA Borderline personality disorder Anxiety Abilify, Clonazepam decreased to 0.5mg BID prn. Continue to titrate down. - placed on hold 2/2 lethargy Hepatitis C IVDU Standard precautions Advised on IV drug use cessation Patient will need to follow-up with GI as outpatient Constipation, resolved Continue on Pericolace scheduled BID monitor for BM Hypokalemia-replace DVT prophylaxis Lovenox Code Status: Full Discharge Planning: Not ready for discharge. Patient will need long-term IV antibiotics per ID and not able to have PICC line placed secondary to IV drug use
[2017-11-29] MEDS: DAPTOmycin Inj 800 MG in Sodium Chlor 0.9% Inj 100 ML IV.SIG SCH (15:24)
[2017-11-30] MEDS: Senna/Docusate Sodium 8.6/50 MG Tablet PO SCH ×3 (01:18→20:12)
[2017-11-30] MEDS: Sod Chloride 0.9% Inj 1,000 ML IV.CONT SCH ×3 (02:48→23:55)
[2017-11-30] MEDS: Enoxaparin Inj 40 MG/0.4 ML Syringe SQ SCH (02:49)
[2017-11-30] MEDS: Methadone 10 MG Tablet PO SCH (08:22)
[2017-11-30] MEDS: ARIPiprazole 5 MG Tablet PO SCH (08:22)
[2017-11-30 08:58] LABS: Albumin 2.6 g/dL (3.4-5.0); Calcium 9.2 mg/dL (8.5-10.1); Carbon Dioxide 22.8 meq/L (21.0-32.0); Phosphorus 4.6 mg/dL (2.5-4.9); Potassium 3.7 meq/L (3.5-5.1)
--- NOTE | 2017-11-30 10:36 | P.PNNP ---
Subjective Interval history: More responsive today. Denies any shortness of breath. Creatinine at 1.45 today. <Lily Montano - Last Filed: 11/30/17 15:18> Physical Exam Vital signs: Vital Signs 11/29/17 10:49 11/29/17 12:00 11/29/17 16:00 Temperature 98.2 F 98 F 98.1 F Pulse Rate 75 69 70 Respiratory Rate 15 16 16 Blood Pressure 140/69 128/70 130/70 Pulse Oximetry 95 95 99 11/29/17 20:00 11/30/17 00:00 11/30/17 07:21 Temperature 98.2 F 98.2 F 98.5 F Pulse Rate 88 69 80 Respiratory Rate 18 18 18 Blood Pressure 128/84 127/59 L 129/89 Pulse Oximetry 95 97 95 11/30/17 08:00 Temperature 97.9 F Pulse Rate 68 Respiratory Rate 20 Blood Pressure 127/69 Pulse Oximetry 96 Intake & Output 11/29/17 11/30/17 11/30/17 18:59 06:59 18:59 Intake Total 2059 Balance 2059 Weight 78.2 kg Intake: IV 1100 / 1100 NS Inj 1,000 ML @ 100 mls/hr IV 1000 / 1000 .CONT .Q10H JUNIOR Rx#:[id number] Cubicin Inj 800 MG In NS Inj 100 / 100 100 ML @ 200 mls/hr IV.SIG Q24H JUNIOR Rx#:[id number] Oral 960 / 960 Other: # Voids 6 3 5 Date of Last Bowel Movement 11/28/17 11/29/17 # Bowel Movements 2 1 Narrative: GENERAL: Alert and cooperative CARDIOVASCULAR: Regular rate and rhythm without murmurs, gallops, or rubs. S1, S2 RESPIRATORY: Nonlabored. No accessory muscle use. Breath sounds equal bilaterally. Clear to auscultation. GASTROINTESTINAL: Abdomen soft, non-tender, nondistended. +BS. MUSCULOSKELETAL: No cyanosis or edema. Left leg incision healing well, sutures in place. NEURO: Awake, alert, oriented x3. Able to move all extremities spontaneously. No focal neurological deficits. Normal speech. - Urinary Catheter Management Indwelling Urethral Catheter Cath placed during this visit: yes, but has since been removed by the nurse Reason for continuing: Decision to DC catheter Insertion date: 11/02/17 Insertion time: 00:07 Removal date: 11/06/17 Removal time: 12:00 <Lily Montano - Last Filed: 11/30/17 15:18> Vital signs: Vital Signs 11/30/17 00:00 11/30/17 07:21 11/30/17 08:00 Temperature 98.2 F 98.5 F 97.9 F Pulse Rate 69 80 68 Respiratory Rate 18 18 20 Blood Pressure 127/59 L 129/89 127/69 Pulse Oximetry 97 95 96 11/30/17 12:00 11/30/17 20:00 Temperature 98.1 F 97.6 F Pulse Rate 65 73 Respiratory Rate 20 18 Blood Pressure 108/67 126/82 Pulse Oximetry 95 99 Intake & Output 11/30/17 11/30/17 12/01/17 06:59 18:59 06:59 Intake Total 100 / 100 Balance 100 / 100 Weight 78.2 kg Intake: IV 100 / 100 Cubicin Inj 800 MG In NS Inj 100 / 100 100 ML @ 200 mls/hr IV.SIG Q24H JUNIOR Rx#:[id number] Other: # Voids 3 2 1 Date of Last Bowel Movement 11/29/17 # Bowel Movements 1 - Urinary Catheter Management Indwelling Urethral Catheter Cath placed during this visit: no <Miroslava Clark - Last Filed: 11/30/17 23:45> Assessment and Plan - Assessment (1) Acute kidney injury Code(s): N17.9 - Acute kidney failure, unspecified Status: Acute Plan: Acute kidney injury with a creatinine of 1.10 with a admission creatinine on 0.42. Acute kidney injury with urine sodium of 108 possible ATN/intrinsic from aminoglycosides or diuretic use Creatinine at 1.45 Complements normal. YESENIA and ANCA pending. Continue to hold torsemide Fluids encouraged Avoid nephrotoxins including NSAIDS, aminoglycosides, and IV contrast Will continue to monitor BMP and urinary output. (2) Endocarditis and heart valve disorders in diseases classified elsewhere Code(s): I39 - Endocarditis and heart valve disorders in diseases classified elsewhere Status: Acute - Plan antibiotics per ID <Lily Montano - Last Filed: 11/30/17 15:18> - Assessment (1) Acute kidney injury Code(s): N17.9 - Acute kidney failure, unspecified Status: Acute (2) Endocarditis and heart valve disorders in diseases classified elsewhere Code(s): I39 - Endocarditis and heart valve disorders in diseases classified elsewhere Status: Acute - Attending Attestation Patient seen and examined, agree with above. Creatinine still elevated, possibly has ATN also. Encourage oral intake. <Miroslava Clark - Last Filed: 11/30/17 23:45>
[2017-11-30] MEDS: DAPTOmycin Inj 800 MG in Sodium Chlor 0.9% Inj 100 ML IV.SIG SCH (12:49)
[2017-11-30] MEDS ORDERED: Methadone 10 MG Tablet PO SCH (14:37)
--- NOTE | 2017-11-30 14:41 | P.PNIM ---
Subjective Interval history: No overnight events, creatinine still high, no complaints. Denies any chest pain or shortness of breath. Afebrile Physical Exam Vital signs: Vital Signs 11/29/17 16:00 11/29/17 20:00 11/30/17 00:00 Temperature 98.1 F 98.2 F 98.2 F Pulse Rate 70 88 69 Respiratory Rate 16 18 18 Blood Pressure 130/70 128/84 127/59 L Pulse Oximetry 99 95 97 11/30/17 07:21 11/30/17 08:00 11/30/17 12:00 Temperature 98.5 F 97.9 F 98.1 F Pulse Rate 80 68 65 Respiratory Rate 18 20 20 Blood Pressure 129/89 127/69 108/67 Pulse Oximetry 95 96 95 Intake & Output 11/29/17 11/30/17 11/30/17 18:59 06:59 18:59 Intake Total 2059 Balance 2059 Weight 78.2 kg Intake: IV 1100 / 1100 NS Inj 1,000 ML @ 100 mls/hr IV 1000 / 1000 .CONT .Q10H JUNIOR Rx#:[id number] Cubicin Inj 800 MG In NS Inj 100 / 100 100 ML @ 200 mls/hr IV.SIG Q24H JUNIOR Rx#:[id number] Oral 960 / 960 Other: # Voids 6 3 5 Date of Last Bowel Movement 11/28/17 11/29/17 # Bowel Movements 2 1 Narrative: GENERAL: Alert and cooperative, not in distress CARDIOVASCULAR: Regular rate and rhythm without murmurs, gallops, or rubs. S1, S2 RESPIRATORY: Nonlabored. No accessory muscle use. Breath sounds equal bilaterally. Clear to auscultation. GASTROINTESTINAL: Abdomen soft, non-tender, nondistended. +BS. MUSCULOSKELETAL: No edema. NEURO: Awake, alert, oriented x3. Able to move all extremities spontaneously. No focal neurological deficits. Normal speech. - Urinary Catheter Management Indwelling Urethral Catheter Cath placed during this visit: yes, but has since been removed by the nurse Reason for continuing: Decision to DC catheter Insertion date: 11/02/17 Insertion time: 00:07 Removal date: 11/06/17 Removal time: 12:00 Results - Labs CBC & Chem 7: 11/27/17 06:48 11/30/17 08:06 Laboratory Results - last 24 hr 11/26/17 11/30/17 14:05 08:06 Sodium 137 Potassium 3.7 Chloride 104 Carbon Dioxide 22.8 Anion Gap 10 BUN 8 Creatinine 1.45 H Estimated GFR 43 L Random Glucose 80 Calcium 9.2 Phosphorus 4.6 Albumin 2.6 L Ur Opiates Confirm Positive A Ur Buprenorphine Negative Ur Heroin Screen Negative Urine Oxycodone Positive A Ur Methadone Positive A U Hydromorphone Confirm Positive A Urine Fentanyl Negative Urine Gabapentin Negative Ur Phencyclidine (PCP) Negative Urine MDPV Negative Ur MDMA & Metabolites Negative Ur Synth THC (K2) Negative Complement C3 154 Complement C4 31 Microbiology 11/02/17 01:30 Cerebral Spinal Fluid - Lumbar Puncture Fungal Smear - Final No fungal elements seen 11/02/17 01:30 Cerebral Spinal Fluid - Lumbar Puncture Fungal Culture - Final No growth in 4 weeks 11/02/17 01:30 Cerebral Spinal Fluid - Lumbar Puncture Acid Fast Bacilli Smear - Final No acid fast bacilli seen 11/02/17 01:30 Cerebral Spinal Fluid - Lumbar Puncture Mycobacterial Culture - Preliminary No growth in 4 weeks 11/28/17 13:00 Clean Catch Urine Urine Culture - Final No growth in 48 hours - Procedures Echocardiogram 11/03/2017 The left ventricular systolic function is hyperdynamic with an estimated ejection fraction in the range of 65- 70%. Normal left ventricular size. Wall thickness is normal. No regional wall motion abnormalities are present. There is mild tricuspid valve regurgitation. The estimated pulmonary arterial pressure is 39.2 mmHg. 11/17/17 Procedure: Irrigation and debridement of left calf abscess Anesthesia: [facility] Surgeon: Anand Torres MD Junior Art Director: MUMTAZ Abdi PA-C The surgical procedure was assisted by my physician bilingual medical assistant. My P.A. presence was necessary throughout this case for the manipulation and positioning of the surgical extremity. My P.A. was assisting me throughout the duration of this procedure. The skill set of a physician bilingual medical assistant was medically necessary to complete this procedure. During the surgical case the technical instructor course developer was working at the back table and the physician bilingual medical assistant was directly assisting me. Operation and Findings: Salud is a 31-year-old female with history of IV drug use. She has developed left calf pain and swelling. MRI revealed an abscess of the left calf. Informed consent was obtained preoperatively and operative site was marked. She was brought to the operating room. She was initially given spinal anesthesia. Spinal anesthesia was not providing adequate anesthesia for surgery. Subsequently she is given IV sedation and general anesthesia. Left leg was prepped with alcohol followed Hibiclens and draped in usual sterile fashion. Timeout procedure was performed. Patient is already on scheduled IV antibiotics. Procedure began with a 2 inch incision over the posterior medial calf. Subcu tissue was dissected with Bovie. The abscess was identified. Approximately 50 cc of purulent fluid was evacuated from the abscess. This fluid was sent for cultures. An excisional debridement was now performed with rongeurs and curettes. Subcutaneous tissue and fascia were sharply excised. Loculations were manually debrided. After thorough debridement, the soft tissue was thoroughly irrigated with pulsatile lavage. A drain was placed into the abscess region. Subcutaneous tissue was closed with 3-0 PDS and skin was closed with 3-0 nylon. Sterile dressings were applied. Patient was awakened and transferred to recovery room in stable condition. Assessment and Plan - Assessment (1) MRSA bacteremia Code(s): R78.81 - Bacteremia Status: Acute (2) Sepsis Code(s): A41.9 - Sepsis, unspecified organism Status: Acute (3) Encephalopathy due to infection Code(s): G93.49 - Other encephalopathy; B99.9 - Unspecified infectious disease Status: Acute (4) History of intravenous drug abuse Code(s): Z87.898 - Personal history of other specified conditions Status: Acute (5) Hepatitis C antibody positive in blood Code(s): R76.8 - Other specified abnormal immunological findings in serum Status: Acute (6) Polysubstance abuse Code(s): F19.10 - Other psychoactive substance abuse, uncomplicated Status: Acute (7) Abscess of leg, left Code(s): L02.416 - Cutaneous abscess of left lower limb Status: Acute (8) Acute kidney injury Code(s): N17.9 - Acute kidney failure, unspecified Status: Acute (9) Endocarditis and heart valve disorders in diseases classified elsewhere Code(s): I39 - Endocarditis and heart valve disorders in diseases classified elsewhere Status: Acute - Plan 31-year-old female admitted secondary to fevers with history of IV drug abuse found to have MRSA bacteremia Sepsis secondary to MRSA Bacteremia - Resolved Left Lower Extremity Abscess - Status post I&D 11-17, wound culture shows no growth in 72 hours. Daily dressing changes per Ortho instructions. 11/20 drain discontinued. Follow-up for suture removal in 2 weeks - 12/04. 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 No PICC line per ID. - Continue daptomycin x6 weeks, Weekly CK levels, check CK on 12/06 - Gentamicin discontinued secondary to MALGORZATA, Cardiology following MALGORZATA - suspect secondary to gentamicin use, creatinine improving, recheck BMP tomorrow, nephrology following, cont IVF Visual hallucinations, no recurrence Possible medication side effect, Discussed with Dr. Pineda, appreciate his expertise, CT head without any acute findings Subjective right sided hearing loss - dw Dr. Hernandez , possilbe gentamicin ototoxicity. Usually bilateral hearing loss, ear exam unremarkable, patient will need to follow up with ENT/ reflow operator as outpatient Back pain, on methadone - No evidence of abscess on imaging, continue to titrate methadone to 5 mg today and d/c on Monday, off Narcoticz and BZDP Generalized edema - was on torsemide, discontinued 2/ MALGORZATA Borderline personality disorder Anxiety - cont abilify Hepatitis C -Patient will need to follow-up with GI as outpatient Constipation, resolved Continue on Pericolace scheduled BID Hypokalemia-replaced DVT prophylaxis Lovenox Code Status: Full Discharge Planning: Not ready for discharge. Patient will need long-term IV antibiotics per ID and not able to have PICC line placed secondary to IV drug use, cont ABx until Dec 20 (6 weeks)
[2017-12-01] MEDS: Enoxaparin Inj 40 MG/0.4 ML Syringe SQ SCH (01:45)
[2017-12-01] MEDS: Sod Chloride 0.9% Inj 1,000 ML IV.CONT SCH (07:43)
[2017-12-01 07:45] LABS: Calcium 8.8 mg/dL (8.5-10.1); Carbon Dioxide 23.3 meq/L (21.0-32.0); Potassium 3.6 meq/L (3.5-5.1)
[2017-12-01] MEDS: ARIPiprazole 5 MG Tablet PO SCH (08:05)
[2017-12-01] MEDS: Senna/Docusate Sodium 8.6/50 MG Tablet PO SCH ×2 (08:05→23:15)
[2017-12-01] MEDS: DAPTOmycin Inj 800 MG in Sodium Chlor 0.9% Inj 100 ML IV.SIG SCH (12:06)
--- NOTE | 2017-12-01 13:01 | P.PNNP ---
Subjective Interval history: Patient is sleeping, reports that she did not sleep last night. Denies any shortness of breath. Creatinine is stable at 1.39 <Lily Montano - Last Filed: 12/01/17 12:59> Physical Exam Vital signs: Vital Signs 11/30/17 20:00 12/01/17 00:00 12/01/17 04:00 Temperature 97.6 F 98.1 F 97.9 F Pulse Rate 73 64 68 Respiratory Rate 18 18 18 Blood Pressure 126/82 121/88 136/83 Pulse Oximetry 99 97 99 12/01/17 07:48 Temperature 97.5 F L Pulse Rate 80 Respiratory Rate 16 Blood Pressure 132/94 H Pulse Oximetry 100 Intake & Output 11/30/17 12/01/17 12/01/17 18:59 06:59 18:59 Intake Total 100 / 100 1000 / 1000 Balance 100 / 100 1000 / 1000 Weight 78.2 kg Intake: IV 100 / 100 1000 / 1000 NS Inj 1,000 ML @ 125 mls/hr IV 1000 / 1000 .CONT .Q8H JUNIOR Rx#:[id number] Cubicin Inj 800 MG In NS Inj 100 / 100 100 ML @ 200 mls/hr IV.SIG Q24H JUNIOR Rx#:[id number] Other: # Voids 2 1 Narrative: GENERAL: Alert and cooperative, not in distress CARDIOVASCULAR: Regular rate and rhythm without murmurs, gallops, or rubs. S1, S2 RESPIRATORY: Nonlabored. No accessory muscle use. Breath sounds equal bilaterally. Clear to auscultation. GASTROINTESTINAL: Abdomen soft, non-tender, nondistended. +BS. MUSCULOSKELETAL: No edema. NEURO: Awake, alert, oriented x3. Able to move all extremities spontaneously. No focal neurological deficits. Normal speech. - Urinary Catheter Management Indwelling Urethral Catheter Cath placed during this visit: yes, but has since been removed by the nurse Reason for continuing: Decision to DC catheter Insertion date: 11/02/17 Insertion time: 00:07 Removal date: 11/06/17 Removal time: 12:00 <Lily Montano - Last Filed: 12/01/17 12:59> - Urinary Catheter Management Indwelling Urethral Catheter Cath placed during this visit: no <Miroslava Clark - Last Filed: 01/11/18 09:33> Assessment and Plan - Assessment (1) Acute kidney injury Code(s): N17.9 - Acute kidney failure, unspecified Status: Acute Plan: Acute kidney injury with a creatinine of 1.10 with a admission creatinine on 0.42. Acute kidney injury with urine sodium of 108 possible ATN/intrinsic from aminoglycosides or diuretic use Creatinine at 1.39 Complements normal. YESENIA and ANCA pending. Continue to hold torsemide Fluids encouraged Avoid nephrotoxins including NSAIDS, aminoglycosides, and IV contrast Will continue to monitor BMP and urinary output. (2) Endocarditis and heart valve disorders in diseases classified elsewhere Code(s): I39 - Endocarditis and heart valve disorders in diseases classified elsewhere Status: Acute - Plan antibiotics per ID <Lily Montano - Last Filed: 12/01/17 12:59> - Assessment (1) Acute kidney injury Code(s): N17.9 - Acute kidney failure, unspecified Status: Acute Plan: Patient seen and examined, agree with above. Creatinine is 1.3, diuretics on hold, follow the urine out put and BMP. (2) Endocarditis and heart valve disorders in diseases classified elsewhere Code(s): I39 - Endocarditis and heart valve disorders in diseases classified elsewhere Status: Acute <Miroslava Clark - Last Filed: 01/11/18 09:33>
--- NOTE | 2017-12-01 13:03 | P.PNIM ---
Subjective Interval history: Follow-up for endocarditis No overnight events, no fever, does not want to be bothered. Complaining that healthcare professionals are coming in to see her. Physical Exam Vital signs: Vital Signs 11/30/17 20:00 12/01/17 00:00 12/01/17 04:00 Temperature 97.6 F 98.1 F 97.9 F Pulse Rate 73 64 68 Respiratory Rate 18 18 18 Blood Pressure 126/82 121/88 136/83 Pulse Oximetry 99 97 99 12/01/17 07:48 Temperature 97.5 F L Pulse Rate 80 Respiratory Rate 16 Blood Pressure 132/94 H Pulse Oximetry 100 Intake & Output 11/30/17 12/01/17 12/01/17 18:59 06:59 18:59 Intake Total 100 / 100 1000 / 1000 Balance 100 / 100 1000 / 1000 Weight 78.2 kg Intake: IV 100 / 100 1000 / 1000 NS Inj 1,000 ML @ 125 mls/hr IV 1000 / 1000 .CONT .Q8H JUNIOR Rx#:[id number] Cubicin Inj 800 MG In NS Inj 100 / 100 100 ML @ 200 mls/hr IV.SIG Q24H JUNIOR Rx#:[id number] Other: # Voids 2 1 Narrative: GENERAL: Alert a, not in distress CARDIOVASCULAR: Regular rate and rhythm without murmurs, gallops, or rubs. S1, S2 RESPIRATORY: Nonlabored. No accessory muscle use. Breath sounds equal bilaterally. Clear to auscultation. GASTROINTESTINAL: Abdomen soft, non-tender, nondistended. +BS. MUSCULOSKELETAL: No edema. NEURO: Awake, alert, oriented x3. Able to move all extremities spontaneously. No focal neurological deficits. Normal speech. - Urinary Catheter Management Indwelling Urethral Catheter Cath placed during this visit: yes, but has since been removed by the nurse Reason for continuing: Decision to DC catheter Insertion date: 11/02/17 Insertion time: 00:07 Removal date: 11/06/17 Removal time: 12:00 Results - Labs CBC & Chem 7: 11/27/17 06:48 12/01/17 07:01 Laboratory Results - last 24 hr 12/01/17 07:01 Sodium 139 Potassium 3.6 Chloride 107 Carbon Dioxide 23.3 Anion Gap 9 BUN 8 Creatinine 1.39 H Estimated GFR 45 L Random Glucose 76 Calcium 8.8 Total Creatine Kinase 21 L Microbiology 11/02/17 01:30 Cerebral Spinal Fluid - Lumbar Puncture Fungal Smear - Final No fungal elements seen 11/02/17 01:30 Cerebral Spinal Fluid - Lumbar Puncture Fungal Culture - Final No growth in 4 weeks 11/02/17 01:30 Cerebral Spinal Fluid - Lumbar Puncture Acid Fast Bacilli Smear - Final No acid fast bacilli seen 11/02/17 01:30 Cerebral Spinal Fluid - Lumbar Puncture Mycobacterial Culture - Preliminary No growth in 4 weeks - Procedures Echocardiogram 11/03/2017 The left ventricular systolic function is hyperdynamic with an estimated ejection fraction in the range of 65- 70%. Normal left ventricular size. Wall thickness is normal. No regional wall motion abnormalities are present. There is mild tricuspid valve regurgitation. The estimated pulmonary arterial pressure is 39.2 mmHg. 11/17/17 Procedure: Irrigation and debridement of left calf abscess Anesthesia: [facility] Surgeon: Anand Torres MD Education Administrative Assistant: MUMTAZ Abdi PA-C The surgical procedure was assisted by my physician contract assistant. My P.A. presence was necessary throughout this case for the manipulation and positioning of the surgical extremity. My P.A. was assisting me throughout the duration of this procedure. The skill set of a physician contract assistant was medically necessary to complete this procedure. During the surgical case the salesperson surgical appliances was working at the back table and the physician contract assistant was directly assisting me. Operation and Findings: Salud is a 31-year-old female with history of IV drug use. She has developed left calf pain and swelling. MRI revealed an abscess of the left calf. Informed consent was obtained preoperatively and operative site was marked. She was brought to the operating room. She was initially given spinal anesthesia. Spinal anesthesia was not providing adequate anesthesia for surgery. Subsequently she is given IV sedation and general anesthesia. Left leg was prepped with alcohol followed Hibiclens and draped in usual sterile fashion. Timeout procedure was performed. Patient is already on scheduled IV antibiotics. Procedure began with a 2 inch incision over the posterior medial calf. Subcu tissue was dissected with Bovie. The abscess was identified. Approximately 50 cc of purulent fluid was evacuated from the abscess. This fluid was sent for cultures. An excisional debridement was now performed with rongeurs and curettes. Subcutaneous tissue and fascia were sharply excised. Loculations were manually debrided. After thorough debridement, the soft tissue was thoroughly irrigated with pulsatile lavage. A drain was placed into the abscess region. Subcutaneous tissue was closed with 3-0 PDS and skin was closed with 3-0 nylon. Sterile dressings were applied. Patient was awakened and transferred to recovery room in stable condition. Assessment and Plan - Assessment (1) MRSA bacteremia Code(s): R78.81 - Bacteremia Status: Acute (2) Sepsis Code(s): A41.9 - Sepsis, unspecified organism Status: Acute (3) Encephalopathy due to infection Code(s): G93.49 - Other encephalopathy; B99.9 - Unspecified infectious disease Status: Acute (4) History of intravenous drug abuse Code(s): Z87.898 - Personal history of other specified conditions Status: Acute (5) Hepatitis C antibody positive in blood Code(s): R76.8 - Other specified abnormal immunological findings in serum Status: Acute (6) Polysubstance abuse Code(s): F19.10 - Other psychoactive substance abuse, uncomplicated Status: Acute (7) Abscess of leg, left Code(s): L02.416 - Cutaneous abscess of left lower limb Status: Acute (8) Acute kidney injury Code(s): N17.9 - Acute kidney failure, unspecified Status: Acute (9) Endocarditis and heart valve disorders in diseases classified elsewhere Code(s): I39 - Endocarditis and heart valve disorders in diseases classified elsewhere Status: Acute - Plan 31-year-old female admitted secondary to fevers with history of IV drug abuse found to have MRSA bacteremia Sepsis secondary to MRSA Bacteremia - Resolved Left Lower Extremity Abscess - Status post I&D 11-17, wound culture shows no growth in 72 hours. Daily dressing changes per Ortho instructions. 11/20 drain discontinued. Follow-up for suture removal in 2 weeks - 12/04. 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 No PICC line per ID. - Continue daptomycin x6 weeks, Weekly CK levels, check CK on 12/06 - Gentamicin discontinued secondary to MALGORZATA, Cardiology following MALGORZATA - suspect secondary to gentamicin use, creatinine improving, BMP stable, nephrology following, continue IVF Visual hallucinations, no recurrence Possible medication side effect, Discussed with Dr. Pineda, appreciate his expertise, CT head without any acute findings Subjective right sided hearing loss - marlon Hernandez , possilbe gentamicin ototoxicity. Usually bilateral hearing loss, ear exam unremarkable, patient will need to follow up with ENT/ hot knife foxing cutter as outpatient Back pain, on methadone - No evidence of abscess on imaging, continue to titrate methadone, decreased 2.5 mg 12/02, off Narcoticz and BZDP Generalized edema - was on torsemide, discontinued 2/2 MALGORZATA Borderline personality disorder Anxiety - cont abilify Hepatitis C -Patient will need to follow-up with GI as outpatient Constipation, resolved Continue on Pericolace scheduled BID Hypokalemia-replaced DVT prophylaxis Lovenox Code Status: Full Discharge Planning: Not ready for discharge. Patient will need long-term IV antibiotics per ID and not able to have PICC line placed secondary to IV drug use, cont ABx until Dec 20 (6 weeks)
[2017-12-02] MEDS: Enoxaparin Inj 40 MG/0.4 ML Syringe SQ SCH (01:40)
[2017-12-02] MEDS: ARIPiprazole 5 MG Tablet PO SCH (08:23)
[2017-12-02] MEDS: Methadone 10 MG Tablet PO SCH (08:23)
[2017-12-02] MEDS: Senna/Docusate Sodium 8.6/50 MG Tablet PO SCH ×2 (08:24→21:58)
--- NOTE | 2017-12-02 13:22 | P.PNIM ---
Subjective Interval history: Follow-up for infective endocarditis Isolated BP elevations, no complaints. No headache, chest pain or shortness of breath. Afebrile. Not withdrawing. Physical Exam Vital signs: Vital Signs 12/01/17 16:00 12/01/17 20:00 12/02/17 00:00 Temperature 98.8 F 97.8 F 97.9 F Pulse Rate 70 71 73 Respiratory Rate 12 16 16 Blood Pressure 130/82 131/82 118/71 Pulse Oximetry 94 L 98 98 12/02/17 04:00 12/02/17 08:00 12/02/17 12:00 Temperature 98.3 F 97.7 F 97.5 F L Pulse Rate 68 90 87 Respiratory Rate 18 18 14 Blood Pressure 146/85 H 142/95 H 136/89 Pulse Oximetry 100 94 L 99 Intake & Output 12/01/17 12/02/17 12/02/17 18:59 06:59 18:59 Intake Total 2099 / 2099 Balance 2099 Intake: IV 2099 / 2099 NS Inj 1,000 ML @ 125 mls/hr IV 1999 / 1999 .CONT .Q8H JUNIOR Rx#:[id number] Cubicin Inj 800 MG In NS Inj 100 / 100 100 ML @ 200 mls/hr IV.SIG Q24H JUNIOR Rx#:[id number] Other: # Voids 1 Date of Last Bowel Movement 11/29/17 # Bowel Movements 1 Narrative: GENERAL: Alert , not in distress CARDIOVASCULAR: Regular rate and rhythm without murmurs, gallops, or rubs. S1, S2 RESPIRATORY: Nonlabored. No accessory muscle use. Breath sounds equal bilaterally. Clear to auscultation. GASTROINTESTINAL: Abdomen soft, non-tender, nondistended. +BS. MUSCULOSKELETAL: No edema. NEURO: Awake, alert, oriented x3. Able to move all extremities spontaneously. No focal neurological deficits. Normal speech. - Urinary Catheter Management Indwelling Urethral Catheter Cath placed during this visit: yes, but has since been removed by the nurse Reason for continuing: Decision to DC catheter Insertion date: 11/02/17 Insertion time: 00:07 Removal date: 11/06/17 Removal time: 12:00 Results - Labs CBC & Chem 7: 11/27/17 06:48 12/01/17 07:01 Laboratory Results - last 24 hr 11/30/17 08:06 YESENIA Screen Neg Microbiology 11/17/17 09:05 Fluid - Other Fungal Smear - Final No fungal elements seen 11/17/17 09:05 Fluid - Other Fungal Culture - Preliminary No growth in 2 weeks 11/17/17 09:05 Fluid - Other Acid Fast Bacilli Smear - Final No acid fast bacilli seen 11/17/17 09:05 Fluid - Other Mycobacterial Culture - Preliminary No growth in 2 weeks - Procedures Echocardiogram 11/03/2017 The left ventricular systolic function is hyperdynamic with an estimated ejection fraction in the range of 65- 70%. Normal left ventricular size. Wall thickness is normal. No regional wall motion abnormalities are present. There is mild tricuspid valve regurgitation. The estimated pulmonary arterial pressure is 39.2 mmHg. 11/17/17 Procedure: Irrigation and debridement of left calf abscess Anesthesia: DEVONTE Surgeon: Anand Torres MD Stripe Marker: MUMTAZ Abdi PA-C The surgical procedure was assisted by my physician account assistant. My P.A. presence was necessary throughout this case for the manipulation and positioning of the surgical extremity. My P.A. was assisting me throughout the duration of this procedure. The skill set of a physician account assistant was medically necessary to complete this procedure. During the surgical case the surgical processor was working at the back table and the physician account assistant was directly assisting me. Operation and Findings: Salud is a 31-year-old female with history of IV drug use. She has developed left calf pain and swelling. MRI revealed an abscess of the left calf. Informed consent was obtained preoperatively and operative site was marked. She was brought to the operating room. She was initially given spinal anesthesia. Spinal anesthesia was not providing adequate anesthesia for surgery. Subsequently she is given IV sedation and general anesthesia. Left leg was prepped with alcohol followed Hibiclens and draped in usual sterile fashion. Timeout procedure was performed. Patient is already on scheduled IV antibiotics. Procedure began with a 2 inch incision over the posterior medial calf. Subcu tissue was dissected with Bovie. The abscess was identified. Approximately 50 cc of purulent fluid was evacuated from the abscess. This fluid was sent for cultures. An excisional debridement was now performed with rongeurs and curettes. Subcutaneous tissue and fascia were sharply excised. Loculations were manually debrided. After thorough debridement, the soft tissue was thoroughly irrigated with pulsatile lavage. A drain was placed into the abscess region. Subcutaneous tissue was closed with 3-0 PDS and skin was closed with 3-0 nylon. Sterile dressings were applied. Patient was awakened and transferred to recovery room in stable condition. Assessment and Plan - Assessment (1) MRSA bacteremia Code(s): R78.81 - Bacteremia Status: Acute (2) Sepsis Code(s): A41.9 - Sepsis, unspecified organism Status: Acute (3) Encephalopathy due to infection Code(s): G93.49 - Other encephalopathy; B99.9 - Unspecified infectious disease Status: Acute (4) History of intravenous drug abuse Code(s): Z87.898 - Personal history of other specified conditions Status: Acute (5) Hepatitis C antibody positive in blood Code(s): R76.8 - Other specified abnormal immunological findings in serum Status: Acute (6) Polysubstance abuse Code(s): F19.10 - Other psychoactive substance abuse, uncomplicated Status: Acute (7) Abscess of leg, left Code(s): L02.416 - Cutaneous abscess of left lower limb Status: Acute (8) Acute kidney injury Code(s): N17.9 - Acute kidney failure, unspecified Status: Acute (9) Endocarditis and heart valve disorders in diseases classified elsewhere Code(s): I39 - Endocarditis and heart valve disorders in diseases classified elsewhere Status: Acute - Plan 31-year-old female admitted secondary to fevers with history of IV drug abuse found to have MRSA bacteremia Sepsis secondary to MRSA Bacteremia - Resolved Left Lower Extremity Abscess - Status post I&D 11-17, wound culture shows no growth in 72 hours. Daily dressing changes per Ortho instructions. 11/20 drain discontinued. Follow-up for suture removal in 2 weeks - 12/04. 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 No PICC line per ID. - Continue daptomycin x6 weeks, Weekly CK levels, check CK on 12/08 - Gentamicin discontinued secondary to MALGORZATA, Cardiology following MALGORZATA - suspect secondary to gentamicin use, creatinine improving, BMP stable, nephrology following, IVF stop. Visual hallucinations-Possible medication side effect, Discussed with Dr. Pineda, appreciate his expertise, CT head without any acute findings Subjective right sided hearing loss - dw Dr. Dontfraid , possilbe gentamicin ototoxicity. Usually bilateral hearing loss, ear exam unremarkable, patient will need to follow up with ENT/ appliance technician as outpatient Back pain, on methadone - No evidence of abscess on imaging, continue to titrate methadone, decreased 2.5 mg 12/02, off Narcoticz and BZDP, possibly discontinued 12/04. Generalized edema - was on torsemide, discontinued 2/ MALGORZATA Borderline personality disorder Anxiety - cont abilify Hepatitis C -Patient will need to follow-up with GI as outpatient Constipation, resolved Continue on Pericolace scheduled BID DVT prophylaxis Lovenox Code Status: Full Discharge Planning: Not ready for discharge. Patient will need long-term IV antibiotics per ID and not able to have PICC line placed secondary to IV drug use, cont ABx until Dec 20 (6 weeks)
[2017-12-02] MEDS: DAPTOmycin Inj 800 MG in Sodium Chlor 0.9% Inj 100 ML IV.SIG SCH (15:28)
[2017-12-03] MEDS: Enoxaparin Inj 40 MG/0.4 ML Syringe SQ SCH (02:23)
[2017-12-03] MEDS: Senna/Docusate Sodium 8.6/50 MG Tablet PO SCH ×2 (08:49→22:06)
[2017-12-03] MEDS: Methadone 10 MG Tablet PO SCH (08:49)
[2017-12-03] MEDS: ARIPiprazole 5 MG Tablet PO SCH (08:49)
--- NOTE | 2017-12-03 10:38 | P.PNIM ---
Subjective Interval history: Pt seen and examined. AFVSS. No acute events overnight. No complaints. Pain controlled. No CP, SOB, abdominal pain, N/V. Discussed her IV drug use and she states her last use was the day of admission and she plans on moving to [place] with her sister and going to on discharge. She has two daughters, one that is 9 months old. Physical Exam Vital signs: Vital Signs 12/02/17 12:00 12/02/17 16:00 12/02/17 20:00 Temperature 97.5 F L 97.5 F L 97.6 F Pulse Rate 87 85 88 Respiratory Rate 14 18 16 Blood Pressure 136/89 130/90 138/88 Pulse Oximetry 99 99 99 12/03/17 00:00 12/03/17 04:00 12/03/17 08:00 Temperature 98 F 98 F 97.4 F L Pulse Rate 84 87 94 H Respiratory Rate 16 16 16 Blood Pressure 135/84 136/87 123/89 Pulse Oximetry 99 99 97 Intake & Output 12/02/17 12/03/17 12/03/17 18:59 06:59 18:59 Weight 78.4 kg Other: # Voids 5 Date of Last Bowel Movement 11/29/17 12/02/17 12/02/17 Narrative: GENERAL: WN, WD female resting in bed in [facility]. SKIN: Warm and dry. Track rodriguez over UE. HEENT: AT/NC. Pupils equal and round. MMM. HEART: RRR no m/r/g. LUNGS: CTAB without wheezes or crackles. ABDOMEN: +BS, soft, NT, ND. EXTREMITIES: No LE edema. NEURO: Awake and alert. PSYCH: Appropriate mood and affect. - Urinary Catheter Management Indwelling Urethral Catheter Cath placed during this visit: yes, but has since been removed by the nurse Reason for continuing: Decision to DC catheter Insertion date: 11/02/17 Insertion time: 00:07 Removal date: 11/06/17 Removal time: 12:00 Results - Labs CBC & Chem 7: 11/27/17 06:48 12/01/17 07:01 - Imaging Echocardiogram 11/03/2017: The left ventricular systolic function is hyperdynamic with an estimated ejection fraction in the range of 65-70%. Normal left ventricular size.Wall thickness is normal. There is mild tricuspid valve regurgitation. The estimated pulmonary arterial pressure is 39.2 mmHg. - Procedures 11/17 Irrigation and debridement of left calf abscess with ortho Assessment and Plan - Assessment (1) MRSA bacteremia Code(s): R78.81 - Bacteremia Status: Acute (2) Sepsis Code(s): A41.9 - Sepsis, unspecified organism Status: Acute (3) Encephalopathy due to infection Code(s): G93.49 - Other encephalopathy; B99.9 - Unspecified infectious disease Status: Acute (4) History of intravenous drug abuse Code(s): Z87.898 - Personal history of other specified conditions Status: Acute (5) Hepatitis C antibody positive in blood Code(s): R76.8 - Other specified abnormal immunological findings in serum Status: Acute (6) Polysubstance abuse Code(s): F19.10 - Other psychoactive substance abuse, uncomplicated Status: Acute (7) Abscess of leg, left Code(s): L02.416 - Cutaneous abscess of left lower limb Status: Acute (8) Acute kidney injury Code(s): N17.9 - Acute kidney failure, unspecified Status: Acute (9) Endocarditis and heart valve disorders in diseases classified elsewhere Code(s): I39 - Endocarditis and heart valve disorders in diseases classified elsewhere Status: Acute - Plan 31 year old female with history of IVDU admitted 11/02 with infective endocarditic, MRSA bacteremia, and LLE abscess. 1. MRSA bacteremia, mitral and tricuspid valve infective endocarditis - Blood cultures 11/01 with MRSA in all 4 - Repeat blood cultures 11/03 and 11/07 with MRSA (despite treatment with IV vanco ) - Blood cultures 11/08 NGTD - ID following, IV daptomycin until 12/20 - Gentamicin d/c'd for MALGORZATA as well as some subjective right-sided hearing loss, concern for possible ototoxicity - No PICC line or outpatient infusion since patient actively doing drugs 2. Mitral and tricuspid valve infective endocarditis - 2D echo 11/03 with EF 65-70% and no visualization of valvular lesions - MARVIN 11/14 showing normal EF, 10 x 16 mm lesion of MV, 15 x 7 mm lesion of the tricuspid valve, and a 21 x 1 mm lesion in the RA - ID following - Counseled on cessation of IV drugs 3. Septic emboli - See above plans 4. LLE abscess - S/P I&D with ortho on 11/17, drain removed 11/20 - Wound culture with no growth - Daily dressing changes - Remove sutures 12/04 5. MALGORZATA - Suspected secondary to gentamicin - Creatinine improved once discontinued - Nephrology following - Avoid nephrotoxic agents and renally dose meds - Off IV fluids - Monitor renal function 6. IVDU - Patient's last use was on day of admission - Admits to IV heroine and meth - Planning on moving with sister in [place] on discharge and will be going to - Discontinue methadone 7. Hepatitis C - F/U with GI as outpatient 8. Borderline personality disorder - Continue Abilify DVT prophylaxis: Lovenox Discussed Condition With: Patient Discharge Planning: On IV antibiotics until 12/20
[2017-12-03] MEDS: DAPTOmycin Inj 800 MG in Sodium Chlor 0.9% Inj 100 ML IV.SIG SCH (12:45)
[2017-12-04] MEDS: Enoxaparin Inj 40 MG/0.4 ML Syringe SQ SCH ×2 (01:58→05:26)
--- NOTE | 2017-12-04 06:56 | P.PNOP ---
Subjective Interval history: s/p I&D left calf doing well. pain improving. ambulating on own. no complaints. Physical Exam Vital signs: Vital Signs 12/03/17 08:00 12/03/17 12:00 12/03/17 16:00 Temperature 97.4 F L 98.1 F 97.7 F Pulse Rate 94 H 92 H 88 Respiratory Rate 16 20 18 Blood Pressure 123/89 140/92 H 132/84 Pulse Oximetry 97 98 95 12/03/17 20:00 12/04/17 00:00 Temperature 97.9 F 98.3 F Pulse Rate 84 80 Respiratory Rate 16 16 Blood Pressure 139/93 H 130/85 Pulse Oximetry 99 100 Intake & Output 12/03/17 12/03/17 12/04/17 06:59 18:59 06:59 Weight 78.4 kg 76.2 kg Other: # Voids 6 2 Date of Last Bowel Movement 12/02/17 12/02/17 12/03/17 Narrative: LLE: incision clean and dry. intact. NVI. minimal swelling. non tender - Urinary Catheter Management Indwelling Urethral Catheter Cath placed during this visit: yes, but has since been removed by the nurse Reason for continuing: Decision to DC catheter Insertion date: 11/02/17 Insertion time: 00:07 Removal date: 11/06/17 Removal time: 12:00 Results - Labs CBC & Chem 7: 11/27/17 06:48 12/01/17 07:01 - Procedures 11/17 Irrigation and debridement of left calf abscess with ortho Assessment and Plan - Assessment and Plan 1) Left Calf Abscess s/p I&D - POD 17 -WBAT -DC sutures today -re-bandage with primapore dressing x 3 days, then open to air -patient will need IV Abx. Infectious Dz to manage. -ortho surgeries complete -ortho clear for DC once IV Abx arrangements made. Due to history of IVDU, high risk for outpatient IV Abx -ortho signing off at this time. if any further problems, please re-consult ortho
[2017-12-04] MEDS: Senna/Docusate Sodium 8.6/50 MG Tablet PO SCH ×2 (09:54→21:08)
[2017-12-04] MEDS: ARIPiprazole 5 MG Tablet PO SCH (09:54)
--- NOTE | 2017-12-04 10:20 | P.PNNP ---
Physical Exam Vital signs: Vital Signs 12/03/17 12:00 12/03/17 16:00 12/03/17 20:00 Temperature 98.1 F 97.7 F 97.9 F Pulse Rate 92 H 88 84 Respiratory Rate 20 18 16 Blood Pressure 140/92 H 132/84 139/93 H Pulse Oximetry 98 95 99 12/04/17 00:00 12/04/17 04:00 12/04/17 08:00 Temperature 98.3 F 98 F 98.0 F Pulse Rate 80 77 82 Respiratory Rate 16 16 16 Blood Pressure 130/85 141/97 H 151/86 H Pulse Oximetry 100 100 98 Intake & Output 12/03/17 12/04/17 12/04/17 18:59 06:59 18:59 Intake Total 840 / 840 Balance 840 / 840 Weight 76.2 kg Intake: Oral 840 / 840 Other: # Voids 6 4 Date of Last Bowel Movement 12/02/17 12/03/17 - Urinary Catheter Management Indwelling Urethral Catheter Cath placed during this visit: yes, but has since been removed by the nurse Reason for continuing: Decision to DC catheter Insertion date: 11/02/17 Insertion time: 00:07 Removal date: 11/06/17 Removal time: 12:00 Assessment and Plan - Assessment (1) Acute kidney injury Code(s): N17.9 - Acute kidney failure, unspecified Status: Acute Plan: Acute kidney injury with a creatinine of 1.10 with a admission creatinine on 0.42. Acute kidney injury with urine sodium of 108 possible ATN/intrinsic from aminoglycosides or diuretic use Creatinine at 1.39 Complements normal. YESENIA and ANCA pending. Continue to hold torsemide Fluids encouraged Avoid nephrotoxins including NSAIDS, aminoglycosides, and IV contrast Will continue to monitor BMP and urinary output. (2) Endocarditis and heart valve disorders in diseases classified elsewhere Code(s): I39 - Endocarditis and heart valve disorders in diseases classified elsewhere Status: Acute - Plan antibiotics per ID
[2017-12-04] MEDS: DAPTOmycin Inj 800 MG in Sodium Chlor 0.9% Inj 100 ML IV.SIG SCH (13:34)
--- NOTE | 2017-12-04 15:39 | P.PNNP ---
Subjective Interval history: Patient denies nausea, vomiting, diarrhea, fever, chills chest pain and dyspnea- -Patient wishing to be discharged as soon as possible --- Patient relates of having adequate urine output REVIEW OF SYSTEMS: GENERAL: POSITIVE for fatigue. Eyes: Negative for eye pain. ENT: Negative for earache RESP: Negative for cough. CV: negative for chest pain. GI: Negative for abdominal pain. -FEMALE:Negative for hematuria Musculoskeletal: Negative for joint pain BACK: No Pain SKIN: Negative for rash. NEURO: Negative for seizures. PSYCHE: Negative for depression. Lymph: No Lymph node enlargement Physical Exam Vital signs: Vital Signs 12/03/17 16:00 12/03/17 20:00 12/04/17 00:00 Temperature 97.7 F 97.9 F 98.3 F Pulse Rate 88 84 80 Respiratory Rate 18 16 16 Blood Pressure 132/84 139/93 H 130/85 Pulse Oximetry 95 99 100 12/04/17 04:00 12/04/17 08:00 Temperature 98 F 98.0 F Pulse Rate 77 82 Respiratory Rate 16 16 Blood Pressure 141/97 H 151/86 H Pulse Oximetry 100 98 Intake & Output 12/03/17 12/04/17 12/04/17 18:59 06:59 18:59 Intake Total 100 / 100 840 / 840 Balance 100 / 100 840 / 840 Weight 76.2 kg Intake: IV 100 / 100 Cubicin Inj 800 MG In NS Inj 100 / 100 100 ML @ 200 mls/hr IV.SIG Q24H JUNIOR Rx#:[id number] Oral 840 / 840 Other: # Voids 6 4 Date of Last Bowel Movement 12/02/17 12/03/17 Narrative: Examination : GENERAL APPEARANCE: in no acute distress. HEENT:: normocephalic, atraumatic NECK :no cervical lymphadenopathy. ORAL CAVITY: mucosa moist. CHEST:normal SKIN: no suspicious lesions. HEART: Systolic ejection murmur grade 1/6 at the base. LUNGS: clear to auscultation bilaterally. BREASTS: not examined. ABDOMEN: soft, nontender. BACK: No paraspinal muscle spasm. FEMALE GENITOURINARY: not examined. MUSCULOSKELETAL: normal. EXTREMITIES: Absent edema FOOT EXAM : PERIPHERAL PULSES: normal. NEUROLOGIC: nonfocal. PSYCH: normal. - Urinary Catheter Management Indwelling Urethral Catheter Cath placed during this visit: yes, but has since been removed by the nurse Reason for continuing: Decision to DC catheter Insertion date: 11/02/17 Insertion time: 00:07 Removal date: 11/06/17 Removal time: 12:00 Assessment and Plan - Plan #: N17.9 : Acute kidney injury- --- Improved DISCUSSION: Exact etiology is under investigation? Possible ATN from aminoglycosides, in combination with diuretics, now nonoliguric PLAN/RECOMMENDATIONS: --Avoid renal insults such as nonsteroidal anti-inflammatory drugs or other nephrotoxins, intravenous contrast, gadolinium --Avoid hypovolemia, hypotension --Serial laboratory studies after initial studies such as renal failure index --Monitor intake and output #: OTHER PROBLEMS: [Endocarditis receiving intravenous antibiotics] PLAN: Defer to hospitalist/primary care team
--- NOTE | 2017-12-04 16:10 | P.PNIM ---
Subjective Interval history: Late entry note. Pt seen earlier today. Denies any complaints. Going to have sutures from leg removed today. No CP or SOB. Ambulating. Producing adequate UOP. Physical Exam Vital signs: Vital Signs 12/03/17 20:00 12/04/17 00:00 12/04/17 04:00 Temperature 97.9 F 98.3 F 98 F Pulse Rate 84 80 77 Respiratory Rate 16 16 16 Blood Pressure 139/93 H 130/85 141/97 H Pulse Oximetry 99 100 100 12/04/17 08:00 12/04/17 12:00 Temperature 98.0 F 98.0 F Pulse Rate 82 72 Respiratory Rate 16 14 Blood Pressure 151/86 H 122/88 Pulse Oximetry 98 96 Intake & Output 12/03/17 12/04/17 12/04/17 18:59 06:59 18:59 Intake Total 100 / 100 840 / 840 Balance 100 / 100 840 / 840 Weight 76.2 kg Intake: IV 100 / 100 Cubicin Inj 800 MG In NS Inj 100 / 100 100 ML @ 200 mls/hr IV.SIG Q24H JUNIOR Rx#:[id number] Oral 840 / 840 Other: # Voids 6 4 Date of Last Bowel Movement 12/02/17 12/03/17 Narrative: GENERAL: WN, WD female resting in bed in [facility]. SKIN: Warm and dry. Track rodriguez over UE. HEENT: AT/NC. Pupils equal and round. MMM. HEART: RRR no m/r/g. LUNGS: CTAB without wheezes or crackles. ABDOMEN: +BS, soft, NT, ND. EXTREMITIES: No LE edema. LLE wrapped. NEURO: Awake and alert. PSYCH: Appropriate mood and affect. - Urinary Catheter Management Indwelling Urethral Catheter Cath placed during this visit: yes, but has since been removed by the nurse Reason for continuing: Decision to DC catheter Insertion date: 11/02/17 Insertion time: 00:07 Removal date: 11/06/17 Removal time: 12:00 Results - Labs CBC & Chem 7: 11/27/17 06:48 12/01/17 07:01 Laboratory Results - last 24 hr 11/30/17 08:06 Anti-Proteinase 3 Less than 1.0 Anti-Myeloperoxidase Less than 1.0 - Procedures 11/17 Irrigation and debridement of left calf abscess with ortho Assessment and Plan - Assessment (1) MRSA bacteremia Code(s): R78.81 - Bacteremia Status: Acute (2) Sepsis Code(s): A41.9 - Sepsis, unspecified organism Status: Acute (3) Encephalopathy due to infection Code(s): G93.49 - Other encephalopathy; B99.9 - Unspecified infectious disease Status: Acute (4) History of intravenous drug abuse Code(s): Z87.898 - Personal history of other specified conditions Status: Acute (5) Hepatitis C antibody positive in blood Code(s): R76.8 - Other specified abnormal immunological findings in serum Status: Acute (6) Polysubstance abuse Code(s): F19.10 - Other psychoactive substance abuse, uncomplicated Status: Acute (7) Abscess of leg, left Code(s): L02.416 - Cutaneous abscess of left lower limb Status: Acute (8) Acute kidney injury Code(s): N17.9 - Acute kidney failure, unspecified Status: Acute (9) Endocarditis and heart valve disorders in diseases classified elsewhere Code(s): I39 - Endocarditis and heart valve disorders in diseases classified elsewhere Status: Acute - Plan 31 year old female with history of IVDU admitted 11/02 with infective endocarditic, MRSA bacteremia, and LLE abscess. 1. MRSA bacteremia, mitral and tricuspid valve infective endocarditis - Blood cultures 11/01 with MRSA in all 4 - Repeat blood cultures 11/03 and 11/07 with MRSA (despite treatment with IV vanco ) - Blood cultures 11/08 NGTD - ID following, IV daptomycin until 12/20 - Gentamicin d/c'd for MALGORZATA as well as some subjective right-sided hearing loss, concern for possible ototoxicity - No PICC line or outpatient infusion since patient actively doing drugs 2. Mitral and tricuspid valve infective endocarditis - 2D echo 11/03 with EF 65-70% and no visualization of valvular lesions - MARVIN 11/14 showing normal EF, 10 x 16 mm lesion of MV, 15 x 7 mm lesion of the tricuspid valve, and a 21 x 1 mm lesion in the RA - ID following - Counseled on cessation of IV drugs 3. Septic emboli - See above plans 4. LLE abscess - S/P I&D with ortho on 11/17, drain removed 11/20 - Wound culture with no growth - Daily dressing changes - Remove sutures today 5. MALGORZATA - Suspected secondary to gentamicin - Creatinine improved once discontinued - Nephrology following - Avoid nephrotoxic agents and renally dose meds - Off IV fluids - Monitor renal function, awaiting labs that were ordered today 6. IVDU - Patient's last use was on day of admission - Admits to IV heroine and meth - Planning on moving with sister in [place] on discharge and will be going to - Discontinue methadone 7. Hepatitis C - F/U with GI as outpatient 8. Borderline personality disorder - Continue Abilify DVT prophylaxis: Lovenox Discharge Planning: On IV antibiotics until 12/20
[2017-12-05] MEDS: Enoxaparin Inj 40 MG/0.4 ML Syringe SQ SCH (01:16)
[2017-12-05] MEDS: ARIPiprazole 5 MG Tablet PO SCH (08:31)
[2017-12-05] MEDS: Senna/Docusate Sodium 8.6/50 MG Tablet PO SCH ×2 (08:32→21:33)
--- NOTE | 2017-12-05 10:30 | P.PN ---
Subjective Interval history: Follow-up on patient with left leg abscess, MRSA bacteremia, endocarditis. Patient seen and examined. Patient denies any complaints. Vital signs are stable. She is afebrile. Physical Exam Vital signs: Vital Signs 12/04/17 12:00 12/04/17 16:00 12/04/17 21:12 Temperature 98.0 F 97.8 F 98.7 F Pulse Rate 72 79 73 Respiratory Rate 14 16 16 Blood Pressure 122/88 123/88 113/73 Pulse Oximetry 96 96 99 12/04/17 23:40 12/05/17 04:00 Temperature 98.4 F 98.8 F Pulse Rate 77 71 Respiratory Rate 16 18 Blood Pressure 139/81 130/88 Pulse Oximetry 99 100 Intake & Output 12/04/17 12/05/17 12/05/17 18:59 06:59 18:59 Intake Total 720 / 720 480 / 480 Balance 720 / 720 480 / 480 Weight 78.4 kg Intake: Oral 720 / 720 480 / 480 Other: # Voids 3 Date of Last Bowel Movement 12/04/17 12/05/17 Narrative: GENERAL: This is a well-developed well-nourished female patient INAD. Asleep lying in bed. Awakens easily to voice. SKIN: Warm and dry. No generalized rash. HEENT: Atraumatic. Normocephalic. EOMI. Sclera anicteric bilaterally. No nasal drainage noted. Airway patent. MMM. NECK: Supple, trachea midline. CARDIOVASCULAR: Regular rate and rhythm without murmurs, gallops, or rubs. S1, S2 RESPIRATORY: Nonlabored. No accessory muscle use. Breath sounds equal bilaterally. Clear to auscultation. GASTROINTESTINAL: Abdomen soft, non-tender, nondistended. +BS. MUSCULOSKELETAL: No cyanosis or edema. Left leg incision healing well, sutures have been removed. NEURO: Awake. Lethargic. Oriented x 3. Able to move all extremities spontaneously. No focal neurological deficits. Normal speech. PSYCHIATRIC: Calm. Judgment and insight poor. - Urinary Catheter Management Indwelling Urethral Catheter Cath placed during this visit: yes, but has since been removed by the nurse Reason for continuing: Decision to DC catheter Insertion date: 11/02/17 Insertion time: 00:07 Removal date: 11/06/17 Removal time: 12:00 Results - Labs CBC & Chem 7: 11/27/17 06:48 12/01/17 07:01 Laboratory Results - last 24 hr 11/30/17 08:06 Anti-Proteinase 3 Less than 1.0 Anti-Myeloperoxidase Less than 1.0 - Imaging ITS Impressions Head MRI 11/02/17 00:00 CONCLUSION: 1. No definite acute abnormality is seen. Edema to suggest encephalitis is not seen. 2. There are a few punctate areas of increased signal within the cerebral white matter representing small foci of demyelination. Underlying demyelinating conditions can be considered. Liver Ultrasound 11/02/17 00:00 CONCLUSION: Generalized hepatosplenomegaly without focal mass Sludge within the gallbladder Chest CT 11/02/17 00:01 CONCLUSION: 1. Diffuse patchy groundglass opacities with nodular regions primarily in the left upper and lower lobes and single potentially cavitary nodule near the left lung apex. Overall, findings are concerning for atypical infection or developing septic pulmonary emboli in the appropriate clinical setting. 2. Subtle anterior pericardial effusion. 3. Subcentimeter bilateral axillary adenopathy, likely infectious/inflammatory. Chest X-Ray 11/04/17 05:00 CONCLUSION: Developing bilateral infiltrates. Abdomen/Pelvis CT 11/06/17 00:00 CONCLUSION: 1. Mild anasarca. 2. Slight splenomegaly with focal lesion towards the anterior portion of the spleen not present on the prior examination could be infarction, however splenic abscess is not excluded. 3. Slight peritoneal fluid nonspecific. Cervical Spine MRI 11/06/17 00:00 CONCLUSION: Slight nondescript serpiginous edema in the upper back, otherwise unremarkable. Lumbar Spine MRI 11/06/17 00:00 CONCLUSION: Slight nondescript subcutaneous edema in the patient's back, otherwise unremarkable without abscess formation. Thoracic Spine MRI 11/06/17 00:00 CONCLUSION: Essentially unremarkable study except for slight nondescript separate density on the patient's back. Venous Doppler Study 11/15/17 00:00 CONCLUSION: 1. Negative exam with no evidence of deep venous thrombosis. 2. Moderate size Carson's cyst in the left popliteal fossa region. Lower Extremity MRI 11/16/17 00:00 CONCLUSION: 1. Oval complex fluid collection most characteristic of an abscess. There is surrounding edema. Abdomen/Bladder Ultrasound 11/22/17 00:00 CONCLUSION: 1. Negative renal sonogram. Head CT 11/22/17 16:33 CONCLUSION: 1. Negative CT Head non contrast. . - Procedures 11/17 Irrigation and debridement of left calf abscess with ortho Assessment and Plan - Assessment (1) MRSA bacteremia Code(s): R78.81 - Bacteremia Status: Acute (2) Sepsis Code(s): A41.9 - Sepsis, unspecified organism Status: Acute (3) Encephalopathy due to infection Code(s): G93.49 - Other encephalopathy; B99.9 - Unspecified infectious disease Status: Acute (4) History of intravenous drug abuse Code(s): Z87.898 - Personal history of other specified conditions Status: Acute (5) Hepatitis C antibody positive in blood Code(s): R76.8 - Other specified abnormal immunological findings in serum Status: Acute (6) Polysubstance abuse Code(s): F19.10 - Other psychoactive substance abuse, uncomplicated Status: Acute (7) Abscess of leg, left Code(s): L02.416 - Cutaneous abscess of left lower limb Status: Acute (8) Acute kidney injury Code(s): N17.9 - Acute kidney failure, unspecified Status: Acute (9) Endocarditis and heart valve disorders in diseases classified elsewhere Code(s): I39 - Endocarditis and heart valve disorders in diseases classified elsewhere Status: Acute - Plan 31 year old female with history of IVDU admitted 11/02 with infective endocarditic, MRSA bacteremia, and LLE abscess. Infective endocarditis MRSA bacteremia Probable septic pulmonary emboli BCX 11/01 with MRSA in all 4 ID following -anticipate 6 weeks of IV antibiotics. Due to IV drug use patient is not a candidate for outpatient treatment. No PICC line per ID. Continue daptomycin until 12/20. Check CK levels weekly - next lab 12/08 Gentamicin discontinued secondary to MALGORZATA as well as subjective right-sided hearing loss, concern for possible ototoxicity Mitral and tricuspid valve infective endocarditis 2D echo 11/03 with EF 65-70% and no visualization of valvular lesions MARVIN 11/14 showing normal EF, 10 x 16 mm lesion of MV, 15 x 7 mm lesion of the tricuspid valve, and a 21 x 1 mm lesion in the RA - ID following - Counseled on cessation of IV drugs MALGORZATA, suspect secondary to gentamicin use Creatinine improved Nephrology following, appreciate assistance Avoid nephrotoxic agents Continue to monitor kidney function - repeat CMP ordered by Nephrology for am Visual hallucinations, no recurrence Possible medication side effect Discussed with Dr. Pineda, appreciate his expertise CT head without any acute findings monitor for recurrence Back pain, resolved No evidence of abscess on imaging Patient weaned off all narcotics, methadone and benzodiazepines Left Lower Extremity Abscess Status post I&D 11-17, wound culture shows no growth in 72 hours Orthopedic Surgeon following. Daily dressing changes per Ortho instructions. drain discontinued. Sutures removed 12/04 Borderline personality disorder Anxiety Abilify Hepatitis C IVDU Standard precautions Advised on IV drug use cessation Planning on moving with sister in [place] on discharge and will be going to [place] Patient will need to follow-up with GI as outpatient Constipation, resolved Continue on Pericolace scheduled BID monitor for BM DVT prophylaxis Lovenox Code Status: FULL Discussed Condition With: patient, RN, Dr. Tim, CM Discharge Planning: Not ready for discharge. Patient will need long-term IV antibiotics per ID and not able to have PICC line placed secondary to IV drug use. Per ID, IV Daptomycin until 12/20.
--- NOTE | 2017-12-05 13:44 | P.PNID ---
Subjective Remarks: Follow up Patient notes that she feels okay. Denies pain. No complaints. No fever. Blood culture from 11/08 has no growth. Blood culture from 11/07 has MRSA. MARVIN noted lesions on the tricuspid and mitral valve. Admitted with altered mental status. The patient uses IV drugs in the form of heroin and methamphetamines. Allergies/Adverse Reactions: Allergies haloperidol Adverse Reaction (Intermediate, Verified 11/01/17 22:36) SEIZURES NICKEL Allergy (Intermediate, Uncoded 11/01/17 22:36) Anxiety Objective Vital Signs 12/04/17 16:00 12/04/17 21:12 12/04/17 23:40 Temperature 97.8 F 98.7 F 98.4 F Pulse Rate 79 73 77 Respiratory Rate 16 16 16 Blood Pressure 123/88 113/73 139/81 Pulse Oximetry 96 99 99 12/05/17 04:00 12/05/17 12:00 Temperature 98.8 F 98 F Pulse Rate 71 65 Respiratory Rate 18 16 Blood Pressure 130/88 108/65 Pulse Oximetry 100 97 Intake & Output 12/04/17 12/05/17 12/05/17 18:59 06:59 18:59 Intake Total 720 / 720 480 / 480 Balance 720 / 720 480 / 480 Weight 78.4 kg Intake: Oral 720 / 720 480 / 480 Other: # Voids 3 Date of Last Bowel Movement 12/04/17 12/05/17 Imaging: ITS Impressions Head MRI 11/02/17 00:00 CONCLUSION: 1. No definite acute abnormality is seen. Edema to suggest encephalitis is not seen. 2. There are a few punctate areas of increased signal within the cerebral white matter representing small foci of demyelination. Underlying demyelinating conditions can be considered. Liver Ultrasound 11/02/17 00:00 CONCLUSION: Generalized hepatosplenomegaly without focal mass Sludge within the gallbladder Chest CT 11/02/17 00:01 CONCLUSION: 1. Diffuse patchy groundglass opacities with nodular regions primarily in the left upper and lower lobes and single potentially cavitary nodule near the left lung apex. Overall, findings are concerning for atypical infection or developing septic pulmonary emboli in the appropriate clinical setting. 2. Subtle anterior pericardial effusion. 3. Subcentimeter bilateral axillary adenopathy, likely infectious/inflammatory. Chest X-Ray 11/04/17 05:00 CONCLUSION: Developing bilateral infiltrates. Abdomen/Pelvis CT 11/06/17 00:00 CONCLUSION: 1. Mild anasarca. 2. Slight splenomegaly with focal lesion towards the anterior portion of the spleen not present on the prior examination could be infarction, however splenic abscess is not excluded. 3. Slight peritoneal fluid nonspecific. Cervical Spine MRI 11/06/17 00:00 CONCLUSION: Slight nondescript serpiginous edema in the upper back, otherwise unremarkable. Lumbar Spine MRI 11/06/17 00:00 CONCLUSION: Slight nondescript subcutaneous edema in the patient's back, otherwise unremarkable without abscess formation. Thoracic Spine MRI 11/06/17 00:00 CONCLUSION: Essentially unremarkable study except for slight nondescript separate density on the patient's back. Venous Doppler Study 11/15/17 00:00 CONCLUSION: 1. Negative exam with no evidence of deep venous thrombosis. 2. Moderate size Carson's cyst in the left popliteal fossa region. Lower Extremity MRI 11/16/17 00:00 CONCLUSION: 1. Oval complex fluid collection most characteristic of an abscess. There is surrounding edema. Abdomen/Bladder Ultrasound 11/22/17 00:00 CONCLUSION: 1. Negative renal sonogram. Head CT 11/22/17 16:33 CONCLUSION: 1. Negative CT Head non contrast. . Physical Exam: GENERAL: No acute distress. HEENT: No icterus. His reactive to light. No icterus. Oropharynx: Moist mucosa. No visible lesions. NECK: Supple. No adenopathy. LUNGS: Clear breath sounds HEART: Regular S1 and S2, 2/6 systolic murmur at the left sternal border. ABDOMEN: Obese, soft, nontender. No masses palpable. EXTREMITIES: No clubbing cyanosis or edema. Left calf incision well-healed. SKIN: No rash. NEUROLOGIC: No gross focal findings. PSYCH: Calm and cooperative. Assessment and Plan - Plan IMPRESSION: 1. Endocarditis. Mitral and tricuspid valve. R. atrial mass - MRSA. 2. Severe sepsis due to methicillin-resistant Staphylococcus aureus in patient sedated with intravenous drug abuse and recent intravenous drug use. 3. Abnormal CT of the chest, suggesting septic emboli. Left calf abscess post drainage. Culture had no growth. 4. Altered mental status on admission. Lumbar puncture revealed few white cells in the cerebrospinal fluid. Mental status improved. 5. Acute kidney disease. Stopped Gentamycin. RECOMMENDATIONS: 1. Continue Daptomycin. Blood culture remained persistent with Vancomycin. 2. Follow kidney function. 3. Monitor leg abscess culture. 4. Monitor clinical status. Clinical stable. Continue planned antibiotic treatment until December 20.. Would not place a PIC line. Patient is not candidate for outpatient treatment. Very high likelihood she will use PIC line for IV drug use.
[2017-12-05] MEDS: DAPTOmycin Inj 800 MG in Sodium Chlor 0.9% Inj 100 ML IV.SIG SCH (14:49)
--- NOTE | 2017-12-05 15:13 | P.PNNP ---
Subjective Interval history: Patient denies nausea, vomiting, diarrhea, fever, chills chest pain and dyspnea- -Patient wishing to be discharged as soon as possible --- Patient relates of having adequate urine output HPI: PAST MEDICAL HISTORY:Patient is a 31-year-old female admitted secondary to fevers with history of IV drug abuse. MRSA bacteremia present. MARVIN showed infective endocarditis. Nephrology is consulted for acute kidney injury with a creatinine of 1.10 with a admission creatinine on 11/06 0.42. Potassium level is normal. Has some lower extremity edema. Renal ultrasound is pending. Acute kidney injury most likely related to urinary tract infection. Urine sodium and creatinine are pending. Torsemide is on hold. PAST SURGICAL HISTORY: SOCIAL HISTORY: History of smoking, alcohol use more than 4 times a week FAMILY HISTORY: As per chart ALLERGY HISTORY: As per chart MEDS: As per chart TEST RESULTS: CARDIOPULMONARY: RADIOLOGIC: LABORATORY: Stable CBC and BMP a few days ago HEALTH MAINTENANCE-: PROCEDURES: REVIEW OF SYSTEMS: GENERAL: POSITIVE for fatigue. Eyes: Negative for eye pain. ENT: Negative for earache RESP: Negative for cough. CV: negative for chest pain. GI: Negative for abdominal pain. -FEMALE:Negative for hematuria Musculoskeletal: Negative for joint pain BACK: No Pain SKIN: Negative for rash. NEURO: Negative for seizures. PSYCHE: Negative for depression. Lymph: No Lymph node enlargement Physical Exam Vital signs: Vital Signs 12/04/17 16:00 12/04/17 21:12 12/04/17 23:40 Temperature 97.8 F 98.7 F 98.4 F Pulse Rate 79 73 77 Respiratory Rate 16 16 16 Blood Pressure 123/88 113/73 139/81 Pulse Oximetry 96 99 99 12/05/17 04:00 12/05/17 12:00 Temperature 98.8 F 98 F Pulse Rate 71 65 Respiratory Rate 18 16 Blood Pressure 130/88 108/65 Pulse Oximetry 100 97 Intake & Output 12/04/17 12/05/17 12/05/17 18:59 06:59 18:59 Intake Total 820 / 820 480 / 480 Balance 820 / 820 480 / 480 Weight 78.4 kg Intake: IV 100 / 100 Cubicin Inj 800 MG In NS Inj 100 / 100 100 ML @ 200 mls/hr IV.SIG Q24H JUNIOR Rx#:[id number] Oral 720 / 720 480 / 480 Other: # Voids 3 Date of Last Bowel Movement 12/04/17 12/05/17 GENERAL APPEARANCE: in no acute distress. HEENT:: normocephalic, atraumatic NECK :no cervical lymphadenopathy. ORAL CAVITY: mucosa moist. CHEST:normal SKIN: no suspicious lesions. HEART: Systolic ejection murmur grade 1/6 at the base. LUNGS: clear to auscultation bilaterally. BREASTS: not examined. ABDOMEN: soft, nontender. BACK: No paraspinal muscle spasm. FEMALE GENITOURINARY: not examined. MUSCULOSKELETAL: normal. EXTREMITIES: Absent edema FOOT EXAM : PERIPHERAL PULSES: normal. NEUROLOGIC: nonfocal. PSYCH: normal. - Urinary Catheter Management Indwelling Urethral Catheter Cath placed during this visit: yes, but has since been removed by the nurse Reason for continuing: Decision to DC catheter Insertion date: 11/02/17 Insertion time: 00:07 Removal date: 11/06/17 Removal time: 12:00 Assessment and Plan - Assessment (1) Acute kidney injury Code(s): N17.9 - Acute kidney failure, unspecified Status: Acute Plan: #: N17.9 : Acute kidney injury- --- Improved DISCUSSION: Exact etiology is under investigation? Possible ATN from aminoglycosides, in combination with diuretics, now nonoliguric PLAN/RECOMMENDATIONS: --Avoid renal insults such as nonsteroidal anti-inflammatory drugs or other nephrotoxins, intravenous contrast, gadolinium --Avoid hypovolemia, hypotension --Serial laboratory studies after initial studies such as renal failure index --Monitor intake and output - Plan #: OTHER PROBLEMS: [Endocarditis receiving intravenous antibiotics], anemia, history of smoking PLAN: Defer to hospitalist/primary care team
[2017-12-06] MEDS: Enoxaparin Inj 40 MG/0.4 ML Syringe SQ SCH (00:45)
[2017-12-06 06:08] LABS: Baso # (Auto) 0.1 th/mm3 (0.0-0.2); Baso % (Auto) 0.8 % (0.0-2.0); Eos # (Auto) 0.3 th/mm3 (0.0-0.4); Eos % (Auto) 3.8 % (0.0-4.0); Hematocrit 33.5 % (35.0-46.0); Hemoglobin 11.5 gm/dL (11.6-15.3); Lymph % (Auto) 45.2 % (9.0-44.0); Mean Corpuscular HGB Conc 34.4 % (32.0-36.0); Mean Corpuscular Volume 84.4 fL (80.0-100.0); Mean Platelet Volume 6.9 fL (7.0-11.0); Mono # (Auto) 0.5 th/mm3 (0.0-0.9); Mono % (Auto) 7.9 % (0.0-8.0); Neut # (Auto) 2.8 th/mm3 (1.8-7.7); Neut % (Auto) 42.3 % (16.0-70.0); Platelet Count 377 th/mm3 (150-450); Red Blood Count 3.97 mil/mm3 (4.00-5.30); Red Cell Distribution Width 14.1 % (11.6-17.2); White Blood Count 6.7 th/mm3 (4.0-11.0)
[2017-12-06 06:39] LABS: Albumin 3.3 g/dL (3.4-5.0); Anion Gap 9 meq/L (5-15); Aspartate Aminotransferase 23 U/L (15-37); Blood Urea Nitrogen 10 mg/dL (7-18); Calcium 9.3 mg/dL (8.5-10.1); Carbon Dioxide 25.7 meq/L (21.0-32.0); Chloride 102 meq/L (98-107); Glomerular Filtration Rate 46 mL/min (>89); Glucose,Random 79 mg/dL (74-106); Magnesium 1.5 mg/dL (1.5-2.5); Potassium 3.6 meq/L (3.5-5.1); Sodium 137 meq/L (136-145)
[2017-12-06 06:41] LABS: Alanine Aminotransferase 12 U/L (10-53); Phosphorus 3.9 mg/dL (2.5-4.9)
[2017-12-06 06:43] LABS: Alkaline Phosphatase 69 U/L (45-117); Total Protein 8.4 g/dL (6.4-8.2)
[2017-12-06] MEDS: ARIPiprazole 5 MG Tablet PO SCH (08:00)
[2017-12-06] MEDS: Senna/Docusate Sodium 8.6/50 MG Tablet PO SCH (08:00)
--- NOTE | 2017-12-06 10:47 | P.PNNP ---
Physical Exam Vital signs: Vital Signs 12/05/17 12:00 12/05/17 16:00 12/05/17 20:00 Temperature 98 F 97.9 F 97.6 F Pulse Rate 65 77 75 Respiratory Rate 18 Blood Pressure 108/65 120/60 122/87 Pulse Oximetry 97 97 12/06/17 00:00 12/06/17 04:00 12/06/17 08:00 Temperature 98.1 F 98.3 F 98.5 F Pulse Rate 80 64 75 Respiratory Rate 18 Blood Pressure 130/80 129/86 143/94 H Pulse Oximetry 100 98 98 Intake & Output 12/05/17 12/06/17 12/06/17 18:59 06:59 18:59 Intake Total 1240 / 1240 100 / 100 Balance 1240 / 1240 100 / 100 Intake: IV 100 / 100 Cubicin Inj 800 MG In NS Inj 100 / 100 100 ML @ 200 mls/hr IV.SIG Q24H JUNIOR Rx#:[id number] Oral 1240 / 1240 Other: # Voids 6 3 Date of Last Bowel Movement 12/05/17 12/05/17 12/06/17 # Bowel Movements 0 1 Narrative: GENERAL: No acute distress. Resting HEENT: No icterus. His reactive to light. NECK: Supple. No adenopathy. LUNGS: Clear breath sounds HEART: Regular S1 and S2, murmur ABDOMEN: soft, nontender. No masses palpable. EXTREMITIES: No clubbing cyanosis or edema. SKIN: No rash. - Urinary Catheter Management Indwelling Urethral Catheter Cath placed during this visit: yes, but has since been removed by the nurse Reason for continuing: Decision to DC catheter Insertion date: 11/02/17 Insertion time: 00:07 Removal date: 11/06/17 Removal time: 12:00 Assessment and Plan - Assessment (1) Acute kidney injury Code(s): N17.9 - Acute kidney failure, unspecified Status: Acute Plan: Possible ATN from aminoglycosides, in combination with diuretics, now nonoliguric Creatinine is stable at 1.35 PLAN/RECOMMENDATIONS: --Avoid renal insults such as nonsteroidal anti-inflammatory drugs or other nephrotoxins, intravenous contrast, gadolinium --Avoid hypovolemia, hypotension --Fluids encouraged. --Serial laboratory studies after initial studies such as renal failure index --Continue to monitor intake and output (2) Endocarditis and heart valve disorders in diseases classified elsewhere Code(s): I39 - Endocarditis and heart valve disorders in diseases classified elsewhere Status: Acute Plan: Antibiotics per ID with stop date of December 20 - Plan #: OTHER PROBLEMS: [Endocarditis receiving intravenous antibiotics], anemia, history of smoking PLAN: Defer to hospitalist/primary care team
--- NOTE | 2017-12-06 13:01 | P.PN ---
Subjective Interval history: Follow-up on patient with left leg abscess, MRSA bacteremia, endocarditis. Patient seen and examined. Easily to voice. She is very agitated that she continues to have interruptions while she is trying to sleep and asked "why does everyone keeps asking me the same questions. I just want to be left alone. " She denies any complaints of pain. She denies any fever chills. She denies any chest pain or shortness of breath. Discussed with nursing staff, no acute issues noted Physical Exam Vital signs: Vital Signs 12/05/17 16:00 12/05/17 20:00 12/06/17 00:00 Temperature 97.9 F 97.6 F 98.1 F Pulse Rate 77 75 80 Respiratory Rate 16 18 18 Blood Pressure 120/60 122/87 130/80 Pulse Oximetry 97 100 12/06/17 04:00 12/06/17 08:00 Temperature 98.3 F 98.5 F Pulse Rate 64 75 Respiratory Rate 18 18 Blood Pressure 129/86 143/94 H Pulse Oximetry 98 98 Intake & Output 12/05/17 12/06/17 12/06/17 18:59 06:59 18:59 Intake Total 1240 / 1240 100 / 100 Balance 1240 / 1240 100 / 100 Intake: IV 100 / 100 Cubicin Inj 800 MG In NS Inj 100 / 100 100 ML @ 200 mls/hr IV.SIG Q24H JUNIOR Rx#:[id number] Oral 1240 / 1240 Other: # Voids 6 3 Date of Last Bowel Movement 12/05/17 12/05/17 12/06/17 # Bowel Movements 0 1 Narrative: GENERAL: This is a well-developed well-nourished female patient INAD. Asleep lying in bed. Awakens easily to voice. Irritated. SKIN: Warm and dry. No generalized rash. HEENT: Atraumatic. Normocephalic. EOMI. Sclera anicteric bilaterally. No nasal drainage noted. Airway patent. MMM. NECK: Supple, trachea midline. CARDIOVASCULAR: Regular rate and rhythm without murmurs, gallops, or rubs. S1, S2 RESPIRATORY: Nonlabored. No accessory muscle use. Breath sounds equal bilaterally. Clear to auscultation. GASTROINTESTINAL: Abdomen soft, non-tender, nondistended. +BS. MUSCULOSKELETAL: No cyanosis or edema. Left leg incision healing well, sutures have been removed. NEURO: Awake. Lethargic. Oriented x 3. Able to move all extremities spontaneously. No focal neurological deficits. Normal speech. PSYCHIATRIC: Irritated. Judgment and insight poor. - Urinary Catheter Management Indwelling Urethral Catheter Cath placed during this visit: yes, but has since been removed by the nurse Reason for continuing: Decision to DC catheter Insertion date: 11/02/17 Insertion time: 00:07 Removal date: 11/06/17 Removal time: 12:00 Results - Labs CBC & Chem 7: 12/06/17 05:29 12/06/17 05:29 Laboratory Results - last 24 hr 12/06/17 12/06/17 05:29 05:29 WBC 6.7 RBC 3.97 L Hgb 11.5 L Hct 33.5 L MCV 84.4 MCH 29.0 MCHC 34.4 RDW 14.1 Plt Count 377 D MPV 6.9 L Neut % (Auto) 42.3 Lymph % (Auto) 45.2 H [place] % (Auto) 7.9 Eos % (Auto) 3.8 Baso % (Auto) 0.8 Neut # (Auto) 2.8 Lymph # (Auto) 3.0 [place] # (Auto) 0.5 Eos # (Auto) 0.3 Baso # (Auto) 0.1 WBC Differential . Differential Comment Auto diff final Sodium 137 Potassium 3.6 Chloride 102 Carbon Dioxide 25.7 Anion Gap 9 BUN 10 Creatinine 1.35 H Estimated GFR 46 L Random Glucose 79 Calcium 9.3 Phosphorus 3.9 Magnesium 1.5 Total Bilirubin 0.6 AST 23 ALT 12 Alkaline Phosphatase 69 Total Protein 8.4 H Albumin 3.3 L - Imaging ITS Impressions Head MRI 11/02/17 00:00 CONCLUSION: 1. No definite acute abnormality is seen. Edema to suggest encephalitis is not seen. 2. There are a few punctate areas of increased signal within the cerebral white matter representing small foci of demyelination. Underlying demyelinating conditions can be considered. Liver Ultrasound 11/02/17 00:00 CONCLUSION: Generalized hepatosplenomegaly without focal mass Sludge within the gallbladder Chest CT 11/02/17 00:01 CONCLUSION: 1. Diffuse patchy groundglass opacities with nodular regions primarily in the left upper and lower lobes and single potentially cavitary nodule near the left lung apex. Overall, findings are concerning for atypical infection or developing septic pulmonary emboli in the appropriate clinical setting. 2. Subtle anterior pericardial effusion. 3. Subcentimeter bilateral axillary adenopathy, likely infectious/inflammatory. Chest X-Ray 11/04/17 05:00 CONCLUSION: Developing bilateral infiltrates. Abdomen/Pelvis CT 11/06/17 00:00 CONCLUSION: 1. Mild anasarca. 2. Slight splenomegaly with focal lesion towards the anterior portion of the spleen not present on the prior examination could be infarction, however splenic abscess is not excluded. 3. Slight peritoneal fluid nonspecific. Cervical Spine MRI 11/06/17 00:00 CONCLUSION: Slight nondescript serpiginous edema in the upper back, otherwise unremarkable. Lumbar Spine MRI 11/06/17 00:00 CONCLUSION: Slight nondescript subcutaneous edema in the patient's back, otherwise unremarkable without abscess formation. Thoracic Spine MRI 11/06/17 00:00 CONCLUSION: Essentially unremarkable study except for slight nondescript separate density on the patient's back. Venous Doppler Study 11/15/17 00:00 CONCLUSION: 1. Negative exam with no evidence of deep venous thrombosis. 2. Moderate size Carson's cyst in the left popliteal fossa region. Lower Extremity MRI 11/16/17 00:00 CONCLUSION: 1. Oval complex fluid collection most characteristic of an abscess. There is surrounding edema. Abdomen/Bladder Ultrasound 11/22/17 00:00 CONCLUSION: 1. Negative renal sonogram. Head CT 11/22/17 16:33 CONCLUSION: 1. Negative CT Head non contrast. . - Procedures 11/17 Irrigation and debridement of left calf abscess with ortho Assessment and Plan - Assessment (1) MRSA bacteremia Code(s): R78.81 - Bacteremia Status: Acute (2) Sepsis Code(s): A41.9 - Sepsis, unspecified organism Status: Acute (3) Encephalopathy due to infection Code(s): G93.49 - Other encephalopathy; B99.9 - Unspecified infectious disease Status: Acute (4) History of intravenous drug abuse Code(s): Z87.898 - Personal history of other specified conditions Status: Acute (5) Hepatitis C antibody positive in blood Code(s): R76.8 - Other specified abnormal immunological findings in serum Status: Acute (6) Polysubstance abuse Code(s): F19.10 - Other psychoactive substance abuse, uncomplicated Status: Acute (7) Abscess of leg, left Code(s): L02.416 - Cutaneous abscess of left lower limb Status: Acute (8) Acute kidney injury Code(s): N17.9 - Acute kidney failure, unspecified Status: Acute (9) Endocarditis and heart valve disorders in diseases classified elsewhere Code(s): I39 - Endocarditis and heart valve disorders in diseases classified elsewhere Status: Acute - Plan 31 year old female with history of IVDU admitted 11/02 with infective endocarditic, MRSA bacteremia, and LLE abscess. Infective endocarditis MRSA bacteremia Probable septic pulmonary emboli BCX 11/01 with MRSA in all 4 ID following -anticipate 6 weeks of IV antibiotics. Due to IV drug use patient is not a candidate for outpatient treatment. No PICC line per ID. Continue daptomycin until 12/20. Check CK levels weekly - next lab 12/08 Gentamicin discontinued secondary to MALGORZATA as well as subjective right-sided hearing loss, concern for possible ototoxicity Mitral and tricuspid valve infective endocarditis 2D echo 11/03 with EF 65-70% and no visualization of valvular lesions MARVIN 11/14 showing normal EF, 10 x 16 mm lesion of MV, 15 x 7 mm lesion of the tricuspid valve, and a 21 x 1 mm lesion in the RA - ID following - Counseled on cessation of IV drugs MALGORZATA, suspect secondary to gentamicin use Creatinine is stable. Nephrology following, appreciate assistance Avoid nephrotoxic agents Encouraged po fluids Continue to monitor kidney function intermittently Visual hallucinations, no recurrence Possible medication side effect Discussed with Dr. Pineda, appreciate his expertise CT head without any acute findings monitor for recurrence Back pain, resolved No evidence of abscess on imaging Patient weaned off all narcotics, methadone and benzodiazepines Left Lower Extremity Abscess Status post I&D 11-17, wound culture shows no growth in 72 hours Orthopedic Surgeon following. Daily dressing changes per Ortho instructions. drain discontinued. Sutures removed 12/04 Borderline personality disorder Anxiety Abilify Hepatitis C IVDU Standard precautions Advised on IV drug use cessation Planning on moving with sister in [place] on [place] and will be going to Patient will need to follow-up with GI as outpatient Constipation, resolved Continue on Pericolace scheduled BID monitor for BM DVT prophylaxis Lovenox Code Status: FULL Discussed Condition With: patient, nursing staff, Dr. Tim Discharge Planning: Not ready for discharge. Patient will need long-term IV antibiotics per ID and not able to have PICC line placed secondary to IV drug use. Per ID, IV Daptomycin until 12/20.
[2017-12-06] MEDS: DAPTOmycin Inj 800 MG in Sodium Chlor 0.9% Inj 100 ML IV.SIG SCH (14:44)
[2017-12-07] MEDS: Enoxaparin Inj 40 MG/0.4 ML Syringe SQ SCH (01:55)
[2017-12-07] MEDS: Senna/Docusate Sodium 8.6/50 MG Tablet PO SCH ×2 (04:57→09:33)
--- NOTE | 2017-12-07 06:56 | P.PN ---
Subjective Interval history: Follow-up on patient with left leg abscess, MRSA bacteremia, endocarditis. Patient seen and examined. Patient is asleep but easily awakens to voice. Denies any medical complaints. She is afebrile. In no acute distress. Discussed with nursing staff, no acute issues noted Physical Exam Vital signs: Vital Signs 12/06/17 08:00 12/06/17 12:00 12/06/17 16:00 Temperature 98.5 F 98.0 F 98.0 F Pulse Rate 75 70 69 Respiratory Rate 18 Blood Pressure 143/94 H 127/76 132/74 Pulse Oximetry 98 98 95 12/06/17 20:00 12/07/17 00:00 12/07/17 04:00 Temperature 97.8 F 97.9 F 98.2 F Pulse Rate 78 86 78 Respiratory Rate 16 Blood Pressure 129/84 136/87 126/92 H Pulse Oximetry 99 99 99 Intake & Output 12/06/17 12/06/17 12/07/17 06:59 18:59 06:59 Intake Total 100 / 100 3250 / 3250 240 / 240 Output Total 573 / 573 Balance 100 / 100 2677 / 2677 240 / 240 Weight 78.1 kg Intake: IV 100 / 100 100 / 100 Cubicin Inj 800 MG In NS Inj 100 / 100 100 / 100 100 ML @ 200 mls/hr IV.SIG Q24H JUNIOR Rx#:[id number] Oral 1240 / 1240 240 / 240 Tube Feeding 360 / 360 Anesthesia Amount 1050 / 1050 Other 500 / 500 Output: Urine 3 / 3 Emesis 200 / 200 Estimated Blood Loss 10 / 10 Urine Amount (Catheter) 340 / 340 Indwelling Urethral Catheter 340 / 340 Wound Drainage 20 / 20 Left Calf 20 / 20 Other: Other Intake Source Saline Solution # Voids 3 3 3 # Urine Diapers 1 Date of Last Bowel Movement 12/05/17 12/06/17 # Bowel Movements 1 1 0 # Emeses 2 Narrative: GENERAL: This is a well-developed well-nourished female patient INAD. Asleep lying in bed. Awakens easily to voice. Appears comfortable. SKIN: Warm and dry. No generalized rash. HEENT: Atraumatic. Normocephalic. EOMI. Sclera anicteric bilaterally. No nasal drainage noted. Airway patent. MMM. NECK: Supple, trachea midline. CARDIOVASCULAR: Regular rate and rhythm without murmurs, gallops, or rubs. S1, S2 RESPIRATORY: Nonlabored. No accessory muscle use. Breath sounds equal bilaterally. Clear to auscultation. GASTROINTESTINAL: Abdomen soft, non-tender, nondistended. +BS. MUSCULOSKELETAL: No cyanosis or edema. Left leg incision healing well, sutures have been removed. NEURO: Awake. Lethargic. Oriented x 3. Able to move all extremities spontaneously. No focal neurological deficits. Normal speech. PSYCHIATRIC: Calm and cooperative. Judgment and insight poor. - Urinary Catheter Management Indwelling Urethral Catheter Cath placed during this visit: yes, but has since been removed by the nurse Reason for continuing: Decision to DC catheter Insertion date: 11/02/17 Insertion time: 00:07 Removal date: 11/06/17 Removal time: 12:00 Results - Labs CBC & Chem 7: 12/06/17 05:29 12/06/17 05:29 - Procedures 11/17 Irrigation and debridement of left calf abscess with ortho Assessment and Plan - Assessment (1) MRSA bacteremia Code(s): R78.81 - Bacteremia Status: Acute (2) Sepsis Code(s): A41.9 - Sepsis, unspecified organism Status: Acute (3) Encephalopathy due to infection Code(s): G93.49 - Other encephalopathy; B99.9 - Unspecified infectious disease Status: Acute (4) History of intravenous drug abuse Code(s): Z87.898 - Personal history of other specified conditions Status: Acute (5) Hepatitis C antibody positive in blood Code(s): R76.8 - Other specified abnormal immunological findings in serum Status: Acute (6) Polysubstance abuse Code(s): F19.10 - Other psychoactive substance abuse, uncomplicated Status: Acute (7) Abscess of leg, left Code(s): L02.416 - Cutaneous abscess of left lower limb Status: Acute (8) Acute kidney injury Code(s): N17.9 - Acute kidney failure, unspecified Status: Acute (9) Endocarditis and heart valve disorders in diseases classified elsewhere Code(s): I39 - Endocarditis and heart valve disorders in diseases classified elsewhere Status: Acute - Plan 31 year old female with history of IVDU admitted 11/02 with infective endocarditic, MRSA bacteremia, and LLE abscess. 12/07 No change. Patient denies any complaints. No acute events per RN. She is afebrile. VSS. Infective endocarditis MRSA bacteremia Probable septic pulmonary emboli BCX 11/01 with MRSA in all 4 ID following -anticipate 6 weeks of IV antibiotics. Due to IV drug use patient is not a candidate for outpatient treatment. No PICC line per ID. Continue daptomycin until 12/20. Check CK levels weekly - next lab ordered for am Gentamicin discontinued secondary to MALGORZATA as well as subjective right-sided hearing loss, concern for possible ototoxicity Mitral and tricuspid valve infective endocarditis 2D echo 11/03 with EF 65-70% and no visualization of valvular lesions MARVIN 11/14 showing normal EF, 10 x 16 mm lesion of MV, 15 x 7 mm lesion of the tricuspid valve, and a 21 x 1 mm lesion in the RA - ID following - Counseled on cessation of IV drugs MALGORZATA, suspect secondary to gentamicin use Creatinine is stable. Nephrology following, appreciate assistance Avoid nephrotoxic agents Encouraged po fluids Continue to monitor kidney function intermittently Visual hallucinations, no recurrence Possible medication side effect Discussed with Dr. Pineda, appreciate his expertise CT head without any acute findings monitor for recurrence Back pain, resolved No evidence of abscess on imaging Patient weaned off all narcotics, methadone and benzodiazepines Left Lower Extremity Abscess Status post I&D 11-17, wound culture shows no growth in 72 hours Orthopedic Surgeon following. Daily dressing changes per Ortho instructions. drain discontinued. Sutures removed 12/04 Borderline personality disorder Anxiety Abilify Hepatitis C IVDU Standard precautions Advised on IV drug use cessation Planning on moving with sister [place] on [place] and will be going to [place] Patient will need to follow-up with GI as outpatient Constipation, resolved Continue on Pericolace scheduled BID monitor for BM DVT prophylaxis Lovenox Code Status: FULL Discharge Planning: Not ready for discharge. Patient will need long-term IV antibiotics per ID and not able to have PICC line placed secondary to IV drug use. Per ID, IV Daptomycin until 12/20.
[2017-12-07] MEDS: ARIPiprazole 5 MG Tablet PO SCH (09:33)
[2017-12-07] MEDS: DAPTOmycin Inj 800 MG in Sodium Chlor 0.9% Inj 100 ML IV.SIG SCH (13:51)
[2017-12-08] MEDS: Senna/Docusate Sodium 8.6/50 MG Tablet PO SCH ×2 (00:21→09:33)
[2017-12-08] MEDS: Enoxaparin Inj 40 MG/0.4 ML Syringe SQ SCH (01:56)
--- NOTE | 2017-12-08 07:39 | P.PN ---
Subjective Interval history: Patient encountered lying awake in her bed. Appears to have better disposition this morning is much more cheerful. She tells me that she has to be discharged tomorrow because she has been set up with a "therapy clinic" in [place]. She denies any medical complaints. Discussed with RN, no acute issues noted. Physical Exam Vital signs: Vital Signs 12/07/17 08:00 12/07/17 12:00 12/07/17 16:00 Temperature 98 F 97.9 F 97.9 F Pulse Rate 80 61 70 Respiratory Rate 18 Blood Pressure 124/89 121/71 132/78 Pulse Oximetry 96 96 98 12/07/17 20:00 12/08/17 00:00 12/08/17 04:00 Temperature 98.6 F 98.5 F 98.7 F Pulse Rate 71 64 68 Respiratory Rate 18 Blood Pressure 148/87 H 128/81 127/80 Pulse Oximetry 100 99 98 Intake & Output 12/07/17 12/08/17 12/08/17 18:59 06:59 18:59 Intake Total 700 / 700 Balance 700 / 700 Weight 78.1 kg Intake: IV 100 / 100 Cubicin Inj 800 MG In NS Inj 100 / 100 100 ML @ 200 mls/hr IV.SIG Q24H JUNIOR Rx#:[id number] Oral 600 / 600 Other: # Voids 3 Date of Last Bowel Movement 12/06/17 12/06/17 Narrative: GENERAL: This is a well-developed well-nourished female patient INAD. Lying in bed awake. Much more alert. Cheerful. SKIN: Warm and dry. No generalized rash. HEENT: Atraumatic. Normocephalic. EOMI. Sclera anicteric bilaterally. No nasal drainage noted. Airway patent. MMM. NECK: Supple, trachea midline. CARDIOVASCULAR: Regular rate and rhythm +2/6 systolic murmur at LSB. RESPIRATORY: Nonlabored. No accessory muscle use. Breath sounds equal bilaterally. Clear to auscultation. GASTROINTESTINAL: Abdomen soft, non-tender, nondistended. +BS. MUSCULOSKELETAL: No cyanosis or edema. Left leg incision healing well, sutures have been removed. NEURO: Awake and alert. Oriented x 3. Able to move all extremities spontaneously. No focal neurological deficits. Normal speech. PSYCHIATRIC: Calm and cooperative. Judgment and insight poor. - Urinary Catheter Management Indwelling Urethral Catheter Cath placed during this visit: yes, but has since been removed by the nurse Reason for continuing: Decision to DC catheter Insertion date: 11/02/17 Insertion time: 00:07 Removal date: 11/06/17 Removal time: 12:00 Results - Labs CBC & Chem 7: 12/06/17 05:29 12/06/17 05:29 Microbiology 11/02/17 01:30 Cerebral Spinal Fluid - Lumbar Puncture Acid Fast Bacilli Smear - Final No acid fast bacilli seen 11/02/17 01:30 Cerebral Spinal Fluid - Lumbar Puncture Mycobacterial Culture - Preliminary No growth in 5 weeks - Procedures 11/17 Irrigation and debridement of left calf abscess with ortho Assessment and Plan - Assessment (1) MRSA bacteremia Code(s): R78.81 - Bacteremia Status: Acute (2) Sepsis Code(s): A41.9 - Sepsis, unspecified organism Status: Acute (3) Encephalopathy due to infection Code(s): G93.49 - Other encephalopathy; B99.9 - Unspecified infectious disease Status: Acute (4) History of intravenous drug abuse Code(s): Z87.898 - Personal history of other specified conditions Status: Acute (5) Hepatitis C antibody positive in blood Code(s): R76.8 - Other specified abnormal immunological findings in serum Status: Acute (6) Polysubstance abuse Code(s): F19.10 - Other psychoactive substance abuse, uncomplicated Status: Acute (7) Abscess of leg, left Code(s): L02.416 - Cutaneous abscess of left lower limb Status: Acute (8) Acute kidney injury Code(s): N17.9 - Acute kidney failure, unspecified Status: Acute (9) Endocarditis and heart valve disorders in diseases classified elsewhere Code(s): I39 - Endocarditis and heart valve disorders in diseases classified elsewhere Status: Acute - Plan 31 year old female with history of IVDU admitted 11/02 with infective endocarditic, MRSA bacteremia, and LLE abscess. 12/08 patient informs me today that she has been scheduled at clinic in [place] and is to begin treatment on Monday. She states she must be discharged by tomorrow. She denies any acute medical complaints. She is afebrile. Vital signs are stable. Discussed with nursing staff, no acute events noted. Will discuss further with CM. Infective endocarditis MRSA bacteremia Probable septic pulmonary emboli BCX 11/01 with MRSA in all 4 ID following -anticipate 6 weeks of IV antibiotics. Due to IV drug use patient is not a candidate for outpatient treatment. No PICC line per ID. Continue daptomycin until 12/20. 12/08 CK 52. Check CK levels weekly - next lab on 12/15 Gentamicin discontinued secondary to MALGORZATA as well as subjective right-sided hearing loss, concern for possible ototoxicity Mitral and tricuspid valve infective endocarditis 2D echo 11/03 with EF 65-70% and no visualization of valvular lesions MARVIN 11/14 showing normal EF, 10 x 16 mm lesion of MV, 15 x 7 mm lesion of the tricuspid valve, and a 21 x 1 mm lesion in the RA - ID following - Counseled on cessation of IV drugs MALGORZATA, suspect secondary to gentamicin use Creatinine is stable. Nephrology following, appreciate assistance Avoid nephrotoxic agents Encouraged po fluids Continue to monitor kidney function intermittently Visual hallucinations, no recurrence Possible medication side effect Discussed with Dr. Pineda, appreciate his expertise CT head without any acute findings monitor for recurrence Back pain, resolved No evidence of abscess on imaging Patient weaned off all narcotics, methadone and benzodiazepines Left Lower Extremity Abscess Status post I&D 11-17, wound culture shows no growth in 72 hours Orthopedic Surgeon following. Daily dressing changes per Ortho instructions. drain discontinued. Sutures removed 12/04 Borderline personality disorder Anxiety Abilify Hepatitis C IVDU Standard precautions Advised on IV drug use cessation Planning on moving [place] on [place] and [place] be going to [place] Patient will need to follow-up with GI as outpatient Constipation, resolved Continue on Pericolace scheduled BID monitor for BM DVT prophylaxis Lovenox Code Status: FULL Discussed Condition With: patient, CM, RN, Dr. Tim Discharge Planning: Not ready for discharge. Patient will need long-term IV antibiotics per ID and not able to have PICC line placed secondary to IV drug use. Per ID, IV Daptomycin until 12/20.
[2017-12-08] MEDS: ARIPiprazole 5 MG Tablet PO SCH (09:33)
--- NOTE | 2017-12-08 15:44 | P.PNNP ---
Subjective Interval history: Patient denies nausea, vomiting, diarrhea, fever, chills chest pain and dyspnea- -Patient wishing to be discharged as soon as possible --- Patient relates of having adequate urine output HPI: PAST MEDICAL HISTORY:Patient is a 31-year-old female admitted secondary to fevers with history of IV drug abuse. MRSA bacteremia present. MARVIN showed infective endocarditis. Nephrology is consulted for acute kidney injury with a creatinine of 1.10 with a admission creatinine on 11/06 0.42. Potassium level is normal. Has some lower extremity edema. Renal ultrasound is pending. Acute kidney injury most likely related to urinary tract infection. Urine sodium and creatinine are pending. Torsemide is on hold. PAST SURGICAL HISTORY: SOCIAL HISTORY: History of smoking, alcohol use more than 4 times a week FAMILY HISTORY: As per chart ALLERGY HISTORY: As per chart MEDS: As per chart TEST RESULTS: CARDIOPULMONARY: RADIOLOGIC: LABORATORY: Stable CBC and BMP a few days ago 8: 15 :2018: Creatinine down to 1.35 otherwise normal BMP hemoglobin is up to 11.5 HEALTH MAINTENANCE-: PROCEDURES: REVIEW OF SYSTEMS: GENERAL: POSITIVE for fatigue. Eyes: Negative for eye pain. ENT: Negative for earache RESP: Negative for cough. CV: negative for chest pain. GI: Negative for abdominal pain. -FEMALE:Negative for hematuria Musculoskeletal: Negative for joint pain BACK: No Pain SKIN: Negative for rash. NEURO: Negative for seizures. PSYCHE: POSITIVE depression. And anxiety eager to go home very soon Lymph: No Lymph node enlargement Physical Exam Vital signs: Vital Signs 12/07/17 16:00 12/07/17 20:00 12/08/17 00:00 Temperature 97.9 F 98.6 F 98.5 F Pulse Rate 70 71 64 Respiratory Rate 18 18 18 Blood Pressure 132/78 148/87 H 128/81 Pulse Oximetry 98 100 99 12/08/17 04:00 12/08/17 08:00 12/08/17 12:00 Temperature 98.7 F 98.5 F 98.6 F Pulse Rate 68 63 67 Respiratory Rate 18 18 20 Blood Pressure 127/80 134/89 130/84 Pulse Oximetry 98 98 98 Intake & Output 12/07/17 12/08/17 12/08/17 18:59 06:59 18:59 Intake Total 700 / 700 Balance 700 / 700 Weight 78.1 kg Intake: IV 100 / 100 Cubicin Inj 800 MG In NS Inj 100 / 100 100 ML @ 200 mls/hr IV.SIG Q24H JUNIOR Rx#:[id number] Oral 600 / 600 Other: # Voids 3 Date of Last Bowel Movement 12/06/17 12/06/17 GENERAL APPEARANCE: in no acute distress. HEENT:: normocephalic, atraumatic NECK :no cervical lymphadenopathy. ORAL CAVITY: mucosa moist. CHEST:normal SKIN: no suspicious lesions. HEART: Systolic ejection murmur grade 1/6 at the base. LUNGS: clear to auscultation bilaterally. BREASTS: not examined. ABDOMEN: soft, nontender. BACK: No paraspinal muscle spasm. FEMALE GENITOURINARY: not examined. MUSCULOSKELETAL: normal. EXTREMITIES: Absent edema FOOT EXAM : PERIPHERAL PULSES: normal. NEUROLOGIC: nonfocal. PSYCH: normal. - Urinary Catheter Management Indwelling Urethral Catheter Cath placed during this visit: yes, but has since been removed by the nurse Reason for continuing: Decision to DC catheter Insertion date: 11/02/17 Insertion time: 00:07 Removal date: 11/06/17 Removal time: 12:00 Assessment and Plan - Assessment (1) Acute kidney injury Code(s): N17.9 - Acute kidney failure, unspecified Status: Acute - Plan ) Acute kidney injury Code(s): N17.9 - Acute kidney failure, unspecified Status: Acute Plan: #: N17.9 : Acute kidney injury- --- Improved with continued improvement DISCUSSION: Exact etiology is under investigation? Possible ATN from aminoglycosides, in combination with diuretics, now nonoliguric PLAN/RECOMMENDATIONS: --Avoid renal insults such as nonsteroidal anti-inflammatory drugs or other nephrotoxins, intravenous contrast, gadolinium --Avoid hypovolemia, hypotension --Serial laboratory studies after initial studies such as renal failure index --Monitor intake and output - Plan #: OTHER PROBLEMS: [Endocarditis receiving intravenous antibiotics], anemia-- improved, history of smoking PLAN: Defer to hospitalist/primary care team
[2017-12-08] MEDS: DAPTOmycin Inj 800 MG in Sodium Chlor 0.9% Inj 100 ML IV.SIG SCH (16:05)
[2017-12-09] MEDS: Senna/Docusate Sodium 8.6/50 MG Tablet PO SCH ×2 (03:33→09:34)
[2017-12-09] MEDS: Enoxaparin Inj 40 MG/0.4 ML Syringe SQ SCH (03:34)
--- NOTE | 2017-12-09 07:36 | P.PN ---
Physical Exam Vital signs: Vital Signs 12/08/17 08:00 12/08/17 12:00 12/08/17 16:00 Temperature 98.5 F 98.6 F 98.5 F Pulse Rate 63 67 65 Respiratory Rate 18 20 20 Blood Pressure 134/89 130/84 131/86 Pulse Oximetry 98 98 99 12/08/17 20:00 12/09/17 00:00 12/09/17 04:00 Temperature 97.9 F 98.4 F 98.6 F Pulse Rate 84 69 62 Respiratory Rate 16 18 18 Blood Pressure 143/94 H 127/80 122/83 Pulse Oximetry 99 98 100 Intake & Output 12/08/17 12/09/17 12/09/17 18:59 06:59 18:59 Intake Total 100 / 100 Balance 100 / 100 Weight 78.1 kg Intake: IV 100 / 100 Cubicin Inj 800 MG In NS Inj 100 / 100 100 ML @ 200 mls/hr IV.SIG Q24H JUNIOR Rx#:[id number] Other: # Voids 3 3 Date of Last Bowel Movement 12/06/17 12/06/17 - Urinary Catheter Management Indwelling Urethral Catheter Cath placed during this visit: yes, but has since been removed by the nurse Reason for continuing: Decision to DC catheter Insertion date: 11/02/17 Insertion time: 00:07 Removal date: 11/06/17 Removal time: 12:00 Results - Labs CBC & Chem 7: 12/06/17 05:29 12/06/17 05:29 Laboratory Results - last 24 hr 12/08/17 07:00 Total Creatine Kinase 52 Microbiology 11/17/17 09:05 Fluid - Other Fungal Smear - Final No fungal elements seen 11/17/17 09:05 Fluid - Other Fungal Culture - Preliminary No growth in 3 weeks 11/17/17 09:05 Fluid - Other Acid Fast Bacilli Smear - Final No acid fast bacilli seen 11/17/17 09:05 Fluid - Other Mycobacterial Culture - Preliminary No growth in 3 weeks - Procedures 11/17 Irrigation and debridement of left calf abscess with ortho Assessment and Plan - Assessment (1) MRSA bacteremia Code(s): R78.81 - Bacteremia Status: Acute (2) Sepsis Code(s): A41.9 - Sepsis, unspecified organism Status: Acute (3) Encephalopathy due to infection Code(s): G93.49 - Other encephalopathy; B99.9 - Unspecified infectious disease Status: Acute (4) History of intravenous drug abuse Code(s): Z87.898 - Personal history of other specified conditions Status: Acute (5) Hepatitis C antibody positive in blood Code(s): R76.8 - Other specified abnormal immunological findings in serum Status: Acute (6) Polysubstance abuse Code(s): F19.10 - Other psychoactive substance abuse, uncomplicated Status: Acute (7) Abscess of leg, left Code(s): L02.416 - Cutaneous abscess of left lower limb Status: Acute (8) Acute kidney injury Code(s): N17.9 - Acute kidney failure, unspecified Status: Acute (9) Endocarditis and heart valve disorders in diseases classified elsewhere Code(s): I39 - Endocarditis and heart valve disorders in diseases classified elsewhere Status: Acute - Plan 31 year old female with history of IVDU admitted 11/02 with infective endocarditic, MRSA bacteremia, and LLE abscess. 12/08 patient informs me today that she has been scheduled at clinic in [place] and is to begin treatment on Monday. She states she must be discharged by tomorrow. She denies any acute medical complaints. She is afebrile. Vital signs are stable. Discussed with nursing staff, no acute events noted. Will discuss further with CM. Infective endocarditis MRSA bacteremia Probable septic pulmonary emboli BCX 11/01 with MRSA in all 4 ID following -anticipate 6 weeks of IV antibiotics. Due to IV drug use patient is not a candidate for outpatient treatment. No PICC line per ID. Continue daptomycin until 12/20. 12/08 CK 52. Check CK levels weekly - next lab on 12/15 Gentamicin discontinued secondary to MALGORZATA as well as subjective right-sided hearing loss, concern for possible ototoxicity Mitral and tricuspid valve infective endocarditis 2D echo 11/03 with EF 65-70% and no visualization of valvular lesions MARVIN 11/14 showing normal EF, 10 x 16 mm lesion of MV, 15 x 7 mm lesion of the tricuspid valve, and a 21 x 1 mm lesion in the RA - ID following - Counseled on cessation of IV drugs MALGORZATA, suspect secondary to gentamicin use Creatinine is stable. Nephrology following, appreciate assistance Avoid nephrotoxic agents Encouraged po fluids Continue to monitor kidney function intermittently Visual hallucinations, no recurrence Possible medication side effect Discussed with Dr. Pineda, appreciate his expertise CT head without any acute findings monitor for recurrence Back pain, resolved No evidence of abscess on imaging Patient weaned off all narcotics, methadone and benzodiazepines Left Lower Extremity Abscess Status post I&D 11-17, wound culture shows no growth in 72 hours Orthopedic Surgeon following. Daily dressing changes per Ortho instructions. drain discontinued. Sutures removed 12/04 Borderline personality disorder Anxiety Abilify Hepatitis C IVDU Standard precautions Advised on IV drug use cessation Planning on moving with sister in [place] on discharge and will be going to Patient will need to follow-up with GI as outpatient Constipation, resolved Continue on Pericolace scheduled BID monitor for BM DVT prophylaxis Lovenox Discharge Planning: Not ready for discharge. Patient will need long-term IV antibiotics per ID and not able to have PICC line placed secondary to IV drug use. Per ID, IV Daptomycin until 12/20.
[2017-12-09] MEDS: ARIPiprazole 5 MG Tablet PO SCH (09:33)
[2017-12-09 09:57] VITALS: BP 133/89; PULSE 75; RESP 20; TEMP 97.8; O2SAT 99
--- NOTE | 2017-12-09 15:29 | P.AMA ---
AMA Note - AMA Note AMA Statement: Patient Salud Jade has decided to leave the hospital against medical advice. This patient has the capacity to refuse care and understands the risks of leaving, including permanent disability and/or , and has had an opportunity to ask questions about his/her condition. The patient has been informed that he/she may return for care at any time, and follow up has been arranged/advised. - AMA Note Discharge Disposition: Left Against Medical Advice
--- NOTE | 2017-12-28 17:39 | P.DS ---
Date of admission: 11/02/17 01:36 Primary care physician: Stephanie Primary Care Physician Attending physician on discharge: Piedad Tim Anticipated date of discharge: 01/09/18 (Patient left AMA) Brief History from admission: 31yF with history of IVDA presents with altered mental status and fever. too lethargic to answer any additional questions. febrile to 103F. CBC with leukocytosis and bandemia. UDS + amphetamines and opiates. lactate elevated. Cr elevated. CT chest with multiple pulmonary nodules with concern for infection and possible septic emboli. ROS unobtainable due to mental status. Patient update on day of discharge: Patient without any acute medical complaints. Discussed with nursing staff, no acute events overnight. Patient adamant about leaving AMA today despite multiple discussions with patient regarding the risk associated with not completing the full course of her treatment including irreversible damage to her brain and other organs, loss of limb, blindness and the possibility of . Patient stated repetitively she understood the risk to her health and refused to stay any longer in the hospital. DS: Diagnosis - Discharge Diagnosis (1) Abscess of leg, left Status: Acute (2) Acute kidney injury Status: Acute (3) Cellulitis Status: Acute (4) Encephalopathy due to infection Status: Acute (5) Endocarditis and heart valve disorders in diseases classified elsewhere Status: Acute (6) Hepatitis C antibody positive in blood Status: Acute (7) History of intravenous drug abuse Status: Acute (8) MRSA bacteremia Status: Acute (9) Meningitis Status: Acute (10) Polysubstance abuse Status: Acute (11) Sepsis Status: Acute DS: Summary Hospital Course: Infective endocarditis MRSA bacteremia Probable septic pulmonary emboli BCX 11/01 with MRSA in all 4 Followed by ID -anticipate 6 weeks of IV antibiotics. Due to IV drug use patient is not a candidate for outpatient treatment. No PICC line per ID. Continue daptomycin until 12/20. 12/08 CK 52. Check CK levels weekly - next lab on 12/15 Gentamicin discontinued secondary to MALGORZATA as well as subjective right-sided hearing loss, concern for possible ototoxicity Mitral and tricuspid valve infective endocarditis 2D echo 11/03 with EF 65-70% and no visualization of valvular lesions MARVIN 11/14 showing normal EF, 10 x 16 mm lesion of MV, 15 x 7 mm lesion of the tricuspid valve, and a 21 x 1 mm lesion in the RA - ID following - Counseled on cessation of IV drugs MALGORZATA, suspect secondary to gentamicin use Creatinine is stable. Nephrology following, appreciate assistance Avoid nephrotoxic agents Encouraged po fluids Continue to monitor kidney function intermittently Visual hallucinations, no recurrence Possible medication side effect Discussed with Dr. Pineda, appreciate his expertise CT head without any acute findings monitor for recurrence Back pain, resolved No evidence of abscess on imaging Patient weaned off all narcotics, methadone and benzodiazepines Left Lower Extremity Abscess Status post I&D 11-17, wound culture shows no growth in 72 hours Orthopedic Surgeon following. Daily dressing changes per Ortho instructions. drain discontinued. Sutures removed 12/04 Borderline personality disorder Anxiety Abilify Hepatitis C IVDU Standard precautions Advised on IV drug use cessation Planning on moving with sister in [place] on discharge and will be going to Patient will need to follow-up with GI as outpatient Patient left 12/09/17 against medical advice - Time Spent with Patient Total time spent providing and/or coordinating discharge services: Greater than 30 minutes - Quality: VTE Deep Vein Thrombosis/Pulmonary Embolism Present on Admission: No Exam Narrative: GENERAL: This is a well-developed well-nourished female patient INAD. Sitting up in bed. Awake and alert. SKIN: Warm and dry. No generalized rash. HEENT: Atraumatic. Normocephalic. EOMI. Sclera anicteric bilaterally. No nasal drainage noted. Airway patent. MMM. NECK: Supple, trachea midline. CARDIOVASCULAR: Regular rate and rhythm +2/6 systolic murmur at LSB. RESPIRATORY: Nonlabored. No accessory muscle use. Breath sounds equal bilaterally. Clear to auscultation. GASTROINTESTINAL: Abdomen soft, non-tender, nondistended. +BS. MUSCULOSKELETAL: No cyanosis or edema. Left leg incision healing well, sutures have been removed. NEURO: Awake and alert. Oriented x 3. Able to move all extremities spontaneously. No focal neurological deficits. Normal speech. PSYCHIATRIC: Calm. Judgment and insight poor. Results Procedures completed during hospitalization: (1) Abscess of leg, left Date of procedure: 11/17/17 Procedure: Irrigation and debridement of left calf abscess Anesthesia: GETA Surgeon: Anand Mosqueda MD Engineering Faculty: MUMTAZ Abdi PA-C The surgical procedure was assisted by my physician volunteer assistant. My P.A. presence was necessary throughout this case for the manipulation and positioning of the surgical extremity. My P.A. was assisting me throughout the duration of this procedure. The skill set of a physician volunteer assistant was medically necessary to complete this procedure. During the surgical case the control systems technician was working at the back table and the physician volunteer assistant was directly assisting me. Operation and Findings: Salud is a 31-year-old female with history of IV drug use. She has developed left calf pain and swelling. MRI revealed an abscess of the left calf. Informed consent was obtained preoperatively and operative site was marked. She was brought to the operating room. She was initially given spinal anesthesia. Spinal anesthesia was not providing adequate anesthesia for surgery. Subsequently she is given IV sedation and general anesthesia. Left leg was prepped with alcohol followed Hibiclens and draped in usual sterile fashion. Timeout procedure was performed. Patient is already on scheduled IV antibiotics. Procedure began with a 2 inch incision over the posterior medial calf. Subcu tissue was dissected with Bovie. The abscess was identified. Approximately 50 cc of purulent fluid was evacuated from the abscess. This fluid was sent for cultures. An excisional debridement was now performed with rongeurs and curettes. Subcutaneous tissue and fascia were sharply excised. Loculations were manually debrided. After thorough debridement, the soft tissue was thoroughly irrigated with pulsatile lavage. A drain was placed into the abscess region. Subcutaneous tissue was closed with 3-0 PDS and skin was closed with 3-0 nylon. Sterile dressings were applied. Patient was awakened and transferred to recovery room in stable condition. Documented By: Anand Mosqueda MD 11/17/17 0933 Signed By: <Electronically signed by Anand Mosqueda MD> 11/17/17 0936 Labs on day of discharge: Preliminary micro results at discharge 11/17/17 09:05 Mycobacterial Culture - Preliminary Fluid - Other No growth in 5 weeks - Impressions ITS Impressions Head MRI 11/02/17 00:00 CONCLUSION: 1. No definite acute abnormality is seen. Edema to suggest encephalitis is not seen. 2. There are a few punctate areas of increased signal within the cerebral white matter representing small foci of demyelination. Underlying demyelinating conditions can be considered. Liver Ultrasound 11/02/17 00:00 CONCLUSION: Generalized hepatosplenomegaly without focal mass Sludge within the gallbladder Chest CT 11/02/17 00:01 CONCLUSION: 1. Diffuse patchy groundglass opacities with nodular regions primarily in the left upper and lower lobes and single potentially cavitary nodule near the left lung apex. Overall, findings are concerning for atypical infection or developing septic pulmonary emboli in the appropriate clinical setting. 2. Subtle anterior pericardial effusion. 3. Subcentimeter bilateral axillary adenopathy, likely infectious/inflammatory. Chest X-Ray 11/04/17 05:00 CONCLUSION: Developing bilateral infiltrates. Abdomen/Pelvis CT 11/06/17 00:00 CONCLUSION: 1. Mild anasarca. 2. Slight splenomegaly with focal lesion towards the anterior portion of the spleen not present on the prior examination could be infarction, however splenic abscess is not excluded. 3. Slight peritoneal fluid nonspecific. Cervical Spine MRI 11/06/17 00:00 CONCLUSION: Slight nondescript serpiginous edema in the upper back, otherwise unremarkable. Lumbar Spine MRI 11/06/17 00:00 CONCLUSION: Slight nondescript subcutaneous edema in the patient's back, otherwise unremarkable without abscess formation. Thoracic Spine MRI 11/06/17 00:00 CONCLUSION: Essentially unremarkable study except for slight nondescript separate density on the patient's back. Venous Doppler Study 11/15/17 00:00 CONCLUSION: 1. Negative exam with no evidence of deep venous thrombosis. 2. Moderate size Carson's cyst in the left popliteal fossa region. Lower Extremity MRI 11/16/17 00:00 CONCLUSION: 1. Oval complex fluid collection most characteristic of an abscess. There is surrounding edema. Abdomen/Bladder Ultrasound 11/22/17 00:00 CONCLUSION: 1. Negative renal sonogram. Head CT 11/22/17 16:33 CONCLUSION: 1. Negative CT Head non contrast. . Discharge Plan - Discharge Disposition Patient Disposition: Left Against Medical Advice - Discharge Order Discharge Orders: AMA Discharge (Routine); Ordered 12/09/17 Ordered By: Piedad Tim - Physicians Team Primary Care Provider: Primary Care Valei,Stephanie Attending Provider: Piedad Tim Other Providers: Tony Hernandez MD ; Aidan Perdomo MD ; Scott Escobar MD ; Anand Mosuqeda MD ; Miroslava Clark MD ; Sarah Yousif MD
== END 2017-12-09 10:59 | disposition left against medical advice (07) ==
LOC: NEPE 22:10 → NEDA 11-02 01:36 → HIMC 11-02 02:30 → N05 11-06 10:44
PROVIDERS: ADMIT Family Medicine; ATTEND Family Medicine
PROC: PANENDO (2017-11-08 13:00)